=== PATIENT | female | born 1995 | race Caucasian/White ===

== ENCOUNTER 2024-05-08 13:18 | Outpatient (AMB) | payer OTHER, SELFPAY ==
--- NOTE | 2024-05-08 13:19 | MHC.PC.OV ---
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 Required: No Is last menstrual period known: Yes Last menstrual period: 04/17/24 Post menopausal: No Patient : No Allergies amoxicillin Allergy (Severe, Verified 05/08/24 13:45) Anaphylaxis Penicillins Allergy (Severe, Verified 05/08/24 13:45) Anaphylaxis Medication List - Last Reconciled 05/08/24 by Elisha Saunders CNP fluoxetine (Prozac) 40 mg PO DAILY norethindrone ac-eth estradiol 1-20 mg-mcg (Junel) 1 tab PO DAILY Tobacco use date assessed: 05/08/24 Dental Screening Dental Screen Date: 05/08/24 Did you have a dental visit in the last 12 months?: Yes Did you have a dental problem in the last 6 months where you did not have access to dental care?: No Was dental information given to patient?: Patient has dentist HPI HPI Comments History of Present Illness Details 29-year-old female presents to [facility] care. She moved to the area in August 2023. Prior PCP? - [facility], Dr. Mireles Last office visit/CPE/labs - Over a year ago Acute issue(s) - Reports excessive sweating and feeling hot for the past 6-8 months. No palpitations. No weight loss. - Notes burning epigastric pain and associated nausea twice weekly. She takes tums with some relief. - Reports nonbloody diarrhea 4-5 times daily for the past few days. She experiences diarrhea monthly for 2-3 days. She notes that she was diagnosed with IBS by her former PCP. She has never been evaluated by Gastroenterology. - Anxiety and depressive symptoms are generally well controlled on current treatment regimen. Medication - Medication list reviewed Past Medical History - Childhood asthma, acid reflux, hyperlipidemia, IBS, anxiety, depression Surgical History - None Family History - Dad: HTN, depression, anger issues - Mom: Anxiety, depression - MGM: Alcohol abuse, cardiovascular disease, substance abuse, depression - PGF: HTN, hyperlipidemia Social History - Nonsmoker. Does not vape. Drinks 3-5 beer, wine, or mixed drinks on Fridays and Saturdays. Smokes a few hits of cannabis few times weekly. - She general makes healthy dietary choices; however, she has gained 100 lb in the past 2 years. She walks at least twice weekly. Generally sleep well. Health maintenance - Last eye exam was in August 2023: normal. Refer to ophthalmology for routine eye care. - Last dental visit was in January 2024. - Last tetanus vaccine was possibly in August 2023. She will review her health record and update as need. - Up-to-date on the flu vaccine. - Last pap smear test was in December 2022 at [facility]: jannette Patrick - [facility] [place]. [facility] Medical History (Updated 05/08/24 @ 14:26 by Elisha Saunders CNP) Depression Anxiety Acid reflux IBS (irritable bowel syndrome) High cholesterol Asthma Family History (Updated 05/08/24 @ 13:40 by Kiah Housotn) Maternal Grandmother Alcohol abuse Substance abuse FH: mental illness Cardiovascular disease Maternal Uncle Substance abuse FH: mental illness Mother FH: mental illness Father FH: mental illness High blood pressure Paternal Grandfather High blood pressure High cholesterol Social History (Updated 05/08/24 @ 13:39 by Kiah Houston) Housing: House Patient Tobacco Use Status: Never used Tobacco e-Cigarette/Vaping Use: Never Used Second Hand Smoke Exposure: Yes Substance Use Type: Marijuana service: No Current occupational status: employed 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 1. Little interest or pleasure in doing things: several days 2. Feeling down, depressed, or hopeless: several days 3. Trouble falling or staying asleep, or sleeping too much: more than half the days 4. Feeling tired or having little energy: more than half the days 5. Poor appetite or overeating: several days 6. Feeling bad about yourself - or that you are a failure or have let yourself or your family down: several days 7. Trouble concentrating on things, such as reading the newspaper or watching television: several days 8. Moving or speaking so slowly that other people could have noticed. Or the opposite - being so fidgety or restless that you have been moving around a lot more than usual: more than half the days 9. Thoughts that you would be better off or of hurting yourself in some way: not at all Total score: 11 Depression Screening Interpretation: Positive Depression Screening Follow-up: Existing condition Depression Screening Done: Yes 37664 - PHQ-9 Billing: Yes Source: Developed by Drs. Андрей Lawrence, Ny Alcocer, Eliseo Cook and colleagues, with an educational tolu from [employer]. Thrive Questionnaire Date Thrive assessed: 05/08/24 I am a: Patient What is your living situation today?: I have a steady place to live Within the past 12 months, did the food you bought not last and you didn't have the money to get more?: Never true Within the past 12 months, did you worry whether your food would run out before you got money to buy more?: Never true Do you have trouble paying for medicines?: No Do you have trouble getting transportation to medical appointments?: No Do you have trouble paying your heating and electricity bill?: No Do you have trouble taking care of your child, family member or friend?: No Do you have trouble with day-to-day activities such as bathing, preparing meals, shopping, managing finances, etc.?: No Are you currently unemployed and looking for a job?: No Are you interested in more education?: No Please select the resources that you would like help with: None Currently or been in a relationship where the following occur: No concerns reported THRIVE Score: 0 AUDIT C Alcohol Use Questionnaire (AUDIT-C) 1. How often do you have a drink containing alcohol?: 2-3 times a week 2. How many drinks containing alcohol do you have on a typical day when you are drinking?: 5 or 6 3. How often do you have six or more drinks on one occasion?: Monthly Total Score: 7 Score Reviewed/Action Taken: Yes GIAN-7 AMB Questionnaire GIAN-7 Date GIAN - 7 assessed: 05/08/24 Feeling nervous, anxious, or on edge: 2 = More than half the days Not being able to stop or control worryin = Several days Worrying too much about different things: 1 = Several days Trouble relaxin = Several days Being so restless that it is hard to sit still: 2 = More than half the days Becoming easily annoyed or irritable: 1 = Several days Feeling afraid as if something awful might happen: 0 = Not at all Total GIAN-7 score (0-4 normal; 5-9 mild; 10-14 moderate; 15-21 severe): 8 Source: Developed by Drs. Андрей Lawrence, Ny Alcocer, Eliseo Cook and colleagues, with an educational tolu from [employer]. GIAN-7 Assessment Billing GIAN-7 Assessment Tool: GIAN-7 Assessment 10123 ACT Questionnaire In the past 4 weeks, how much of the time did your asthma keep you from getting as much done at work, school or at home?: None of the time During the past 4 weeks, how often have you had shortness of breath?: 1-2 times a week During the past 4 weeks, how often did your asthma symptoms wake you up at night or earlier than usual in the morning?: Not at all During the past 4 weeks, how often have you had to use your rescue inhaler or nebulizer medication?: 1-2 times a week How would you rate your asthma control during the past 4 weeks?: Somewhat controlled ACT Interpretation: Positive Score: 19 Review of Systems Const Details: Denies chills, Denies fatigue, Denies fever(s), Denies headache(s) and Denies weakness HEENT Denies change in vision, Denies dizziness, Denies headache(s), Denies hearing loss, Denies nasal congestion, Denies sinus pain, Denies sinus pressure and Denies sore throat Card Denies chest pain, Denies lightheadedness, Denies dyspnea and Denies other (palpitations) Resp Denies cough, Denies dyspnea and Denies wheezing GI Reports as per HPI Denies hematuria and Denies dysuria Musc Denies abnormal gait, Denies myalgias, Denies arthralgias, Denies numbness and Denies tingling Skin/Breast Denies rash, Denies unusual bruising and Denies wounds Neuro Denies abnormal gait, Denies dizziness, Denies headache(s), Denies memory loss, Denies numbness, Denies Sensory deficit (Neuro), Denies tingling and Denies weakness Psych Denies anxiety, Denies depression and Denies memory loss Endo Denies cold intolerance, Denies fatigue, Reports heat intolerance, Denies polydipsia and Denies polyuria Renny/Lymph Denies easy bleeding and Denies easy bruising Aller/Immun Denies wheezing Physical exam (Primary Care) Vital Signs: Last Vital Signs Temp 97.6 F 05/08/24 13:33 Pulse 93 05/08/24 13:33 Resp 16 05/08/24 13:33 BP 143/79 H 05/08/24 13:33 Pulse Ox 97 05/08/24 13:33 Oxygen Delivery Method Room Air 05/08/24 13:33 BMI result Body Mass Index 39.6 Tobacco/Smoking Status: Tobacco use Status Tobacco use date assessed 05/08/24 05/08/24 13:42 Patient Tobacco Use Status Never used Tobacco 05/08/24 13:42 e-Cigarette/Vaping Use Never Used 05/08/24 13:42 PHQ-9: PHQ-9 Score PHQ-9: Total score 11 05/08/24 13:23 Depression Screening Interpretation: Positive Depression Screening Follow-up: Existing condition Thrive Assessment: Date of Thrive Assessment Date Thrive assessed 05/08/24 05/08/24 13:23 Currently or been in a relationship where the following occur: No concerns reported Const Other: General: no acute distress, well developed, alert and awake Nutritional Appearance: well nourished Orientation/consciousness: patient oriented x3 HENMT Head: Yes normocephalic and Yes atraumatic Ears: hearing grossly normal bilaterally and TM's normal bilaterally General nose exam: Normal external nose present and Normal nares present Mouth: Normal oral and palatal mucosa present and moist mucous membranes Teeth and gingiva: dentition normal Throat: Yes oropharynx normal Eyes Pupils: Equal, round and reactive pupils present and Pupil accommodation reflex normal EOM: EOMs intact bilaterally Neck Neck: Yes normal visual inspection, Yes no lymphadenopathy and Yes trachea midline Thyroid: Thyroid normal Carotids: no bruits Lymphatic: no lymphadenopathy noted Chest Chest palpation & inspection: normal inspection of the chest Resp Effort & Inspection: normal respiratory effort Auscultation: clear to auscultation bilaterally Cardio Rate: regular rate Rhythm: regular rhythm Heart sounds: S1 normal heart sound present, S2 normal heart sound present, no gallops, no murmurs and no rubs Bruits: no abdominal aortic bruits and no carotid bruits GI Palpation (GI): No Abdominal aortic bruit present, Soft to palpation, nontender, No hepatosplenomegaly present and No Rebound tenderness present Auscultation: normal bowel sounds General: Yes no CVA tenderness Back/Spine/Pelvis Back: no CVA tenderness Cervical Spine: cervical ROM normal and No Cervical spine tenderness Thoracic/Lumbar Spine: thoraco-lumbar ROM normal, No pain with thoraco-lumbar ROM, No thoracic spinal tenderness and No lumbar spinal tenderness Skin General: warm and dry. Normal skin color. Normal skin turgor Lesions: no lesions Rashes: no rashes Trauma: no lacerations or abrasions Wounds: no wounds Nails: normal Neuro General: patient oriented x3, gait normal and CN's II-XI intact bilaterally Cranial nerves: Yes Equal, round and reactive pupils present Cognition (Neuro): normal cognition Gait exam (Neuro): Normal gait present Motor exam (neuro): 5/5 motor strength present throughout Sensory Exam: No Sensory deficit (Neuro) Deep tendon reflexes (DTR's): Right patellar reflex intensity grade: 2+ and Left patellar reflex intensity grade: 2+ Extrem General: Yes normal to inspection, No edema and No calf tenderness Psych Appearance: grossly normal Affect: normal affect Attitude: cooperative Thought process: Normal thought process present Coding Level of Care Code New Pt Level 4 (23814) New Pt Prev Care 18-39yr(50318 Diagnoses Normal physical examination, routine Z00.00 Acid reflux K21.9 Diarrhea R19.7 IBS (irritable bowel syndrome) K58.9 Heat intolerance R68.89 Anxiety F41.9 Depression F32.A Eye exam, routine Z01.00 Obesity (BMI 30.0-34.9) E66.811 Laboratory tests ordered as part of a complete physical exam (CPE) Z00.00 Additional Codes GIAN-7 Assessment Billing - GIAN-7 Assessment Tool: GIAN-7 Assessment 35460 ([id number]) PHQ-9 - 31533 - PHQ-9 Billing: Yes ([id number]) Asthma Control Questionnaire - ACT Interpretation: Positive ([id number]) Assessment & Plan Assessment & Plan (1) Normal physical examination, routine: Code(s): Z00.00 - Encounter for general adult medical examination without abnormal findings Category: Medical Plan: No significant functional limitations noted. Encouraged to cut down on drinking alcohol to no more than 1 drink daily and 5 drinks weekly. Verbalized understanding and agreed with the plan. (2) Acid reflux: Code(s): K21.9 - Gastro-esophageal reflux disease without esophagitis Category: Medical Plan: Burning epigastric pain and associated nausea twice weekly. Omeprazole as prescribed. Referred to [facility]. (3) Diarrhea: Code(s): R19.7 - Diarrhea, unspecified Category: Medical Plan: Notes multiple episodes of diarrhea for the past few days. She experiences similar episode was a month. Her former PCP diagnosed her with IBS. She has never been evaluated by Gastroenterology. Advised to take Metamucil was to twice daily as needed. Referred to [facility] [place]. Follow-up with worsening or new symptoms. Verbalized understanding and agreed with treatment plan. (4) IBS (irritable bowel syndrome): Code(s): K58.9 - Irritable bowel syndrome, unspecified Category: Medical Plan: Reports as per [facility]. (5) Heat intolerance: Code(s): R68.89 - Other general symptoms and signs Category: Medical Plan: Excessive sweating and f heat intolerance for the past 6-8 months. No palpitations. No weight loss. Will check labs, including thyroid function, and make changes as needed. Verbalized understanding and agreed with the plan. (6) Anxiety: Code(s): F41.9 - Anxiety disorder, unspecified Category: Medical Plan: Generally controlled. PHQ-9 and GIAN-7 scores revealed moderate depression and mild anxiety respectively. Continue current treatment regimen. Routine exercise encouraged. Follow-up with therapist as planned. Return in 6 weeks or sooner with symptoms or concerns. Verbalized understanding and agreed with treatment plan. (7) Depression: Code(s): F32.A - Depression, unspecified Category: Medical Plan: Plan as above. (8) Eye exam, routine: Code(s): Z01.00 - Encounter for examination of eyes and vision without abnormal findings Category: Medical Plan: She had a normal eye exam in 07/2023. She recently relocated to the area and needs a new cleaner window. Referred to Ophthalmology for routine eye exam. (9) Obesity (BMI 30.0-34.9): Code(s): E66.811 - Obesity, class 1 Category: Medical Plan: She currently weighs 238 lb, BMI is 39.6. She gained 100 lb in the past 2 years. She generally makes healthy dietary choices. She walks at least twice weekly. Healthy diet and routine exercise encouraged. Referred to [facility]. Follow-up as needed. Verbalized understanding and agreed with the plan. (10) Laboratory tests ordered as part of a complete physical exam (CPE): Code(s): Z00.00 - Encounter for general adult medical examination without abnormal findings Category: Medical Plan: Fasting labs ordered as part of a complete physical exam. Advised to fast for at least 10 hours before getting labs drawn. May drink water Verbalized understanding and agreed with treatment plan. Orders: Orders Complete Blood Count Auto Diff Today Z00.00 - Encounter for general adult medical examination without abnormal findings Comprehensive [place]. Panel Fast Today Z00.00 - Encounter for general adult medical examination without abnormal findings UA CC w/rflx Micro + Cult Today Z00.00 - Encounter for general adult medical examination without abnormal findings Lipid Panel Today Z00.00 - Encounter for general adult medical examination without abnormal findings TSH reflex Free T4 Today Z00.00 - Encounter for general adult medical examination without abnormal findings Referrals Gastroenterology Referral K21.9 - Gastro-esophageal reflux disease without esophagitis, K58.9 - Irritable bowel syndrome, unspecified, R19.7 - Diarrhea, unspecified Ophthalmology Referral Z01.00 - Encounter for examination of eyes and vision without abnormal findings Nutrition/Dietitian Referral E66.811 - Obesity, class 1 Medications: New omeprazole 20 mg PO DAILY 30 days 30 caps 3RF
[2024-05-08 13:33] VITALS: BP 143/79; PULSE 93; RESP 16; TEMP 36.4; O2SAT 97; BMI 39.6
[2024-05-08 13:51] VITALS: BP 118/90
== END 2024-05-08 14:15 | disposition home or self-care (01) ==
PROVIDERS: PCP Nurse Practitioner Family; Visit Provider Nurse Practitioner Family
DX: Z00.00 Encounter for general adult medical examination without abnormal findings (principal); K21.9 Gastro-esophageal reflux disease without esophagitis; R19.7 Diarrhea, unspecified; E66.811 Obesity, class 1; Z68.39 Body mass index [BMI] 39.0-39.9, adult; K58.9 Irritable bowel syndrome, unspecified; R68.89 Other general symptoms and signs; F41.9 Anxiety disorder, unspecified; F32.A Depression, unspecified

== ENCOUNTER → 2024-05-08 13:18 | Outpatient (BNVA) | payer OTHER, SELFPAY | PROVIDERS: PCP Nurse Practitioner Family; Visit Provider Nurse Practitioner Family | DX: Z00.00 Encounter for general adult medical examination without abnormal findings (principal); K21.9 Gastro-esophageal reflux disease without esophagitis; K58.0 Irritable bowel syndrome with diarrhea; R68.89 Other general symptoms and signs; F41.9 Anxiety disorder, unspecified; F32.A Depression, unspecified; E66.811 Obesity, class 1; Z68.39 Body mass index [BMI] 39.0-39.9, adult | CPT/HCPCS: 96127; 96160 ==

== ENCOUNTER 2024-05-09 08:07 | Outpatient (REF) | payer OTHER, SELFPAY ==
[2024-05-09 11:08] LABS: MANUAL DIFF FLAG NO
[2024-05-09 11:14] LABS: Basophils Absolute Auto 0.1 X10*3/uL (0.0-0.2); Basophils Percent Auto 0.8 % (0-2); Eosinophils Absolute Auto 0.4 X10*3/uL (0.0-0.4); Eosinophils Percent Auto 4.5 % (0-4); Hematocrit 37.6 % (37.0-47.0); Hemoglobin 12.6 g/dl (12.0-16.0); Imm Gran Abs Auto 0.05 X10*3/uL (0.00-0.03); Imm Gran Pct Auto 0.6 % (0.0-0.4); Lymphocytes Absolute Auto 2.4 X10*3/uL (1.2-4.9); Mean Corpuscular HGB Conc 33.5 g/dl (31.0-35.0); Mean Corpuscular Hemoglobin 29.3 pg (27.0-33.0); Mean Corpuscular Volume 87.4 fL (80.0-98.0); Mean Platelet Volume 9.6 fL (9.4-12.3); Monocytes Absolute Auto 0.5 X10*3/uL (0.1-1.2); Monocytes Percent Auto 6.1 % (2-11); Neutrophils Absolute Auto 5.2 x10*3/uL (2.0-8.3); Platelet Count 346 X10*3/uL (160-400); Red Cell Distribution Width 12.9 % (11.0-16.0); White Blood Count 8.7 X10*3/uL (4.8-10.8)
[2024-05-09 11:18] LABS: Appearance Urine Cloudy; Color Urine Yellow; Glucose Urine UA Negative (Negative); Leukocyte Esterase Urine Large (3+) (Negative); Nitrite Urine Negative (Negative); PH 5.5 (5.0-9.0); Specific Gravity - Urine >= 1.030 (1.005-1.025); UMIC TRIGGER UACC YES; Urine Blood Negative (Negative); Urine Ketones Negative (Negative); Urine Protein Negative (Neg-Trace)
[2024-05-09 11:22] LABS: Bacteria Urine 4+ (None Seen); Hyaline Casts Urine 0-2 /LPF (0-2); RBC Urine 0-2 /HPF (0-2); UACC Culture Trigger YES; WBC Urine >50 /HPF (0-5)
[2024-05-09 11:52] LABS: Alanine Aminotransferase 14 U/L (0-31); Albumin Level 4.2 g/dL (3.5-5.0); Alkaline Phosphatase 80 U/L (39-117); Anion Gap 12 (12-20); Aspartate Amino Transferase 17 U/L (5-31); Bilirubin Total 0.9 mg/dL (0.0-1.0); Blood Urea Nitrogen 14 mg/dL (9-16); Calcium 9.7 mg/dL (8.4-10.2); Carbon Dioxide 24 mmol/L (22-29); Chloride 107 mmol/L (96-108); Cholesterol 202 mg/dL (<200); Estimated Glomerular Filt Rate > 60; Glucose Fasting 91 mg/dL (60-99); HDL Cholesterol 60 mg/dL (>40); LDL Cholesterol Calculated 109 mg/dL (<100); Potassium 4.3 mmol/L (3.3-5.1); Sodium 139 mmol/L (135-145); Total Protein 7.3 g/dL (6.5-8.0); Triglycerides 165 mg/dL (<150)
[2024-05-09 11:56] LABS: TSH reflex Free T4 2.26 uIU/mL (0.32-4.0)
== END 2024-05-09 08:08 | disposition home or self-care (01) ==
LOC: HO.WFDLDS 08:07
PROVIDERS: Visit Provider Nurse Practitioner Family
DX: Z00.00 Encounter for general adult medical examination without abnormal findings (principal); Z13.220 Encounter for screening for lipoid disorders; Z13.29 Encounter for screening for other suspected endocrine disorder
CPT/HCPCS: 36415; 80053; 80061; 81001; 84443; 85025; 87086

== ENCOUNTER 2024-06-19 10:37 | Outpatient (AMB) | payer OTHER, SELFPAY ==
--- NOTE | 2024-06-19 10:39 | MHC.PC.OV ---
Vital Signs 06/19/24 10:46 Height 5 ft 5 in Weight 239 lb 2 oz BMI 39.8 BP 126/64 Blood Pressure Location Rt brachial Position Sitting Respiration 16 Pulse 80 Pulse Source Pulse Oximeter Temp 97.8 F Temp Source Oral Pulse Oximetry (%) 98 Oxygen Delivery Method Room Air Intake Visit Reasons: excessive sweating, anxiety, depression,labs Intake Note: patient here c/o excessive sweating, anxiety, depression, and labs Logistics Lead Required: No Is last menstrual period known: Yes Last menstrual period: 06/12/24 Post menopausal: No Patient : No Allergies amoxicillin Allergy (Severe, Verified 06/19/24 11:08) Anaphylaxis Penicillins Allergy (Severe, Verified 06/19/24 11:08) Anaphylaxis Medication List - Last Reconciled 06/19/24 by Elisha Saunders CNP fluoxetine (Prozac) 40 mg PO DAILY norethindrone ac-eth estradiol 1-20 mg-mcg (Junel) 1 tab PO DAILY omeprazole 20 mg PO DAILY 30 days Tobacco use date assessed: 06/19/24 Dental Screening Dental Screen Date: 06/19/24 Did you have a dental visit in the last 12 months?: Yes Did you have a dental problem in the last 6 months where you did not have access to dental care?: No Was dental information given to patient?: Patient has dentist HPI HPI Comments History of Present Illness Details 29-year-old female presents for excessive sweating, anxiety, depression, and recent lab reviews follow-up. She admits to taking her medications as prescribed without adverse reactions. She reports intermittent excessive sweating and heat intolerance for the past 6-8 months. She reports controlled anxiety and depressive symptoms. [facility] Medical History (Updated 06/19/24 @ 11:12 by Elisha Saunders CNP) Depression Anxiety Acid reflux IBS (irritable bowel syndrome) High cholesterol Asthma Family History (Updated 05/08/24 @ 13:40 by Kiah Houston) Maternal Grandmother Alcohol abuse Substance abuse FH: mental illness Cardiovascular disease Maternal Uncle Substance abuse FH: mental illness Mother FH: mental illness Father FH: mental illness High blood pressure Paternal Grandfather High blood pressure High cholesterol Social History (Updated 05/08/24 @ 13:39 by Kiah Houston) Housing: House Patient Tobacco Use Status: Never used Tobacco e-Cigarette/Vaping Use: Never Used Second Hand Smoke Exposure: Yes Substance Use Type: Marijuana service: No Current occupational status: employed 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 1. Little interest or pleasure in doing things: not at all 2. Feeling down, depressed, or hopeless: several days 3. Trouble falling or staying asleep, or sleeping too much: more than half the days 4. Feeling tired or having little energy: several days 5. Poor appetite or overeating: several days 6. Feeling bad about yourself - or that you are a failure or have let yourself or your family down: not at all 7. Trouble concentrating on things, such as reading the newspaper or watching television: not at all 8. Moving or speaking so slowly that other people could have noticed. Or the opposite - being so fidgety or restless that you have been moving around a lot more than usual: more than half the days 9. Thoughts that you would be better off or of hurting yourself in some way: not at all Total score: 7 Depression Screening Interpretation: Positive Depression Screening Follow-up: Existing condition and In treatment Depression Screening Done: Yes 73935 - PHQ-9 Billing: Yes Source: Developed by Drs. Андрей Lawrence, Ny Alcocer, Eliseo Cook and colleagues, with an educational tolu from [employer]. Thrive Questionnaire Date Thrive assessed: 06/19/24 I am a: Patient What is your living situation today?: I have a steady place to live Within the past 12 months, did the food you bought not last and you didn't have the money to get more?: Never true Within the past 12 months, did you worry whether your food would run out before you got money to buy more?: Never true Do you have trouble paying for medicines?: No Do you have trouble getting transportation to medical appointments?: No Do you have trouble paying your heating and electricity bill?: No Do you have trouble taking care of your child, family member or friend?: No Do you have trouble with day-to-day activities such as bathing, preparing meals, shopping, managing finances, etc.?: No Are you currently unemployed and looking for a job?: No Are you interested in more education?: No Please select the resources that you would like help with: None Currently or been in a relationship where the following occur: No concerns reported THRIVE Score: 0 AUDIT C Alcohol Use Questionnaire (AUDIT-C) 1. How often do you have a drink containing alcohol?: 2-3 times a week 2. How many drinks containing alcohol do you have on a typical day when you are drinking?: 3 or 4 3. How often do you have six or more drinks on one occasion?: Monthly Total Score: 6 Score Reviewed/Action Taken: Yes GIAN-7 AMB Questionnaire GIAN-7 Date GIAN - 7 assessed: 06/19/24 Feeling nervous, anxious, or on edge: 1 = Several days Not being able to stop or control worryin = Several days Worrying too much about different things: 1 = Several days Trouble relaxin = Several days Being so restless that it is hard to sit still: 2 = More than half the days Becoming easily annoyed or irritable: 1 = Several days Feeling afraid as if something awful might happen: 0 = Not at all Total GIAN-7 score (0-4 normal; 5-9 mild; 10-14 moderate; 15-21 severe): 7 Source: Developed by Drs. Андрей Lawrence, Ny Alcocer, Eliseo Cook and colleagues, with an educational tolu from [employer]. GIAN-7 Assessment Billing GIAN-7 Assessment Tool: GIAN-7 Assessment 25773 ACT Questionnaire In the past 4 weeks, how much of the time did your asthma keep you from getting as much done at work, school or at home?: A little of the time During the past 4 weeks, how often have you had shortness of breath?: 3-6 times a week During the past 4 weeks, how often did your asthma symptoms wake you up at night or earlier than usual in the morning?: Once a week During the past 4 weeks, how often have you had to use your rescue inhaler or nebulizer medication?: Once a week or less How would you rate your asthma control during the past 4 weeks?: Somewhat controlled Score: 17 Review of Systems Const Details: Const Denies chills, Denies fatigue, Denies fever(s), Denies headache(s) and Denies weakness ENT Denies dizziness and Denies headache(s) Card Denies chest pain, Denies lightheadedness, Denies dyspnea and Denies other (Palpitations) Resp Denies cough, Denies dyspnea, Denies wheezing and Denies other ( shortness of breath) GI Denies abdominal pain, Denies melena, Denies hematochezia, Denies change in bowel habits, Denies dyspepsia and Denies nausea Denies hematuria and Denies dysuria Musc Denies abnormal gait, Denies myalgias, Denies arthralgias, Denies numbness and Denies tingling Skin/Breast Denies rash, Denies unusual bruising and Denies wounds Neuro Denies abnormal gait, Denies dizziness, Denies headache(s), Denies memory loss, Denies numbness, Denies Sensory deficit (Neuro), Denies tingling and Denies weakness Psych Denies anxiety, Denies depression, Denies memory loss Endo REports heat intolerance, Denies cold intolerance, Denies fatigue, Denies heat intolerance, Denies polydipsia and Denies polyuria Aller/Immun Denies wheezing Physical exam (Primary Care) Vital Signs: Last Vital Signs Temp 97.8 F 06/19/24 10:46 Pulse 80 06/19/24 10:46 Resp 16 06/19/24 10:46 BP 126/64 06/19/24 10:46 Pulse Ox 98 06/19/24 10:46 Oxygen Delivery Method Room Air 06/19/24 10:46 BMI result Body Mass Index 39.8 Tobacco/Smoking Status: Tobacco use Status Tobacco use date assessed 06/19/24 06/19/24 10:45 Patient Tobacco Use Status Never used Tobacco 06/19/24 10:43 e-Cigarette/Vaping Use Never Used 06/19/24 10:43 PHQ-9: PHQ-9 Score PHQ-9: Total score 7 06/19/24 11:40 Depression Screening Interpretation: Positive Depression Screening Follow-up: Existing condition and In treatment Thrive Assessment: Date of Thrive Assessment Date Thrive assessed 06/19/24 06/19/24 10:43 Currently or been in a relationship where the following occur: No concerns reported Coding Level of Care Code Est Pt Level 4 (63908) Diagnoses Excessive sweating R61 Heat intolerance R68.89 Anxiety F41.9 Depression F32.A Hyperlipidemia E78.5 Additional Codes GIAN-7 Assessment Billing - GIAN-7 Assessment Tool: GIAN-7 Assessment 22058 ([id number]) PHQ-9 - 25052 - PHQ-9 Billing: Yes ([id number]) Assessment & Plan Assessment & Plan (1) Excessive sweating: Code(s): R61 - Generalized hyperhidrosis Category: Medical Plan: Intermittent excessive sweating and heat intolerance with a past 6-8 months. Recent CBC, CMP, and TSH unremarkable. Will check uric acid and T spot and make changes as needed. Follow-up with worsening or new symptoms. May referred to endocrinology. Verbalized understanding and agreed with the plan. (2) Heat intolerance: Code(s): R68.89 - Other general symptoms and signs Category: Medical Plan: Plan as above. (3) Anxiety: Code(s): F41.9 - Anxiety disorder, unspecified Category: Medical Plan: Controlled anxiety and depressive symptoms. Continue current treatment regimen. Follow-up with worsening or new symptoms. Verbalized understanding and agreed with the plan. (4) Depression: Code(s): F32.A - Depression, unspecified Category: Medical Plan: Plan as above. (5) Hyperlipidemia: Code(s): E78.5 - Hyperlipidemia, unspecified Category: Medical Plan: Recent triglycerides, total cholesterol, and LDL levels are slightly elevated, 165, 202, and 109 respectively. Advised to limit foods high in saturated fat and avoid foods high in trans fat. Routine exercise encouraged. Advised to fast for 10-12 hours, may drink water, and perform blood work 2-3 days before next visit. Follow-up for a telehealth visit in 2 months. Verbalized understanding and agreed with treatment plan. Orders: Orders T Spot TB Today R61 - Generalized hyperhidrosis, R68.89 - Other general symptoms and signs Lipid Panel 2 Months E78.5 - Hyperlipidemia, unspecified Uric Acid Today R61 - Generalized hyperhidrosis, R68.89 - Other general symptoms and signs
[2024-06-19 10:46] VITALS: BP 126/64; PULSE 80; RESP 16; TEMP 36.6; O2SAT 98; BMI 39.8
--- OUTSIDE RECORDS SUMMARY | 2024-06-19 11:39 | XMS_ITS | Encounter Summary ---
Author Organization [facility] Address [address] [place] [address] Care Team Providers Care Push Button Switch Assembler Name Role Phone Marc Quesada MD Primary Care Provider [phone] Reason for Visit * Reason Comments E-prescribing Refill Request Encounter Details Date Type Department Care Team (Late st Contact Info) Description 06/22/2020 Refill [facility] [address] [place] [phone] Marc Quesada MD [address] [place] [phone] E-prescribing Refill Request Social History Tobacco Use Types Packs/Day Years Used Date Smoking Tobacco: Never Smokeless Tobacco: Never Alcohol Use Standard Drinks/Week Comments Yes 0 (1 standard drink = 0.6 oz pur e alcohol) occasionally PHQ-2 Answer Date Recorded PHQ-2 Score 4 03/16/2019 Comments No Sex and Gender Information Value Date Recorded Sex Assigned at Female 03/14/2019 10:33 AM EST Legal Sex Female 1:41 AM EDT Gender Identity Female 03/14/2019 10:33 AM EST Sexual Orientation Straight 03/14/2019 10 :33 AM EST 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 No / Unsure 06/06/2020 3:00 PM EST documented as of this encounter Miscellaneous Notes * Telephone Encounter - Josselin Knapp - 06/23/2020 8:28 AM EST Any special requests or concerns? 1 month pended and no refills letter sent for an appointment. Faxed/E-prescribed medication renewal request(s) for Radha Ladd 25 y.o. female received from pharmacy. Verified and Confirmed pharmacy for patient. Last CPE with this specialty: 04/21/2017 Last OV with this specialty: 03/16/2019 Next OV: No future appointments. Pertinent lab results: No labs suggested for any medication orders signed or pended in this encounter. Refresh if any orders changed. Because this patient has not had an appointment in this department specialty in the last year and does not have one scheduled in the next 30 days , limit prescription refills to a one month supply pending provider review and/or appointment scheduling. Allergies: Amoxicillin, Cat, Dog, Dust mite extract, Mold, Nuts, Peanuts, and Shellfish allergy BP Readings from Last 1 Encounters: 06/20/18 108/72 Patient Active Problem List Diagnosis Date Noted ??? Mood disorder (HCC) 03/16/2019 ??? Asthma, intrinsic 06/20/2018 ??? Food allergy 02/13/2013 Allergy to peanuts as well as to nuts. ??? Routine health maintenance 01/08/2011 ??? Allergic rhinitis 01/08/2011 Symptoms have just been in the spring. , Current Outpatient Medications on File Prior to Visit Medication Sig Dispense Refill ??? Escitalopram Oxalate (LEXAPRO) 10 MG tablet TAKE 1 TABLET BY MOUTH EVERY MORNING 30 tablet 0 ??? Norethindrone Acet-Ethinyl Est (05/21) 1-20 MG-MCG per tablet Take one tablet by mouth 1 (one) time each day 90 tablet 3 ??? EPINEPHrine (EpiPen 2-Miguel) 0.3 MG/0.3ML injection syringe Inject 0.3 mL (0.3 mg total) under the skin - USE DIRECTED FOR ALLERGIC REACTION AND THEN CALL 911 1 Syringe 1 ??? ALBUTEROL SULFATE (PROAIR HFA) 108 (90 BASE) MCG/ACT Aero Soln Inhale 2 puffs every 4-6 hours as needed for wheezing or shortness of breath 1 Inhaler 0 * Telephone Encounter - Berkley Duarte - 06/23/2020 8:27 AM EST Any special requests or concerns? 1 MONTH REFILL LETTER MAILED TO PT NEEDS [facility] 25 [facility].o. female calling with request to renew medication(s). When do you need the medication? by end of the day Last CPE with this specialty: 04/21/2017 Last OV with this specialty: 03/16/2019 Next OV: No future appointments. Unable to confirm pharmacy with pt, most recent pharmacy on file was used. Pertinent lab results: No labs suggested for any medication orders signed or pended in this encounter. Refresh if any orders changed. Because this patient has not had an appointment in this department specialty in the last year and does not have one scheduled in the next 30 days , limit prescription refills to a one month supply pending provider review and/or appointment scheduling. Allergies: Amoxicillin, Cat, Dog, Dust mite extract, Mold, Nuts, Peanuts, and Shellfish allergy Pended medication order(s) and sent to provider. Patient expects medication renewal unless notifiedby this office. BP Readings from Last 1 Encounters: 06/20/18 108/72 Patient Active Problem List Diagnosis Date Noted ??? Mood disorder (HCC) 03/16/2019 ??? Asthma, intrinsic 06/20/2018 ??? Food allergy 02/13/2013 Allergy to peanuts as well as to nuts. ??? Routine health maintenance 01/08/2011 ??? Allergic rhinitis 01/08/2011 Symptoms have just been in the spring. , Current Outpatient Medications on File Prior to Visit Medication Sig Dispense Refill ??? Escitalopram Oxalate (LEXAPRO) 10 MG tablet TAKE 1 TABLET BY MOUTH EVERY MORNING 30 tablet 0 ??? Norethindrone Acet-Ethinyl Est (Junel 05/21) 1-20 MG-MCG per tablet Take one tablet by mouth 1 (one) time each day 90 tablet 3 ??? EPINEPHrine (EpiPen 2-Miguel) 0.3 MG/0.3ML injection syringe Inject 0.3 mL (0.3 mg total) under the skin - USE DIRECTED FOR ALLERGIC REACTION AND THEN CALL 911 1 Syringe 1 ??? ALBUTEROL SULFATE (PROAIR HFA) 108 (90 BASE) MCG/ACT Aero Soln Inhale 2 puffs every 4-6 hours as needed for wheezing or shortness of breath 1 Inhaler 0 documented in this encounter Plan of Treatment Not on file documented as of this encounter Visit Diagnoses Not on filedocumented in this encounter Care Teams Push Button Switch Assembler Relationship Specialty Start Date End Date Marc Quesada MD [address] [place] [address] PCP - General 07/31/17 01/31/22 documented as of this encounter
--- OUTSIDE RECORDS SUMMARY | 2024-06-19 11:39 | XMS_ITS | Encounter Summary ---
Author Organization [facility] Address [address] [place] [address] Care Team Providers Care Engineering Executive Name Role Phone Marc Quesada MD Primary Care Provider [phone] Encounter Details Date Type Department Care Team (Late st Contact Info) Description 07/15/2020 Orders Only [facility] [address] [place] [address] Marc Quesada MD [address] [place] [address] Social History Tobacco Use Types Packs/Day Years Used Date Smoking Tobacco: Never Smokeless Tobacco: Never Alcohol Use Standard Drinks/Week Comments Yes 0 (1 standard drink = 0.6 oz pur e alcohol) occasionally PHQ-2 Answer Date Recorded PHQ-2 Score 3 07/15/2020 Comments No Sex and Gender Information Value [...] have Coronavirus / COVID-19? No / Unsure 07/15/2020 3:23 PM EDT documented as of this encounter Miscellaneous Notes * Result Encounter Note - Sylvain, Matt D, MD - 07/15/2020 5:15 PM EDT Pap test and cultures are normal. documented in this encounter Plan of Treatment Not on file documented as of this encounter Procedures * Due to [facility] law, this organization might not be sharing negative HIV tests. Procedure Name Priority Date/Time Associated Diagnosis Comments THINPREP TIS PAP REFLEX HPV MRNA E6/E7, CHLAMYDIA/N.GONORRH OEAE Routine 07/15/2020 5:15 PM EDT Screening for malignant neoplasm of cervix documented in this encounter Results * Due to [facility] law, this organization might not be sharing negative HIV tests. * THINPREP TIS PAP REFLEX HPV MRNA E6/E7, CHLAMYDIA/N.GONORRHOEAE (07/15/2020 5:15 PM EDT) Clinical information MEDICATION [facility] Date last menstrual period 07/01/2020 MEDICATION [facility] Date of previous PAP smear NONE GIVEN [facility] Date of previous biopsy NONE GIVEN [facility] Specimen source (Cvx/Vag) Cervix [facility] Statement of Adequacy (Cvx/Vag) Satisfactory for evaluation. Endocervical/foster sformation zone component present. [facility] Cytology, Pap Smear Negative for intraepithelial lesion or malignancy. [facility] Cytology study comment (Cvx/Vag) This Pap test has been evaluated with computer assisted technology. [facility] Rn Operating Room (Cvx/Vag) MSM, CT(ASCP) CT screening location: [address] [address] [facility] COMMENT SEE NOTE [facility] Comment: EXPLANATORY NOTE: The Pap is a screening test for cervical cancer. It is not a diagnostic test and is subject to false negative and false positive results. It is most reliable when a satisfactory sample, regularly obtained, is submitted with relevant clinical findings and history, and when the Pap result is evaluated along with historic and current clinical information. Chlamydia trachomatis rRNA NOT DETECTED NOT DETECTED [facility] Neisseria Gonorrhoeae rRNA NOT DETECTED NOT DETECTED [facility] COMMENT SEE NOTE [facility] Comment: The analytical performance characteristics of this assay, when used to test SurePath(TM) specimens have been determined by [employer]. The modifications have not been cleared or approved by the FDA. This assay has been validated pursuant to the CLIA regulations and is used for clinical purposes. For additional information, please refer to https://education.Fangdd/faq/DXG776 (This link is being provided for information/ educational purposes only.) Cervical 07/15/2020 5:15 PM EDT 07/16/2020 6:41 AM EDT Narrative Resulting Agency Comment [id number] us Marc Quesada MD PATHOLOGY-INTERFACED Final Resu lt [facility] [address] [place] [address] documented in this encounter Visit Diagnoses Diagnosis Screening for malignant neoplasm of cervix Screening for malignant neoplasm of the cervix documented in this encounter Care Teams Engineering Executive Relationship Specialty Start Date End Date Marc Quesada MD [address] [place] [id number] PCP - General 07/31/17 01/31/22 documented as of this encounter
--- OUTSIDE RECORDS SUMMARY | 2024-06-19 11:39 | XMS_ITS | Encounter Summary ---
Author Organization [facility] Address [address] [place] [address] Care Team Providers Care Aircraft Engineer Name Role Phone Андрей Brandt MD Primary Care Provider [phone] Diana Gutierres MD Primary Care Provider [phone] Marc Quesada MD Primary Care Provider Encounter Details Date Type Department Care Team (Late st Contact Info) Description 05/17/2014 Orders Only [facility] [address] [place] [id number] Diana Gutierres MD [address] [place] [address] Medications Social History Tobacco Use Types Packs/Day Years Used Date Smoking Tobacco: Never Assessed Comments No Sex and Gender Information Value Date Recorded Sex Assigned at Female 03/14/2019 10:33 AM EST Legal Sex Female 1:41 AM EDT Gender Identity Female 03/14/2019 10:33 AM EST Sexual Orientation Straight 03/14/2019 10 :33 AM EST Occupation Industry Job Start 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 Procedure Name Priority Date/Time Associated Diagnosis Comments STREPTOCOCCUS, GROUP A CULTURE Routine 05/17/2014 4:50 PM EST Sore throat documented in this encounter Results * Due to [place] state law, this organization might not be sharing negative HIV tests. * STREPTOCOCCUS, GROUP A CULTURE (05/17/2014 4:50 PM EST) Culture, Streptococci Group A, Throat SEE NOTE [facility] Comment: {STREPTOCOCCUS, GROUP A CULTURE {[id number]) ??STREPTOCOCCUS, GROUP A CULTURE ??MICRO NUMBER: ?[id number] ??TEST STATUS: ? FINAL ??SPECIMEN SOURCE: ?? THROAT ??SPECIMEN QUALITY: ??ADEQUATE ??RESULT: ?No beta hemolytic Streptococci isolated 05/17/2014 4:50 PM EST 05/17/2014 9:49 PM EST Narrative Resulting Agency Comment [id number] Diana Gutierres MD LABORATORY Final Result Performing Organization Address City/State/[facility] Co de Phone Number [facility] [address] [place] [address] documented in this encounter Visit Diagnoses Diagnosis Sore throat- Primary Acute pharyngitis documented in this encounter Additional Health Concerns Infection Onset Date Last Indicated Resolved Time COVID-19 Rule-Out 06/06/2020 06/06/2020 06/07/2020 11:13 AM EST documented as of this encounter Care Teams Aircraft Engineer Relationship Specialty Start Date End Date Андрей Brandt MD [address] [place] [id number] PCP - General 12/14/10 02/02/15 Diana Gutierres MD [address] [place] [id number] PCP - General Pediatrics 02/03/15 07/30/17 Marc Quesada MD [address] [place] [address] PCP - General 07/31/17 01/31/22 documented as of this encounter
--- OUTSIDE RECORDS SUMMARY | 2024-06-19 11:39 | XMS_ITS | Encounter Summary ---
Author Organization [facility] Address [address] [place] [address] Care Team Providers Care Head Of Research & Insights Name Role Phone Андрей Brandt MD Primary Care Provider [phone] Diana Gutierres MD Primary Care Provider [phone] Marc Quesada MD Primary Care Provider Encounter Details Date Type Department Care Team (Late st Contact Info) Description 01/12/2012 Orders Only [facility] [address] [place] [address] Андрей Brandt MD [address] [place] [address] Social History Tobacco Use Types Packs/Day Years Used Date Smoking Tobacco: Never Assessed Comments Unknown Sex and Gender Information Value Date Recorded Sex Assigned at Female 03/14/2019 10:33 AM EST Legal Sex Female 1:41 AM EDT Gender Identity Female 03/14/2019 10:33 AM EST Sexual Orientation Straight 03/14/2019 10 :33 AM EST 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 Will send letter. documented in this encounter Plan of Treatment Not on file documented as of this encounter Procedures * Due to [place] Yatedo law, this organization might not be sharing negative HIV tests. Procedure Name Priority Date/Time Associated Diagnosis Comments NUT ALLERGY PANEL Routine 01/12/2012 2:3 7 PM EDT Food allergy CBC (H/H, RBC, INDICES,WBC, PLT) Routine 01/12/2012 2:37 PM EDT Screening for other and unspecified deficiency anemia documented in this encounter Results * Due to [place] Yated[place] law, this organization might not be sharing negative HIV tests. * (ABNORMAL) NUT ALLERGY PANEL (01/12/2012 2:37 PM EDT) Cashew Nut (F202) IgE 2.88(H) kU/L [facility] Comment:{CASHEW NUT (F202) I GE {[id number]) Cashew Nut (F202) Class 2 [facility] Comment: {CLASS {[id number]) Specific ?Level of Allergen IGE Class ?kU/L ? Specific IGE Antibody ----- ? --------- ? 0 ?<0.35 ? Absent/Undetectable 1 ?0.35-0.70 ? Low Level 2 ?0.71-3.50 ? Moderate Level 3 ?3.51-17.5 ? High Level 4 ?17.6-50 ? Very High Level 5 ?51-100 ?Very High Level 6 ?>100 ?Very High Level Allergens denoted with a include results using one or more analyte specific reagents. In those cases, the test was developed and its performance characteristics determined by [facility]. It has not been cleared or approved by the U.S. Food and Drug Administration. The FDA has determined that such clearance is not necessary. Performance characteristics refer to the analytical performance of the test. Sesame Seed (F10) IgE 0.42(H) kU/L [facility] Comment:{SESAME SEED (F10) I GE {[id number]) Sesame Seed (F10) Class 1 [facility] Comment:{CLASS {[id number]) Peanut (F13) IgE 17.50(H) kU/L [facility] Comment:{PEANUT (F13) IGE {[id number]) Peanut (F13) Class 4 [facility] Comment:{CLASS {[id number]) Hazelnut (F17) IgE 0.62(H) kU/L [facility] Comment:{HAZELNUT (F17) IGE {[id number]) Hazelnut (F17) Class 1 [facility] Comment:{CLASS {[id number]) [place] (F20) IgE 0.75(H) kU/L [facility] Comment:{ALMOND (F20) IGE {[id number]) [place] (F20) Class 2 [facility] Comment:{CLASS {[id number]) Coconut (F36) IgE <0.35 kU/L [facility] Comment:{COCONUT (F36) IGE { [id number]) Coconut (F36) Class 0 [facility] Comment:{CLASS {[id number]) Pecan Nut (F201) IgE <0.35 kU/L [facility] Comment:{PECAN NUT (F201) IG E {[id number]) Pecan Nut (F201) Class 0 [facility] Comment:{CLASS {[id number]) [place] (F256) IgE <0.35 kU/L [facility] Comment:{WALNUT (F256) IGE { [id number]) [place] (F256) Class 0 [facility] Comment:{CLASS {[id number]) 01/12/2012 2:37 PM EDT 01/12/2012 10:03 PM EDT Narrative Resulting Agency Comment [id number] us Андрей Brandt MD LABORATORY Final Result [facility] [address] [place] [address] * CBC (H/H, RBC, INDICES,WBC, PLT) (01/12/2012 2:37 PM EDT) WBC 6.8 4.5 - 13.0 Thousand/u L [facility] Comment:{WHITE BLOOD CELL CO UNT {[id number]) RBC 4.20 3.80 - 5.10 Million/uL [facility] Comment:{RED BLOOD CELL COUN T {[id number]) Hemoglobin 12.8 11.5 - 15.3 g/dL [facility] Comment:{HEMOGLOBIN {[id number]) Hematocrit 37.6 34.0 - 46.0 % [facility] Comment:{HEMATOCRIT {[id number]) MCV 89.6 78.0 - 98.0 fL [facility] Comment:{MCV {[id number]) MCH 30.4 25.0 - 35.0 pg [facility] Comment:{MCH {[id number]) MCHC 33.9 31.0 - 36.0 g/dL [facility] Comment:{MCHC {[id number]) RDW 13.1 11.0 - 15.0 % [facility] Comment:{RDW {[id number]) PLT 279 140 - 400 Thousand/u L [facility] Comment:{PLATELET COUNT {[id number]) 01/12/2012 2:37 PM EDT 01/12/2012 10:03 PM EDT Narrative Resulting Agency Comment [id number] us Андрей Brandt MD LAB SAME DAY RESULT Final Res ult [facility] [address] [place] [address] documented in this encounter Visit Diagnoses Diagnosis Screening for other and unspecified deficiency anemia Food allergy Other adverse food reactions, not elsewhere classified documented in this encounter Additional Health Concerns Infection Onset Date Last Indicated Resolved Time COVID-19 Rule-Out 06/06/2020 06/06/2020 06/07/2020 11:13 AM EST documented as of this encounter Care Teams Head Of Research & Insights Relationship Specialty Start Date End Date Андрей Brandt MD [address] [place] [id number] PCP - General 12/14/10 02/02/15 Diana Gutierres MD [address] [place] [address] PCP - General Pediatrics 02/03/15 07/30/17 Marc Quesada MD [address] [place] [address] PCP - General 07/31/17 01/31/22 documented as of this encounter
--- OUTSIDE RECORDS SUMMARY | 2024-06-19 11:40 | XMS_ITS | Encounter Summary ---
Author Organization [facility] Address [address] [place] [address] Care Team Providers Care Furnace Liner Name Role Phone Diana Gutierres MD Primary Care Provider [phone] Marc Quesada MD Primary Care Provider [phone] Encounter Details Date Type Department Care Team (Late st Contact Info) Description 06/16/2017 Orders Only [facility] [address] [place] [phone] Diana Gutierres MD [address] [place] [address] Social History Tobacco Use Types Packs/Day Years [...] as of this encounter Progress Notes * Radha Kelley NP - 06/20/2017 8:50 AM EST Strep negative but confirmed +strep at health center- currently on clindamycin per TM 06/17. * Diana Gutierres MD - 06/17/2017 4:20 PM EST Please let mom know Pt has mono Complete antibiotic for + strep ( confirmed at health center) Can stop prednisone tomorrow lft's slightly elevated from mono Pt should avoid contact sports x 1 month documented in this encounter Plan of Treatment Not on file documented as of this encounter Procedures * Due to [place] state law, this organization might not be sharing negative HIV tests. Procedure Name Priority Date/Time Associated Diagnosis Comments STREPTOCOCCUS, GROUP A CULTURE Routine 06/16/2017 3:51 PM EST Sore throat SHIRIN-MESSINA VIRUS PANEL COMPREHENSIVE Routine 06/16/2017 2:50 PM EST Sore throat CBC INCLUDES DIFFERENTIAL AND PLATELET COUNT Same Day Results 06/16/2017 2:50 PM EST Sore throat HEPATIC FUNCTION PANEL (ALT,AST,ALK PH,BILI'S,TP,ALB) Routine 06/16/2017 2:50 PM EST Sore throat documented in this encounter Results * Due to [place] Med[place] law, this organization might not be sharing negative HIV tests. * STREPTOCOCCUS, GROUP A CULTURE (06/16/2017 3:51 PM EST) Culture, Streptococci Group A, Throat SEE NOTE [facility] Comment: ??STREPTOCOCCUS, GROUP A CULTURE ??MICRO NUMBER: ?[id number] ??TEST STATUS: ? FINAL ??SPECIMEN SOURCE: ?? NOT GIVEN ??SPECIMEN QUALITY: ??ADEQUATE ??RESULT: ?No group A Streptococcus isolated 06/16/2017 3:51 PM EST 06/16/2017 8:49 PM EST Narrative Resulting Agency Comment [id number] Diana Gutierres MD LABORATORY Final Result Performing Organization Address City/State/[facility] Co de Phone Number [facility] [address] [place] [address] * (ABNORMAL) HEPATIC FUNCTION PANEL (ALT,AST,ALK PH,BILI'S,TP,ALB) (06/16/2017 2:50 PM EST) Pathologist [facility] Protein Total (Serum) 7.2 6.1 - 8.1 g/dL [facility] Albumin 4.0 3.6 - 5.1 g/dL [facility] Globulin 3.2 1.9 - 3.7 g/dL (calc) [facility] Albumin/Globulin 1.3 1.0 - 2.5 (calc) [facility] Bilirubin Total 1.1 0.2 - 1.2 mg/dL [facility] Bilirubin Direct 0.3(H) < OR = 0.2 mg/dL [facility] Bilirubin Indirect 0.8 0.2 - 1.2 mg/dL (calc) [facility] Alkaline phosphatase 205(H) 33 - 115 U/L [facility] AST (SGOT) 73(H) 10 - 30 U/L [facility] ALT (SGPT) 106(H) 6 - 29 U/L [facility] 06/16/2017 2:50 PM EST 06/16/2017 4:25 PM EST Narrative Resulting Agency Comment [id number] us Diana Gutierres MD LABORATORY Final Result Performing Organization Address City/State/[facility] Co de Phone Number [facility] [address] [place] [address] * (ABNORMAL) CBC INCLUDES DIFFERENTIAL AND PLATELET COUNT (06/16/2017 2:50 PM EST) [facility] WBC 10.1 3.8 - 10.8 Thousand/ uL [facility] RBC 4.11 3.80 - 5.10 Million/u L [facility] Hemoglobin 12.3 11.7 - 15.5 g/dL [facility] Hematocrit 35.6 35.0 - 45.0 % [facility] MCV 86.8 80.0 - 100.0 fL [facility] MCH 30.1 27.0 - 33.0 pg [facility] MCHC 34.7 32.0 - 36.0 g/dL [facility] RDW 12.9 11.0 - 15.0 % [facility] PLT 231 140 - 400 Thousand/ uL [facility] MPV 8.9 7.5 - 12.5 fL [facility] Neutrophils # 5151 1500 - 7800 cells/uL [facility] Bands # 101 0 - 750 cells/uL [facility] Lymphocytes 4020(H) 850 - 3900 cells/uL [facility] Lymphocytes.jannie iant 212(H) 0 cells/uL [facility] Monocytes # 616 200 - 950 cells/uL [facility] Eosinophils # 0(L) 15 - 500 cells/uL [facility] Basophils # 0 0 - 200 cells/uL [facility] Neutrophils % 51.0 % [facility] Band Neutrophils % 1.0 % [facility] Lymphocytes % 39.8 % [facility] Atypical Lymphocytes % 2.1 0 - 10 % [facility] Monocytes % 6.1 % [facility] Eosinophils % 0 % [facility] Basophils % 0 % [facility] NOTE See Below [facility] Comment: Although an automated CBC was ordered, our instrumentation detected an abnormality on your patient's specimen requiring us to perform a manual review. 06/16/2017 2:50 PM EST 06/16/2017 4:25 PM EST Narrative Resulting Agency Comment [id number] us Diana Gutierres MD LAB SAME DAY RESULT Final Resu lt Performing Organization Address City/State/[facility] Co de Phone Number [facility] [address] [place] [address] * (ABNORMAL) SHIRIN-MESSINA VIRUS PANEL COMPREHENSIVE (06/16/2017 2:50 PM EST) Shirin Messina virus early diffuse Ab.IgG 22.80(H) U/mL [facility] Comment: ? U/mL ? Interpretation ? ---- ? <9.00 ?Negative ? 9.00-10.99 ? Equivocal ? >10.99 ? Positive The potential exists for cross-reactivity with HIV (Human Immunodeficiency Virus) which could cause a false positive EBV-EA result. Shirin Messina virus capsid Ab.IgM >160.00(H ) U/mL [facility] Comment: ?U/mL ?Interpretation ?---- ?<36.00 ?Negative ?36.00-43.99 ? Equivocal ?>43.99 ?Positive Shirin Mess[place] virus capsid Ab.IgG 61.10(H) U/mL [facility] Comment: ? U/mL ? Interpretation ? ---- ? <18.00 ? Negative ? 18.00-21.99 ?Equivocal ? >21.99 ? Positive Shirin Mess[place] virus nuclear Ab.IgG <18.00 U/mL [facility] Comment: ? U/mL ? Interpretation ? ---- ? <18.00 ? Negative ? 18.00-21.99 ?Equivocal ? >21.99 ? Positive INTERPRETATION SEE NOTE [facility] Comment:Suggestive of a curr ent Shirin-Messina virus infection. 06/16/2017 2:50 PM EST 06/16/2017 4:25 PM EST Narrative Resulting Agency Comment [id number] us Diana Gutierres MD LABORATORY Final Result [facility] [address] [place] [address] documented in this encounter Visit Diagnoses Diagnosis Sore throat Acute pharyngitis documented in this encounter Additional Health Concerns Infection Onset Date Last Indicated Resolved Time COVID-19 Rule-Out 06/06/2020 06/06/2020 06/07/2020 11:13 AM EST documented as of this encounter Care Teams Furnace Liner Relationship Specialty Start Date End Date Diana Gutierres MD [address] [place] [address] PCP - General Pediatrics 02/03/15 07/30/17 Marc Quesada MD [address] [place] [address] PCP - General 07/31/17 01/31/22 documented as of this encounter
--- OUTSIDE RECORDS SUMMARY | 2024-06-19 11:40 | XMS_ITS | Clinical Summary ---
Author Organization [facility] Address [address] [place] [address] Care Team Providers Care Instrument Fitter Name Role Phone Unavailable Primary Care Provider Unavailabl e Allergies Active Allergy Reactions Criticality Noted Date Comments Amoxicillin 03/16/2019 Cat 11/20/2010 Dog 11/20/2010 Dust Mite Extract 11/20/2010 Mold 04/01/2014 Nuts 11/20/2010 Peanuts 11/20/2010 Shellfish Allergy 04/01/2014 Medications * This document contains information received from the source organization and may not represent a complete record from that organization. ALBUTEROL SULFATE (PROAIR HFA) 108 (90 BASE) MCG/ACT Aero Soln Inhale 2 puffs every 4-6 hours as needed for wheezing or shortness of breath 1 Inhaler 9 Active EPINEPHrine (EpiPen 2-Miguel) 0.3 MG/0.3ML injection syringe Inject 0.3 mL (0.3 mg total) under the skin - USE DIRECTED FOR ALLERGIC REACTION AND THEN CALL 911 1 Syringe 1 1 Active Norethindrone Acet-Ethinyl Est (Junel 05/21) 1-20 MG-MCG per tablet Take one tablet by mouth 1 (one) time each day 21 tablet 2 Active Active Problems Problem Noted Date Diagnosed Date Mood disorder 03/16/2019 Asthma, intrinsic ([facility]) 06/20/2018 Food allergy 02/13/2013 Overview (02/13/2013): Allergy to peanuts as well as to nuts. Routine health maintenance 01/08/2011 Allergic rhinitis 01/08/2011 Overview (02/02/2016): Symptoms have just been in the spring. , Resolved Problems Problem Noted Date Diagnosed Date Resolved Date Asthma, mild intermittent ([facility]) 04/01/2014 04/21/2017 Immunizations Name Administration Dates Next Due COVID-19, mRNA (Moderna Pre Fall 2022) Monovalent, 100 mcg/0.5 ml or 50 mcg/0.25 ml dose 08/19/2020,07/15/2020 08/12/2020 COVID-19, mRNA (Pfizer Pre 2022) Monovalent, 30 mcg/0.3 ml 03/11/2021 DTaP 07/10/2002, 9,1997,05/1997,1997 Fluzone Vac, 3 Yrs & > 01/08/2011 HPV4 (Gardasil 4) 07/30/2011,03/15/2011,01/09/20 11 Hep A 02/13/2013,01/12/2012 Hep B (pedi) 1997,1997,1997 IPV 07/10/2002, 9,1997,06/1997 Influenza (SEASONAL) - 05/16/2020 Influenza,injectable,quad,Prsrv Fr 03/11/2021, MMR 07/10/2002,06/30/1998 Meningococcal ACWY (Menactra) 04/03/2015, 010 PPV23 (Pneumovax) 04/28/2016 State Fluzone Vac, 3 Yrs & > 02/13/2013,01/12/20 12 State Influenza Vac,Quad, Pr srv Fr, 3yrs &> 04/28/2016,04/03/2015,04/01/2014 Tdap(Boostrix) 12/16/2009 Varicella 02/13/2013,11/29/2006 Family History Medical History Relation Name Comments Allergies (med/food/envrnmt) Father tori mosley Anesthesia Problems/Malignan t Hyperthermia Father tori mosley Heart Disorder Maternal grandfather Hypertension Maternal grandfather Lipid/Cholesterol Abnormality Maternal grandfather Stroke Maternal grandfather Alcohol/Drug Maternal grandmother Arthritis/Joint disorder Maternal grandmother Allergies (med/food/envrnmt) Mother Salena richardson Arthritis/Joint disorder Mother Salena rothman Gastrointestinal Disorder Mother Salena rothman Cancer (?Type) Paternal grandfather prost ate Heart Disorder Paternal grandfather Hypertension Paternal grandfather Lipid/Cholesterol Abnormality Paternal grandfather Thyroid Disorder Paternal grandmother Allergies (med/food/envrnmt) Sister kate Asthma Neg Hx Autism Neg Hx Autoimmune dz Neg Hx Defect/Congenital Anomaly Neg Hx Blood Cell Disorder/Hemoglobinopathy Neg Hx Cancer - Breast Neg Hx Depression Neg Hx Diabetes Neg Hx Headache/Migraine Neg Hx Hereditary/Genetic Disorder Neg Hx Kidney Disorder Neg Hx Psych/Mental Health Neg Hx Pulmonary Disorder Neg Hx Relation Name Status Comments Father tori mosley Alive 05/20/71 Maternal grandfather Maternal grandmother Mother Salena rothman Alive 11/02/72; t eacher Paternal grandfather Paternal grandmother Sister kate Alive Social History Tobacco Use Types Packs/Day Years Used Date Smoking Tobacco: Never Smokeless Tobacco: Never Alcohol Use Standard Drinks/Week Comments Yes 0 (1 standard drink = 0.6 oz pur e alcohol) occasionally PHQ-2 Answer Date Recorded PHQ-2 Score 3 07/15/2020 Intimate Partner Violence Answer Date R ecorded Fear of Current or Ex-Partner Not on file Emotionally Abused Not on file 01/02/2023 Physically Abused Not on file 01/02/2023 Sexually Abused Not on file 01/02/2023 Feel Safe at Home Not on file 01/02/2023 Comments No Sex and Gender Information Value Date Recorded Sex Assigned at Female 03/14/2019 10:33 AM EST Legal Sex Female 1:41 AM EDT Gender Identity Female 03/14/2019 10:33 AM EST Sexual Orientation Straight 03/14/2019 10 :33 AM EST Occupation Industry Job Start Date Job End Date student Not on file Not on file Not on file Last Filed Vital Signs Vital Sign Reading Time Taken Comments Blood Pressure 129/85 07/15/2020 3:49 PM EDT Pulse 90 07/15/2020 3:49 PM EDT Temperature 36.5 ??C (97.7 ??F) 06/20/2018 2:15 PM ES T Respiratory Rate 18 05/04/2018 4:00 PM EST Oxygen Saturation 98% 06/20/2018 2:15 PM EST Inhaled Oxygen Concentration - - Weight 81.9 kg (180 lb 9.6 oz) 07/15/2020 3:45 P M EDT Height 165.7 cm (5' 5.25 ) 06/20/2018 2:15 PM ES T Body Mass Index 29.82 06/20/2018 2:15 PM EST Plan of Treatment Health Maintenance Due Date Last Done Comments Hepatitis C Screening 1997 Pneumococcal (2 of 2 - PCV) 04/28/2017 04/28/2016 DTaP/Tdap/Td (7 - Td or Tdap) 12/17/2019 12/16/2009, 07/10/2002, 10/07/1998, Additional history exists Pap Smear 07/16/2023 07/15/2020 COVID-19 Vaccine ( season) 2024 03/11/2021, 08/19/2020, 07/15/2020 Influenza (#1) 2024 03/11/2021, 05/02, 04/21/2017, Additional history exists Zoster (Shingrix) (1 of 2) 2047 02/13/2013, Hep B Completed 1997, 05/1997, 1997 HPV Vaccine Completed 07/30/2011, 03/02, 01/08/2011 Hep A Completed 02/13/2013, 01/12/2012 Meningococcal ACWY Completed 04/03/2015, 12/16/2009 LDL Cholesterol Discontinued 04/30/2015 Physical Discontinued 04/21/2017, 04/02, 04/03/2015, Additional history exists EKG Discontinued 09/12/2017 Chlamydia Discontinued 07/15/2020, 07/01, 07/28/2017, Additional history exists Hib Aged Out No longer eligi ble based on patient's age to complete this topic Procedures * Due to [place] state law, this organization might not be sharing negative HIV tests. Procedure Name Priority Date/Time Associated Diagnosis Comments THINPREP TIS PAP REFLEX HPV MRNA E6/E7, CHLAMYDIA/N.GONORRH OEAE Routine 07/15/2020 5:15 PM EDT Screening for malignant neoplasm of cervix ELECTROCARDIOGRAM, TRACING 09/12/2017 LIPID PANEL WITH REFLEX TO DIRECT LDL Routine 04/30/2015 8:51 AM EST Routine history and physical examination of adult from Last 3 Months or Most Recently Relevant to Health Maintenance Results * Due to [place] state law, this organization might not be [...] Smear Negative for intraepithelial lesion or malignancy. [facility] Cytology study comment (Cvx/Vag) This Pap test has been evaluated with computer assisted technology. [facility] Health Information Administrator (Cvx/Vag) MSM, CT(ASCP) CT screening location: [place] [address] [facility] COMMENT SEE NOTE [facility] Comment: EXPLANATORY NOTE: The Pap is a [...] Chlamydia trachomatis rRNA NOT DETECTED NOT DETECTED [facility] Neisseria Gonorrhoeae rRNA NOT DETECTED NOT DETECTED [facility] COMMENT SEE NOTE [facility] Comment: The analytical performance characteristics of this assay, when used to test SurePath(TM) specimens have been determined by [facility]. The modifications have not been cleared or approved by the FDA. This assay has been validated pursuant to the CLIA regulations and is used for clinical purposes. For additional information, please refer to https://education.The Grounds Keeper/faq/UWJ034 (This link is being provided for information/ educational purposes only.) Cervical 07/15/2020 5:15 PM EDT 07/16/2020 6:41 AM EDT Narrative Resulting Agency Comment [id number] us Marc Quesada MD PATHOLOGY-INTERFACED Final Resu lt [facility] [address] [place] [address] * ELECTROCARDIOGRAM, TRACING (09/12/2017) Narrative 09/12/2017 Ordered by an unspecified provider. Procedure Note Manish, Valente Provider - 09/12/2017 11:17 [place] [address] CARDIOVASCULAR SERVICES -- ELECTROCARDIOGRAM REPORT Patient's name: MARION MOSLEY UNIT#: [id number] : [birth year] DOS: 09/11/17 LOC: ER Test Reason : ALLERGIC REACTION Blood Pressure : ---/--- mmHG Vent. Rate : 079 BPM Atrial Rate : 000 BPM P-R Int : 140 ms QRS Dur : 088 ms QT Int : 368 ms P-R-T Axes : 029 078 055 degrees QTc Int : 422 ms NORMAL SINUS RHYTHM WITH SINUS ARRYTHMIA. NORMAL ECG. This is a created report . waveforms are in medical records Referred By: Confirmed By:Surendra Styles MD Acquiring Tech: MIKALA ORD#: [id number] OE: TOM RPT#: [id number] D/ MUSE CC: us Unknown Provider [place] CARDIOVASCULAR-NO INBAS KET RTG Final Result * (ABNORMAL) LIPID PANEL WITH REFLEX TO DIRECT LDL (04/30/2015 8:51 AM EST) Cholesterol 192(H) 125 - 170 mg/dL [facility] Comment:{CHOLESTEROL, TOTAL {[id number]) HDL Cholesterol 53 36 - 76 mg/dL [facility] Comment:{HDL CHOLESTEROL {[id number]) Triglyceride 127 40 - 136 mg/dL [facility] Comment:{TRIGLYCERIDES {[id number]) LDL Cholesterol 114(H) <110 mg/dL (calc) [facility] Comment: {LDL-CHOLESTEROL {[id number]) Desirable range <100 mg/dL for patients with CHD or diabetes and <70 mg/dL for diabetic patients with known heart disease. CHOL/HDL Ratio 3.6 < OR = 5.0 (calc) [facility] Comment:{CHOL/HDLC RATIO {[id number]) Cholesterol Non-HDL 139(H) <120 mg/dL (calc) [facility] Comment:{NON HDL CHOLESTEROL {[id number]) 04/30/2015 8:51 AM EST 04/30/2015 2:43 PM EST Narrative Resulting Agency Comment [id number] us Diana Gutierres MD LABORATORY Final Result [facility] [address] [place] [address] from Last 3 Months or Most Recently Relevant to Health Maintenance
--- OUTSIDE RECORDS SUMMARY | 2024-06-19 11:40 | XMS_ITS | Encounter Summary ---
Author Organization [facility] Address [address] [place] [address] Care Team Providers Care Oil Distributor Name Role Phone Diana Gutierres MD Primary Care Provider [phone] Marc Quesada MD Primary Care Provider [phone] Reason for Visit * Reason Comments E-prescribing Refill Request Encounter Details Date Type Department Care Team (Late st Contact Info) Description 06/22/2017 Refill [facility] [address] [place] [phone] Diana Gutierres MD [address] [place] [address] E-prescribing Refill Request Social History Tobacco Use [...] on file documented as of this encounter Miscellaneous Notes * Telephone Encounter - Radha Lui RN - 06/22/2017 7:04 AM EST Special Concerns: none Faxed medication renewal request(s) for Radha Ladd 22 y.o. female received from pharmacy. Entered this pharmacy as preferred pharmacy for patient. Last CPE with this specialty: 04/21/2017 Last OV with this specialty: 06/16/2017 Next OV: Future Appointments Date Time Provider Department Phone 07/28/17 1:00 PM Diana Gutierres MD [facility] [phone] Pertinent lab results: Last Pap Date (10 yr lookback): Not Found Next Pap Due Date: Not Found Lab Results Component Value Date CHLAMTRNA DETECTED (A) 04/21/2017 Pap suggested minimum of every 2-3 years age 21-29, every 3-5 years age 30-65 per ACOG guidelines if no risk factors and prior results negative. Chlamydia screening recommended yearly age 16-24 to meet HEDIS guidelines. An open order for chlamydia does not exist. Based on last Chlamydia result date, 12 month supply suggested for BCP's. Allergies: Cat; Dog; Dust mite extract; Mold; Nuts; Peanuts; and Shellfish allergy BP Readings from Last 1 Encounters: 06/16/17 116/72 Patient Active Problem List Diagnosis Date Noted ??? Food allergy 02/13/2013 Allergy to peanuts as well as to nuts. ??? Routine health maintenance 01/08/2011 ??? Allergic rhinitis 01/08/2011 Symptoms have just been in the spring. , Current Outpatient Prescriptions on File Prior to Visit Medication Sig Dispense Refill ??? Clindamycin HCl 150 MG Cap 1 by mouth three times daily for 10 days 30 Cap 0 ??? Azithromycin 500 MG Tab * 2 UNITS = 1 DAY SUPPLY * 2 ??? Norethindrone Acet-Ethinyl Est (JUNEL 05/21) 1-20 MG-MCG Tab * 63 UNITS = 84 DAY SUPPLY * 63 ??? EPINEPHrine (EPIPEN 2-DESMOND) 0.3 MG/0.3ML Solution Auto-injector use as directed for allergic reaction and then call 911 2 Package 0 ??? Ibuprofen 600 MG Tab * 28 UNITS = 7 DAY SUPPLY * 28 documented in this encounter Plan of Treatment Not on file documented as of this encounter Visit Diagnoses Not on filedocumented in this encounter Additional Health Concerns Infection Onset Date Last Indicated Resolved Time COVID-19 Rule-Out 06/06/2020 06/06/202006/07/2020 11:13 AM EST documented as of this encounter Care Teams Oil Distributor Relationship Specialty Start Date End Date Diana Gutierres MD [address] [place] [address] PCP - General Pediatrics 02/03/15 07/30/17 Marc Quesada MD [address] [place] [address] PCP - General 07/31/17 01/31/22 documented as of this encounter
--- OUTSIDE RECORDS SUMMARY | 2024-06-19 11:40 | XMS_ITS | Encounter Summary ---
Author Organization [facility] Address [address] [place] [address] Care Team Providers Care Turbine Technician Name Role Phone Diana Gutierres MD Primary Care Provider [phone] Marc Quesada MD Primary Care Provider [phone] Reason for Visit * Reason Comments E-prescribing Refill Request Encounter Details Date Type Department Care Team (Late st Contact Info) Description 05/19/2016 Refill [facility] [address] [place] [phone] Андрей Brandt MD [address] [place] [address] E-prescribing Refill Request Social History Tobacco Use [...] Telephone Encounter - Radha Lui RN - 05/19/2016 7:29 AM EST Special Concerns: none Faxed medication renewal request(s) for Radha Ladd 21 y.o. female received from pharmacy. Entered this pharmacy as preferred pharmacy for patient. Last CPE with this specialty: 04/28/2016 Last OV with this specialty: 04/28/2016 Next OV: Future Appointments Date Time Provider Department Center 04/29/2017 3:30 PM Diana Gutierres MD [facility] Pertinent lab results: Last Pap Date (10 yr lookback): Not Found Next Pap Due Date: Not Found Lab Results Component Value Date CHLAMTRNA NOT DETECTED 04/28/2016 Pap suggested minimum of every 2-3 years [...] allergy BP Readings from Last 1 Encounters: 04/28/16 118/74 Patient Active Problem List Diagnosis Date Noted ??? Asthma, mild intermittent 04/01/2014 ??? Food allergy 02/13/2013 Allergy to peanuts as well as to nuts. ??? Routine health maintenance 01/08/2011 ??? Allergic rhinitis 01/08/2011 Symptoms have just been in the spring. , Current Outpatient Prescriptions on File Prior to Visit Medication Sig Dispense Refill ??? Norethindrone Acet-Ethinyl Est (05/21) 1-20 MG-MCG Tab * 21 UNITS = 21 DAY SUPPLY * 21 1 ??? Norethindrone Acet-Ethinyl Est (05/21) 1-20 MG-MCG Tab 1 TAB PO DAILY 28 Tab 11 ??? EPINEPHrine (EPIPEN 2-DESMOND) 0.3 MG/0.3ML Solution Auto-injector use as directed for allergic reaction and then call 911 2 Package 0 ??? EPINEPHrine (EPIPEN 2-DESMOND) 0.3 MG/0.3ML Device * 2 UNITS = 2 DAY SUPPLY * 2 ??? Ibuprofen 600 MG Tab * 28 UNITS = 7 DAY SUPPLY * 28 ??? Hydrocodone-Acetaminophen 5-300 MG Tab * 12 UNITS = 4 DAY SUPPLY * 12 ??? EPINEPHrine (EPIPEN 2-DESMOND) 0.3 MG/0.3ML Device * 2 UNITS = 2 DAY SUPPLY * 2 documented in this encounter Plan of Treatment Not on file documented as of this encounter Visit Diagnoses Not on filedocumented in this encounter Additional Health Concerns Infection Onset Date Last Indicated Resolved Time COVID-19 Rule-Out 06/06/2020 06/06/2020 06/07/2020 11:13 AM EST documented as of this encounter Care Teams Turbine Technician Relationship Specialty Start Date End Date Diana Gutierres MD [address] [place] [address] PCP - General Pediatrics 02/03/15 07/30/17 Marc Quesada MD [address] [place] [address] PCP - General 07/31/17 01/31/22 documented as of this encounter
--- OUTSIDE RECORDS SUMMARY | 2024-06-19 11:40 | XMS_ITS | Encounter Summary ---
Author Organization [facility] Address [address] [place] [address] Care Team Providers Care Decommissioning Well Site Manager Name Role Phone Diana Gutierres MD Primary Care Provider [phone] Marc Quesada MD Primary Care Provider [phone] Encounter Details Date Type Department Care Team (Late st Contact Info) Description 04/03/2015 Orders Only [facility] [address] [place] [address] Diana Gutierres MD [address] [place] [address] Social History Tobacco Use Types Packs/Day Years [...] of this encounter Procedures * Due to [place] state law, this organization might not be sharing negative HIV tests. Procedure Name Priority Date/Time Associated Diagnosis Comments CHLAMYDIA TRACHOMATIS/N. GONORRHOEAE (GC) RNA, TMA (URINE) Routine 04/03/2015 8:34 PM EST Routine history and physical examination of adult documented in this encounter Results * Due to [place] state law, this organization might not be sharing negative HIV tests. * CHLAMYDIA TRACHOMATIS/N. GONORRHOEAE (GC) RNA, TMA (URINE) (04/03/2015 8:34 PM EST) Chlamydia trachomatis rRNA NOT DETECTED NOT DETECTED [facility] Comment:{CHLAMYDIA TRACHOMAT IS RNA, TMA {[id number]) Neisseria Gonorrhoeae rRNA NOT DETECTED NOT DETECTED [facility] Comment:{NEISSERIA GONORRHOE AE RNA, TMA {[id number]) COMMENT SEE NOTE [facility] Comment: {COMMENT {[id number]) This test was performed using the APTIMA COMBO2 Assay ([employer] The analytical performance characteristics of this assay, when used to test SurePath specimens have been determined by [employer]. 04/03/2015 8:34 PM EST 04/04/2015 12:52 AM EST Narrative Resulting Agency Comment [id number] us Diana Gutierres MD LABORATORY Final Result [facility] [address] [place] [address] documented in this encounter Visit Diagnoses Diagnosis Routine history and physical examination of adult Routine general medical examination at a health care facility documented in this encounter Additional Health Concerns Infection Onset Date Last Indicated Resolved Time COVID-19 Rule-Out 06/06/2020 06/06/2020 06/07/2020 11:13 AM EST documented as of this encounter Care Teams Decommissioning Well Site Manager Relationship Specialty Start Date End Date Diana Gutierres MD [address] [place] [address] PCP - General Pediatrics 02/03/15 07/30/17 Marc Quesada MD [address] [place] [address] PCP - General 07/31/17 01/31/22 documented as of this encounter
--- OUTSIDE RECORDS SUMMARY | 2024-06-19 11:40 | XMS_ITS | Encounter Summary ---
Author Organization [facility] Address [address] [place] [address] Care Team Providers Care Surgical Aides Teacher Name Role Phone Андрей Brandt MD Primary Care Provider Diana Gutierres MD Primary Care Provider [phone] Marc Quesada MD Primary Care Provider [phone] Encounter Details Date Type Department Care Team (Late st Contact Info) Description 07/18/2013 Orders Only [facility] [address] [place] [phone] Андрей Brandt MD [address] [place] [address] Social History Tobacco Use Types Packs/Day Years [...] of this encounter Procedures * Due to [place] state law, this organization might not be sharing negative HIV tests. Procedure Name Priority Date/Time Associated Diagnosis Comments SHELL FISH ALLERGY PANEL (WITH SCALLOP) Routine 07/18/2013 2:45 PM EDT Food allergy documented in this encounter Results * Due to [place] state law, this organization might not be sharing negative HIV tests. * (ABNORMAL) SHELL FISH ALLERGY PANEL (WITH SCALLOP) (07/18/2013 2:45 PM EDT) Scallop (F338) IgE <0.35 kU/L [facility] Comment:{SCALLOP (F338) IGE {[id number]) Scallop (F338) Class 0 [facility] Comment:{CLASS {[id number]) Crab (F23) IgE <0.35 kU/L [facility] Comment:{CRAB (F23) IGE {[id number]) Crab (F23) Class 0 [facility] Comment:{CLASS {[id number]) Shrimp (F24) IgE 0.53(H) kU/L [facility] Comment:{SHRIMP (F24) IGE {[id number]) Shrimp (F24) Class 1 [facility] Comment:{CLASS {[id number]) Blue Mussel (F37) IgE <0.35 kU/L [facility] Comment:{BLUE MUSSEL (F37) I GE {[id number]) Blue Mussel (F37) Class 0 [facility] Comment:{CLASS {[id number]) Lobster (F80) IgE <0.35 kU/L [facility] Comment:{LOBSTER (F80) IGE { [id number]) Lobster (F80) Class 0 [facility] Comment:{CLASS {[id number]) Clam (F207) IgE <0.35 kU/L [facility] Comment:{CLAM (F207) IGE {[id number]) Clam (F207) Class 0 [facility] Comment:{CLASS {[id number]) Oyster (F290) IgE <0.35 kU/L [facility] Comment:{OYSTER (F290) IGE { [id number]) Oyster (F290) Class 0 [facility] Comment:{CLASS {[id number]) 07/18/2013 2:45 PM EDT 07/18/2013 9:21 PM EDT us Андрей Brandt MD LABORATORY Final Result [facility] [address] [place] [address] documented in this encounter Visit Diagnoses Diagnosis Food allergy Other adverse food reactions, not elsewhere classified documented in this encounter Additional Health Concerns Infection Onset Date Last Indicated Resolved Time COVID-19 Rule-Out 06/06/2020 06/06/2020 06/07/2020 11:13 AM EST documented as of this encounter Care Teams Surgical Aides Teacher Relationship Specialty Start Date End Date Андрей Brandt MD [address] [place] [address] PCP - General 12/14/10 02/02/15 Diana Gutierres MD [address] [place] [address] PCP - General Pediatrics 02/03/15 07/30/17 Marc Quesada MD [address] [place] [address] PCP - General 07/31/17 01/31/22 documented as of this encounter
--- OUTSIDE RECORDS SUMMARY | 2024-06-19 11:40 | XMS_ITS | Encounter Summary ---
Author Organization [facility] Address [address] [place] [address] Care Team Providers Care Collet Making Machine Operator Name Role Phone Diana Gutierres MD Primary Care Provider [phone] Marc Quesada MD Primary Care Provider [phone] Encounter Details Date Type Department Care Team (Late st Contact Info) Description 07/28/2017 Orders Only [facility] [address] [place] [phone] Diana Gutierres MD [address] [place] [address] Social History Tobacco Use Types Packs/Day Years [...] of this encounter Procedures * Due to [place] state law, this organization might not be sharing negative HIV tests. Procedure Name Priority Date/Time Associated Diagnosis Comments CHLAMYDIA TRACHOMATIS/N. GONORRHOEAE (GC) RNA, TMA (URINE) Routine 07/28/2017 1:29 PM EDT Hx of chlamydia infection documented in this encounter Results * Due to [place] state law, this organization might not be sharing negative HIV tests. * CHLAMYDIA TRACHOMATIS/N. GONORRHOEAE (GC) RNA, TMA (URINE) (07/28/2017 1:29 PM EDT) Chlamydia trachomatis rRNA NOT DETECTED NOT DETECTED [facility] Neisseria Gonorrhoeae rRNA NOT DETECTED NOT DETECTED [facility] COMMENT SEE NOTE [facility] Comment: This test was performed using the APTIMA COMBO2 Assay ([employer] The analytical performance characteristics of this assay, when used to test SurePath specimens have been determined by [employer]. 07/28/2017 1:29 PM EDT 07/28/2017 11:28 PM EDT Narrative Resulting Agency Comment [id number] us Diana Gutierres MD LABORATORY Final Result Performing Organization Address City/State/[facility] de Phone Number [facility] [address] [place] [address] documented in this encounter Visit Diagnoses Diagnosis Hx of chlamydia infection Personal history of other infectious and parasitic disease documented in this encounter Additional Health Concerns Infection Onset Date Last Indicated Resolved Time COVID-19 Rule-Out 06/06/2020 06/06/2020 06/07/2020 11:13 AM EST documented as of this encounter Care Teams Collet Making Machine Operator Relationship Specialty Start Date End Date Diana Gutierres MD [address] [place] [address] PCP - General Pediatrics 02/03/15 07/30/17 Marc Quesada MD [address] [place] [address] PCP - General 07/31/17 01/31/22 documented as of this encounter
--- OUTSIDE RECORDS SUMMARY | 2024-06-19 11:40 | XMS_ITS | Encounter Summary ---
Author Organization [facility] Address [address] [place] [address] Care Team Providers Care Bar Supervisor Name Role Phone Marc Quesada MD Primary Care Provider [phone] Encounter Details Date Type Department Care Team (Late st Contact Info) Description 01/13/2018 Orders Only [facility] [address] [place] [phone] Marc Quesada MD [address] [place] [address] Social History Tobacco Use Types Packs/Day Years Used Date Smoking Tobacco: Never Smokeless Tobacco: Never Alcohol Use Standard Drinks/Week Comments Yes 0 (1 standard drink = 0.6 oz pur e alcohol) occasionally Comments No Sex and Gender Information Value [...] as of this encounter Progress Notes * Marc Quesada MD - 01/16/2018 9:32 AM EDT Radha, Attached please find your lab test results. Liver function tests showed liver enzymes are mostly back to normal range. Blood level is in good range. Let me know if you have any question. Marc Quesada MD documented in this encounter Plan of Treatment Not on file documented as of this encounter Procedures * Due to [place] law, this organization might not be sharing negative HIV tests. Procedure Name Priority Date/Time Associated Diagnosis Comments CBC INCLUDES DIFFERENTIAL AND PLATELET COUNT Routine 01/13/2018 4:22 PM EDT History of mononucleosis HEPATIC FUNCTION PANEL (ALT,AST,ALK PH,BILI'S,TP,ALB) Routine 01/13/2018 4:22 PM EDT Elevated liver enzymes documented in this encounter Results * Due to [place] state law, this organization might not be sharing negative HIV tests. * (ABNORMAL) HEPATIC FUNCTION PANEL (ALT,AST,ALK PH,BILI'S,TP,ALB) (01/13/2018 4:22 PM EDT) Protein Total (Serum) 7.3 6.1 - 8.1 g/dL [facility] Albumin 4.7 3.6 - 5.1 g/dL [facility] Globulin 2.6 1.9 - 3.7 g/dL (calc) [facility] Albumin/Globulin 1.8 1.0 - 2.5 (calc) [facility] Bilirubin Total 1.3(H) 0.2 - 1.2 mg/dL [facility] Bilirubin Direct 0.2 < OR = 0.2 mg/dL [facility] Bilirubin Indirect 1.1 0.2 - 1.2 mg/dL (calc) [facility] Alkaline phosphatase 69 33 - 115 U/L [facility] AST (SGOT) 14 10 - 30 U/L [facility] ALT (SGPT) 9 6 - 29 U/L [facility] 01/13/2018 4:22 PM EDT 01/13/2018 11:58 PM EDT Narrative Resulting Agency Comment [id number] us Marc Quesada MD LABORATORY Final Result [facility] [address] [place] [address] * CBC INCLUDES DIFFERENTIAL AND PLATELET COUNT (01/13/2018 4:22 PM EDT) WBC 9.1 3.8 - 10.8 Thousand/u L [facility] RBC 4.53 3.80 - 5.10 Million/uL [facility] Hemoglobin 13.4 11.7 - 15.5 g/dL [facility] Hematocrit 39.3 35.0 - 45.0 % [facility] MCV 86.8 80.0 - 100.0 fL [facility] MCH 29.6 27.0 - 33.0 pg [facility] MCHC 34.1 32.0 - 36.0 g/dL [facility] RDW 11.9 11.0 - 15.0 % [facility] PLT 353 140 - 400 Thousand/u L [facility] MPV 9.9 7.5 - 12.5 fL [facility] Neutrophils # 5678 1500 - 7800 cells/uL [facility] Lymphocytes # 2748 850 - 3900 cells/uL [facility] Monocytes # 510 200 - 950 cells/uL [facility] Eosinophils # 100 15 - 500 cells/uL [facility] Basophils # 64 0 - 200 cells/uL [facility] Neutrophils % 62.4 % [facility] Lymphocytes % 30.2 % [facility] Monocytes % 5.6 % [facility] Eosinophils % 1.1 % [facility] Basophils % 0.7 % [facility] 01/13/2018 4:22 PM EDT 01/13/2018 11:58 PM EDT Narrative Resulting Agency Comment [id number] Marc Quesada MD LAB SAME DAY RESULT Final Resul t Performing Organization Address City/State/[facility] Co de Phone Number [facility] [address] [place] [address] documented in this encounter Visit Diagnoses Diagnosis History of mononucleosis Personal history of other infectious and parasitic disease Elevated liver enzymes Nonspecific elevation of levels of transaminase or lactic acid dehydrogenase (LDH) documented in this encounter Additional Health Concerns Infection Onset Date Last Indicated Resolved Time COVID-19 Rule-Out 06/06/2020 06/06/2020 06/07/2020 11:13 AM EST documented as of this encounter Care Teams Bar Supervisor Relationship Specialty Start Date End Date Marc Quesada MD [address] [place] [address] PCP - General 07/31/17 01/31/22 documented as of this encounter
--- OUTSIDE RECORDS SUMMARY | 2024-06-19 11:40 | XMS_ITS | Encounter Summary ---
Author Organization [facility] Address [address] [place] [address] Care Team Providers Care Client Services Administrator Name Role Phone Diana Gutierres MD Primary Care Provider [phone] Marc Quesada MD Primary Care Provider Encounter Details Date Type Department Care Team (Late st Contact Info) Description 04/28/2016 Orders Only [facility] [address] [place] [address] Diana Gutierres MD [address] [place] [address] Social History Tobacco Use Types Packs/Day Years [...] of this encounter Procedures * Due to [place] state law, this organization might not be sharing negative HIV tests. Procedure Name Priority Date/Time Associated Diagnosis Comments CHLAMYDIA TRACHOMATIS/N. GONORRHOEAE (GC) RNA, TMA (URINE) Routine 04/28/2016 3:38 PM EST Encounter for screening for infections with predominantly sexual mode of transmission documented in this encounter Results * Due to [place] state law, this organization might not be sharing negative HIV tests. * CHLAMYDIA TRACHOMATIS/N. GONORRHOEAE (GC) RNA, TMA (URINE) (04/28/2016 3:38 PM EST) Chlamydia trachomatis rRNA NOT DETECTED NOT DETECTED [facility] Comment:{CHLAMYDIA TRACHOMAT IS RNA, TMA {[id number]) Neisseria Gonorrhoeae rRNA NOT DETECTED NOT DETECTED [facility] Comment:{NEISSERIA GONORRHOE AE RNA, TMA {[id number]) COMMENT SEE NOTE [facility] Comment: {COMMENT {[id number]) This test was performed using the APTIMA COMBO2 Assay ([employer] The analytical performance characteristics of this assay, when used to test SurePath specimens have been determined by [employer]. 04/28/2016 3:38 PM EST 04/28/2016 9:54 PM EST Narrative Resulting Agency Comment [id number] us Diana Gutierres MD LABORATORY Final Result [facility] [address] [place] [address] documented in this encounter Visit Diagnoses Diagnosis Encounter for screening for infections with predominantly sexual mode of transmission Screening examination for venereal disease documented in this encounter Additional Health Concerns Infection Onset Date Last Indicated Resolved Time COVID-19 Rule-Out 06/06/2020 06/06/2020 06/07/2020 11:13 AM EST documented as of this encounter Care Teams Client Services Administrator Relationship Specialty Start Date End Date Diana Gutierres MD [address] [place] [address] PCP - General Pediatrics 02/03/15 07/30/17 Marc Quesada MD [address] [place] [address] PCP - General 07/31/17 01/31/22 documented as of this encounter
--- OUTSIDE RECORDS SUMMARY | 2024-06-19 11:40 | XMS_ITS | Encounter Summary ---
Author Organization [facility] Address [address] [place] [address] Care Team Providers Care Roof Fixer Name Role Phone Diana Gutierres MD Primary Care Provider [phone] Marc Quesada MD Primary Care Provider [phone] Encounter Details Date Type Department Care Team (Late st Contact Info) Description 04/30/2015 Orders Only [facility] [address] [place] [address] Diana Gutierres MD [address] [place] [address] Social History Tobacco Use Types Packs/Day Years [...] as of this encounter Progress Notes * Diana Gutierres MD - 05/10/2015 2:13 PM ESTQuick Note: Notes sent on my chart. Slightly high cholesterol. Show follow healthy diet high in fiber and low in cholesterol. INcrease fruits and veggies. Eat healthy fats only. documented in this encounter Plan of Treatment Not on file documented as of this encounter Procedures * Due to [place] [employer] law, this organization might not be sharing negative HIV tests. Procedure Name Priority Date/Time Associated Diagnosis Comments CBC INCLUDES DIFFERENTIAL AND PLATELET COUNT Routine 04/30/2015 8:51 AM EST Routine history and physical examination of adult LIPID PANEL WITH REFLEX TO DIRECT LDL Routine 04/30/2015 8:51 AM EST Routine history and physical examination of adult documented in this encounter Results * Due to [place] [employer] law, this organization might not be sharing negative HIV tests. * CBC INCLUDES DIFFERENTIAL AND PLATELET COUNT (04/30/2015 8:51 AM EST) WBC 5.7 4.5 - 13.0 Thousand/u L [facility] Comment:{WHITE BLOOD CELL CO UNT {[id number]) RBC 4.40 3.80 - 5.10 Million/uL [facility] Comment:{RED BLOOD CELL COUN T {[id number]) Hemoglobin 13.0 11.5 - 15.3 g/dL [facility] Comment:{HEMOGLOBIN {[id number]) Hematocrit 40.1 34.0 - 46.0 % [facility] Comment:{HEMATOCRIT {[id number]) MCV 91.2 78.0 - 98.0 fL [facility] Comment:{MCV {[id number]) MCH 29.5 25.0 - 35.0 pg [facility] Comment:{MCH {[id number]) MCHC 32.4 31.0 - 36.0 g/dL [facility] Comment:{MCHC {[id number]) RDW 12.8 11.0 - 15.0 % [facility] Comment:{RDW {[id number]) PLT 233 140 - 400 Thousand/u L [facility] Comment:{PLATELET COUNT {[id number]) MPV 8.8 7.5 - 11.5 fL [facility] Comment:{MPV {[id number]) Neutrophils # 2799 1800 - 8000 cells/uL [facility] Comment:{ABSOLUTE NEUTROPHIL S {[id number]) Lymphocytes # 2183 1200 - 5200 cells/uL [facility] Comment:{ABSOLUTE LYMPHOCYTE S {[id number]) Monocytes # 439 200 - 900 cells/uL [facility] Comment:{ABSOLUTE MONOCYTES {[id number]) Eosinophils # 228 15 - 500 cells/uL [facility] Comment:{ABSOLUTE EOSINOPHIL S {[id number]) Basophils # 51 0 - 200 cells/uL [facility] Comment:{ABSOLUTE BASOPHILS {[id number]) Neutrophils % 49.1 % [facility] Comment:{NEUTROPHILS {[id number]) Lymphocytes % 38.3 % [facility] Comment:{LYMPHOCYTES {[id number]) Monocytes % 7.7 % [facility] Comment:{MONOCYTES {[id number]) Eosinophils % 4.0 % [facility] Comment:{EOSINOPHILS {[id number]) Basophils % 0.9 % [facility] Comment:{BASOPHILS {[id number]) 04/30/2015 8:51 AM EST 04/30/2015 2:43 PM EST Narrative Resulting Agency Comment [id number] us Diana Gutierres MD LAB SAME DAY RESULT Final Resu lt [facility] [address] [place] [address] * (ABNORMAL) LIPID PANEL WITH REFLEX TO DIRECT LDL (04/30/2015 8:51 AM EST) Cholesterol 192(H) 125 - 170 mg/dL [facility] Comment:{CHOLESTEROL, TOTAL {[id number]) HDL Cholesterol 53 36 - 76 mg/dL [facility] Comment:{HDL CHOLESTEROL {[id number]) Triglyceride 127 40 - 136 mg/dL [facility] Comment:{TRIGLYCERIDES {[id number]) LDL Cholesterol 114(H) <110 mg/dL (calc) [facility] Comment: {LDL-CHOLESTEROL {[id number]) Desirable range <100 mg/dL for patients with CHD or diabetes and <70 mg/dL for diabetic patients with known heart disease. CHOL/HDL Ratio 3.6 < OR = 5.0 (calc) [facility] Comment:{CHOL/HDLC RATIO {[id number]) Cholesterol Non-HDL 139(H) <120 mg/dL (calc) [facility] Comment:{NON HDL CHOLESTEROL {[id number]) 04/30/2015 8:51 AM EST 04/30/2015 2:43 PM EST Narrative Resulting Agency Comment [id number] Diana Gutierres MD LABORATORY Final Result [facility] [address] [place] [address] documented in this encounter Visit Diagnoses Diagnosis Routine history and physical examination of adult Routine general medical examination at a health care facility documented in this encounter Additional Health Concerns Infection Onset Date Last Indicated Resolved Time COVID-19 Rule-Out 06/06/2020 06/06/2020 06/07/2020 11:13 AM EST documented as of this encounter Care Teams Roof Fixer Relationship Specialty Start Date End Date Diana Gutierres MD [address] [place] [address] PCP - General Pediatrics 02/03/15 07/30/17 Marc Quesada MD [address] [place] [address] PCP - General 07/31/17 01/31/22 documented as of this encounter
== END 2024-06-19 11:24 | disposition home or self-care (01) ==
PROVIDERS: PCP Nurse Practitioner Family; Visit Provider Nurse Practitioner Family
DX: R61 Generalized hyperhidrosis (principal); R68.89 Other general symptoms and signs; F41.9 Anxiety disorder, unspecified; F32.A Depression, unspecified; E78.5 Hyperlipidemia, unspecified

== ENCOUNTER → 2024-06-19 10:37 | Outpatient (BNVA) | payer OTHER, SELFPAY | PROVIDERS: PCP Nurse Practitioner Family; Visit Provider Nurse Practitioner Family | DX: R61 Generalized hyperhidrosis (principal); R68.89 Other general symptoms and signs; F41.9 Anxiety disorder, unspecified; F32.A Depression, unspecified; E78.5 Hyperlipidemia, unspecified | CPT/HCPCS: 96127; 96160 ==

== ENCOUNTER 2024-06-19 11:51 | Outpatient (REF) | payer OTHER, SELFPAY ==
--- OUTSIDE RECORDS SUMMARY | 2024-06-19 13:01 | XMS_ITS | Encounter Summary ---
Author Organization [facility] Address [address] [place] [address] Care Team Providers Care Neurology Hospitalist Name Role Phone Diana Gutierres MD Primary Care Provider [phone] Marc Quesada MD Primary Care Provider [phone] Encounter Details Date Type Department Care Team (Late st Contact Info) Description 04/03/2015 Orders Only [facility] [address] [place] [address] Diana Gutierres MD [address] [place] [address] Social History Tobacco Use Types Packs/Day Years [...] of this encounter Procedures * Due to [place] state law, this organization might not be sharing negative HIV tests. Procedure Name Priority Date/Time Associated Diagnosis Comments CHLAMYDIA TRACHOMATIS/N. GONORRHOEAE (GC) RNA, TMA (URINE) Routine 04/03/2015 8:34 PM EST Routine history and physical examination of adult documented in this encounter Results * Due to [place] state law, this organization might not be sharing negative HIV tests. * CHLAMYDIA TRACHOMATIS/N. GONORRHOEAE (GC) RNA, TMA (URINE) (04/03/2015 8:34 PM EST) Chlamydia trachomatis rRNA NOT DETECTED NOT DETECTED [facility] Comment:{CHLAMYDIA TRACHOMAT IS RNA, TMA {[id number]) Neisseria Gonorrhoeae rRNA NOT DETECTED NOT DETECTED [facility] Comment:{NEISSERIA GONORRHOE AE RNA, TMA {[id number]) COMMENT SEE NOTE [facility] Comment: {COMMENT {[id number]) This test was performed using the APTIMA COMBO2 Assay ([employer] The analytical performance characteristics of this assay, when used to test SurePath specimens have been determined by [employer]. 04/03/2015 8:34 PM EST 04/04/2015 12:52 AM EST Narrative Resulting Agency Comment [id number] us Diana Gutierres MD LABORATORY Final Result [facility] [address] [place] [address] documented in this encounter Visit Diagnoses Diagnosis Routine history and physical examination of adult Routine general medical examination at a health care facility documented in this encounter Additional Health Concerns Infection Onset Date Last Indicated Resolved Time COVID-19 Rule-Out 06/06/2020 06/06/2020 06/07/2020 11:13 AM EST documented as of this encounter Care Teams Neurology Hospitalist Relationship Specialty Start Date End Date Diana Gutierres MD [address] [place] [address] PCP - General Pediatrics 02/03/15 07/30/17 Marc Quesada MD [address] [place] [address] PCP - General 07/31/17 01/31/22 documented as of this encounter
--- OUTSIDE RECORDS SUMMARY | 2024-06-19 13:01 | XMS_ITS | Encounter Summary ---
Author Organization [facility] Address [address] [place] [address] Care Team Providers Care Youth Pastor Name Role Phone Diana Gutierres MD Primary Care Provider Marc Quesada MD Primary Care Provider [phone] Encounter Details Date Type Department Care Team (Late st Contact Info) Description 04/30/2015 Orders Only [facility] [address] [place] [address] Diana Gutierres MD [address] [place] [address] Social History Tobacco Use Types Packs/Day Years [...] this encounter Procedures * Due to [place] [employer] law, this organization might not be sharing negative HIV tests. Procedure Name Priority Date/Time Associated Diagnosis Comments CBC INCLUDES DIFFERENTIAL AND PLATELET COUNT Routine 04/30/2015 8:51 AM EST Routine history and physical examination of adult LIPID PANEL WITH REFLEX TO DIRECT LDL Routine 04/30/2015 8:51 AM EST Routine history and physical examination of adult documented in this encounter Results * Due to [place] [employer] law, this organization might not be sharing negative HIV tests. * CBC INCLUDES DIFFERENTIAL AND PLATELET COUNT (04/30/2015 8:51 AM EST) WBC 5.7 4.5 - 13.0 Thousand/u L [facility] Comment:{WHITE BLOOD CELL CO UNT {[id number]) RBC 4.40 3.80 - 5.10 Million/uL [facility] Comment:{RED BLOOD CELL COUN T {[id number]) Hemoglobin 13.0 11.5 - 15.3 g/dL [facility] Comment:{HEMOGLOBIN {[id number]) Hematocrit 40.1 34.0 - 46.0 % [facility] Comment:{HEMATOCRIT {[id number]) MCV 91.2 78.0 - 98.0 fL [facility] Comment:{MCV {[id number]) MCH 29.5 25.0 - 35.0 pg [facility] Comment:{MCH {[id number]) MCHC 32.4 31.0 - 36.0 g/dL [facility] Comment:{MCHC {[id number]) RDW 12.8 11.0 - 15.0 % [facility] Comment:{RDW {[id number]) PLT 233 140 - 400 Thousand/u L [facility] Comment:{PLATELET COUNT {[id number]) MPV 8.8 7.5 - 11.5 fL [facility] Comment:{MPV {[id number]) Neutrophils # 2799 1800 - 8000 cells/uL [facility] Comment:{ABSOLUTE NEUTROPHIL S {[id number]) Lymphocytes # 2183 1200 - 5200 cells/uL [facility] Comment:{ABSOLUTE LYMPHOCYTE S {[id number]) Monocytes # 439 200 - 900 cells/uL [facility] Comment:{ABSOLUTE MONOCYTES {[id number]) Eosinophils # 228 15 - 500 cells/uL [facility] Comment:{ABSOLUTE EOSINOPHIL S {[id number]) Basophils # 51 0 - 200 cells/uL [facility] Comment:{ABSOLUTE BASOPHILS {[id number]) Neutrophils % 49.1 % [facility] Comment:{NEUTROPHILS {[id number]) Lymphocytes % 38.3 % [facility] Comment:{LYMPHOCYTES {[id number]) Monocytes % 7.7 % [facility] Comment:{MONOCYTES {[id number]) Eosinophils % 4.0 % [facility] Comment:{EOSINOPHILS {[id number]) Basophils % 0.9 % [facility] Comment:{BASOPHILS {[id number]) 04/30/2015 8:51 AM EST 04/30/2015 2:43 PM EST Narrative Resulting Agency Comment [id number] us Diana Gutierres MD LAB SAME DAY RESULT Final Resu lt [facility] [address] [place] [address] * (ABNORMAL) LIPID PANEL WITH REFLEX TO DIRECT LDL (04/30/2015 8:51 AM EST) Cholesterol 192(H) 125 - 170 mg/dL [facility] Comment:{CHOLESTEROL, TOTAL {[id number]) HDL Cholesterol 53 36 - 76 mg/dL [facility] Comment:{HDL CHOLESTEROL {[id number]) Triglyceride 127 40 - 136 mg/dL [facility] Comment:{TRIGLYCERIDES {[id number]) LDL Cholesterol 114(H) <110 mg/dL (calc) [facility] Comment: {LDL-CHOLESTEROL {[id number]) Desirable range <100 mg/dL for patients with CHD or diabetes and <70 mg/dL for diabetic patients with known heart disease. CHOL/HDL Ratio 3.6 < OR = 5.0 (calc) [facility] Comment:{CHOL/HDLC RATIO {[id number]) Cholesterol Non-HDL 139(H) <120 mg/dL (calc) [facility] Comment:{NON HDL CHOLESTEROL {[id number]) 04/30/2015 8:51 AM EST 04/30/2015 2:43 PM EST Narrative Resulting Agency Comment [id number] Diana Gutierres MD LABORATORY Final Result [facility] [address] [place] [address] documented in this encounter Visit Diagnoses Diagnosis Routine history and physical examination of adult Routine general medical examination at a health care facility documented in this encounter Additional Health Concerns Infection Onset Date Last Indicated Resolved Time COVID-19 Rule-Out 06/06/2020 06/06/2020 06/07/2020 11:13 AM EST documented as of this encounter Care Teams Youth Pastor Relationship Specialty Start Date End Date Diana Gutierres MD [address] [place] [address] PCP - General Pediatrics 02/03/15 07/30/17 Marc Quesada MD [address] [place] [address] PCP - General 07/31/17 01/31/22 documented as of this encounter
--- OUTSIDE RECORDS SUMMARY | 2024-06-19 13:01 | XMS_ITS | Encounter Summary ---
Author Organization [facility] Address [address] [place] [address] Care Team Providers Care Rn Transition Name Role Phone Marc Quesada MD Primary Care Provider [phone] Reason for Visit * Reason Comments E-prescribing Refill Request Encounter Details Date Type Department Care Team (Late st Contact Info) Description 06/22/2020 Refill [facility] [address] [place] [phone] Marc Quesada MD [address] [place] [address] E-prescribing Refill Request Social History Tobacco Use [...] on filedocumented in this encounter Care Teams Rn Transition Relationship Specialty Start Date End Date Marc Quesada MD [address] [place] [address] PCP - General 07/31/17 01/31/22 documented as of this encounter
--- OUTSIDE RECORDS SUMMARY | 2024-06-19 13:01 | XMS_ITS | Encounter Summary ---
Author Organization [facility] Address [address] [place] [address] Care Team Providers Care Regulatory Manager Name Role Phone Андрей Brandt MD Primary Care Provider [phone] Diana Gutierres MD Primary Care Provider [phone] Marc Quesada MD Primary Care Provider Encounter Details Date Type Department Care Team (Late st Contact Info) Description 05/17/2014 Orders Only [facility] [address] [place] [phone] Diana Gutierres MD [address] [place] [address] Medications Social History Tobacco Use Types Packs/Day [...] of this encounter Procedures * Due to [place] state law, this organization might not be sharing negative HIV tests. Procedure Name Priority Date/Time Associated Diagnosis Comments STREPTOCOCCUS, GROUP A CULTURE Routine 05/17/2014 4:50 PM EST Sore throat documented in this encounter Results * Due to [place] state law, this organization might not be sharing negative HIV tests. * STREPTOCOCCUS, GROUP A CULTURE (05/17/2014 4:50 PM EST) Culture, Streptococci Group A, Throat SEE NOTE [facility] Comment: {STREPTOCOCCUS, GROUP A CULTURE {[id number]) ??STREPTOCOCCUS, GROUP A CULTURE ??MICRO NUMBER: ?[id number] ??TEST STATUS: ? FINAL ??SPECIMEN SOURCE: ?? THROAT ??SPECIMEN QUALITY: ??ADEQUATE ??RESULT: ?No beta hemolytic Streptococci isolated 05/17/2014 4:50 PM EST 05/17/2014 9:49 PM EST Narrative Resulting Agency Comment [id number] Diana Gutierres MD LABORATORY Final Result Performing Organization Address City/State/[facility] Co de Phone Number [facility] [address] [place] [address] documented in this encounter Visit Diagnoses Diagnosis Sore throat- Primary Acute pharyngitis documented in this encounter Additional Health Concerns Infection Onset Date Last Indicated Resolved Time COVID-19 Rule-Out 06/06/2020 06/06/2020 06/07/2020 11:13 AM EST documented as of this encounter Care Teams Regulatory Manager Relationship Specialty Start Date End Date Андрей Brandt MD [address] [place] [address] PCP - General 12/14/10 02/02/15 Diana Gutierres MD [address] [place] [address] PCP - General Pediatrics 02/03/15 07/30/17 Marc Quesada MD [address] [place] [address] PCP - General 07/31/17 01/31/22 documented as of this encounter
--- OUTSIDE RECORDS SUMMARY | 2024-06-19 13:01 | XMS_ITS | Encounter Summary ---
Author Organization [facility] Address [address] [place] [address] Care Team Providers Care Plasma Processing Technician Name Role Phone Diana Gutierres MD Primary Care Provider [phone] Marc Quesada MD Primary Care Provider [phone] Encounter Details Date Type Department Care Team (Late st Contact Info) Description 07/28/2017 Orders Only [facility] [address] [place] [phone] Diana Gutierres MD [address] [place] [address] Social History Tobacco Use Types Packs/Day Years [...] of this encounter Procedures * Due to [place] state law, this organization might not be sharing negative HIV tests. Procedure Name Priority Date/Time Associated Diagnosis Comments CHLAMYDIA TRACHOMATIS/N. GONORRHOEAE (GC) RNA, TMA (URINE) Routine 07/28/2017 1:29 PM EDT Hx of chlamydia infection documented in this encounter Results * Due to [place] state law, this organization might not be sharing negative HIV tests. * CHLAMYDIA TRACHOMATIS/N. GONORRHOEAE (GC) RNA, TMA (URINE) (07/28/2017 1:29 PM EDT) Chlamydia trachomatis rRNA NOT DETECTED NOT DETECTED [facility] Neisseria Gonorrhoeae rRNA NOT DETECTED NOT DETECTED [facility] COMMENT SEE NOTE [facility] Comment: This test was performed using the APTIMA COMBO2 Assay ([employer] The analytical performance characteristics of this assay, when used to test SurePath specimens have been determined by [employer]. 07/28/2017 1:29 PM EDT 07/28/2017 11:28 PM EDT Narrative Resulting Agency Comment [id number] us Diana Gutierres MD LABORATORY Final Result Performing Organization Address City/State/[facility] de Phone Number [facility] [address] [place] [address] documented in this encounter Visit Diagnoses Diagnosis Hx of chlamydia infection Personal history of other infectious and parasitic disease documented in this encounter Additional Health Concerns Infection Onset Date Last Indicated Resolved Time COVID-19 Rule-Out 06/06/2020 06/06/2020 06/07/2020 11:13 AM EST documented as of this encounter Care Teams Plasma Processing Technician Relationship Specialty Start Date End Date Diana Gutierres MD [address] [place] [address] PCP - General Pediatrics 02/03/15 07/30/17 Marc Quesada MD [address] [place] [address] PCP - General 07/31/17 01/31/22 documented as of this encounter
--- OUTSIDE RECORDS SUMMARY | 2024-06-19 13:01 | XMS_ITS | Encounter Summary ---
Author Organization [facility] Address [address] [place] [address] Care Team Providers Care Gas Pipe Layer Name Role Phone Андрей Brandt MD Primary Care Provider [phone] Diana Gutierres MD Primary Care Provider Marc Quesada MD Primary Care Provider [phone] Encounter Details Date Type Department Care Team (Late st Contact Info) Description 07/18/2013 Orders Only [facility] [address] [place] [phone] Андрей Brandt MD [address] [place] [address] Social History Tobacco Use Types Packs/Day Years [...] of this encounter Procedures * Due to [place] state law, this organization might not be sharing negative HIV tests. Procedure Name Priority Date/Time Associated Diagnosis Comments SHELL FISH ALLERGY PANEL (WITH SCALLOP) Routine 07/18/2013 2:45 PM EDT Food allergy documented in this encounter Results * Due to [place] state law, this organization might not be sharing negative HIV tests. * (ABNORMAL) SHELL FISH ALLERGY PANEL (WITH SCALLOP) (07/18/2013 2:45 PM EDT) Scallop (F338) IgE <0.35 kU/L [facility] Comment:{SCALLOP (F338) IGE {[id number]) Scallop (F338) Class 0 [facility] Comment:{CLASS {[id number]) Crab (F23) IgE <0.35 kU/L [facility] Comment:{CRAB (F23) IGE {[id number]) Crab (F23) Class 0 [facility] Comment:{CLASS {[id number]) Shrimp (F24) IgE 0.53(H) kU/L [facility] Comment:{SHRIMP (F24) IGE {[id number]) Shrimp (F24) Class 1 [facility] Comment:{CLASS {[id number]) Blue Mussel (F37) IgE <0.35 kU/L [facility] Comment:{BLUE MUSSEL (F37) I GE {[id number]) Blue Mussel (F37) Class 0 [facility] Comment:{CLASS {[id number]) Lobster (F80) IgE <0.35 kU/L [facility] Comment:{LOBSTER (F80) IGE { [id number]) Lobster (F80) Class 0 [facility] Comment:{CLASS {[id number]) Clam (F207) IgE <0.35 kU/L [facility] Comment:{CLAM (F207) IGE {[id number]) Clam (F207) Class 0 [facility] Comment:{CLASS {[id number]) Oyster (F290) IgE <0.35 kU/L [facility] Comment:{OYSTER (F290) IGE { [id number]) Oyster (F290) Class 0 [facility] Comment:{CLASS {[id number]) 07/18/2013 2:45 PM EDT 07/18/2013 9:21 PM EDT us Андрей Brandt MD LABORATORY Final Result [facility] [address] [place] [address] documented in this encounter Visit Diagnoses Diagnosis Food allergy Other adverse food reactions, not elsewhere classified documented in this encounter Additional Health Concerns Infection Onset Date Last Indicated Resolved Time COVID-19 Rule-Out 06/06/2020 06/06/2020 06/07/2020 11:13 AM EST documented as of this encounter Care Teams Gas Pipe Layer Relationship Specialty Start Date End Date Андрей Brandt MD [address] [place] [address] PCP - General 12/14/10 02/02/15 Diana Gutierres MD [address] [place] [address] PCP - General Pediatrics 02/03/15 07/30/17 Marc Quesada MD [address] [place] [address] PCP - General 07/31/17 01/31/22 documented as of this encounter
--- OUTSIDE RECORDS SUMMARY | 2024-06-19 13:01 | XMS_ITS | Clinical Summary ---
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 [facility] Cytology study comment (Cvx/Vag) This Pap test has been evaluated with computer assisted technology. [facility] Assistant Professor Of Anthropology (Cvx/Vag) MSM, CT(ASCP) CT screening location: [place] [address] [facility] COMMENT SEE NOTE [facility] Comment: EXPLANATORY NOTE: The Pap is a [...] Chlamydia trachomatis rRNA NOT DETECTED NOT DETECTED [facility] Neisseria Gonorrhoeae rRNA NOT DETECTED NOT DETECTED [facility] COMMENT SEE NOTE [facility] Comment: The analytical performance characteristics of this assay, when used to test SurePath(TM) specimens have been determined by [employer]. The modifications have not been cleared or approved by the FDA. This assay has been validated pursuant to the CLIA regulations and is used for clinical purposes. For additional information, please refer to https://education.[employer]/faq/ADS169 (This link is being provided for information/ educational purposes only.) Cervical 07/15/2020 5:15 PM EDT 07/16/2020 6:41 AM EDT Narrative Resulting Agency Comment [id number] us Marc Quesada MD PATHOLOGY-INTERFACED Final Resu lt [facility] [address] [place] [address] * ELECTROCARDIOGRAM, TRACING (09/12/2017) Narrative 09/12/2017 Ordered by an unspecified provider. Procedure Note Manish, Valente Provider - 09/12/2017 11:17 [place] [address] CARDIOVASCULAR SERVICES -- ELECTROCARDIOGRAM REPORT Patient's name: MARION MOSLEY UNIT#: [id number] : 97 DOS: 09/11/17 LOC: ER Test [...] By:Surendra Styles MD Acquiring Tech: MIKALA ORD#: [id number] OE: TOM RPT#: [id number] D/ MUSE CC: us Unknown Provider [facility] CARDIOVASCULAR-NO INBAS KET RTG Final Result * (ABNORMAL) LIPID PANEL WITH REFLEX TO DIRECT LDL (04/30/2015 8:51 AM EST) Cholesterol 192(H) 125 - 170 mg/dL [facility] Comment:{CHOLESTEROL, TOTAL {[id number]) HDL Cholesterol 53 36 - 76 mg/dL [facility] Comment:{HDL CHOLESTEROL {[id number]) Triglyceride 127 40 - 136 mg/dL [facility] Comment:{TRIGLYCERIDES {[id number]) LDL Cholesterol 114(H) <110 mg/dL (calc) [facility] Comment: {LDL-CHOLESTEROL {[id number]) Desirable range <100 mg/dL for patients with CHD or diabetes and <70 mg/dL for diabetic patients with known heart disease. CHOL/HDL Ratio 3.6 < OR = 5.0 (calc) [facility] Comment:{CHOL/HDLC RATIO {[id number]) Cholesterol Non-HDL 139(H) <120 mg/dL (calc) [facility] Comment:{NON HDL CHOLESTEROL {[id number]) 04/30/2015 8:51 AM EST 04/30/2015 2:43 PM EST Narrative Resulting Agency Comment [id number] us Diana Gutierres MD LABORATORY Final Result [facility] [address] [place] [address] from Last 3 Months or Most Recently Relevant to Health Maintenance
--- OUTSIDE RECORDS SUMMARY | 2024-06-19 13:01 | XMS_ITS | Encounter Summary ---
Author Organization [facility] Address [address] [place] [address] Care Team Providers Care Supervisor Steno Pool Name Role Phone Marc Quesada MD Primary Care Provider [phone] Encounter Details Date Type Department Care Team (Late st Contact Info) Description 07/15/2020 Orders Only [facility] [address] [place] [address] Marc Quesada MD [address] [place] [address] Social History Tobacco Use Types Packs/Day Years [...] of this encounter Procedures * Due to [facility] law, this organization might not be sharing negative HIV tests. Procedure Name Priority Date/Time Associated Diagnosis Comments THINPREP TIS PAP REFLEX HPV MRNA E6/E7, CHLAMYDIA/N.GONORRH OEAE Routine 07/15/2020 5:15 PM EDT Screening for malignant neoplasm of cervix documented in this encounter Results * Due to [facility] law, this organization might not be sharing [...] Smear Negative for intraepithelial lesion or malignancy. [facility] Cytology study comment (Cvx/Vag) This Pap test has been evaluated with computer assisted technology. [facility] Syrup Machine Laborer (Cvx/Vag) MSM, CT(ASCP) CT screening location: [address] [address] [facility] COMMENT SEE NOTE [facility] Comment: EXPLANATORY NOTE: The Pap is [...] NOT DETECTED [facility] COMMENT SEE NOTE [facility] Comment: The analytical performance characteristics of this assay, when used to test SurePath(TM) specimens have been determined by [employer]. The modifications have not been cleared or approved by the FDA. This assay has been validated pursuant to the CLIA regulations and is used for clinical purposes. For additional information, please refer to https://education.[employer]/faq/GIA015 (This link is being provided for information/ educational purposes only.) Cervical 07/15/2020 5:15 PM EDT 07/16/2020 6:41 AM EDT Narrative Resulting Agency Comment [id number] us Marc Quesada MD PATHOLOGY-INTERFACED Final Resu lt [facility] [address] [place] [address] documented in this encounter Visit Diagnoses Diagnosis Screening for malignant neoplasm of cervix Screening for malignant neoplasm of the cervix documented in this encounter Care Teams Supervisor Steno Pool Relationship Specialty Start Date End Date Marc Quesada MD [address] [place] [address] PCP - General 07/31/17 01/31/22 documented as of this encounter
--- OUTSIDE RECORDS SUMMARY | 2024-06-19 13:01 | XMS_ITS | Encounter Summary ---
Author Organization [facility] Address [address] [place] [address] Care Team Providers Care Mold Maker Name Role Phone Diana Gutierres MD Primary Care Provider [phone] Marc Quesada MD Primary Care Provider [phone] Reason for Visit * Reason Comments E-prescribing Refill Request Encounter Details Date Type Department Care Team (Late st Contact Info) Description 05/19/2016 Refill [facility] [address] [place] [phone] Андрей Brandt MD [address] [place] [address] E-prescribing Refill Request Social History Tobacco Use [...] documented as of this encounter Care Teams Mold Maker Relationship Specialty Start Date End Date Diana Gutierres MD [address] [place] [address] PCP - General Pediatrics 02/03/15 07/30/17 Marc Quesada MD [address] [place] [address] PCP - General 07/31/17 01/31/22 documented as of this encounter
--- OUTSIDE RECORDS SUMMARY | 2024-06-19 13:01 | XMS_ITS | Encounter Summary ---
Author Organization [facility] Address [address] [place] [address] Care Team Providers Care Loss Prevention Supervisor Name Role Phone Diana Gutierres MD Primary Care Provider [phone] Marc Quesada MD Primary Care Provider [phone] Encounter Details Date Type Department Care Team (Late st Contact Info) Description 04/28/2016 Orders Only [facility] [address] [place] [address] Diana Gutierres MD [address] [place] [address] Social History Tobacco Use Types Packs/Day Years [...] [facility] Comment:{CHLAMYDIA TRACHOMAT IS RNA, TMA {[id number]) Neisseria Gonorrhoeae rRNA NOT DETECTED NOT DETECTED [facility] Comment:{NEISSERIA GONORRHOE AE RNA, TMA {[id number]) COMMENT SEE NOTE [facility] Comment: {COMMENT {[id number]) This test was performed using the APTIMA COMBO2 Assay ([employer] The analytical performance characteristics of this assay, when used to test SurePath specimens have been determined by [employer]. 04/28/2016 3:38 PM EST 04/28/2016 9:54 PM EST Narrative Resulting Agency Comment [id number] us Diana Gutierres MD LABORATORY Final Result [facility] [address] [place] [address] documented in this encounter Visit Diagnoses Diagnosis Encounter for screening for infections with predominantly sexual mode of transmission Screening examination for venereal disease documented in this encounter Additional Health Concerns Infection Onset Date Last Indicated Resolved Time COVID-19 Rule-Out 06/06/2020 06/06/2020 06/07/2020 11:13 AM EST documented as of this encounter Care Teams Loss Prevention Supervisor Relationship Specialty Start Date End Date Diana Gutierres MD [address] [place] [address] PCP - General Pediatrics 02/03/15 07/30/17 Marc Quesada MD [address] [place] [address] PCP - General 07/31/17 01/31/22 documented as of this encounter
--- OUTSIDE RECORDS SUMMARY | 2024-06-19 13:01 | XMS_ITS | Encounter Summary ---
Author Organization [facility] Address [address] [place] [address] Care Team Providers Care Farm Advisor Name Role Phone Diana Gutierres MD Primary Care Provider [phone] Marc Quesada MD Primary Care Provider [phone] Reason for Visit * Reason Comments E-prescribing Refill Request Encounter Details Date Type Department Care Team (Late st Contact Info) Description 06/22/2017 Refill [facility] [address] [place] [phone] Diana Gutierres MD [address] [place] [address] E-prescribing Refill Request Social History Tobacco Use [...] Phone 07/28/17 1:00 PM Diana Gutierres MD [facility] [phone] Pertinent lab results: Last Pap Date (10 [...] documented as of this encounter Care Teams Farm Advisor Relationship Specialty Start Date End Date Diana uGtierres MD [address] [place] [address] PCP - General Pediatrics 02/03/15 07/30/17 Marc Quesada MD [address] [place] [address] PCP - General 07/31/17 01/31/22 documented as of this encounter
--- OUTSIDE RECORDS SUMMARY | 2024-06-19 13:01 | XMS_ITS | Encounter Summary ---
Author Organization [facility] Address [address] [place] [address] Care Team Providers Care Press Operator [employer] Name Role Phone Андрей Brandt MD Primary Care Provider [phone] Diana Gutierres MD Primary Care Provider [phone] Marc Quesada MD Primary Care Provider [phone] Encounter Details Date Type Department Care Team (Late st Contact Info) Description 01/12/2012 Orders Only [facility] [address] [place] [address] Андрей Brandt MD [address] [place] [address] Social History Tobacco Use Types Packs/Day Years [...] 1:12 PM EDTQuick Note: Left message on [employer].. Will send letter. documented in this encounter Plan of Treatment Not on file documented as of this encounter Procedures * Due to [place] [employer] law, this organization might not be sharing negative HIV tests. Procedure Name Priority Date/Time Associated Diagnosis Comments NUT ALLERGY PANEL Routine 01/12/2012 2:3 7 PM EDT Food allergy CBC (H/H, RBC, INDICES,WBC, PLT) Routine 01/12/2012 2:37 PM EDT Screening for other and unspecified deficiency anemia documented in this encounter Results * Due to [place] [employer] law, this organization might not be sharing negative HIV tests. * (ABNORMAL) NUT ALLERGY PANEL (01/12/2012 2:37 PM EDT) Cashew Nut (F202) IgE 2.88(H) kU/L [facility] Comment:{CASHEW NUT (F202) I GE {[id number]) Cashew Nut (F202) Class 2 [facility] Comment: {CLASS {[id number]) Specific ?Level of Allergen IGE Class ?kU/L [...] developed and its performance characteristics determined by [facility]. It has not been cleared or approved by the U.S. Food and Drug Administration. The FDA has determined that such clearance is not necessary. Performance characteristics refer to the analytical performance of the test. Sesame Seed (F10) IgE 0.42(H) kU/L [facility] Comment:{SESAME SEED (F10) I GE {[id number]) Sesame Seed (F10) Class 1 [facility] Comment:{CLASS {[id number]) Peanut (F13) IgE 17.50(H) kU/L [facility] Comment:{PEANUT (F13) IGE {[id number]) Peanut (F13) Class 4 [facility] Comment:{CLASS {[id number]) Hazelnut (F17) IgE 0.62(H) kU/L [facility] Comment:{HAZELNUT (F17) IGE {[id number]) Hazelnut (F17) Class 1 [facility] Comment:{CLASS {[id number]) [place] (F20) IgE 0.75(H) kU/L [facility] Comment:{ALMOND (F20) IGE {[id number]) [place] (F20) Class 2 [facility] Comment:{CLASS {[id number]) Coconut (F36) IgE <0.35 kU/L [facility] Comment:{COCONUT (F36) IGE { [id number]) Coconut (F36) Class 0 [facility] Comment:{CLASS {[id number]) Pecan Nut (F201) IgE <0.35 kU/L [facility] Comment:{PECAN NUT (F201) IG E {[id number]) Pecan Nut (F201) Class 0 [facility] Comment:{CLASS {[id number]) [place] (F256) IgE <0.35 kU/L [facility] Comment:{WALNUT (F256) IGE { [id number]) [place] (F256) Class 0 [facility] Comment:{CLASS {[id number]) 01/12/2012 2:37 PM EDT 01/12/2012 10:03 PM EDT Narrative Resulting Agency Comment [id number] us Андрей Brandt MD LABORATORY Final Result [facility] [address] [place] [address] * CBC (H/H, RBC, INDICES,WBC, PLT) (01/12/2012 2:37 PM EDT) WBC 6.8 4.5 - 13.0 Thousand/u L [facility] Comment:{WHITE BLOOD CELL CO UNT {[id number]) RBC 4.20 3.80 - 5.10 Million/uL [facility] Comment:{RED BLOOD CELL COUN T {[id number]) Hemoglobin 12.8 11.5 - 15.3 g/dL [facility] Comment:{HEMOGLOBIN {[id number]) Hematocrit 37.6 34.0 - 46.0 % [facility] Comment:{HEMATOCRIT {[id number]) MCV 89.6 78.0 - 98.0 fL [facility] Comment:{MCV {[id number]) MCH 30.4 25.0 - 35.0 pg [facility] Comment:{MCH {[id number]) MCHC 33.9 31.0 - 36.0 g/dL [facility] Comment:{MCHC {[id number]) RDW 13.1 11.0 - 15.0 % [facility] Comment:{RDW {[id number]) PLT 279 140 - 400 Thousand/u L [facility] Comment:{PLATELET COUNT {[id number]) 01/12/2012 2:37 PM EDT 01/12/2012 10:03 PM EDT Narrative Resulting Agency Comment [id number] us Андрей Brandt MD LAB SAME DAY RESULT Final Res ult [facility] [address] [place] [address] documented in this encounter Visit Diagnoses Diagnosis Screening for other and unspecified deficiency anemia Food allergy Other adverse food reactions, not elsewhere classified documented in this encounter Additional Health Concerns Infection Onset Date Last Indicated Resolved Time COVID-19 Rule-Out 06/06/2020 06/06/2020 06/07/2020 11:13 AM EST documented as of this encounter Care Teams Press Operator [employer] Products Relationship Specialty Start Date End Date Андрей Brandt MD [address] [place] [address] PCP - General 12/14/10 02/02/15 Diana Gutierres MD [address] [place] [address] PCP - General Pediatrics 02/03/15 07/30/17 Marc Quesada MD [address] [place] [address] PCP - General 07/31/17 01/31/22 documented as of this encounter
--- OUTSIDE RECORDS SUMMARY | 2024-06-19 13:01 | XMS_ITS | Encounter Summary ---
Author Organization [facility] Address [address] [place] [address] Care Team Providers Care Correction Officer Reformatory Name Role Phone Diana Gutierres MD Primary Care Provider [phone] Marc Quesada MD Primary Care Provider [phone] Encounter Details Date Type Department Care Team (Late st Contact Info) Description 06/16/2017 Orders Only [facility] [address] [place] [phone] Diana Gutierres MD [address] [place] [address] Social History Tobacco Use Types Packs/Day Years [...] of this encounter Procedures * Due to [place] state law, this organization might not [...] in this encounter Results * Due to [place] [employer] law, this organization might not be sharing negative HIV tests. * STREPTOCOCCUS, GROUP A CULTURE (06/16/2017 3:51 PM EST) Culture, Streptococci Group A, Throat SEE NOTE [facility] Comment: ??STREPTOCOCCUS, GROUP A CULTURE ??MICRO NUMBER: ?[id number] ??TEST STATUS: ? FINAL ??SPECIMEN SOURCE: ?? NOT GIVEN ??SPECIMEN QUALITY: ??ADEQUATE ??RESULT: ?No group A Streptococcus isolated 06/16/2017 3:51 PM EST 06/16/2017 8:49 PM EST Narrative Resulting Agency Comment [id number] Diana Gutierres MD LABORATORY Final Result Performing Organization Address City/State/[facility] Co de Phone Number [facility] [address] [place] [address] * (ABNORMAL) HEPATIC FUNCTION PANEL (ALT,AST,ALK PH,BILI'S,TP,ALB) (06/16/2017 2:50 PM EST) Pathologist [facility] Protein Total (Serum) 7.2 6.1 - 8.1 [...] 4:25 PM EST Narrative Resulting Agency Comment [id number] us Diana Gutierres MD LABORATORY Final Result Performing Organization Address City/State/[facility] Co de Phone Number [facility] [address] [place] [address] * (ABNORMAL) CBC INCLUDES DIFFERENTIAL AND PLATELET COUNT (06/16/2017 2:50 PM EST) [facility] WBC 10.1 3.8 - 10.8 Thousand/ uL [...] 4:25 PM EST Narrative Resulting Agency Comment [id number] us Diana Gutierres MD LAB SAME DAY RESULT Final Resu lt Performing Organization Address City/State/[facility] Co de Phone Number [facility] [address] [place] [address] * (ABNORMAL) SHIRIN-MESSINA VIRUS PANEL COMPREHENSIVE (06/16/2017 [...] 4:25 PM EST Narrative Resulting Agency Comment [id number] us Diana Gutierres MD LABORATORY Final Result [facility] [address] [place] [address] documented in this encounter Visit Diagnoses Diagnosis Sore throat Acute pharyngitis documented in this encounter Additional Health Concerns Infection Onset Date Last Indicated Resolved Time COVID-19 Rule-Out 06/06/2020 06/06/2020 06/07/2020 11:13 AM EST documented as of this encounter Care Teams Correction Officer Reformatory Relationship Specialty Start Date End Date Diana Gutierres MD [address] [place] [address] PCP - General Pediatrics 02/03/15 07/30/17 Marc Quesada MD [address] [place] [address] PCP - General 07/31/17 01/31/22 documented as of this encounter
--- OUTSIDE RECORDS SUMMARY | 2024-06-19 13:01 | XMS_ITS | Encounter Summary ---
Author Organization [facility] Address [address] [place] [address] Care Team Providers Care Senior Property Accountant Name Role Phone Marc Quesada MD Primary Care Provider [phone] Encounter Details Date Type Department Care Team (Late st Contact Info) Description 01/13/2018 Orders Only [facility] [address] [place] [phone] Marc Quesada MD [address] [place] [address] Social History Tobacco Use Types Packs/Day Years [...] encounter Procedures * Due to [place] [employer] law, this organization might not be sharing negative HIV tests. Procedure Name Priority Date/Time Associated Diagnosis Comments CBC INCLUDES DIFFERENTIAL AND PLATELET COUNT Routine 01/13/2018 4:22 PM EDT History of mononucleosis HEPATIC FUNCTION PANEL (ALT,AST,ALK PH,BILI'S,TP,ALB) Routine 01/13/2018 4:22 PM EDT Elevated liver enzymes documented in this encounter Results * Due to [place] state law, [...] 11:58 PM EDT Narrative Resulting Agency Comment [id number] us Marc Quesada MD LABORATORY Final Result [facility] [address] [place] [address] * CBC INCLUDES DIFFERENTIAL AND PLATELET COUNT [...] 11:58 PM EDT Narrative Resulting Agency Comment [id number] Marc Quesada MD LAB SAME DAY RESULT Final Resul t Performing Organization Address City/State/[facility] Co de Phone Number [facility] [address] [place] [address] documented in this encounter Visit Diagnoses Diagnosis History of mononucleosis Personal history of other infectious and parasitic disease Elevated liver enzymes Nonspecific elevation of levels of transaminase or lactic acid dehydrogenase (LDH) documented in this encounter Additional Health Concerns Infection Onset Date Last Indicated Resolved Time COVID-19 Rule-Out 06/06/2020 06/06/2020 06/07/2020 11:13 AM EST documented as of this encounter Care Teams Senior Property Accountant Relationship Specialty Start Date End Date Marc Quesada MD [address] [place] [address] PCP - General 07/31/17 01/31/22 documented as of this encounter
[2024-06-19 14:41] LABS: Uric Acid 3.7 mg/dL (2.4-5.7)
== END 2024-06-19 11:52 | disposition home or self-care (01) ==
LOC: HO.WFDLDS 11:51
PROVIDERS: Visit Provider Nurse Practitioner Family
DX: R61 Generalized hyperhidrosis (principal); R68.89 Other general symptoms and signs
CPT/HCPCS: 36415; 84550; 86481

== ENCOUNTER 2024-06-20 13:53 | Outpatient (AMB) | payer OTHER, SELFPAY ==
--- OUTSIDE RECORDS SUMMARY | 2024-06-20 14:13 | XMS_ITS | Encounter Summary ---
Author Organization [facility] Address [address] [place] [address] Care Team Providers Care Photographic Laboratory Supervisor Name Role Phone Diana Gutierres MD Primary Care Provider [phone] Marc Quesada MD Primary Care Provider [phone] Encounter Details Date Type Department Care Team (Late st Contact Info) Description 04/03/2015 Orders Only [facility] [address] [place] [address] Diana Gutierres MD [address] [place] [address] Social History Tobacco Use Types Packs/Day Years [...] of this encounter Procedures * Due to [place] state law, this organization might not be sharing negative HIV tests. Procedure Name Priority Date/Time Associated Diagnosis Comments CHLAMYDIA TRACHOMATIS/N. GONORRHOEAE (GC) RNA, TMA (URINE) Routine 04/03/2015 8:34 PM EST Routine history and physical examination of adult documented in this encounter Results * Due to [place] state law, this organization might not be sharing negative HIV tests. * CHLAMYDIA TRACHOMATIS/N. GONORRHOEAE (GC) RNA, TMA (URINE) (04/03/2015 8:34 PM EST) Chlamydia trachomatis rRNA NOT DETECTED NOT DETECTED [facility] Comment:{CHLAMYDIA TRACHOMAT IS RNA, TMA {[id number]) Neisseria Gonorrhoeae rRNA NOT DETECTED NOT DETECTED [facility] Comment:{NEISSERIA GONORRHOE AE RNA, TMA {[id number]) COMMENT SEE NOTE [facility] Comment: {COMMENT {[id number]) This test was performed using the APTIMA COMBO2 Assay ([employer] The analytical performance characteristics of this assay, when used to test SurePath specimens have been determined by [employer]. 04/03/2015 8:34 PM EST 04/04/2015 12:52 AM EST Narrative Resulting Agency Comment [id number] us Diana Gutierres MD LABORATORY Final Result [facility] [address] [place] [address] documented in this encounter Visit Diagnoses Diagnosis Routine history and physical examination of adult Routine general medical examination at a health care facility documented in this encounter Additional Health Concerns Infection Onset Date Last Indicated Resolved Time COVID-19 Rule-Out 06/06/2020 06/06/2020 06/07/2020 11:13 AM EST documented as of this encounter Care Teams Photographic Laboratory Supervisor Relationship Specialty Start Date End Date Diana Gutierres MD [address] [place] [address] PCP - General Pediatrics 02/03/15 07/30/17 Marc Quesada MD [address] [place] [address] PCP - General 07/31/17 01/31/22 documented as of this encounter
--- OUTSIDE RECORDS SUMMARY | 2024-06-20 14:13 | XMS_ITS | Encounter Summary ---
Author Organization [facility] Address [address] [place] [address] Care Team Providers Care Chief Cloth Finishing Range Operator Name Role Phone Андрей Brandt MD Primary Care Provider Diana Gutierres MD Primary Care Provider [phone] Marc Quesada MD Primary Care Provider [phone] Encounter Details Date Type Department Care Team (Late st Contact Info) Description 01/12/2012 Orders Only [facility] [address] [place] [address] Андрей Brandt MD [address] [place] [address] Social History Tobacco Use Types Packs/Day Years [...] 1:12 PM EDTQuick Note: Left message on [facility].. Will send letter. documented in this encounter Plan of Treatment Not on file documented as of this encounter Procedures * Due to [place] [employer] law, this organization might not be sharing negative HIV tests. Procedure Name Priority Date/Time Associated Diagnosis Comments NUT ALLERGY PANEL Routine 01/12/2012 2:3 7 PM EDT Food allergy CBC (H/H, RBC, INDICES,WBC, PLT) Routine 01/12/2012 2:37 PM EDT Screening for other and unspecified deficiency anemia documented in this encounter Results * Due to [place] [employer] law, this organization might not be sharing negative HIV tests. * (ABNORMAL) NUT ALLERGY PANEL (01/12/2012 2:37 PM EDT) Cashew Nut (F202) IgE 2.88(H) kU/L [facility] Comment:{CASHEW NUT (F202) I GE {[id number]) Cashew Nut (F202) Class 2 [facility] Comment: {CLASS {[id number]) Specific ?Level of Allergen IGE Class ?kU/L [...] developed and its performance characteristics determined by [facility]. It has not been cleared or approved by the U.S. Food and Drug Administration. The FDA has determined that such clearance is not necessary. Performance characteristics refer to the analytical performance of the test. Sesame Seed (F10) IgE 0.42(H) kU/L [facility] Comment:{SESAME SEED (F10) I GE {[id number]) Sesame Seed (F10) Class 1 [facility] Comment:{CLASS {[id number]) Peanut (F13) IgE 17.50(H) kU/L [facility] Comment:{PEANUT (F13) IGE {[id number]) Peanut (F13) Class 4 [facility] Comment:{CLASS {[id number]) Hazelnut (F17) IgE 0.62(H) kU/L [facility] Comment:{HAZELNUT (F17) IGE {[id number]) Hazelnut (F17) Class 1 [facility] Comment:{CLASS {[id number]) Ennis (F20) IgE 0.75(H) kU/L [facility] Comment:{ALMOND (F20) IGE {[id number]) Ennis (F20) Class 2 [facility] Comment:{CLASS {[id number]) Coconut (F36) IgE <0.35 kU/L [facility] Comment:{COCONUT (F36) IGE { [id number]) Coconut (F36) Class 0 [facility] Comment:{CLASS {[id number]) Pecan Nut (F201) IgE <0.35 kU/L [facility] Comment:{PECAN NUT (F201) IG E {[id number]) Pecan Nut (F201) Class 0 [facility] Comment:{CLASS {[id number]) [place] (F256) IgE <0.35 kU/L [facility] Comment:{WALNUT (F256) IGE { [id number]) [place] (F256) Class 0 [facility] Comment:{CLASS {[id number]) 01/12/2012 2:37 PM EDT 01/12/2012 10:03 PM EDT Narrative Resulting Agency Comment [id number] us Андрей Brandt MD LABORATORY Final Result [facility] [address] [place] [address] * CBC (H/H, RBC, INDICES,WBC, PLT) (01/12/2012 2:37 PM EDT) WBC 6.8 4.5 - 13.0 Thousand/u L [facility] Comment:{WHITE BLOOD CELL CO UNT {[id number]) RBC 4.20 3.80 - 5.10 Million/uL [facility] Comment:{RED BLOOD CELL COUN T {[id number]) Hemoglobin 12.8 11.5 - 15.3 g/dL [facility] Comment:{HEMOGLOBIN {[id number]) Hematocrit 37.6 34.0 - 46.0 % [facility] Comment:{HEMATOCRIT {[id number]) MCV 89.6 78.0 - 98.0 fL [facility] Comment:{MCV {[id number]) MCH 30.4 25.0 - 35.0 pg [facility] Comment:{MCH {[id number]) MCHC 33.9 31.0 - 36.0 g/dL [facility] Comment:{MCHC {[id number]) RDW 13.1 11.0 - 15.0 % [facility] Comment:{RDW {[id number]) PLT 279 140 - 400 Thousand/u L [facility] Comment:{PLATELET COUNT {[id number]) 01/12/2012 2:37 PM EDT 01/12/2012 10:03 PM EDT Narrative Resulting Agency Comment [id number] us Андрей Brandt MD LAB SAME DAY RESULT Final Res ult [facility] [address] [place] [address] documented in this encounter Visit Diagnoses Diagnosis Screening for other and unspecified deficiency anemia Food allergy Other adverse food reactions, not elsewhere classified documented in this encounter Additional Health Concerns Infection Onset Date Last Indicated Resolved Time COVID-19 Rule-Out 06/06/2020 06/06/2020 06/07/2020 11:13 AM EST documented as of this encounter Care Teams Chief Cloth Finishing Range Operator Relationship Specialty Start Date End Date Андрей Brandt MD [address] [place] [address] PCP - General 12/14/10 02/02/15 Diana Gutierres MD [address] [place] [address] PCP - General Pediatrics 02/03/15 07/30/17 Marc Quesada MD [address] [place] [address] PCP - General 07/31/17 01/31/22 documented as of this encounter
--- OUTSIDE RECORDS SUMMARY | 2024-06-20 14:13 | XMS_ITS | Encounter Summary ---
Author Organization [facility] Address [address] [place] [address] Care Team Providers Care Beverage Sales Consultant Name Role Phone Diana Gutierres MD Primary Care Provider [phone] Marc Quesada MD Primary Care Provider [phone] Encounter Details Date Type Department Care Team (Late st Contact Info) Description 07/28/2017 Orders Only [facility] [address] [place] [phone] Diana Gutierres MD [address] [place] [address] Social History Tobacco Use Types Packs/Day Years [...] was performed using the APTIMA COMBO2 Assay ([employer] The analytical performance characteristics of this assay, when used to test SurePath specimens have been determined by [employer] 07/28/2017 1:29 PM EDT 07/28/2017 11:28 PM EDT Narrative Resulting Agency Comment [id number] us Diana Gutierres MD LABORATORY Final Result Performing Organization Address City/State/[facility] de Phone Number [facility] [address] [place] [address] documented in this encounter Visit Diagnoses Diagnosis Hx of chlamydia infection Personal history of other infectious and parasitic disease documented in this encounter Additional Health Concerns Infection Onset Date Last Indicated Resolved Time COVID-19 Rule-Out 06/06/2020 06/06/2020 06/07/2020 11:13 AM EST documented as of this encounter Care Teams Beverage Sales Consultant Relationship Specialty Start Date End Date Diana Gutierres MD [address] [place] [address] PCP - General Pediatrics 02/03/15 07/30/17 Marc Quesada MD [address] [place] [address] PCP - General 07/31/17 01/31/22 documented as of this encounter
--- OUTSIDE RECORDS SUMMARY | 2024-06-20 14:13 | XMS_ITS | Clinical Summary ---
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 [facility] Cytology study comment (Cvx/Vag) This Pap test has been evaluated with computer assisted technology. [facility] Rn Post Partum (Cvx/Vag) MSM, CT(ASCP) CT screening location: [place] [address] [facility] COMMENT SEE NOTE [facility] Comment: EXPLANATORY NOTE: The Pap is a [...] Chlamydia trachomatis rRNA NOT DETECTED NOT DETECTED [facility] Neisseria Gonorrhoeae rRNA NOT DETECTED NOT DETECTED [facility] COMMENT SEE NOTE [facility] Comment: The analytical performance characteristics of this assay, when used to test SurePath(TM) specimens have been determined by [employer] The modifications have not been cleared or approved by the FDA. This assay has been validated pursuant to the CLIA regulations and is used for clinical purposes. For additional information, please refer to https://education.[employer]/faq/KIW904 (This link is being provided for information/ educational purposes only.) Cervical 07/15/2020 5:15 PM EDT 07/16/2020 6:41 AM EDT Narrative Resulting Agency Comment [id number] us Marc Quesada MD PATHOLOGY-INTERFACED Final Resu lt [facility] [address] [place] [address] * ELECTROCARDIOGRAM, TRACING (09/12/2017) Narrative 09/12/2017 Ordered by an unspecified provider. Procedure Note Manish, Valente Provider - 09/12/2017 11:17 [place] [address] CARDIOVASCULAR SERVICES -- ELECTROCARDIOGRAM REPORT Patient's name: MARION MOSLEY UNIT#: [id number] : 97 DOS: 09/11/17 LOC: ER Test [...] By:Surendra Styles MD Acquiring Tech: MIKALA ORD#: [id number] OE: TOM RPT#: [id number] D/ MUSE CC: us Unknown Provider Shorter CARDIOVASCULAR-NO INBAS KET RTG Final Result * (ABNORMAL) LIPID PANEL WITH REFLEX TO DIRECT LDL (04/30/2015 8:51 AM EST) Cholesterol 192(H) 125 - 170 mg/dL [facility] Comment:{CHOLESTEROL, TOTAL {[id number]) HDL Cholesterol 53 36 - 76 mg/dL [facility] Comment:{HDL CHOLESTEROL {[id number]) Triglyceride 127 40 - 136 mg/dL [facility] Comment:{TRIGLYCERIDES {[id number]) LDL Cholesterol 114(H) <110 mg/dL (calc) [facility] Comment: {LDL-CHOLESTEROL {[id number]) Desirable range <100 mg/dL for patients with CHD or diabetes and <70 mg/dL for diabetic patients with known heart disease. CHOL/HDL Ratio 3.6 < OR = 5.0 (calc) [facility] Comment:{CHOL/HDLC RATIO {[id number]) Cholesterol Non-HDL 139(H) <120 mg/dL (calc) [facility] Comment:{NON HDL CHOLESTEROL {[id number]) 04/30/2015 8:51 AM EST 04/30/2015 2:43 PM EST Narrative Resulting Agency Comment [id number] us Diana Gutierres MD LABORATORY Final Result [facility] [address] [place] [address] from Last 3 Months or Most Recently Relevant to Health Maintenance
--- OUTSIDE RECORDS SUMMARY | 2024-06-20 14:13 | XMS_ITS | Encounter Summary ---
Author Organization [facility] Address [address] [place] [address] Care Team Providers Care Security Police Name Role Phone Diana Gutierres MD Primary Care Provider [phone] Marc Quesada MD Primary Care Provider [phone] Encounter Details Date Type Department Care Team (Late st Contact Info) Description 04/28/2016 Orders Only [facility] [address] [place] [address] Diana Gutierres MD [address] [place] [address] Social History Tobacco Use Types Packs/Day Years [...] of this encounter Procedures * Due to [place] state law, this organization might not be sharing negative HIV tests. Procedure Name Priority Date/Time Associated Diagnosis Comments CHLAMYDIA TRACHOMATIS/N. GONORRHOEAE (GC) RNA, TMA (URINE) Routine 04/28/2016 3:38 PM EST Encounter for screening for infections with predominantly sexual mode of transmission documented in this encounter Results * Due to [place] state law, this organization might not be sharing negative HIV tests. * CHLAMYDIA TRACHOMATIS/N. GONORRHOEAE (GC) RNA, TMA (URINE) (04/28/2016 3:38 PM EST) Chlamydia trachomatis rRNA NOT DETECTED NOT DETECTED [facility] Comment:{CHLAMYDIA TRACHOMAT IS RNA, TMA {[id number]) Neisseria Gonorrhoeae rRNA NOT DETECTED NOT DETECTED [facility] Comment:{NEISSERIA GONORRHOE AE RNA, TMA {[id number]) COMMENT SEE NOTE [facility] Comment: {COMMENT {[id number]) This test was performed using the APTIMA COMBO2 Assay ([employer] The analytical performance characteristics of this assay, when used to test SurePath specimens have been determined by [employer]. 04/28/2016 3:38 PM EST 04/28/2016 9:54 PM EST Narrative Resulting Agency Comment [id number] us Diana Gutierres MD LABORATORY Final Result [facility] [address] [place] [address] documented in this encounter Visit Diagnoses Diagnosis Encounter for screening for infections with predominantly sexual mode of transmission Screening examination for venereal disease documented in this encounter Additional Health Concerns Infection Onset Date Last Indicated Resolved Time COVID-19 Rule-Out 06/06/2020 06/06/2020 06/07/2020 11:13 AM EST documented as of this encounter Care Teams Security Police Relationship Specialty Start Date End Date Diana Gutierres MD [address] [place] [address] PCP - General Pediatrics 02/03/15 07/30/17 Marc Quesada MD [address] [place] [address] PCP - General 07/31/17 01/31/22 documented as of this encounter
--- OUTSIDE RECORDS SUMMARY | 2024-06-20 14:13 | XMS_ITS | Encounter Summary ---
Author Organization [facility] Address [address] [place] [address] Care Team Providers Care Cytotechnologist Supervisor Name Role Phone Андрей Brandt MD Primary Care Provider [phone] Diana Gutierres MD Primary Care Provider [phone] Marc Quesada MD Primary Care Provider [phone] Encounter Details Date Type Department Care Team (Late st Contact Info) Description 05/17/2014 Orders Only [facility] [address] [place] [phone] Diana Gutierres MD [address] [place] [address] Medications Social History Tobacco Use Types Packs/Day [...] of this encounter Procedures * Due to [place] state law, this organization might not be sharing negative HIV tests. Procedure Name Priority Date/Time Associated Diagnosis Comments STREPTOCOCCUS, GROUP A CULTURE Routine 05/17/2014 4:50 PM EST Sore throat documented in this encounter Results * Due to [place] state law, this organization might not be sharing negative HIV tests. * STREPTOCOCCUS, GROUP A CULTURE (05/17/2014 4:50 PM EST) Culture, Streptococci Group A, Throat SEE NOTE [facility] Comment: {STREPTOCOCCUS, GROUP A CULTURE {[id number]) ??STREPTOCOCCUS, GROUP A CULTURE ??MICRO NUMBER: ?[id number] ??TEST STATUS: ? FINAL ??SPECIMEN SOURCE: ?? THROAT ??SPECIMEN QUALITY: ??ADEQUATE ??RESULT: ?No beta hemolytic Streptococci isolated 05/17/2014 4:50 PM EST 05/17/2014 9:49 PM EST Narrative Resulting Agency Comment [id number] Diana Gutierres MD LABORATORY Final Result Performing Organization Address City[facility] de Phone Number [facility] [address] [place] [address] documented in this encounter Visit Diagnoses Diagnosis Sore throat- Primary Acute pharyngitis documented in this encounter Additional Health Concerns Infection Onset Date Last Indicated Resolved Time COVID-19 Rule-Out 06/06/2020 06/06/2020 06/07/2020 11:13 AM EST documented as of this encounter Care Teams Cytotechnologist Supervisor Relationship Specialty Start Date End Date Андрей Brandt MD [address] [place] [address] PCP - General 12/14/10 02/02/15 Diana Gutierres MD [address] [place] [address] PCP - General Pediatrics 02/03/15 07/30/17 Marc Quesada MD [address] [place] [address] PCP - General 07/31/17 01/31/22 documented as of this encounter
--- OUTSIDE RECORDS SUMMARY | 2024-06-20 14:13 | XMS_ITS | Encounter Summary ---
Author Organization [facility] Address [address] [place] [address] Care Team Providers Care Logging Assistant Name Role Phone Diana Gutierres MD Primary Care Provider [phone] Marc Quesada MD Primary Care Provider [phone] Reason for Visit * Reason Comments E-prescribing Refill Request Encounter Details Date Type Department Care Team (Late st Contact Info) Description 05/19/2016 Refill [facility] [address] [place] [phone] Андрей Brandt MD [address] [place] [address] E-prescribing Refill Request Social History Tobacco Use [...] documented as of this encounter Care Teams Logging Assistant Relationship Specialty Start Date End Date Diana Gutierres MD [address] [place] [address] PCP - General Pediatrics 02/03/15 07/30/17 Marc Quesada MD [address] [place] [address] PCP - General 07/31/17 01/31/22 documented as of this encounter
--- OUTSIDE RECORDS SUMMARY | 2024-06-20 14:13 | XMS_ITS | Encounter Summary ---
Author Organization [facility] Address [address] [place] [address] Care Team Providers Care Duct Installer Name Role Phone Marc Quesada MD Primary Care Provider [phone] Encounter Details Date Type Department Care Team (Late st Contact Info) Description 07/15/2020 Orders Only [facility] [address] [place] [address] Marc Quesada MD [address] [place] [address] Social History Tobacco Use Types Packs/Day Years [...] of this encounter Procedures * Due to [facility] law, this organization might not be sharing negative HIV tests. Procedure Name Priority Date/Time Associated Diagnosis Comments THINPREP TIS PAP REFLEX HPV MRNA E6/E7, CHLAMYDIA/N.GONORRH OEAE Routine 07/15/2020 5:15 PM EDT Screening for malignant neoplasm of cervix documented in this encounter Results * Due to [facility] law, this organization might not [...] Smear Negative for intraepithelial lesion or malignancy. [facility] Cytology study comment (Cvx/Vag) This Pap test has been evaluated with computer assisted technology. [facility] Aircraft Hydraulic Equipment Mechanic (Cvx/Vag) MSM, CT(ASCP) CT screening location: [address] [address] [facility] COMMENT SEE NOTE [facility] Comment: EXPLANATORY NOTE: The Pap is [...] NOT DETECTED [facility] COMMENT SEE NOTE [facility] Comment: The analytical performance characteristics of this assay, when used to test SurePath(TM) specimens have been determined by [employer]. The modifications have not been cleared or approved by the FDA. This assay has been validated pursuant to the CLIA regulations and is used for clinical purposes. For additional information, please refer to https://education.K[employer] Network/faq/PIX806 (This link is being provided for information/ educational purposes only.) Cervical 07/15/2020 5:15 PM EDT 07/16/2020 6:41 AM EDT Narrative Resulting Agency Comment [id number] us Marc Quesada MD PATHOLOGY-INTERFACED Final Resu lt [facility] [address] [place] [address] documented in this encounter Visit Diagnoses Diagnosis Screening for malignant neoplasm of cervix Screening for malignant neoplasm of the cervix documented in this encounter Care Teams Duct Installer Relationship Specialty Start Date End Date Marc Quesada MD [address] [place] [address] PCP - General 07/31/17 01/31/22 documented as of this encounter
--- OUTSIDE RECORDS SUMMARY | 2024-06-20 14:13 | XMS_ITS | Encounter Summary ---
Author Organization [facility] Address [address] [place] [address] Care Team Providers Care Bitumen Plant Operator Name Role Phone Андерй Brandt MD Primary Care Provider [phone] Diana Gutierres MD Primary Care Provider [phone] Marc Quesada MD Primary Care Provider [phone] Encounter Details Date Type Department Care Team (Late st Contact Info) Description 07/18/2013 Orders Only [facility] [address] [place] [phone] Андрей Brandt MD [address] [place] [address] Social History Tobacco Use Types Packs/Day Years [...] encounter Procedures * Due to [place] state law, this organization might not be sharing negative HIV tests. Procedure Name Priority Date/Time Associated Diagnosis Comments SHELL FISH ALLERGY PANEL (WITH SCALLOP) Routine 07/18/2013 2:45 PM EDT Food allergy documented in this encounter Results * Due to [place] state law, this organization might not be sharing negative HIV tests. * (ABNORMAL) SHELL FISH ALLERGY PANEL (WITH SCALLOP) (07/18/2013 2:45 PM EDT) Scallop (F338) IgE <0.35 kU/L [facility] Comment:{SCALLOP (F338) IGE {[id number]) Scallop (F338) Class 0 [facility] Comment:{CLASS {[id number]) Crab (F23) IgE <0.35 kU/L [facility] Comment:{CRAB (F23) IGE {[id number]) Crab (F23) Class 0 [facility] Comment:{CLASS {[id number]) Shrimp (F24) IgE 0.53(H) kU/L [facility] Comment:{SHRIMP (F24) IGE {[id number]) Shrimp (F24) Class 1 [facility] Comment:{CLASS {[id number]) Blue Mussel (F37) IgE <0.35 kU/L [facility] Comment:{BLUE MUSSEL (F37) I GE {[id number]) Blue Mussel (F37) Class 0 [facility] Comment:{CLASS {[id number]) Lobster (F80) IgE <0.35 kU/L [facility] Comment:{LOBSTER (F80) IGE { [id number]) Lobster (F80) Class 0 [facility] Comment:{CLASS {[id number]) Clam (F207) IgE <0.35 kU/L [facility] Comment:{CLAM (F207) IGE {[id number]) Clam (F207) Class 0 [facility] Comment:{CLASS {[id number]) Oyster (F290) IgE <0.35 kU/L [facility] Comment:{OYSTER (F290) IGE { [id number]) Oyster (F290) Class 0 [facility] Comment:{CLASS {[id number]) 07/18/2013 2:45 PM EDT 07/18/2013 9:21 PM EDT us Андрей Brandt MD LABORATORY Final Result [facility] [address] [place] [address] documented in this encounter Visit Diagnoses Diagnosis Food allergy Other adverse food reactions, not elsewhere classified documented in this encounter Additional Health Concerns Infection Onset Date Last Indicated Resolved Time COVID-19 Rule-Out 06/06/2020 06/06/2020 06/07/2020 11:13 AM EST documented as of this encounter Care Teams Bitumen Plant Operator Relationship Specialty Start Date End Date Андрей Brandt MD [address] [place] [address] PCP - General 12/14/10 02/02/15 Diana Gutierres MD [address] [place] [address] PCP - General Pediatrics 02/03/15 07/30/17 Marc Quesada MD [address] [place] [address] PCP - General 07/31/17 01/31/22 documented as of this encounter
--- OUTSIDE RECORDS SUMMARY | 2024-06-20 14:13 | XMS_ITS | Encounter Summary ---
Author Organization [facility] Address [address] [place] [address] Care Team Providers Care Head Of Advertising Name Role Phone Marc Quesada MD Primary Care Provider [phone] Reason for Visit * Reason Comments E-prescribing Refill Request Encounter Details Date Type Department Care Team (Late st Contact Info) Description 06/22/2020 Refill [facility] [address] [place] [phone] Marc Quesada MD [address] [place] [address] E-prescribing Refill Request Social History Tobacco Use [...] on filedocumented in this encounter Care Teams Head Of Advertising Relationship Specialty Start Date End Date Marc Quesada MD [address] [place] [address] PCP - General 07/31/17 01/31/22 documented as of this encounter
--- OUTSIDE RECORDS SUMMARY | 2024-06-20 14:13 | XMS_ITS | Encounter Summary ---
Author Organization [facility] Address [address] [place] [address] Care Team Providers Care Criminal Defense Lawyer Name Role Phone Diana Gutierres MD Primary Care Provider [phone] Marc Quesada MD Primary Care Provider [phone] Encounter Details Date Type Department Care Team (Late st Contact Info) Description 04/30/2015 Orders Only [facility] [address] [place] [address] Diana Gutierres MD [address] [place] [address] Social History Tobacco Use Types Packs/Day Years [...] of this encounter Procedures * Due to [place] [employer] law, this organization might not be sharing negative HIV tests. Procedure Name Priority Date/Time Associated Diagnosis Comments CBC INCLUDES DIFFERENTIAL AND PLATELET COUNT Routine 04/30/2015 8:51 AM EST Routine history and physical examination of adult LIPID PANEL WITH REFLEX TO DIRECT LDL Routine 04/30/2015 8:51 AM EST Routine history and physical examination of adult documented in this encounter Results * Due to [place] [employer] law, this organization might not be sharing negative HIV tests. * CBC INCLUDES DIFFERENTIAL AND PLATELET COUNT (04/30/2015 8:51 AM EST) WBC 5.7 4.5 - 13.0 Thousand/u L [facility] Comment:{WHITE BLOOD CELL CO UNT {[id number]) RBC 4.40 3.80 - 5.10 Million/uL [facility] Comment:{RED BLOOD CELL COUN T {[id number]) Hemoglobin 13.0 11.5 - 15.3 g/dL [facility] Comment:{HEMOGLOBIN {[id number]) Hematocrit 40.1 34.0 - 46.0 % [facility] Comment:{HEMATOCRIT {[id number]) MCV 91.2 78.0 - 98.0 fL [facility] Comment:{MCV {[id number]) MCH 29.5 25.0 - 35.0 pg [facility] Comment:{MCH {[id number]) MCHC 32.4 31.0 - 36.0 g/dL [facility] Comment:{MCHC {[id number]) RDW 12.8 11.0 - 15.0 % [facility] Comment:{RDW {[id number]) PLT 233 140 - 400 Thousand/u L [facility] Comment:{PLATELET COUNT {[id number]) MPV 8.8 7.5 - 11.5 fL [facility] Comment:{MPV {[id number]) Neutrophils # 2799 1800 - 8000 cells/uL [facility] Comment:{ABSOLUTE NEUTROPHIL S {[id number]) Lymphocytes # 2183 1200 - 5200 cells/uL [facility] Comment:{ABSOLUTE LYMPHOCYTE S {[id number]) Monocytes # 439 200 - 900 cells/uL [facility] Comment:{ABSOLUTE MONOCYTES {[id number]) Eosinophils # 228 15 - 500 cells/uL [facility] Comment:{ABSOLUTE EOSINOPHIL S {[id number]) Basophils # 51 0 - 200 cells/uL [facility] Comment:{ABSOLUTE BASOPHILS {[id number]) Neutrophils % 49.1 % [facility] Comment:{NEUTROPHILS {[id number]) Lymphocytes % 38.3 % [facility] Comment:{LYMPHOCYTES {[id number]) Monocytes % 7.7 % [facility] Comment:{MONOCYTES {[id number]) Eosinophils % 4.0 % [facility] Comment:{EOSINOPHILS {[id number]) Basophils % 0.9 % [facility] Comment:{BASOPHILS {[id number]) 04/30/2015 8:51 AM EST 04/30/2015 2:43 PM EST Narrative Resulting Agency Comment [id number] us Diana Gutierres MD LAB SAME DAY RESULT Final Resu lt [facility] [address] [place] [address] * (ABNORMAL) LIPID PANEL WITH REFLEX TO DIRECT LDL (04/30/2015 8:51 AM EST) Cholesterol 192(H) 125 - 170 mg/dL [facility] Comment:{CHOLESTEROL, TOTAL {[id number]) HDL Cholesterol 53 36 - 76 mg/dL [facility] Comment:{HDL CHOLESTEROL {[id number]) Triglyceride 127 40 - 136 mg/dL [facility] Comment:{TRIGLYCERIDES {[id number]) LDL Cholesterol 114(H) <110 mg/dL (calc) [facility] Comment: {LDL-CHOLESTEROL {[id number]) Desirable range <100 mg/dL for patients with CHD or diabetes and <70 mg/dL for diabetic patients with known heart disease. CHOL/HDL Ratio 3.6 < OR = 5.0 (calc) [facility] Comment:{CHOL/HDLC RATIO {[id number]) Cholesterol Non-HDL 139(H) <120 mg/dL (calc) [facility] Comment:{NON HDL CHOLESTEROL {[id number]) 04/30/2015 8:51 AM EST 04/30/2015 2:43 PM EST Narrative Resulting Agency Comment [id number] Diana Gutierres MD LABORATORY Final Result [facility] [address] [place] [address] documented in this encounter Visit Diagnoses Diagnosis Routine history and physical examination of adult Routine general medical examination at a health care facility documented in this encounter Additional Health Concerns Infection Onset Date Last Indicated Resolved Time COVID-19 Rule-Out 06/06/2020 06/06/2020 06/07/2020 11:13 AM EST documented as of this encounter Care Teams Criminal Defense Lawyer Relationship Specialty Start Date End Date Diana Gutierres MD [address] [place] [address] PCP - General Pediatrics 02/03/15 07/30/17 Marc Quesada MD [address] [place] [address] PCP - General 07/31/17 01/31/22 documented as of this encounter
--- OUTSIDE RECORDS SUMMARY | 2024-06-20 14:13 | XMS_ITS | Encounter Summary ---
Author Organization [facility] Address [address] [place] [address] Care Team Providers Care Environmental Change Analyst Name Role Phone Diana Gutierres MD Primary Care Provider [phone] Marc Quesada MD Primary Care Provider [phone] Encounter Details Date Type Department Care Team (Late st Contact Info) Description 06/16/2017 Orders Only [facility] [address] [place] [phone] Diana Gutierres MD [address] [place] [address] Social History Tobacco Use Types Packs/Day Years [...] encounter Procedures * Due to [place] state law, this organization might not be [...] encounter Results * Due to [place] [employer] law, this organization might not be sharing negative HIV tests. * STREPTOCOCCUS, GROUP A CULTURE (06/16/2017 3:51 PM EST) Culture, Streptococci Group A, Throat SEE NOTE [facility] Comment: ??STREPTOCOCCUS, GROUP A CULTURE ??MICRO NUMBER: ?[id number] ??TEST STATUS: ? FINAL ??SPECIMEN SOURCE: ?? NOT GIVEN ??SPECIMEN QUALITY: ??ADEQUATE ??RESULT: ?No group A Streptococcus isolated 06/16/2017 3:51 PM EST 06/16/2017 8:49 PM EST Narrative Resulting Agency Comment [id number] Diana Gutierres MD LABORATORY Final Result Performing Organization Address City/State/[facility] Co de Phone Number [facility] [address] [place] [address] * (ABNORMAL) HEPATIC FUNCTION PANEL (ALT,AST,ALK PH,BILI'S,TP,ALB) (06/16/2017 2:50 PM EST) Pathologist [facility] Protein Total (Serum) 7.2 6.1 - 8.1 [...] 4:25 PM EST Narrative Resulting Agency Comment [id number] us Diana Gutierres MD LABORATORY Final Result Performing Organization Address City/State/[facility] Co de Phone Number [facility] [address] [place] [address] * (ABNORMAL) CBC INCLUDES DIFFERENTIAL AND PLATELET COUNT (06/16/2017 2:50 PM EST) [facility] WBC 10.1 3.8 - 10.8 Thousand/ [...] 4:25 PM EST Narrative Resulting Agency Comment [id number] us Diana Gutierres MD LAB SAME DAY RESULT Final Resu lt Performing Organization Address City/State/[facility] Co de Phone Number [facility] [address] [place] [address] * (ABNORMAL) SHIRIN-MESSINA VIRUS PANEL COMPREHENSIVE (06/16/2017 [...] 4:25 PM EST Narrative Resulting Agency Comment [id number] us Diana Gutierres MD LABORATORY Final Result [facility] [address] [place] [address] documented in this encounter Visit Diagnoses Diagnosis Sore throat Acute pharyngitis documented in this encounter Additional Health Concerns Infection Onset Date Last Indicated Resolved Time COVID-19 Rule-Out 06/06/2020 06/06/2020 06/07/2020 11:13 AM EST documented as of this encounter Care Teams Environmental Change Analyst Relationship Specialty Start Date End Date Diana Gutierres MD [address] [place] [address] PCP - General Pediatrics 02/03/15 07/30/17 Marc Quesada MD [address] [place] [address] PCP - General 07/31/17 01/31/22 documented as of this encounter
--- OUTSIDE RECORDS SUMMARY | 2024-06-20 14:13 | XMS_ITS | Encounter Summary ---
Author Organization [facility] Address [address] [place] [address] Care Team Providers Care Traffic Sign Supervisor Name Role Phone Diana Gutierres MD Primary Care Provider [phone] Marc Quesada MD Primary Care Provider [phone] Reason for Visit * Reason Comments E-prescribing Refill Request Encounter Details Date Type Department Care Team (Late st Contact Info) Description 06/22/2017 Refill [facility] [address] [place] [phone] Diana Gutierres MD [address] [place] [address] E-prescribing Refill Request Social History Tobacco Use [...] Phone 07/28/17 1:00 PM Diana Gutierres MD [facility] [phone] Pertinent lab results: Last Pap Date (10 [...] documented as of this encounter Care Teams Traffic Sign Supervisor Relationship Specialty Start Date End Date Diana Gutierres MD [address] [place] [address] PCP - General Pediatrics 02/03/15 07/30/17 Marc Quesada MD [address] [place] [address] PCP - General 07/31/17 01/31/22 documented as of this encounter
--- OUTSIDE RECORDS SUMMARY | 2024-06-20 14:13 | XMS_ITS | Encounter Summary ---
Author Organization [facility] Address [address] [place] [address] Care Team Providers Care General Passenger Agent Name Role Phone Marc Quesada MD Primary Care Provider [phone] Encounter Details Date Type Department Care Team (Late st Contact Info) Description 01/13/2018 Orders Only [facility] [address] [place] [phone] Marc Quesada MD [address] [place] [address] Social History Tobacco Use Types Packs/Day Years [...] this encounter Procedures * Due to [place] [employer] law, this organization might not be sharing negative HIV tests. Procedure Name Priority Date/Time Associated Diagnosis Comments CBC INCLUDES DIFFERENTIAL AND PLATELET COUNT Routine 01/13/2018 4:22 PM EDT History of mononucleosis HEPATIC FUNCTION PANEL (ALT,AST,ALK PH,BILI'S,TP,ALB) Routine 01/13/2018 4:22 PM EDT Elevated liver enzymes documented in this encounter Results * Due to [place] state law, this organization might not be [...] 11:58 PM EDT Narrative Resulting Agency Comment [id number] us Marc Quesada MD LABORATORY Final Result [facility] [address] [place] [address] * CBC INCLUDES DIFFERENTIAL AND PLATELET COUNT [...] 11:58 PM EDT Narrative Resulting Agency Comment [id number] Marc Quesada MD LAB SAME DAY RESULT Final Resul t Performing Organization Address City/State/[facility] Co de Phone Number [facility] [address] [place] [address] documented in this encounter Visit Diagnoses Diagnosis History of mononucleosis Personal history of other infectious and parasitic disease Elevated liver enzymes Nonspecific elevation of levels of transaminase or lactic acid dehydrogenase (LDH) documented in this encounter Additional Health Concerns Infection Onset Date Last Indicated Resolved Time COVID-19 Rule-Out 06/06/2020 06/06/2020 06/07/2020 11:13 AM EST documented as of this encounter Care Teams General Passenger Agent Relationship Specialty Start Date End Date Marc Quesada MD [address] [place] [address] PCP - General 07/31/17 01/31/22 documented as of this encounter
--- NOTE | 2024-06-20 14:16 | A.OFFVIS_ITS ---
VS Expanded 06/20/24 14:29 Height 5 ft 5 in Weight 239 lb BMI 35.3 Intake Visit Reasons: Obesity Allergies amoxicillin Allergy (Severe, Verified 06/19/24 11:08) Anaphylaxis Penicillins Allergy (Severe, Verified 06/19/24 11:08) Anaphylaxis Nutrition Presentation Details: Pt presents for MNT for obesity food frequency fruits: 0-1/d vex/wk starches >22/d dairy: 3+ fish: not including pastries and similar: 1+/d physical activity ADL ETOH/SMoking : ---- beverages:water, jucies/milk /soda BS Monitoring Most Recent Diabetes Results: Cholesterol 202 mg/dL (<200) H 05/09/24 HDL Cholesterol 60 mg/dL (>40) 05/09/24 Triglycerides 165 mg/dL (<150) H 05/09/24 Creatinine 0.74 mg/dL (0.5-1.4) 05/09/24 Blood Urea Nitrogen 14 mg/dL (9-16) 05/09/24 Sodium 139 mmol/L (135-145) 05/09/24 Potassium 4.3 mmol/L (3.3-5.1) 05/09/24 Chloride 107 mmol/L (96-108) 05/09/24 Carbon Dioxide 24 mmol/L (22-29) 05/09/24 Calcium 9.7 mg/dL (8.4-10.2) 05/09/24 AST 17 U/L (5-31) 05/09/24 ALT 14 U/L (0-31) 05/09/24 Total Protein 7.3 g/dL (6.5-8.0) 05/09/24 Albumin 4.2 g/dL (3.5-5.0) 05/09/24 UMP-Hiawhyv-Wz.Jeor Equation Height: 5 ft 9 in Weight: 239 lb Resting Metabolic Rate: 1884.54 Calculated Activity Level: Sedentary Calories Needed to Maintain Weight: 2261.45 Diagnosis Nutrition problem #1: food nutri know defi As related to (etiology) #1: diagnosis As evidenced by (sign/symptom) #1: knowledge deficit of diet [facility] (Updated 06/19/24 @ 11:12 by Elisha Saunders CNP) Depression Anxiety Acid reflux IBS (irritable bowel syndrome) High cholesterol Asthma Family History (Updated 05/08/24 @ 13:40 by Kiah Houston) Maternal Grandmother Alcohol abuse Substance abuse FH: mental illness Cardiovascular disease Maternal Uncle Substance abuse FH: mental illness Mother FH: mental illness Father FH: mental illness High blood pressure Paternal Grandfather High blood pressure High cholesterol Social History (Updated 05/08/24 @ 13:39 by Kiah Houston) Housing: House Patient Tobacco Use Status: Never used Tobacco e-Cigarette/Vaping Use: Never Used Second Hand Smoke Exposure: Yes Substance Use Type: Marijuana service: No Current occupational status: employed 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 Current occupational exposures/hazards: No Cognitive needs: No Hearing needs: No Vision needs: No Assessment & Plan Assessment & Plan (1) Obesity (BMI 30.0-34.9): Code(s): E66.811 - Obesity, class 1 Category: Medical Plan: Wt: 108 Kg ( 06/26 ) Est kcal needs as per MSJ: 2300 (40% carb, 30% protein/fat) Est fluid needs as per 25-30 ml/d:3300 Est prot per day as per 1 g/kg bw: 100 Recommend fiber intake : 8-10 g per day and gradually increase to 25-28 g per day for women and 35-38 g for men or as tolerated Recommend sodium intake per day : less than 2300 mg Educated patient on: ( R = reviewed V = verbalizes understanding N/R = needs review N/A = not applicable * Food sources of carbohydrate, adequate serving sizes and its role in various health conditions: R * Differences between complex carbohydrates a simple carbohydrates, role of fiber in diet: R * Lean protein sources of foods: R * Differences between types of fats and role in diet (mono on saturated fat fatty acids, saturated fatty acids, trans fats): R V N/R * Food sources of sodium in salt and healthy modifications for heart health in kidney health: R V R/V * Vitamins and minerals: R V N/R * Healthy plate method concept: R * Physical activity: Benefits a precaution: R V N/R * Patient Instructions: Work on reducing sugars and reduce total carb to 75g or less per meal , 0-20 g as snack (2/day, if needed) practicemindful eating Choose water, low sugar beverages (water/herb infused flavored water) Coding Level of Care Code Nutr Indiv Intake (58515) Diagnoses Obesity (BMI 30.0-34.9) E66.811 Time Spent (min) 30
[2024-07-02 14:00] VITALS: BMI 35.3
== END 2024-06-20 14:42 | disposition home or self-care (01) ==
PROVIDERS: PCP Nurse Practitioner Family; Visit Provider Dietitian, Registered
DX: E66.811 Obesity, class 1 (principal)

== ENCOUNTER → 2024-06-20 13:53 | Outpatient (BNVA) | payer OTHER, SELFPAY | PROVIDERS: PCP Nurse Practitioner Family; Visit Provider Dietitian, Registered | DX: E66.811 Obesity, class 1 (principal); Z68.35 Body mass index [BMI] 35.0-35.9, adult; Z71.3 Dietary counseling and surveillance | CPT/HCPCS: 97802 ==

== ENCOUNTER 2024-06-25 15:45 | Outpatient (REF) | payer OTHER, SELFPAY ==
--- OUTSIDE RECORDS SUMMARY | 2024-06-25 18:00 | XMS_ITS | Encounter Summary ---
Author Organization [facility] Address [address] [place] [address] Care Team Providers Care Sales Planning Analyst Name Role Phone Андрей Brandt MD Primary Care Provider [phone] Diana Gutierres MD Primary Care Provider [phone] Marc Quesada MD Primary Care Provider [phone] Encounter Details Date Type Department Care Team (Late st Contact Info) Description 07/18/2013 Orders Only [facility] [address] [place] [phone] Андрей Brandt MD [address] [place] [address] Social History Tobacco Use Types Packs/Day Years [...] <0.35 kU/L [facility] Comment:{SCALLOP (F338) IGE {[id number]) Scallop (F338) Class 0 [facility] Comment:{CLASS {[id number]) Crab (F23) IgE <0.35 kU/L [facility] Comment:{CRAB (F23) IGE {[id number]) Crab (F23) Class 0 [facility] Comment:{CLASS {[id number]) Shrimp (F24) IgE 0.53(H) kU/L [facility] Comment:{SHRIMP (F24) IGE {[id number]) Shrimp (F24) Class 1 [facility] Comment:{CLASS {[id number]) Blue Mussel (F37) IgE <0.35 kU/L [facility] Comment:{BLUE MUSSEL (F37) I GE {[id number]) Blue Mussel (F37) Class 0 [facility] Comment:{CLASS {[id number]) Lobster (F80) IgE <0.35 kU/L [facility] Comment:{LOBSTER (F80) IGE { [id number]) Lobster (F80) Class 0 [facility] Comment:{CLASS {[id number]) Clam (F207) IgE <0.35 kU/L [facility] Comment:{CLAM (F207) IGE {[id number]) Clam (F207) Class 0 [facility] Comment:{CLASS {[id number]) Oyster (F290) IgE <0.35 kU/L [facility] Comment:{OYSTER (F290) IGE { [id number]) Oyster (F290) Class 0 [facility] Comment:{CLASS {[id number]) 07/18/2013 2:45 PM EDT 07/18/2013 9:21 PM EDT us Андрей Brandt MD LABORATORY Final Result [facility] [address] [place] [address] documented in this encounter Visit Diagnoses Diagnosis Food allergy Other adverse food reactions, not elsewhere classified documented in this encounter Additional Health Concerns Infection Onset Date Last Indicated Resolved Time COVID-19 Rule-Out 06/06/2020 06/06/2020 06/07/2020 11:13 AM EST documented as of this encounter Care Teams Sales Planning Analyst Relationship Specialty Start Date End Date Андрей Brandt MD [address] [place] [address] PCP - General 12/14/10 02/02/15 Diana Gutierres MD [address] [place] [address] PCP - General Pediatrics 02/03/15 07/30/17 Marc Quesada MD [address] [place] [address] PCP - General 07/31/17 01/31/22 documented as of this encounter
--- OUTSIDE RECORDS SUMMARY | 2024-06-25 18:00 | XMS_ITS | Encounter Summary ---
Author Organization [facility] Address [address] [place] [address] Care Team Providers Care Meat Hostess Name Role Phone Андрей Brandt MD Primary Care Provider [phone] Diana Gutierres MD Primary Care Provider [phone] Marc Quesada MD Primary Care Provider [phone] Encounter Details Date Type Department Care Team (Late st Contact Info) Description 05/17/2014 Orders Only [facility] [address] [place] [phone] Diana Gutierres MD [address] [place] [address] Medications Social History Tobacco Use Types Packs/Day [...] of this encounter Procedures * Due to [place] state law, this organization might not be sharing negative HIV tests. Procedure Name Priority Date/Time Associated Diagnosis Comments STREPTOCOCCUS, GROUP A CULTURE Routine 05/17/2014 4:50 PM EST Sore throat documented in this encounter Results * Due to [place] state law, this organization might not be sharing negative HIV tests. * STREPTOCOCCUS, GROUP A CULTURE (05/17/2014 4:50 PM EST) Culture, Streptococci Group A, Throat SEE NOTE [facility] Comment: {STREPTOCOCCUS, GROUP A CULTURE {[id number]) ??STREPTOCOCCUS, GROUP A CULTURE ??MICRO NUMBER: ?[id number] ??TEST STATUS: ? FINAL ??SPECIMEN SOURCE: ?? THROAT ??SPECIMEN QUALITY: ??ADEQUATE ??RESULT: ?No beta hemolytic Streptococci isolated 05/17/2014 4:50 PM EST 05/17/2014 9:49 PM EST Narrative Resulting Agency Comment [id number] Diana Gutierres MD LABORATORY Final Result Performing Organization Address [facility] Co de Phone Number [facility] [address] [place] [address] documented in this encounter Visit Diagnoses Diagnosis Sore throat- Primary Acute pharyngitis documented in this encounter Additional Health Concerns Infection Onset Date Last Indicated Resolved Time COVID-19 Rule-Out 06/06/2020 06/06/2020 06/07/2020 11:13 AM EST documented as of this encounter Care Teams Meat Hostess Relationship Specialty Start Date End Date Андрей Brandt MD [address] [place] [address] PCP - General 12/14/10 02/02/15 Diana Gutierres MD [address] [place] [address] PCP - General Pediatrics 02/03/15 07/30/17 Marc Quesada MD [address] [place] [address] PCP - General 07/31/17 01/31/22 documented as of this encounter
--- OUTSIDE RECORDS SUMMARY | 2024-06-25 18:00 | XMS_ITS | Encounter Summary ---
Author Organization [facility] Address [address] [place] [address] Care Team Providers Care Religious Ritual Slaughterer Name Role Phone Marc Quesada MD Primary Care Provider [phone] Encounter Details Date Type Department Care Team (Late st Contact Info) Description 07/15/2020 Orders Only [facility] [address] [place] [address] Marc Quesada MD [address] [place] [address] Social History Tobacco Use Types Packs/Day Years [...] of this encounter Procedures * Due to [facility] law, this organization might not be sharing negative HIV tests. Procedure Name Priority Date/Time Associated Diagnosis Comments THINPREP TIS PAP REFLEX HPV MRNA E6/E7, CHLAMYDIA/N.GONORRH OEAE Routine 07/15/2020 5:15 PM EDT Screening for malignant neoplasm of cervix documented in this encounter Results * Due to [facility] law, this organization might not be [...] Smear Negative for intraepithelial lesion or malignancy. [facility] Cytology study comment (Cvx/Vag) This Pap test has been evaluated with computer assisted technology. [facility] Surveillance Officer (Cvx/Vag) MSM, CT(ASCP) CT screening location: [address] [address] [facility] COMMENT SEE NOTE [facility] Comment: EXPLANATORY NOTE: The Pap is [...] NOT DETECTED [facility] COMMENT SEE NOTE [facility] Comment: The analytical performance characteristics of this assay, when used to test SurePath(TM) specimens have been determined by [employer] The modifications have not been cleared or approved by the FDA. This assay has been validated pursuant to the CLIA regulations and is used for clinical purposes. For additional information, please refer to https://education.Guomai/faq/VEW156 (This link is being provided for information/ educational purposes only.) Cervical 07/15/2020 5:15 PM EDT 07/16/2020 6:41 AM EDT Narrative Resulting Agency Comment [id number] us Marc Quesada MD PATHOLOGY-INTERFACED Final Resu lt [facility] [address] [place] [address] documented in this encounter Visit Diagnoses Diagnosis Screening for malignant neoplasm of cervix Screening for malignant neoplasm of the cervix documented in this encounter Care Teams Religious Ritual Slaughterer Relationship Specialty Start Date End Date Marc Quesada MD [address] [place] [address] PCP - General 07/31/17 01/31/22 documented as of this encounter
--- OUTSIDE RECORDS SUMMARY | 2024-06-25 18:00 | XMS_ITS | Encounter Summary ---
Author Organization [facility] Address [address] [place] [address] Care Team Providers Care Wound Care Center Consultant Name Role Phone Diana Gutierres MD Primary Care Provider [phone] Marc Quesada MD Primary Care Provider [phone] Encounter Details Date Type Department Care Team (Late st Contact Info) Description 07/28/2017 Orders Only [facility] [address] [place] [phone] Diana Gutierres MD [address] [place] [address] Social History Tobacco Use Types Packs/Day Years [...] was performed using the APTIMA COMBO2 Assay ([employer] The analytical performance characteristics of this assay, when used to test SurePath specimens have been determined by [employer]. 07/28/2017 1:29 PM EDT 07/28/2017 11:28 PM EDT Narrative Resulting Agency Comment [id number] us Diana Gutierres MD LABORATORY Final Result Performing Organization Address City/State/[facility] de Phone Number [facility] [address] [place] [address] documented in this encounter Visit Diagnoses Diagnosis Hx of chlamydia infection Personal history of other infectious and parasitic disease documented in this encounter Additional Health Concerns Infection Onset Date Last Indicated Resolved Time COVID-19 Rule-Out 06/06/2020 06/06/2020 06/07/2020 11:13 AM EST documented as of this encounter Care Teams Wound Care Center Consultant Relationship Specialty Start Date End Date Diana Gutierres MD [address] [place] [address] PCP - General Pediatrics 02/03/15 07/30/17 Marc Quesada MD [address] [place] [address] PCP - General 07/31/17 01/31/22 documented as of this encounter
--- OUTSIDE RECORDS SUMMARY | 2024-06-25 18:00 | XMS_ITS | Encounter Summary ---
Author Organization [facility] Address [address] [place] [address] Care Team Providers Care Population Geneticist Name Role Phone Андрей Brandt MD Primary Care Provider Diana Gutierres MD Primary Care Provider [phone] Marc Quesada MD Primary Care Provider [phone] Encounter Details Date Type Department Care Team (Late st Contact Info) Description 01/12/2012 Orders Only [facility] [address] [place] [address] Андрей Brandt MD [address] [place] [address] Social History Tobacco Use Types Packs/Day Years [...] 1:12 PM EDTQuick Note: Left message on IOCS.. Will send letter. documented in this encounter Plan of Treatment Not on file documented as of this encounter Procedures * Due to [place] [employer] law, this organization might not be sharing negative HIV tests. Procedure Name Priority Date/Time Associated Diagnosis Comments NUT ALLERGY PANEL Routine 01/12/2012 2:3 7 PM EDT Food allergy CBC (H/H, RBC, INDICES,WBC, PLT) Routine 01/12/2012 2:37 PM EDT Screening for other and unspecified deficiency anemia documented in this encounter Results * Due to [place] [employer] law, this organization might not be sharing negative HIV tests. * (ABNORMAL) NUT ALLERGY PANEL (01/12/2012 2:37 PM EDT) Cashew Nut (F202) IgE 2.88(H) kU/L [facility] Comment:{CASHEW NUT (F202) I GE {[id number]) Cashew Nut (F202) Class 2 [facility] Comment: {CLASS {[id number]) Specific ?Level of Allergen IGE Class ?kU/L [...] developed and its performance characteristics determined by [facility]. It has not been cleared or approved by the U.S. Food and Drug Administration. The FDA has determined that such clearance is not necessary. Performance characteristics refer to the analytical performance of the test. Sesame Seed (F10) IgE 0.42(H) kU/L [facility] Comment:{SESAME SEED (F10) I GE {[id number]) Sesame Seed (F10) Class 1 [facility] Comment:{CLASS {[id number]) Peanut (F13) IgE 17.50(H) kU/L [facility] Comment:{PEANUT (F13) IGE {[id number]) Peanut (F13) Class 4 [facility] Comment:{CLASS {[id number]) Hazelnut (F17) IgE 0.62(H) kU/L [facility] Comment:{HAZELNUT (F17) IGE {[id number]) Hazelnut (F17) Class 1 [facility] Comment:{CLASS {[id number]) [place] (F20) IgE 0.75(H) kU/L [facility] Comment:{ALMOND (F20) IGE {[id number]) [place] (F20) Class 2 [facility] Comment:{CLASS {[id number]) Coconut (F36) IgE <0.35 kU/L [facility] Comment:{COCONUT (F36) IGE { [id number]) Coconut (F36) Class 0 [facility] Comment:{CLASS {[id number]) Pecan Nut (F201) IgE <0.35 kU/L [facility] Comment:{PECAN NUT (F201) IG E {[id number]) Pecan Nut (F201) Class 0 [facility] Comment:{CLASS {[id number]) [place] (F256) IgE <0.35 kU/L [facility] Comment:{[place] (F256) IGE { [id number]) [place] (F256) Class 0 [facility] Comment:{CLASS {[id number]) 01/12/2012 2:37 PM EDT 01/12/2012 10:03 PM EDT Narrative Resulting Agency Comment [id number] us Андрей Brandt MD LABORATORY Final Result [facility] [address] [place] [address] * CBC (H/H, RBC, INDICES,WBC, PLT) (01/12/2012 2:37 PM EDT) WBC 6.8 4.5 - 13.0 Thousand/u L [facility] Comment:{WHITE BLOOD CELL CO UNT {[id number]) RBC 4.20 3.80 - 5.10 Million/uL [facility] Comment:{RED BLOOD CELL COUN T {[id number]) Hemoglobin 12.8 11.5 - 15.3 g/dL [facility] Comment:{HEMOGLOBIN {[id number]) Hematocrit 37.6 34.0 - 46.0 % [facility] Comment:{HEMATOCRIT {[id number]) MCV 89.6 78.0 - 98.0 fL [facility] Comment:{MCV {[id number]) MCH 30.4 25.0 - 35.0 pg [facility] Comment:{MCH {[id number]) MCHC 33.9 31.0 - 36.0 g/dL [facility] Comment:{MCHC {[id number]) RDW 13.1 11.0 - 15.0 % [facility] Comment:{RDW {[id number]) PLT 279 140 - 400 Thousand/u L [facility] Comment:{PLATELET COUNT {[id number]) 01/12/2012 2:37 PM EDT 01/12/2012 10:03 PM EDT Narrative Resulting Agency Comment [id number] us Андрей Brandt MD LAB SAME DAY RESULT Final Res ult [facility] [address] [place] [address] documented in this encounter Visit Diagnoses Diagnosis Screening for other and unspecified deficiency anemia Food allergy Other adverse food reactions, not elsewhere classified documented in this encounter Additional Health Concerns Infection Onset Date Last Indicated Resolved Time COVID-19 Rule-Out 06/06/2020 06/06/2020 06/07/2020 11:13 AM EST documented as of this encounter Care Teams Population Geneticist Relationship Specialty Start Date End Date Андрей Brandt MD [address] [place] [address] PCP - General 12/14/10 02/02/15 Diana Gutierres MD [address] [place] [address] PCP - General Pediatrics 02/03/15 07/30/17 Marc Quesada MD [address] [place] [address] PCP - General 07/31/17 01/31/22 documented as of this encounter
--- OUTSIDE RECORDS SUMMARY | 2024-06-25 18:00 | XMS_ITS | Encounter Summary ---
Author Organization [facility] Address [address] [place] [address] Care Team Providers Care Networking Technology Instructor Name Role Phone Marc Quesada MD Primary Care Provider [phone] Reason for Visit * Reason Comments E-prescribing Refill Request Encounter Details Date Type Department Care Team (Late st Contact Info) Description 06/22/2020 Refill [facility] [address] [place] [phone] Marc Quesada MD [address] [place] [address] E-prescribing Refill Request Social History Tobacco Use [...] on filedocumented in this encounter Care Teams Networking Technology Instructor Relationship Specialty Start Date End Date Marc Quesada MD [address] [place] [address] PCP - General 07/31/17 01/31/22 documented as of this encounter
--- OUTSIDE RECORDS SUMMARY | 2024-06-25 18:01 | XMS_ITS | Clinical Summary ---
Author Organization [facility] Address [address] [place] [address] Care Team Providers Care Flower Picker Name Role Phone Unavailable Primary Care Provider [...] Date Mood disorder 03/16/2019 Asthma, intrinsic ([facility]) 06/20/2018 Food allergy 02/13/2013 Overview (02/13/2013): [...] History Relation Name Comments Allergies (med/food/envrnmt) Father otri mosley Anesthesia Problems/Malignan t Hyperthermia Father tori [...] complete this topic Procedures * Due to [place] state law, this organization might not be [...] to Health Maintenance Results * Due to [place] state law, this organization might not be [...] Smear Negative for intraepithelial lesion or malignancy. [facility] Cytology study comment (Cvx/Vag) This Pap test has been evaluated with computer assisted technology. [facility] Net Programmer Analyst (Cvx/Vag) MSM, CT(ASCP) CT screening location: [place] [address] [facility] COMMENT SEE NOTE [facility] Comment: EXPLANATORY NOTE: The Pap is a [...] Chlamydia trachomatis rRNA NOT DETECTED NOT DETECTED [facility] Neisseria Gonorrhoeae rRNA NOT DETECTED NOT DETECTED [facility] COMMENT SEE NOTE [facility] Comment: The analytical performance characteristics of this assay, when used to test SurePath(TM) specimens have been determined by [facility]. The modifications have not been cleared or approved by the FDA. This assay has been validated pursuant to the CLIA regulations and is used for clinical purposes. For additional information, please refer to https://education.CiDRA/faq/SSX225 (This link is being provided for information/ educational purposes only.) Cervical 07/15/2020 5:15 PM EDT 07/16/2020 6:41 AM EDT Narrative Resulting Agency Comment [id number] us Marc Quesada MD PATHOLOGY-INTERFACED Final Resu lt [facility] [address] [place] [address] * ELECTROCARDIOGRAM, TRACING (09/12/2017) Narrative 09/12/2017 Ordered by an unspecified provider. Procedure Note Manish, Valente Provider - 09/12/2017 11:17 [place] [address] CARDIOVASCULAR SERVICES -- ELECTROCARDIOGRAM REPORT Patient's name: MARION MOSLEY UNIT#: [id number] : 97 DOS: 09/11/17 LOC: ER Test [...] By:Surendra Styles MD Acquiring Tech: MIKALA ORD#: [id number] OE: TOM RPT#: [id number] D/ MUSE CC: us Unknown Provider [place] CARDIOVASCULAR-NO INBAS KET RTG Final Result * (ABNORMAL) LIPID PANEL WITH REFLEX TO DIRECT LDL (04/30/2015 8:51 AM EST) Cholesterol 192(H) 125 - 170 mg/dL [facility] Comment:{CHOLESTEROL, TOTAL {[id number]) HDL Cholesterol 53 36 - 76 mg/dL [facility] Comment:{HDL CHOLESTEROL {[id number]) Triglyceride 127 40 - 136 mg/dL [facility] Comment:{TRIGLYCERIDES {[id number]) LDL Cholesterol 114(H) <110 mg/dL (calc) [facility] Comment: {LDL-CHOLESTEROL {[id number]) Desirable range <100 mg/dL for patients with CHD or diabetes and <70 mg/dL for diabetic patients with known heart disease. CHOL/HDL Ratio 3.6 < OR = 5.0 (calc) [facility] Comment:{CHOL/HDLC RATIO {[id number]) Cholesterol Non-HDL 139(H) <120 mg/dL (calc) [facility] Comment:{NON HDL CHOLESTEROL {[id number]) 04/30/2015 8:51 AM EST 04/30/2015 2:43 PM EST Narrative Resulting Agency Comment [id number] us Diana Gutierres MD LABORATORY Final Result [facility] [address] [place] [address] from Last 3 Months or Most Recently Relevant to Health Maintenance
--- OUTSIDE RECORDS SUMMARY | 2024-06-25 18:01 | XMS_ITS | Encounter Summary ---
Author Organization [facility] Address [address] [place] [address] Care Team Providers Care Foreign Trade Teacher Name Role Phone Diana Gutierres MD Primary Care Provider [phone] Marc Quesada MD Primary Care Provider [phone] Encounter Details Date Type Department Care Team (Late st Contact Info) Description 04/03/2015 Orders Only [facility] [address] [place] [address] Diana Gutierres MD [address] [place] [address] Social History Tobacco Use Types Packs/Day Years [...] of this encounter Procedures * Due to [place] state law, this organization might not be sharing negative HIV tests. Procedure Name Priority Date/Time Associated Diagnosis Comments CHLAMYDIA TRACHOMATIS/N. GONORRHOEAE (GC) RNA, TMA (URINE) Routine 04/03/2015 8:34 PM EST Routine history and physical examination of adult documented in this encounter Results * Due to [place] state law, this organization might not be sharing negative HIV tests. * CHLAMYDIA TRACHOMATIS/N. GONORRHOEAE (GC) RNA, TMA (URINE) (04/03/2015 8:34 PM EST) Chlamydia trachomatis rRNA NOT DETECTED NOT DETECTED [facility] Comment:{CHLAMYDIA TRACHOMAT IS RNA, TMA {[id number]) Neisseria Gonorrhoeae rRNA NOT DETECTED NOT DETECTED [facility] Comment:{NEISSERIA GONORRHOE AE RNA, TMA {[id number]) COMMENT SEE NOTE [facility] Comment: {COMMENT {[id number]) This test was performed using the APTIMA COMBO2 Assay ([employer] The analytical performance characteristics of this assay, when used to test SurePath specimens have been determined by [facility] [employer]. 04/03/2015 8:34 PM EST 04/04/2015 12:52 AM EST Narrative Resulting Agency Comment [id number] us Diana Gutierres MD LABORATORY Final Result [facility] [address] [place] [address] documented in this encounter Visit Diagnoses Diagnosis Routine history and physical examination of adult Routine general medical examination at a health care facility documented in this encounter Additional Health Concerns Infection Onset Date Last Indicated Resolved Time COVID-19 Rule-Out 06/06/2020 06/06/2020 06/07/2020 11:13 AM EST documented as of this encounter Care Teams Foreign Trade Teacher Relationship Specialty Start Date End Date Diana Gutierres MD [address] [place] [address] PCP - General Pediatrics 02/03/15 07/30/17 Marc Quesada MD [address] [place] [address] PCP - General 07/31/17 01/31/22 documented as of this encounter
--- OUTSIDE RECORDS SUMMARY | 2024-06-25 18:01 | XMS_ITS | Encounter Summary ---
Author Organization [facility] Address [address] [place] [address] Care Team Providers Care Professor Of Art History Name Role Phone Diana Gutierres MD Primary Care Provider [phone] Marc Quesada MD Primary Care Provider [phone] Reason for Visit * Reason Comments E-prescribing Refill Request Encounter Details Date Type Department Care Team (Late st Contact Info) Description 05/19/2016 Refill [facility] [address] [place] [phone] Андрей Brandt MD [address] [place] [address] E-prescribing Refill Request Social History Tobacco Use [...] documented as of this encounter Care Teams Professor Of Art History Relationship Specialty Start Date End Date Diana Gutierres MD [address] [place] [address] PCP - General Pediatrics 02/03/15 07/30/17 Marc Quesada MD [address] [place] [address] PCP - General 07/31/17 01/31/22 documented as of this encounter
--- OUTSIDE RECORDS SUMMARY | 2024-06-25 18:01 | XMS_ITS | Encounter Summary ---
Author Organization [facility] Address [address] [place] [address] Care Team Providers Care Weatherization Technician Name Role Phone Diana Gutierres MD Primary Care Provider [phone] Marc Quesada MD Primary Care Provider [phone] Reason for Visit * Reason Comments E-prescribing Refill Request Encounter Details Date Type Department Care Team (Late st Contact Info) Description 06/22/2017 Refill [facility] [address] [place] [phone] Diana Gutierres MD [address] [place] [address] E-prescribing Refill Request Social History Tobacco Use [...] Phone 07/28/17 1:00 PM Diana Gutierres MD [facility] [phone] Pertinent lab results: Last Pap Date (10 [...] documented as of this encounter Care Teams Weatherization Technician Relationship Specialty Start Date End Date Diana Gutierres MD [address] [place] [address] PCP - General Pediatrics 02/03/15 07/30/17 Marc Quesada MD [address] [place] [address] PCP - General 07/31/17 01/31/22 documented as of this encounter
--- OUTSIDE RECORDS SUMMARY | 2024-06-25 18:01 | XMS_ITS | Encounter Summary ---
Author Organization [facility] Address [address] [place] [address] Care Team Providers Care Watchguard Name Role Phone Diana Gutierres MD Primary Care Provider [phone] Marc Quesada MD Primary Care Provider [phone] Encounter Details Date Type Department Care Team (Late st Contact Info) Description 04/30/2015 Orders Only [facility] [address] [place] [address] Diana Gutierres MD [address] [place] [address] Social History Tobacco Use Types Packs/Day Years [...] this encounter Procedures * Due to [place] [employer] law, this organization might not be sharing negative HIV tests. Procedure Name Priority Date/Time Associated Diagnosis Comments CBC INCLUDES DIFFERENTIAL AND PLATELET COUNT Routine 04/30/2015 8:51 AM EST Routine history and physical examination of adult LIPID PANEL WITH REFLEX TO DIRECT LDL Routine 04/30/2015 8:51 AM EST Routine history and physical examination of adult documented in this encounter Results * Due to [place] [employer] law, this organization might not be sharing negative HIV tests. * CBC INCLUDES DIFFERENTIAL AND PLATELET COUNT (04/30/2015 8:51 AM EST) WBC 5.7 4.5 - 13.0 Thousand/u L [facility] Comment:{WHITE BLOOD CELL CO UNT {[id number]) RBC 4.40 3.80 - 5.10 Million/uL [facility] Comment:{RED BLOOD CELL COUN T {[id number]) Hemoglobin 13.0 11.5 - 15.3 g/dL [facility] Comment:{HEMOGLOBIN {[id number]) Hematocrit 40.1 34.0 - 46.0 % [facility] Comment:{HEMATOCRIT {[id number]) MCV 91.2 78.0 - 98.0 fL [facility] Comment:{MCV {[id number]) MCH 29.5 25.0 - 35.0 pg [facility] Comment:{MCH {[id number]) MCHC 32.4 31.0 - 36.0 g/dL [facility] Comment:{MCHC {[id number]) RDW 12.8 11.0 - 15.0 % [facility] Comment:{RDW {[id number]) PLT 233 140 - 400 Thousand/u L [facility] Comment:{PLATELET COUNT {[id number]) MPV 8.8 7.5 - 11.5 fL [facility] Comment:{MPV {[id number]) Neutrophils # 2799 1800 - 8000 cells/uL [facility] Comment:{ABSOLUTE NEUTROPHIL S {[id number]) Lymphocytes # 2183 1200 - 5200 cells/uL [facility] Comment:{ABSOLUTE LYMPHOCYTE S {[id number]) Monocytes # 439 200 - 900 cells/uL [facility] Comment:{ABSOLUTE MONOCYTES {[id number]) Eosinophils # 228 15 - 500 cells/uL [facility] Comment:{ABSOLUTE EOSINOPHIL S {[id number]) Basophils # 51 0 - 200 cells/uL [facility] Comment:{ABSOLUTE BASOPHILS {[id number]) Neutrophils % 49.1 % [facility] Comment:{NEUTROPHILS {[id number]) Lymphocytes % 38.3 % [facility] Comment:{LYMPHOCYTES {[id number]) Monocytes % 7.7 % [facility] Comment:{MONOCYTES {[id number]) Eosinophils % 4.0 % [facility] Comment:{EOSINOPHILS {[id number]) Basophils % 0.9 % [facility] Comment:{BASOPHILS {[id number]) 04/30/2015 8:51 AM EST 04/30/2015 2:43 PM EST Narrative Resulting Agency Comment [id number] us Diana Gutierres MD LAB SAME DAY RESULT Final Resu lt [facility] [address] [place] [address] * (ABNORMAL) LIPID PANEL WITH REFLEX TO DIRECT LDL (04/30/2015 8:51 AM EST) Cholesterol 192(H) 125 - 170 mg/dL [facility] Comment:{CHOLESTEROL, TOTAL {[id number]) HDL Cholesterol 53 36 - 76 mg/dL [facility] Comment:{HDL CHOLESTEROL {[id number]) Triglyceride 127 40 - 136 mg/dL [facility] Comment:{TRIGLYCERIDES {[id number]) LDL Cholesterol 114(H) <110 mg/dL (calc) [facility] Comment: {LDL-CHOLESTEROL {[id number]) Desirable range <100 mg/dL for patients with CHD or diabetes and <70 mg/dL for diabetic patients with known heart disease. CHOL/HDL Ratio 3.6 < OR = 5.0 (calc) [facility] Comment:{CHOL/HDLC RATIO {[id number]) Cholesterol Non-HDL 139(H) <120 mg/dL (calc) [facility] Comment:{NON HDL CHOLESTEROL {[id number]) 04/30/2015 8:51 AM EST 04/30/2015 2:43 PM EST Narrative Resulting Agency Comment [id number] Diana Gutierres MD LABORATORY Final Result [facility] [address] [place] [address] documented in this encounter Visit Diagnoses Diagnosis Routine history and physical examination of adult Routine general medical examination at a health care facility documented in this encounter Additional Health Concerns Infection Onset Date Last Indicated Resolved Time COVID-19 Rule-Out 06/06/2020 06/06/2020 06/07/2020 11:13 AM EST documented as of this encounter Care Teams Watchguard Relationship Specialty Start Date End Date Diana Gutierres MD [address] [place] [address] PCP - General Pediatrics 02/03/15 07/30/17 Marc Quesada MD [address] [place] [address] PCP - General 07/31/17 01/31/22 documented as of this encounter
--- OUTSIDE RECORDS SUMMARY | 2024-06-25 18:01 | XMS_ITS | Encounter Summary ---
Author Organization [facility] Address [address] [place] [address] Care Team Providers Care Director Diabetes Name Role Phone Diana Gutierres MD Primary Care Provider [phone] Marc Quesada MD Primary Care Provider [phone] Encounter Details Date Type Department Care Team (Late st Contact Info) Description 04/28/2016 Orders Only [facility] [address] [place] [address] Diana Gutierres MD [address] [place] [address] Social History Tobacco Use Types Packs/Day Years [...] this encounter Procedures * Due to [place] state law, this [...] [facility] Comment:{CHLAMYDIA TRACHOMAT IS RNA, TMA {[id number]) Neisseria Gonorrhoeae rRNA NOT DETECTED NOT DETECTED [facility] Comment:{NEISSERIA GONORRHOE AE RNA, TMA {[id number]) COMMENT SEE NOTE [facility] Comment: {COMMENT {[id number]) This test was performed using the APTIMA COMBO2 Assay ([employer] The analytical performance characteristics of this assay, when used to test SurePath specimens have been determined by [employer]. 04/28/2016 3:38 PM EST 04/28/2016 9:54 PM EST Narrative Resulting Agency Comment [id number] us Diana Gutierres MD LABORATORY Final Result [facility] [address] [place] [address] documented in this encounter Visit Diagnoses Diagnosis Encounter for screening for infections with predominantly sexual mode of transmission Screening examination for venereal disease documented in this encounter Additional Health Concerns Infection Onset Date Last Indicated Resolved Time COVID-19 Rule-Out 06/06/2020 06/06/2020 06/07/2020 11:13 AM EST documented as of this encounter Care Teams Director Diabetes Relationship Specialty Start Date End Date Diana Gutierres MD [address] [place] [address] PCP - General Pediatrics 02/03/15 07/30/17 Marc Quesada MD [address] [place] [address] PCP - General 07/31/17 01/31/22 documented as of this encounter
--- OUTSIDE RECORDS SUMMARY | 2024-06-25 18:01 | XMS_ITS | Encounter Summary ---
Author Organization [facility] Address [address] [place] [address] Care Team Providers Care Waterfront Director Name Role Phone Marc Quesada MD Primary Care Provider [phone] Encounter Details Date Type Department Care Team (Late st Contact Info) Description 01/13/2018 Orders Only [facility] [address] [place] [phone] Marc Quesada MD [address] [place] [address] Social History Tobacco Use Types Packs/Day Years [...] of this encounter Procedures * Due to [place] [employer] law, this organization might not be sharing negative HIV tests. Procedure Name Priority Date/Time Associated Diagnosis Comments CBC INCLUDES DIFFERENTIAL AND PLATELET COUNT Routine 01/13/2018 4:22 PM EDT History of mononucleosis HEPATIC FUNCTION PANEL (ALT,AST,ALK PH,BILI'S,TP,ALB) Routine 01/13/2018 4:22 PM EDT Elevated liver enzymes documented in this encounter Results * Due to [place] state law, [...] 11:58 PM EDT Narrative Resulting Agency Comment [id number] us Marc Quesada MD LABORATORY Final Result [facility] [address] [place] [address] * CBC INCLUDES DIFFERENTIAL AND PLATELET COUNT [...] 11:58 PM EDT Narrative Resulting Agency Comment [id number] Marc Quesada MD LAB SAME DAY RESULT Final Resul t Performing Organization Address City/State/[facility] Co de Phone Number [facility] [address] [place] [address] documented in this encounter Visit Diagnoses Diagnosis History of mononucleosis Personal history of other infectious and parasitic disease Elevated liver enzymes Nonspecific elevation of levels of transaminase or lactic acid dehydrogenase (LDH) documented in this encounter Additional Health Concerns Infection Onset Date Last Indicated Resolved Time COVID-19 Rule-Out 06/06/2020 06/06/2020 06/07/2020 11:13 AM EST documented as of this encounter Care Teams Waterfront Director Relationship Specialty Start Date End Date Marc Quesada MD [address] [place] [address] PCP - General 07/31/17 01/31/22 documented as of this encounter
--- OUTSIDE RECORDS SUMMARY | 2024-06-25 18:01 | XMS_ITS | Encounter Summary ---
Author Organization [facility] Address [address] [place] [address] Care Team Providers Care Risk Control Director Name Role Phone Diana Gutierres MD Primary Care Provider [phone] Marc Quesada MD Primary Care Provider [phone] Encounter Details Date Type Department Care Team (Late st Contact Info) Description 06/16/2017 Orders Only [facility] [address] [place] [phone] Diaan Gutierres MD [address] [place] [address] Social History Tobacco Use Types Packs/Day Years [...] of this encounter Procedures * Due to [place] state law, this organization might not be [...] in this encounter Results * Due to [place] [employer] law, this organization might not be sharing negative HIV tests. * STREPTOCOCCUS, GROUP A CULTURE (06/16/2017 3:51 PM EST) Culture, Streptococci Group A, Throat SEE NOTE [facility] Comment: ??STREPTOCOCCUS, GROUP A CULTURE ??MICRO NUMBER: ?[id number] ??TEST STATUS: ? FINAL ??SPECIMEN SOURCE: ?? NOT GIVEN ??SPECIMEN QUALITY: ??ADEQUATE ??RESULT: ?No group A Streptococcus isolated 06/16/2017 3:51 PM EST 06/16/2017 8:49 PM EST Narrative Resulting Agency Comment [id number] Diana Gutierres MD LABORATORY Final Result Performing Organization Address City/State/[facility] Co de Phone Number [facility] [address] [place] [address] * (ABNORMAL) HEPATIC FUNCTION PANEL (ALT,AST,ALK PH,BILI'S,TP,ALB) (06/16/2017 2:50 PM EST) Pathologist [facility] [place] Protein Total (Serum) 7.2 6.1 - 8.1 [...] 4:25 PM EST Narrative Resulting Agency Comment [id number] us Diana Gutierres MD LABORATORY Final Result Performing Organization Address City/State/[facility] Co de Phone Number [facility] [address] [place] [address] * (ABNORMAL) CBC INCLUDES DIFFERENTIAL AND PLATELET COUNT (06/16/2017 2:50 PM EST) [facility] WBC 10.1 3.8 - 10.8 [...] 4:25 PM EST Narrative Resulting Agency Comment [id number] us Diana Gutierres MD LAB SAME DAY RESULT Final Resu lt Performing Organization Address City/State/[facility] Co de Phone Number [facility] [address] [place] [address] * (ABNORMAL) SHIRIN-MESSINA VIRUS PANEL COMPREHENSIVE (06/16/2017 [...] 4:25 PM EST Narrative Resulting Agency Comment [id number] us Diana Gutierres MD LABORATORY Final Result [facility] [address] [place] [address] documented in this encounter Visit Diagnoses Diagnosis Sore throat Acute pharyngitis documented in this encounter Additional Health Concerns Infection Onset Date Last Indicated Resolved Time COVID-19 Rule-Out 06/06/2020 06/06/2020 06/07/2020 11:13 AM EST documented as of this encounter Care Teams Risk Control Director Relationship Specialty Start Date End Date Diana Gutierres MD [address] [place] [address] PCP - General Pediatrics 02/03/15 07/30/17 Marc Quesada MD [address] [place] [address] PCP - General 07/31/17 01/31/22 documented as of this encounter
[2024-06-28 12:54] LABS: TS Negative Control Passed; TS Panel A 0; TS Panel B 0; TS Positive Control Passed; TSpotTB Negative (Negative)
== END 2024-06-25 15:46 | disposition home or self-care (01) ==
LOC: HO.WFDLDS 15:45
PROVIDERS: Visit Provider Nurse Practitioner Family
DX: R68.89 Other general symptoms and signs (principal); R61 Generalized hyperhidrosis
CPT/HCPCS: 36415; 86481

== ENCOUNTER 2024-08-02 08:30 | Outpatient (AMB) | payer OTHER, SELFPAY ==
--- NOTE | 2024-08-02 08:34 | A.OFFVIS_ITS ---
VS Expanded 08/02/24 08:37 08/02/24 08:50 Height 5 ft 5 in 5 ft 5 in Weight 231 lb 14.821 oz 232 lb BMI 38.6 38.6 Intake Visit Reasons: Obesity Allergies amoxicillin Allergy (Severe, Verified 06/19/24 11:08) Anaphylaxis Penicillins Allergy (Severe, Verified 06/19/24 11:08) Anaphylaxis Medication List - Last Reconciled 08/02/[address], LDN fluoxetine (Prozac) 40 mg PO DAILY multivitamin with iron 1 tab PO DAILY norethindrone ac-eth estradiol 1-20 mg-mcg (Junel) 1 tab PO DAILY omeprazole 20 mg PO DAILY 30 days Nutrition Presentation Details: Pt presents for MNT f/u obesity PT reports doing well, working on diet modifications successfully denies constipation /diarrhea takes a daily MVI BS Monitoring Most Recent Diabetes Results: Cholesterol 202 mg/dL (<200) H 05/09/24 HDL Cholesterol 60 mg/dL (>40) 05/09/24 Triglycerides 165 mg/dL (<150) H 05/09/24 Creatinine 0.74 mg/dL (0.5-1.4) 05/09/24 Blood Urea Nitrogen 14 mg/dL (9-16) 05/09/24 Sodium 139 mmol/L (135-145) 05/09/24 Potassium 4.3 mmol/L (3.3-5.1) 05/09/24 Chloride 107 mmol/L (96-108) 05/09/24 Carbon Dioxide 24 mmol/L (22-29) 05/09/24 Calcium 9.7 mg/dL (8.4-10.2) 05/09/24 AST 17 U/L (5-31) 05/09/24 ALT 14 U/L (0-31) 05/09/24 Total Protein 7.3 g/dL (6.5-8.0) 05/09/24 Albumin 4.2 g/dL (3.5-5.0) 05/09/24 HFH-Wkengcx-Vc.Jeor Equation Height: 5 ft 5 in Weight: 232 lb Resting Metabolic Rate: 1789.32 Calculated Activity Level: Sedentary Calories Needed to Maintain Weight: 2147.18 [facility] Medical History (Updated 06/19/24 @ 11:12 by Elisha Saunders CNP) Depression Anxiety Acid reflux IBS (irritable bowel syndrome) High cholesterol Asthma Family History (Updated 05/08/24 @ 13:40 by Kiah [place] MA) Maternal Grandmother Alcohol abuse Substance abuse FH: mental illness Cardiovascular disease Maternal Uncle Substance abuse FH: mental illness Mother FH: mental illness Father FH: mental illness High blood pressure Paternal Grandfather High blood pressure High cholesterol Social History (Updated 05/08/24 @ 13:39 by Kiah [place] MA) Housing: House Patient Tobacco Use Status: Never used Tobacco e-Cigarette/Vaping Use: Never Used Second Hand Smoke Exposure: Yes Substance Use Type: Marijuana service: No Current occupational status: employed 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 Current occupational exposures/hazards: No Cognitive needs: No Hearing needs: No Vision needs: No Assessment & Plan Assessment & Plan (1) Obesity (BMI 30.0-34.9): Code(s): E66.811 - Obesity, class 1 Category: Medical Plan: Wt: 108 Kg ( 06/26 ), 105 kg (08/24) Est kcal needs as per MSJ: 2100 -2200 (40% carb, 30% protei n/fat) Est fluid needs as per 25-30 ml/d:3200 Est prot per day as per 1 g/kg bw: 100 Recommend fiber intake : 8-10 g per day and gradually increase to 25-28 g per day for women and 35-38 g for men or as tolerated Recommend sodium intake per day : less than 2300 mg Educated patient on: ( R = reviewed V = verbalizes understanding N/R = needs review N/A = not applicable * Food sources of carbohydrate, adequate serving sizes and its role in various health conditions: R * Differences between complex carbohydrates a simple carbohydrates, role of fiber in diet: R * Lean protein sources of foods: R * Differences between types of fats and role in diet (mono on saturated fat fatty acids, saturated fatty acids, trans fats): R basic * Food sources of sodium in salt and healthy modifications for heart health in kidney health: R V R/V * Vitamins and minerals: R * Healthy plate method concept: R * Physical activity: Benefits a precaution: R * Patient Instructions: Continue working on reducing on total carb to 60-75 g at meal , following healthy plate method, and 0-20 g as snack if needed Keep physically active as able, stairs, walking faster Coding Level of Care Code Nutr Indiv Subseq (71353) Diagnoses Obesity (BMI 30.0-34.9) E66.811 Time Spent (min) 30
[2024-08-02 08:37] VITALS: BMI 38.6
--- OUTSIDE RECORDS SUMMARY | 2024-08-02 08:38 | XMS_ITS | Encounter Summary ---
Author Organization [facility] Address [address] [place] [address] Care Team Providers Care Drafter Electromechanical Name Role Phone Diana Gutierres MD Primary Care Provider [phone] Marc Quesada MD Primary Care Provider Unavaila ble Encounter Details Date Type Department Care Team (Late st Contact Info) Description 04/28/2016 Orders Only [facility] [address] [place] [phone] Diana Gutierres MD [address] [place] [address] Social History Tobacco Use Types Packs/Day Years [...] encounter Results * Due to [place] state law, this organization might not be sharing negative HIV tests. * CHLAMYDIA TRACHOMATIS/N. GONORRHOEAE (GC) RNA, TMA (URINE) (04/28/2016 3:38 PM EST) Chlamydia trachomatis rRNA NOT DETECTED NOT DETECTED [facility] Comment:{CHLAMYDIA TRACHOMAT IS RNA, TMA {[id number]) Neisseria Gonorrhoeae rRNA NOT DETECTED NOT DETECTED [facility] Comment:{NEISSERIA GONORRHOE AE RNA, TMA {[id number]) COMMENT SEE NOTE [facility] Comment: {COMMENT {[id number]) This test was performed using the APTIMA COMBO2 Assay ([employer] The analytical performance characteristics of this assay, when used to test SurePath specimens have been determined by [employer]. 04/28/2016 3:38 PM EST 04/28/2016 9:54 PM EST Narrative Resulting Agency Comment [id number] us Diana Gutierres MD LABORATORY Final Result [facility] [address] [place] [address] documented in this encounter Visit Diagnoses Diagnosis Encounter for screening for infections with predominantly sexual mode of transmission Screening examination for venereal disease documented in this encounter Additional Health Concerns Infection Onset Date Last Indicated Resolved Time COVID-19 Rule-Out 06/06/2020 06/06/2020 06/07/2020 11:13 AM EST documented as of this encounter Care Teams Drafter Electromechanical Relationship Specialty Start Date End Date Diana Gutierres MD [address] [place] [address] PCP - General Pediatrics 02/03/15 07/30/17 Marc Quesada MD [address] [place] [address] PCP - General 07/31/17 01/31/22 documented as of this encounter
--- OUTSIDE RECORDS SUMMARY | 2024-08-02 08:38 | XMS_ITS | Encounter Summary ---
Author Organization [facility] Address [address] [place] [address] Care Team Providers Care Drawing Checker Name Role Phone Андрей Brandt MD Primary Care Provider Diana Gutierres MD Primary Care Provider [phone] Marc Quesada MD Primary Care Provider Unavaila ble Encounter Details Date Type Department Care Team (Late st Contact Info) Description 07/18/2013 Orders Only [facility] [address] [place] [phone] Андрей Brandt MD [address] [place] [address] Social History Tobacco Use Types Packs/Day Years [...] <0.35 kU/L [facility] Comment:{SCALLOP (F338) IGE {[id number]) Scallop (F338) Class 0 [facility] Comment:{CLASS {[id number]) Crab (F23) IgE <0.35 kU/L [facility] Comment:{CRAB (F23) IGE {[id number]) Crab (F23) Class 0 [facility] Comment:{CLASS {[id number]) Shrimp (F24) IgE 0.53(H) kU/L [facility] Comment:{SHRIMP (F24) IGE {[id number]) Shrimp (F24) Class 1 [facility] Comment:{CLASS {[id number]) Blue Mussel (F37) IgE <0.35 kU/L [facility] Comment:{BLUE MUSSEL (F37) I GE {[id number]) Blue Mussel (F37) Class 0 [facility] Comment:{CLASS {[id number]) Lobster (F80) IgE <0.35 kU/L [facility] Comment:{LOBSTER (F80) IGE { [id number]) Lobster (F80) Class 0 [facility] Comment:{CLASS {[id number]) Clam (F207) IgE <0.35 kU/L [facility] Comment:{CLAM (F207) IGE {[id number]) Clam (F207) Class 0 [facility] Comment:{CLASS {[id number]) Oyster (F290) IgE <0.35 kU/L [facility] Comment:{OYSTER (F290) IGE { [id number]) Oyster (F290) Class 0 [facility] Comment:{CLASS {[id number]) 07/18/2013 2:45 PM EDT 07/18/2013 9:21 PM EDT Андрей Brandt MD LABORATORY Final Result [facility] [address] [place] [address] documented in this encounter Visit Diagnoses Diagnosis Food allergy Other adverse food reactions, not elsewhere classified documented in this encounter Additional Health Concerns Infection Onset Date Last Indicated Resolved Time COVID-19 Rule-Out 06/06/2020 06/06/2020 06/07/2020 11:13 AM EST documented as of this encounter Care Teams Drawing Checker Relationship Specialty Start Date End Date Андрей Brandt MD [address] [place] [address] PCP - General 12/14/10 02/02/15 Diana Gutierres MD [address] [place] [address] PCP - General Pediatrics 02/03/15 07/30/17 Marc Quesada MD [address] [place] [address] PCP - General 07/31/17 01/31/22 documented as of this encounter
--- OUTSIDE RECORDS SUMMARY | 2024-08-02 08:38 | XMS_ITS | Encounter Summary ---
Author Organization [facility] Address [address] [place] [address] Care Team Providers Care Director Translational Name Role Phone Diana Gutierres MD Primary Care Provider [phone] Marc Quesada MD Primary Care Provider Unavaila ble Encounter Details Date Type Department Care Team (Late st Contact Info) Description 07/28/2017 Orders [facility] [address] [place] [phone] Diana Gutierres MD [address] [place] [address] Social History Tobacco Use Types Packs/Day Years [...] this encounter Procedures * Due to [place] [employer] law, this organization might not be sharing [...] was performed using the APTIMA COMBO2 Assay ([employer] The analytical performance characteristics of this assay, when used to test SurePath specimens have been determined by [employer]. 07/28/2017 1:29 PM EDT 07/28/2017 11:28 PM EDT Narrative Resulting Agency Comment [id number] us Diana Gutierres MD LABORATORY Final Result Performing Organization Address City/State/[facility] Co de Phone Number [facility] [address] [place] [address] documented in this encounter Visit Diagnoses Diagnosis Hx of chlamydia infection Personal history of other infectious and parasitic disease documented in this encounter Additional Health Concerns Infection Onset Date Last Indicated Resolved Time COVID-19 Rule-Out 06/06/2020 06/06/2020 06/07/2020 11:13 AM EST documented as of this encounter Care Teams Director Translational Relationship Specialty Start Date End Date Diana Gutierres MD [address] [place] [address] PCP - General Pediatrics 02/03/15 07/30/17 Marc Quesada MD [address] [place] [address] PCP - General 07/31/17 01/31/22 documented as of this encounter
--- OUTSIDE RECORDS SUMMARY | 2024-08-02 08:38 | XMS_ITS | Encounter Summary ---
Author Organization [facility] Address [address] [place] [address] Care Team Providers Care Multiple Effect Evaporator Operator Name Role Phone Diana Gutierres MD Primary Care Provider [phone] Marc Quesada MD Primary Care Provider Unavaila ble Encounter Details Date Type Department Care Team (Late st Contact Info) Description 04/30/2015 Orders Only [facility] [address] [place] [phone] Diana Gutierres MD [address] [place] [address] Social History Tobacco Use Types Packs/Day Years [...] of this encounter Procedures * Due to [place] [employer] law, this organization might not be sharing negative HIV tests. Procedure Name Priority Date/Time Associated Diagnosis Comments CBC INCLUDES DIFFERENTIAL AND PLATELET COUNT Routine 04/30/2015 8:51 AM EST Routine history and physical examination of adult LIPID PANEL WITH REFLEX TO DIRECT LDL Routine 04/30/2015 8:51 AM EST Routine history and physical examination of adult documented in this encounter Results * Due to [place] [employer] law, this organization might not be sharing negative HIV tests. * CBC INCLUDES DIFFERENTIAL AND PLATELET COUNT (04/30/2015 8:51 AM EST) WBC 5.7 4.5 - 13.0 Thousand/u L [facility] Comment:{WHITE BLOOD CELL CO UNT {[id number]) RBC 4.40 3.80 - 5.10 Million/uL [facility] Comment:{RED BLOOD CELL COUN T {[id number]) Hemoglobin 13.0 11.5 - 15.3 g/dL [facility] Comment:{HEMOGLOBIN {[id number]) Hematocrit 40.1 34.0 - 46.0 % [facility] Comment:{HEMATOCRIT {[id number]) MCV 91.2 78.0 - 98.0 fL [facility] Comment:{MCV {[id number]) MCH 29.5 25.0 - 35.0 pg [facility] Comment:{MCH {[id number]) MCHC 32.4 31.0 - 36.0 g/dL [facility] Comment:{MCHC {[id number]) RDW 12.8 11.0 - 15.0 % [facility] Comment:{RDW {[id number]) PLT 233 140 - 400 Thousand/u L [facility] Comment:{PLATELET COUNT {[id number]) MPV 8.8 7.5 - 11.5 fL [facility] Comment:{MPV {[id number]) Neutrophils # 2799 1800 - 8000 cells/uL [facility] Comment:{ABSOLUTE NEUTROPHIL S {[id number]) Lymphocytes # 2183 1200 - 5200 cells/uL [facility] Comment:{ABSOLUTE LYMPHOCYTE S {[id number]) Monocytes # 439 200 - 900 cells/uL [facility] Comment:{ABSOLUTE MONOCYTES {[id number]) Eosinophils # 228 15 - 500 cells/uL [facility] Comment:{ABSOLUTE EOSINOPHIL S {[id number]) Basophils # 51 0 - 200 cells/uL [facility] Comment:{ABSOLUTE BASOPHILS {[id number]) Neutrophils % 49.1 % [facility] Comment:{NEUTROPHILS {[id number]) Lymphocytes % 38.3 % [facility] Comment:{LYMPHOCYTES {[id number]) Monocytes % 7.7 % [facility] Comment:{MONOCYTES {[id number]) Eosinophils % 4.0 % [facility] Comment:{EOSINOPHILS {[id number]) Basophils % 0.9 % [facility] Comment:{BASOPHILS {[id number]) 04/30/2015 8:51 AM EST 04/30/2015 2:43 PM EST Narrative Resulting Agency Comment [id number] us Diana Gutierres MD LAB SAME DAY RESULT Final Resu lt [facility] [address] [place] [address] * (ABNORMAL) LIPID PANEL WITH REFLEX TO DIRECT LDL (04/30/2015 8:51 AM EST) Cholesterol 192(H) 125 - 170 mg/dL [facility] Comment:{CHOLESTEROL, TOTAL {[id number]) HDL Cholesterol 53 36 - 76 mg/dL [facility] Comment:{HDL CHOLESTEROL {[id number]) Triglyceride 127 40 - 136 mg/dL [facility] Comment:{TRIGLYCERIDES {[id number]) LDL Cholesterol 114(H) <110 mg/dL (calc) [facility] Comment: {LDL-CHOLESTEROL {[id number]) Desirable range <100 mg/dL for patients with CHD or diabetes and <70 mg/dL for diabetic patients with known heart disease. CHOL/HDL Ratio 3.6 < OR = 5.0 (calc) [facility] Comment:{CHOL/HDLC RATIO {[id number]) Cholesterol Non-HDL 139(H) <120 mg/dL (calc) [facility] Comment:{NON HDL CHOLESTEROL {[id number]) 04/30/2015 8:51 AM EST 04/30/2015 2:43 PM EST Narrative Resulting Agency Comment [id number] Diana Gutierres MD LABORATORY Final Result [facility] [address] [place] [address] documented in this encounter Visit Diagnoses Diagnosis Routine history and physical examination of adult Routine general medical examination at a health care facility documented in this encounter Additional Health Concerns Infection Onset Date Last Indicated Resolved Time COVID-19 Rule-Out 06/06/2020 06/06/2020 06/07/2020 11:13 AM EST documented as of this encounter Care Teams Multiple Effect Evaporator Operator Relationship Specialty Start Date End Date Diana Gutierres MD [address] [place] [address] PCP - General Pediatrics 02/03/15 07/30/17 Marc Quesada MD [address] [place] [address] PCP - General 07/31/17 01/31/22 documented as of this encounter
--- OUTSIDE RECORDS SUMMARY | 2024-08-02 08:38 | XMS_ITS | Encounter Summary ---
Author Organization [facility] Address [address] [place] [address] Care Team Providers Care Diver'S Tender Name Role Phone Diana Gutierres MD Primary Care Provider Marc Quesada MD Primary Care Provider Unavaila ble Reason for Visit * Reason Comments E-prescribing Refill Request Encounter Details Date Type Department Care Team (Late st Contact Info) Description 06/22/2017 Refill [facility] [address] [place] [phone] Diana Gutierres MD [address] [place] [address] E-prescribing Refill Request Social History Tobacco Use [...] Miscellaneous Notes * Telephone Encounter - Radha Lui, RN - 06/22/2017 7:04 AM EST Special Concerns: none Faxed medication renewal request(s) for Radha Ladd 22 y.o. female received from pharmacy. Entered this pharmacy as preferred pharmacy for patient. Last CPE with this specialty: 04/21/2017 Last OV with this specialty: 06/16/2017 Next OV: Future Appointments Date Time Provider Department Phone 07/28/17 1:00 PM Diana Gutierres MD [facility] [phone] Pertinent lab results: Last Pap Date (10 [...] documented as of this encounter Care Teams Diver'S Tender Relationship Specialty Start Date End Date Diana Gutierres MD [address] [place] [address] PCP - General Pediatrics 02/03/15 07/30/17 Marc Quesada MD [address] [place] [address] PCP - General 07/31/17 01/31/22 documented as of this encounter
--- OUTSIDE RECORDS SUMMARY | 2024-08-02 08:38 | XMS_ITS | Encounter Summary ---
Author Organization [facility] Address [address] [place] [address] Care Team Providers Care Dial Printer Name Role Phone Marc Quesada MD Primary Care Provider Unavaila ble Encounter Details Date Type Department Care Team (Late st Contact Info) Description 07/15/2020 Orders Only [facility] [address] [place] [address] Marc Quesada MD Social History Tobacco Use Types Packs/Day Years [...] Miscellaneous Notes * Result Encounter Note - Matt Narayan MD - 07/15/2020 5:15 PM EDT Pap test and cultures are normal. documented in this encounter Plan of Treatment Not on file documented as of this encounter Procedures * Due to [place] [employer] law, this organization might not be sharing negative HIV tests. Procedure Name Priority Date/Time Associated Diagnosis Comments THINPREP TIS PAP REFLEX HPV MRNA E6/E7, CHLAMYDIA/N.GONORRH OEAE Routine 07/15/2020 5:15 PM EDT Screening for malignant neoplasm of cervix documented in this encounter Results * Due to [place] [employer] law, this organization might not be sharing [...] Smear Negative for intraepithelial lesion or malignancy. [facility] Cytology study comment (Cvx/Vag) This Pap test has been evaluated with computer assisted technology. [facility] Gold Reclaimer (Cvx/Vag) MSM, CT(ASCP) CT screening location: [place] [address] [facility] COMMENT SEE NOTE [employer] Comment: EXPLANATORY NOTE: The Pap is a [...] NOT DETECTED [facility] COMMENT SEE NOTE [facility] Comment: The analytical performance characteristics of this assay, when used to test SurePath(TM) specimens have been determined by [employer]. The modifications have not been cleared or approved by the FDA. This assay has been validated pursuant to the CLIA regulations and is used for clinical purposes. For additional information, please refer to https://education.[employer].SceneShot/faq/MYQ102 (This link is being provided for information/ educational purposes only.) Cervical 07/15/2020 5:15 PM EDT 07/16/2020 6:41 AM EDT Narrative Resulting Agency Comment [id number] us Marc Quesada MD PATHOLOGY-INTERFACED Final Resu lt [facility] [address] [place] [address] documented in this encounter Visit Diagnoses Diagnosis Screening for malignant neoplasm of cervix Screening for malignant neoplasm of the cervix documented in this encounter Care Teams Dial Printer Relationship Specialty Start Date End Date Marc Quesada MD PCP - General 07/31/17 01/31/22 documented as of this encounter
--- OUTSIDE RECORDS SUMMARY | 2024-08-02 08:38 | XMS_ITS | Encounter Summary ---
Author Organization [facility] Address [address] [place] [address] Care Team Providers Care Food Service Kitchen Supervisor Name Role Phone Андрей Brandt MD Primary Care Provider Diana Gutierres MD Primary Care Provider Marc Quesada MD Primary Care Provider Unavaila ble Encounter Details Date Type Department Care Team (Late st Contact Info) Description 01/12/2012 Orders Only [facility] [address] [place] [phone] Андрей Brandt MD [address] [place] [address] Social History Tobacco Use Types Packs/Day Years [...] 1:12 PM EDTQuick Note: Left message on [employer].. Will send letter. documented in this encounter Plan of Treatment Not on file documented as of this encounter Procedures * Due to [place] [employer] law, this organization might not be sharing negative HIV tests. Procedure Name Priority Date/Time Associated Diagnosis Comments NUT ALLERGY PANEL Routine 01/12/2012 2:3 7 PM EDT Food allergy CBC (H/H, RBC, INDICES,WBC, PLT) Routine 01/12/2012 2:37 PM EDT Screening for other and unspecified deficiency anemia documented in this encounter Results * Due to [place] [employer] law, this organization might not be sharing negative HIV tests. * (ABNORMAL) NUT ALLERGY PANEL (01/12/2012 2:37 PM EDT) Cashew Nut (F202) IgE 2.88(H) kU/L [facility] Comment:{CASHEW NUT (F202) I GE {[id number]) Cashew Nut (F202) Class 2 [facility] Comment: {CLASS {[id number]) Specific ?Level of Allergen IGE Class ?kU/L [...] developed and its performance characteristics determined by [facility]. It has not been cleared or approved by the U.S. Food and Drug Administration. The FDA has determined that such clearance is not necessary. Performance characteristics refer to the analytical performance of the test. Sesame Seed (F10) IgE 0.42(H) kU/L [facility] Comment:{SESAME SEED (F10) I GE {[id number]) Sesame Seed (F10) Class 1 [facility] Comment:{CLASS {[id number]) Peanut (F13) IgE 17.50(H) kU/L [facility] Comment:{PEANUT (F13) IGE {[id number]) Peanut (F13) Class 4 [facility] Comment:{CLASS {[id number]) Hazelnut (F17) IgE 0.62(H) kU/L [facility] Comment:{HAZELNUT (F17) IGE {[id number]) Hazelnut (F17) Class 1 [facility] Comment:{CLASS {[id number]) Buna (F20) IgE 0.75(H) kU/L [facility] Comment:{ALMOND (F20) IGE {[id number]) Buna (F20) Class 2 [facility] Comment:{CLASS {[id number]) Coconut (F36) IgE <0.35 kU/L [facility] Comment:{COCONUT (F36) IGE { [id number]) Coconut (F36) Class 0 [facility] Comment:{CLASS {[id number]) Pecan Nut (F201) IgE <0.35 kU/L [facility] Comment:{PECAN NUT (F201) IG E {[id number]) Pecan Nut (F201) Class 0 [facility] Comment:{CLASS {[id number]) May (F256) IgE <0.35 kU/L [facility] Comment:{WALNUT (F256) IGE { [id number]) May (F256) Class 0 [facility] Comment:{CLASS {[id number]) 01/12/2012 2:37 PM EDT 01/12/2012 10:03 PM EDT Narrative Resulting Agency Comment [id number] us Андрей Brandt MD LABORATORY Final Result [facility] [address] [place] [address] * CBC (H/H, RBC, INDICES,WBC, PLT) (01/12/2012 2:37 PM EDT) WBC 6.8 4.5 - 13.0 Thousand/u L [facility] Comment:{WHITE BLOOD CELL CO UNT {[id number]) RBC 4.20 3.80 - 5.10 Million/uL [facility] Comment:{RED BLOOD CELL COUN T {[id number]) Hemoglobin 12.8 11.5 - 15.3 g/dL [facility] Comment:{HEMOGLOBIN {[id number]) Hematocrit 37.6 34.0 - 46.0 % [facility] Comment:{HEMATOCRIT {[id number]) MCV 89.6 78.0 - 98.0 fL [facility] Comment:{MCV {[id number]) MCH 30.4 25.0 - 35.0 pg [facility] Comment:{MCH {[id number]) MCHC 33.9 31.0 - 36.0 g/dL [facility] Comment:{MCHC {[id number]) RDW 13.1 11.0 - 15.0 % [facility] Comment:{RDW {[id number]) PLT 279 140 - 400 Thousand/u L [facility] Comment:{PLATELET COUNT {[id number]) 01/12/2012 2:37 PM EDT 01/12/2012 10:03 PM EDT Narrative Resulting Agency Comment [id number] us Андрей Brandt MD LAB SAME DAY RESULT Final Res ult [facility] [address] [place] [address] documented in this encounter Visit Diagnoses Diagnosis Screening for other and unspecified deficiency anemia Food allergy Other adverse food reactions, not elsewhere classified documented in this encounter Additional Health Concerns Infection Onset Date Last Indicated Resolved Time COVID-19 Rule-Out 06/06/2020 06/06/2020 06/07/2020 11:13 AM EST documented as of this encounter Care Teams Food Service Kitchen Supervisor Relationship Specialty Start Date End Date Андрей Brandt MD [address] [place] [address] PCP - General 12/14/10 02/02/15 Diana Gutierres MD [address] [place] [address] PCP - General Pediatrics 02/03/15 07/30/17 Marc Quesada MD [address] [place] [address] PCP - General 07/31/17 01/31/22 documented as of this encounter
--- OUTSIDE RECORDS SUMMARY | 2024-08-02 08:38 | XMS_ITS | Encounter Summary ---
Author Organization [facility] Address [address] [place] [address] Care Team Providers Care Tile Finisher Name Role Phone Diana Gutierres MD Primary Care Provider [phone] Marc Quesada MD Primary Care Provider Unavaila ble Reason for Visit * Reason Comments E-prescribing Refill Request Encounter Details Date Type Department Care Team (Late st Contact Info) Description 05/19/2016 Refill [facility] [address] [place] [phone] Андрей Brandt MD [address] [place] [address] E-prescribing Refill Request Social History Tobacco Use [...] Time Provider Department Center 04/29/2017 3:30 PM MD SPARKLE GarciaED [facility] Pertinent lab results: Last Pap Date [...] documented as of this encounter Care Teams Tile Finisher Relationship Specialty Start Date End Date Diana Gutierres MD [address] [place] [address] PCP - General Pediatrics 02/03/15 07/30/17 Marc Quesada MD [address] [place] [address] PCP - General 07/31/17 01/31/22 documented as of this encounter
--- OUTSIDE RECORDS SUMMARY | 2024-08-02 08:38 | XMS_ITS | Encounter Summary ---
Author Organization [facility] Address [address] [place] [address] Care Team Providers Care Cribber Name Role Phone Андрей Brandt MD Primary Care Provider Diana Gutierres MD Primary Care Provider Marc Quesada MD Primary Care Provider Unavaila ble Encounter Details Date Type Department Care Team (Late st Contact Info) Description 05/17/2014 Orders Only [facility] [address] [place] [phone] Diana Gutierres MD [address] [place] [address] Medications Social History Tobacco Use Types Packs/Day [...] of this encounter Procedures * Due to [place] state law, this organization might not be sharing negative HIV tests. Procedure Name Priority Date/Time Associated Diagnosis Comments STREPTOCOCCUS, GROUP A CULTURE Routine 05/17/2014 4:50 PM EST Sore throat documented in this encounter Results * Due to [place] state law, this organization might not be sharing negative HIV tests. * STREPTOCOCCUS, GROUP A CULTURE (05/17/2014 4:50 PM EST) Culture, Streptococci Group A, Throat SEE NOTE [facility] Comment: {STREPTOCOCCUS, GROUP A CULTURE {[id number]) ??STREPTOCOCCUS, GROUP A CULTURE ??MICRO NUMBER: ?[id number] ??TEST STATUS: ? FINAL ??SPECIMEN SOURCE: ?? THROAT ??SPECIMEN QUALITY: ??ADEQUATE ??RESULT: ?No beta hemolytic Streptococci isolated 05/17/2014 4:50 PM EST 05/17/2014 9:49 PM EST Narrative Resulting Agency Comment [id number] Diana Gutierres MD LABORATORY Final Result Performing Organization Address City/State/[facility] Co de Phone Number [facility] [address] [place] [address] documented in this encounter Visit Diagnoses Diagnosis Sore throat- Primary Acute pharyngitis documented in this encounter Additional Health Concerns Infection Onset Date Last Indicated Resolved Time COVID-19 Rule-Out 06/06/2020 06/06/2020 06/07/2020 11:13 AM EST documented as of this encounter Care Teams Cribber Relationship Specialty Start Date End Date Андрей Brandt MD [address] [place] [address] PCP - General 12/14/10 02/02/15 Diana Gutierres MD [address] [place] [address] PCP - General Pediatrics 02/03/15 07/30/17 Marc Quesada MD [address] [place] [address] PCP - General 07/31/17 01/31/22 documented as of this encounter
--- OUTSIDE RECORDS SUMMARY | 2024-08-02 08:38 | XMS_ITS | Encounter Summary ---
Author Organization [facility] Address [address] [place] [address] Care Team Providers Care Doctor Of Nursing Practice Name Role Phone Diana Gutierres MD Primary Care Provider [phone] Marc Quesada MD Primary Care Provider Unavaila ble Encounter Details Date Type Department Care Team (Late st Contact Info) Description 06/16/2017 Orders Only [facility] [address] [place] [phone] Diana Gutierres MD [address] [place] [address] Social History Tobacco Use Types Packs/Day Years [...] this encounter Procedures * Due to [place] [employer] law, this organization might not be sharing [...] Comment: ??STREPTOCOCCUS, GROUP A CULTURE ??MICRO NUMBER: ?[id number] ??TEST STATUS: ? FINAL ??SPECIMEN SOURCE: ?? NOT GIVEN ??SPECIMEN QUALITY: ??ADEQUATE ??RESULT: ?No group A Streptococcus isolated 06/16/2017 3:51 PM EST 06/16/2017 8:49 PM EST Narrative Resulting Agency Comment [id number] us Diana Gutierres MD LABORATORY Final Result [facility] [address] [place] [address] * (ABNORMAL) HEPATIC FUNCTION PANEL (ALT,AST,ALK PH,BILI'S,TP,ALB) (06/16/2017 2:50 PM EST) Pathologist [facility] Protein Total (Serum) 7.2 6.1 - 8.1 [...] 4:25 PM EST Narrative Resulting Agency Comment [id number] us Diana Gutierres MD LABORATORY Final Result [facility] [address] [place] [address] * (ABNORMAL) CBC INCLUDES DIFFERENTIAL AND PLATELET COUNT (06/16/2017 2:50 PM EST) [facility] WBC 10.1 3.8 - 10.8 Thousand/ uL [...] 4:25 PM EST Narrative Resulting Agency Comment [id number] us Diana Gutierres MD LAB SAME DAY RESULT Final Resu lt Performing Organization Address City/State/[facility] Co de Phone Number [facility] [address] [place] [address] * (ABNORMAL) SHIRIN-MESSINA VIRUS PANEL COMPREHENSIVE (06/16/2017 [...] 4:25 PM EST Narrative Resulting Agency Comment [id number] us Diana Gutierres MD LABORATORY Final Result [facility] [address] [place] [address] documented in this encounter Visit Diagnoses Diagnosis Sore throat Acute pharyngitis documented in this encounter Additional Health Concerns Infection Onset Date Last Indicated Resolved Time COVID-19 Rule-Out 06/06/2020 06/06/2020 06/07/2020 11:13 AM EST documented as of this encounter Care Teams Doctor Of Nursing Practice Relationship Specialty Start Date End Date Diana Gutierres MD [address] [place] [address] PCP - General Pediatrics 02/03/15 07/30/17 Marc Quesada MD [address] [place] [address] PCP - General 07/31/17 01/31/22 documented as of this encounter
--- OUTSIDE RECORDS SUMMARY | 2024-08-02 08:38 | XMS_ITS | Encounter Summary ---
Author Organization [facility] Address [address] [place] [address] Care Team Providers Care Automation Architect Name Role Phone Marc Quesada MD Primary Care Provider Unavaila ble Reason for Visit * Reason Comments E-prescribing Refill Request Encounter Details Date Type Department Care Team (Late st Contact Info) Description 06/22/2020 Refill [facility] [address] [place] [address] Marc Quesada MD E-prescribing Refill Request Social History Tobacco Use [...] 30 tablet 0 ??? Norethindrone Acet-Ethinyl Est (June05/21) 1-20 MG-MCG per tablet Take one tablet [...] on filedocumented in this encounter Care Teams Automation Architect Relationship Specialty Start Date End Date Marc Quesada MD PCP - General 07/31/17 01/31/22 documented as of this encounter
--- OUTSIDE RECORDS SUMMARY | 2024-08-02 08:39 | XMS_ITS | Encounter Summary ---
Author Organization [facility] Address [address] [place] [address] Care Team Providers Care Health Information Internship Name Role Phone Diana Gutierres MD Primary Care Provider Marc Quesada MD Primary Care Provider Unavaila ble Encounter Details Date Type Department Care Team (Late st Contact Info) Description 04/03/2015 Orders Only [facility] [address] [place] [phone] Diana Gutierres MD [address] [place] [address] Social History Tobacco Use Types Packs/Day Years [...] this encounter Procedures * Due to [place] [employer] law, this organization might not be sharing [...] [facility] Comment:{CHLAMYDIA TRACHOMAT IS RNA, TMA {[id number]) Neisseria Gonorrhoeae rRNA NOT DETECTED NOT DETECTED [facility] Comment:{NEISSERIA GONORRHOE AE RNA, TMA {[id number]) COMMENT SEE NOTE [facility] Comment: {COMMENT {[id number]) This test was performed using the APTIMA COMBO2 Assay ([employer] The analytical performance characteristics of this assay, when used to test SurePath specimens have been determined by [employer]. 04/03/2015 8:34 PM EST 04/04/2015 12:52 AM EST Narrative Resulting Agency Comment [id number] us Diana Gutierres MD LABORATORY Final Result Performing Organization Address City/State/[facility] Co de Phone Number [facility] [address] [place] [address] documented in this encounter Visit Diagnoses Diagnosis Routine history and physical examination of adult Routine general medical examination at a health care facility documented in this encounter Additional Health Concerns Infection Onset Date Last Indicated Resolved Time COVID-19 Rule-Out 06/06/2020 06/06/2020 06/07/2020 11:13 AM EST documented as of this encounter Care Teams Health Information Internship Relationship Specialty Start Date End Date Diana Gutierres MD [address] [place] [address] PCP - General Pediatrics 02/03/15 07/30/17 Marc Quesada MD [address] [place] [address] PCP - General 07/31/17 01/31/22 documented as of this encounter
--- OUTSIDE RECORDS SUMMARY | 2024-08-02 08:39 | XMS_ITS | Encounter Summary ---
Author Organization [facility] Address [address] [place] [address] Care Team Providers Care Geography Professor Name Role Phone Marc Quesada MD Primary Care Provider Unavaila ble Encounter Details Date Type Department Care Team ([facility] st Contact Info) Description 01/13/2018 Orders Only [facility] [address] [place] [address] Marc Quesada MD Social History Tobacco Use [...] MD - 01/16/2018 9:32 AM EDT Radha, Sung please find your lab test results. Liver function tests showed liver enzymes are mostly back to normal range. Blood level is in good range. Let me know if you have any question. Marc Quesada MD documented in this encounter Plan of Treatment Not on file documented as of this encounter Procedures * Due to [place] [employer] law, this organization might not be sharing negative HIV tests. Procedure Name Priority Date/Time Associated Diagnosis Comments CBC INCLUDES DIFFERENTIAL AND PLATELET COUNT Routine 01/13/2018 4:22 PM EDT History of mononucleosis HEPATIC FUNCTION PANEL (ALT,AST,ALK PH,BILI'S,TP,ALB) Routine 01/13/2018 4:22 PM EDT Elevated liver enzymes documented in this encounter Results * Due to [place] [employer] law, this organization might not be sharing [...] 11:58 PM EDT Narrative Resulting Agency Comment [id number] us Marc Quesada MD LABORATORY Final Result Performing Organization Address City/State/[facility] Co de Phone Number [facility] [address] [place] [address] * CBC INCLUDES DIFFERENTIAL AND PLATELET COUNT [...] 11:58 PM EDT Narrative Resulting Agency Comment [id number] us Marc Quesada MD LAB SAME DAY RESULT Final Resul t Performing Organization Address City/State/[facility] Co de Phone Number [facility] [address] [place] [address] documented in this encounter Visit Diagnoses Diagnosis History of mononucleosis Personal history of other infectious and parasitic disease Elevated liver enzymes Nonspecific elevation of levels of transaminase or lactic acid dehydrogenase (LDH) documented in this encounter Additional Health Concerns Infection Onset Date Last Indicated Resolved Time COVID-19 Rule-Out 06/06/2020 06/06/2020 06/07/2020 11:13 AM EST documented as of this encounter Care Teams Geography Professor Relationship Specialty Start Date End Date Marc Quesada MD PCP - General 07/31/17 01/31/22 documented as of this encounter
--- OUTSIDE RECORDS SUMMARY | 2024-08-02 08:39 | XMS_ITS | Clinical Summary ---
Author Organization [facility] Address [address] [place] [address] Care Team Providers Care Radiology Rn Name Role Phone Unavailable Primary Care Provider [...] Diagnosed Date Mood disorder 03/16/2019 Asthma, intrinsic ([facility]) 06/20/2018 Food allergy 02/13/2013 Overview (02/13/2013): [...] complete this topic Procedures * Due to [place] state law, this organization might not [...] to Health Maintenance Results * Due to [place] state law, this organization might not [...] Smear Negative for intraepithelial lesion or malignancy. [facility] Cytology study comment (Cvx/Vag) This Pap test has been evaluated with computer assisted technology. [facility] Plant Clerk (Cvx/Vag) MSM, CT(ASCP) CT screening location: [place] [address] [facility] COMMENT SEE NOTE [facility] Comment: EXPLANATORY NOTE: The Pap is a [...] Chlamydia trachomatis rRNA NOT DETECTED NOT DETECTED [facility] Neisseria Gonorrhoeae rRNA NOT DETECTED NOT DETECTED [facility] COMMENT SEE NOTE [facility] Comment: The analytical performance characteristics of this assay, when used to test SurePath(TM) specimens have been determined by [employer]. The modifications have not been cleared or approved by the FDA. This assay has been validated pursuant to the CLIA regulations and is used for clinical purposes. For additional information, please refer to https://education.[employer]/faq/FHV007 (This link is being provided for information/ educational purposes only.) Cervical 07/15/2020 5:15 PM EDT 07/16/2020 6:41 AM EDT Narrative Resulting Agency Comment [id number] us Marc Quesada MD PATHOLOGY-INTERFACED Final Resu lt [facility] [address] [place] [address] * ELECTROCARDIOGRAM, TRACING (09/12/2017) Narrative 09/12/2017 Ordered by an unspecified provider. Procedure Note Manish, Valente Provider - 09/12/2017 11:17 [place] [address] CARDIOVASCULAR SERVICES -- ELECTROCARDIOGRAM REPORT Patient's name: MARION MOSLEY UNIT#: [id number] : 97 DOS: 09/11/17 LOC: ER Test [...] By:Surendra Styles MD Acquiring Tech: MIKALA ORD#: [id number] OE: TOM RPT#: [id number] D/ MUSE CC: us Unknown Provider [place] CARDIOVASCULAR-NO INBAS KET RTG Final Result * (ABNORMAL) LIPID PANEL WITH REFLEX TO DIRECT LDL (04/30/2015 8:51 AM EST) Cholesterol 192(H) 125 - 170 mg/dL [facility] Comment:{CHOLESTEROL, TOTAL {[id number]) HDL Cholesterol 53 36 - 76 mg/dL [facility] Comment:{HDL CHOLESTEROL {[id number]) Triglyceride 127 40 - 136 mg/dL [facility] Comment:{TRIGLYCERIDES {[id number]) LDL Cholesterol 114(H) <110 mg/dL (calc) [facility] Comment: {LDL-CHOLESTEROL {[id number]) Desirable range <100 mg/dL for patients with CHD or diabetes and <70 mg/dL for diabetic patients with known heart disease. CHOL/HDL Ratio 3.6 < OR = 5.0 (calc) [facility] Comment:{CHOL/HDLC RATIO {[id number]) Cholesterol Non-HDL 139(H) <120 mg/dL (calc) [facility] Comment:{NON HDL CHOLESTEROL {[id number]) 04/30/2015 8:51 AM EST 04/30/2015 2:43 PM EST Narrative Resulting Agency Comment [id number] us Diana Gutierres MD LABORATORY Final Result [facility] [address] [place] [address] from Last 3 Months or Most Recently Relevant to Health Maintenance
[2024-08-02 08:50] VITALS: BMI 38.6
== END 2024-08-02 08:50 | disposition home or self-care (01) ==
LOC: HO.ENCR 08:31
PROVIDERS: PCP Nurse Practitioner Family; Visit Provider Dietitian, Registered
DX: E66.811 Obesity, class 1 (principal)

== ENCOUNTER → 2024-08-02 08:30 | Outpatient (BNVA) | payer OTHER, SELFPAY | PROVIDERS: PCP Nurse Practitioner Family; Visit Provider Dietitian, Registered | DX: E66.811 Obesity, class 1 (principal); Z68.38 Body mass index [BMI] 38.0-38.9, adult | CPT/HCPCS: 97803 ==

== ENCOUNTER 2024-08-14 15:12 | Outpatient (AMB) | payer OTHER, SELFPAY ==
[2024-08-14 15:19] VITALS: BP 132/80; PULSE 90; O2SAT 98; BMI 38.8
--- NOTE | 2024-08-14 15:19 | A.OFFVIS_ITS ---
Vital Signs 08/14/24 15:19 Height 5 ft 5 in Weight 233 lb 3 oz BMI 38.8 BP 132/80 Blood Pressure Location Rt brachial Position Sitting Pulse 90 Pulse Source Pulse Oximeter Pulse Oximetry (%) 98 Oxygen Delivery Method Room Air Intake Visit Reasons: IBS-D Intake Note: NEW PATIENT for IBS initial eval. Prior hx of colo/egd? N Chief Complaint; C/O generalized abd pain, bloating, constipation and diarrhea intermittently, GERD. Pt reports recently being placed on PPI per PCP which has been effective with tx of reflux. No additional sx or concerns at this time. No triggers identified per pt. No pertinent FMHx. Economic Research Assistant Required: No Accompanied by: Self / Same As Patient Allergies amoxicillin Allergy (Severe, Verified 08/14/24 15:20) Anaphylaxis Penicillins Allergy (Severe, Verified 08/14/24 15:20) Anaphylaxis HPI HPI IBS-D: Details: 29-year-old female with past medical history of hyperlipidemia, IBS, obesity, depression, anxiety, GERD is here today for initial consultation. Patient was sent to us by her PCP. Patient reports symptoms of postprandial upper abdominal pain and cramping. No trigger food I identified. Occasional constipation followed by diarrhea. This has been going on for patient for quite some time. Patient was given script for omeprazole and started taking it daily and her symptoms of acid reflux have been suppressed for the most part. Patient can not identified dietary triggers. Patient states that she could be fine eating something and then sometimes she will have symptoms. Patient denies melena, hematochezia, unintentional weight loss or ribbon like stools. Patient denies any dyspepsia, dysphagia or odynophagia. [facility] Medical History Depression Anxiety Acid reflux IBS (irritable bowel syndrome) High cholesterol Asthma Family History Maternal Grandmother Alcohol abuse Substance abuse FH: mental illness Cardiovascular disease Maternal Uncle Substance abuse FH: mental illness Mother FH: mental illness Father FH: mental illness High blood pressure Paternal Grandfather High blood pressure High cholesterol Social History Housing: House Patient Tobacco Use Status: Never used Tobacco e-Cigarette/Vaping Use: Never Used Second Hand Smoke Exposure: Yes Substance Use Type: Marijuana service: No Current occupational status: employed 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 Current occupational exposures/hazards: No Cognitive needs: No Hearing needs: No Vision needs: No Review of Systems Const Denies weight gain and Denies weight loss ENT Reports no additional complaints, Denies dysphagia and Denies odynophagia Card Reports no additional complaints Resp Reports no additional complaints GI Denies abdominal pain, Denies belching, Denies melena, Reports bloating, Denies change in bowel habits, Reports constipation, Reports GI cramping (Occasional right lower quadrant), Denies dysphagia, Denies excessive flatus, Denies dyspepsia, Denies heartburn, Denies diarrhea, Reports loose stools, Denies nausea, Denies odynophagia and Denies vomiting Reports no additional complaints Musc Reports no additional complaints Neuro Reports no additional complaints Psych Reports no additional complaints Endo Reports no additional complaints Physical Exam Vital Signs: Last Vital Signs Pulse 90 08/14/24 15:19 BP 132/80 08/14/24 15:19 Pulse Ox 98 08/14/24 15:19 Oxygen Delivery Method Room Air 08/14/24 15:19 BMI result Body Mass Index 38.8 Const General: healthy appearing, no acute distress and well developed Nutritional Appearance: well nourished Orientation/consciousness: patient oriented x3 Resp Effort & Inspection: normal respiratory effort, able to speak in complete sentences, no tracheal deviation and symmetric chest movement Auscultation: clear to auscultation bilaterally Cardio Rate: regular rate GI Inspection: Yes normal to inspection, No distended and Yes obesity Palpation (GI): Soft to palpation, not firm, nontender and No hepatosplenomegaly present Auscultation: normal bowel sounds General: Yes no CVA tenderness Back/Spine/Pelvis Back: no CVA tenderness Skin General skin exam: elasticity normal, turgor normal and dry skin Neuro General: patient oriented x3 Psych Appearance: grossly normal Mental Status: mental status grossly normal Assessment & Plan Assessment & Plan (1) Diarrhea: Code(s): R19.7 - Diarrhea, unspecified Category: Medical Qualifiers: Diarrhea type: functional diarrhea Qualified Code(s): K59.1 - Functional diarrhea (2) Acid reflux: Code(s): K21.9 - Gastro-esophageal reflux disease without esophagitis Category: Medical Qualifiers: Esophagitis presence: esophagitis presence not specified Qualified Code(s): K21.9 - Gastro-esophageal reflux disease without esophagitis (3) Constipation: Code(s): K59.00 - Constipation, unspecified Qualifiers: Constipation type: slow transit constipation Qualified Code(s): K59.01 - Slow transit constipation (4) Postprandial abdominal bloating: Code(s): R14.0 - Abdominal distension (gaseous) (5) Abdominal pain: Code(s): R10.9 - Unspecified abdominal pain Qualifiers: Abdominal location: right upper quadrant Qualified Code(s): R10.11 - Right upper quadrant pain Plan Will check lipase, transglutaminase, vitamin B12, folate and vitamin-D level. Patient will try to avoid dietary triggers in late night snacking. Staying upright for 3 hours after meals discussed with patient. Continue omeprazole daily. Patient reports occasional postprandial loose stools. Low FODMAP diet discussed with patient. List of food recommended as well list of food to avoid given to patient. Will check CRP if that is positive will send her for stool study to check for inflammatory bowel disease. Patient denies any mucus or blood in her stools. Instructed to take fiber with pre and probiotic. Patient will return in 4 months, sooner on as needed basis. She is agreeable to this plan and verbalizes understanding of instructions. She was given the opportunity to ask questions and all questions answered. Thank you for allowing me to participate in her care Orders: Orders Lipase 08/14/24 R10.9 - Unspecified abdominal pain C Reactive Protein 08/14/24 K58.9 - Irritable bowel syndrome, unspecified Transglutaminase IgA 08/14/24 R10.9 - Unspecified abdominal pain Vitamin B12 and Folate 08/14/24 R19.7 - Diarrhea, unspecified Vitamin D 25-OH (D2 and D3) 08/14/24 E55.9 - Vitamin D deficiency, unspecified Coding Level of Care Code New Pt Level 4 (34776) Diagnoses Functional diarrhea K59.1 Diarrhea type: functional diarrhea Gastroesophageal reflux disease, unspecified whether esophagitis present K21.9 Esophagitis presence: esophagitis presence not specified Slow transit constipation K59.01 Constipation type: slow transit constipation Postprandial abdominal bloating R14.0 Right upper quadrant abdominal pain R10.11 Abdominal location: right upper quadrant Time Spent (min) 45 Comment 35 minutes spent with patient and additional 10 minutes spent reviewing her records
--- OUTSIDE RECORDS SUMMARY | 2024-08-14 18:29 | XMS_ITS | Encounter Summary ---
Author Organization [facility] Address [address] [place] [address] Care Team Providers Care Director Of Property Management Name Role Phone Андрей Brandt MD Primary Care Provider Diana Gutierres MD Primary Care Provider Marc Quesada MD Primary Care Provider Unavaila ble Encounter Details Date Type Department Care Team (Late st Contact Info) Description 05/17/2014 Orders Only [facility] [address] [place] [phone] Diana Gutierres MD [address] [place] [address] Medications Social History Tobacco Use Types Packs/Day [...] [facility] Comment: {STREPTOCOCCUS, GROUP A CULTURE {[id number]) ??STREPTOCOCCUS, GROUP A CULTURE ??MICRO NUMBER: ?[id number] ??TEST STATUS: ? FINAL ??SPECIMEN SOURCE: ?? THROAT ??SPECIMEN QUALITY: ??ADEQUATE ??RESULT: ?No beta hemolytic Streptococci isolated 05/17/2014 4:50 PM EST 05/17/2014 9:49 PM EST Narrative Resulting Agency Comment [id number] Diana Gutierres MD LABORATORY Final Result Performing Organization Address City/State/[facility] Co de Phone Number [facility] [address] [place] [address] documented in this encounter Visit Diagnoses Diagnosis Sore throat- Primary Acute pharyngitis documented in this encounter Additional Health Concerns Infection Onset Date Last Indicated Resolved Time COVID-19 Rule-Out 06/06/2020 06/06/2020 06/07/2020 11:13 AM EST documented as of this encounter Care Teams Director Of Property Management Relationship Specialty Start Date End Date Андрей Brandt MD [address] [place] [address] PCP - General 12/14/10 02/02/15 Diana Gutierres MD [address] [place] [address] PCP - General Pediatrics 02/03/15 07/30/17 Marc Quesada MD [address] [place] [address] PCP - General 07/31/17 01/31/22 documented as of this encounter
--- OUTSIDE RECORDS SUMMARY | 2024-08-14 18:29 | XMS_ITS | Encounter Summary ---
Author Organization [facility] Address [address] [place] [address] Care Team Providers Care Graphics Manager Name Role Phone Diana Gutierres MD Primary Care Provider [phone] Marc Quesada MD Primary Care Provider Unavaila ble Encounter Details Date Type Department Care Team (Late st Contact Info) Description 06/16/[address] [facility] [address] [place] [phone] Diana Gutierres MD [address] [place] [address] Social History Tobacco Use Types Packs/Day Years [...] this encounter Procedures * Due to [place] [employer] law, this organization might not be sharing [...] Comment: ??STREPTOCOCCUS, GROUP A CULTURE ??MICRO NUMBER: ?[id number] ??TEST STATUS: ? FINAL ??SPECIMEN SOURCE: ?? NOT GIVEN ??SPECIMEN QUALITY: ??ADEQUATE ??RESULT: ?No group A Streptococcus isolated 06/16/2017 3:51 PM EST 06/16/2017 8:49 PM EST Narrative Resulting Agency Comment [id number] us Diana Gutierres MD LABORATORY Final Result [facility] [address] [place] [address] * (ABNORMAL) HEPATIC FUNCTION PANEL (ALT,AST,ALK PH,BILI'S,TP,ALB) (06/16/2017 2:50 PM EST) Pathologist [facility] Protein Total (Serum) 7.2 6.1 - [...] 4:25 PM EST Narrative Resulting Agency Comment [id number] us Diana Gutierres MD LABORATORY Final Result [facility] [address] [place] [address] * (ABNORMAL) CBC INCLUDES DIFFERENTIAL AND PLATELET COUNT (06/16/2017 2:50 PM EST) [facility] WBC 10.1 3.8 - 10.8 Thousand/ [...] 4:25 PM EST Narrative Resulting Agency Comment [id number] us Diana Gutierres MD LAB SAME DAY RESULT Final Resu lt Performing Organization Address City/State/[facility] Co de Phone Number [facility] [address] [place] [address] * (ABNORMAL) SHIRIN-MESSINA VIRUS PANEL COMPREHENSIVE (06/16/2017 [...] 4:25 PM EST Narrative Resulting Agency Comment [id number] us Diana Gutierres MD LABORATORY Final Result [facility] [address] [place] [address] documented in this encounter Visit Diagnoses Diagnosis Sore throat Acute pharyngitis documented in this encounter Additional Health Concerns Infection Onset Date Last Indicated Resolved Time COVID-19 Rule-Out 06/06/2020 06/06/2020 06/07/2020 11:13 AM EST documented as of this encounter Care Teams Graphics Manager Relationship Specialty Start Date End Date Diana Gutierres MD [address] [place] [address] PCP - General Pediatrics 02/03/15 07/30/17 Marc Quesada MD [address] [place] [address] PCP - General 07/31/17 01/31/22 documented as of this encounter
--- OUTSIDE RECORDS SUMMARY | 2024-08-14 18:29 | XMS_ITS | Encounter Summary ---
Author Organization [facility] Address [address] [place] [address] Care Team Providers Care Human Resource Professional Name Role Phone Diana Gutierres MD Primary Care Provider Marc Quesada MD Primary Care Provider Unavaila ble Encounter Details Date Type Department Care Team (Late st Contact Info) Description 07/28/2017 Orders [facility] [address] [place] [phone] Diana Gutierres MD [address] [place] [phone] Social History Tobacco Use Types Packs/Day Years [...] this encounter Procedures * Due to [place] [employer] law, this organization might not be sharing negative HIV tests. Procedure Name Priority Date/Time Associated Diagnosis Comments CHLAMYDIA TRACHOMATIS/N. GONORRHOEAE (GC) RNA, TMA (URINE) Routine 07/28/2017 1:29 PM EDT Hx of chlamydia infection documented in this encounter Results * Due to [place] state law, this organization might not be sharing negative HIV tests. * CHLAMYDIA TRACHOMATIS/N. GONORRHOEAE (GC) RNA, TMA (URINE) (07/28/2017 1:29 PM EDT) Chlamydia trachomatis rRNA NOT DETECTED NOT DETECTED [facility] Neisseria Gonorrhoeae rRNA NOT DETECTED NOT DETECTED [facility] COMMENT SEE NOTE [facility] Comment: This test was performed using the APTIMA COMBO2 Assay ([employer] The analytical performance characteristics of this assay, when used to test SurePath specimens have been determined by [employer]. 07/28/2017 1:29 PM EDT 07/28/2017 11:28 PM EDT Narrative Resulting Agency Comment [id number] us Diana Gutierres MD LABORATORY Final Result Performing Organization Address City/State/[facility] Co de Phone Number [facility] [address] [place] [address] documented in this encounter Visit Diagnoses Diagnosis Hx of chlamydia infection Personal history of other infectious and parasitic disease documented in this encounter Additional Health Concerns Infection Onset Date Last Indicated Resolved Time COVID-19 Rule-Out 06/06/2020 06/06/2020 06/07/2020 11:13 AM EST documented as of this encounter Care Teams Human Resource Professional Relationship Specialty Start Date End Date Diana Gutierres MD [address] [place] [id number] PCP - General Pediatrics 02/03/15 07/30/17 Marc Quesada MD [address] [place] [address] PCP - General 07/31/17 01/31/22 documented as of this encounter
--- OUTSIDE RECORDS SUMMARY | 2024-08-14 18:29 | XMS_ITS | Encounter Summary ---
Author Organization [facility] Address [address] [place] [address] Care Team Providers Care Educational Institution Curator Name Role Phone Андрей Brandt MD Primary Care Provider [phone] Diana Gutierres MD Primary Care Provider [phone] Marc Quesada MD Primary Care Provider Unavaila ble Encounter Details Date Type Department Care Team (Late st Contact Info) Description 01/12/2012 Orders Only [facility] [address] [place] [phone] Андрей Brandt MD [address] [place] [address] Social History Tobacco Use Types Packs/Day Years [...] 1:12 PM EDTQuick Note: Left message on [employer].. Will send letter. documented in this encounter Plan of Treatment Not on file documented as of this encounter Procedures * Due to [place] [employer] law, this organization might not be sharing negative HIV tests. Procedure Name Priority Date/Time Associated Diagnosis Comments NUT ALLERGY PANEL Routine 01/12/2012 2:3 7 PM EDT Food allergy CBC (H/H, RBC, INDICES,WBC, PLT) Routine 01/12/2012 2:37 PM EDT Screening for other and unspecified deficiency anemia documented in this encounter Results * Due to [place] [employer] law, this organization might not be sharing negative HIV tests. * (ABNORMAL) NUT ALLERGY PANEL (01/12/2012 2:37 PM EDT) Cashew Nut (F202) IgE 2.88(H) kU/L [facility] Comment:{CASHEW NUT (F202) I GE {[id number]) Cashew Nut (F202) Class 2 [facility] Comment: {CLASS {[id number]) Specific ?Level of Allergen IGE Class ?kU/L [...] developed and its performance characteristics determined by [facility]. It has not been cleared or approved by the U.S. Food and Drug Administration. The FDA has determined that such clearance is not necessary. Performance characteristics refer to the analytical performance of the test. Sesame Seed (F10) IgE 0.42(H) kU/L [facility] Comment:{SESAME SEED (F10) I GE {[id number]) Sesame Seed (F10) Class 1 [facility] Comment:{CLASS {[id number]) Peanut (F13) IgE 17.50(H) kU/L [facility] Comment:{PEANUT (F13) IGE {[id number]) Peanut (F13) Class 4 [facility] Comment:{CLASS {[id number]) Hazelnut (F17) IgE 0.62(H) kU/L [facility] Comment:{HAZELNUT (F17) IGE {[id number]) Hazelnut (F17) Class 1 [facility] Comment:{CLASS {[id number]) [place] (F20) IgE 0.75(H) kU/L [facility] Comment:{ALMOND (F20) IGE {[id number]) [place] (F20) Class 2 [facility] Comment:{CLASS {[id number]) Coconut (F36) IgE <0.35 kU/L [facility] Comment:{COCONUT (F36) IGE { [id number]) Coconut (F36) Class 0 [facility] Comment:{CLASS {[id number]) Pecan Nut (F201) IgE <0.35 kU/L [facility] Comment:{PECAN NUT (F201) IG E {[id number]) Pecan Nut (F201) Class 0 [facility] Comment:{CLASS {[id number]) [place] (F256) IgE <0.35 kU/L [facility] Comment:{WAL[place]UT (F256) IGE { [id number]) [place] (F256) Class 0 [facility] Comment:{CLASS {[id number]) 01/12/2012 2:37 PM EDT 01/12/2012 10:03 PM EDT Narrative Resulting Agency Comment [id number] us Андрей Brandt MD LABORATORY Final Result [facility] [address] [place] [address] * CBC (H/H, RBC, INDICES,WBC, PLT) (01/12/2012 2:37 PM EDT) WBC 6.8 4.5 - 13.0 Thousand/u L [facility] Comment:{WHITE BLOOD CELL CO UNT {[id number]) RBC 4.20 3.80 - 5.10 Million/uL [facility] Comment:{RED BLOOD CELL COUN T {[id number]) Hemoglobin 12.8 11.5 - 15.3 g/dL [facility] Comment:{HEMOGLOBIN {[id number]) Hematocrit 37.6 34.0 - 46.0 % [facility] Comment:{HEMATOCRIT {[id number]) MCV 89.6 78.0 - 98.0 fL [facility] Comment:{MCV {[id number]) MCH 30.4 25.0 - 35.0 pg [facility] Comment:{MCH {[id number]) MCHC 33.9 31.0 - 36.0 g/dL [facility] Comment:{MCHC {[id number]) RDW 13.1 11.0 - 15.0 % [facility] Comment:{RDW {[id number]) PLT 279 140 - 400 Thousand/u L [facility] Comment:{PLATELET COUNT {[id number]) 01/12/2012 2:37 PM EDT 01/12/2012 10:03 PM EDT Narrative Resulting Agency Comment [id number] us Андрей Brandt MD LAB SAME DAY RESULT Final Res ult [facility] [address] [place] [address] documented in this encounter Visit Diagnoses Diagnosis Screening for other and unspecified deficiency anemia Food allergy Other adverse food reactions, not elsewhere classified documented in this encounter Additional Health Concerns Infection Onset Date Last Indicated Resolved Time COVID-19 Rule-Out 06/06/2020 06/06/2020 06/07/2020 11:13 AM EST documented as of this encounter Care Teams Educational Institution Curator Relationship Specialty Start Date End Date Андрей Brandt MD [address] [place] [address] PCP - General 12/14/10 02/02/15 Diana Gutierres MD [address] [place] [address] PCP - General Pediatrics 02/03/15 07/30/17 Marc Quesada MD [address] [place] [address] PCP - General 07/31/17 01/31/22 documented as of this encounter
--- OUTSIDE RECORDS SUMMARY | 2024-08-14 18:29 | XMS_ITS | Encounter Summary ---
Author Organization [facility] Address [address] [place] [address] Care Team Providers Care Open Shank Coverer Name Role Phone Diana Gutierres MD Primary Care Provider Marc Quesada MD Primary Care Provider Unavaila ble Encounter Details Date Type Department Care Team (Late st Contact Info) Description 04/28/2016 Orders Only [facility] [address] [place] [phone] Diana Gutierres MD [address] [place] [address] Social History Tobacco Use Types Packs/Day Years [...] this encounter Procedures * Due to [place] state law, this organization might not be sharing negative HIV tests. Procedure Name Priority Date/Time Associated Diagnosis Comments CHLAMYDIA TRACHOMATIS/N. GONORRHOEAE (GC) RNA, TMA (URINE) Routine 04/28/2016 3:38 PM EST Encounter for screening for infections with predominantly sexual mode of transmission documented in this encounter Results * Due to [place] state law, this organization might not be sharing negative HIV tests. * CHLAMYDIA TRACHOMATIS/N. GONORRHOEAE (GC) RNA, TMA (URINE) (04/28/2016 3:38 PM EST) Chlamydia trachomatis rRNA NOT DETECTED NOT DETECTED [facility] Comment:{CHLAMYDIA TRACHOMAT IS RNA, TMA {[id number]) Neisseria Gonorrhoeae rRNA NOT DETECTED NOT DETECTED [facility] Comment:{NEISSERIA GONORRHOE AE RNA, TMA {[id number]) COMMENT SEE NOTE [facility] Comment: {COMMENT {[id number]) This test was performed using the APTIMA COMBO2 Assay ([employer] The analytical performance characteristics of this assay, when used to test SurePath specimens have been determined by [employer]. 04/28/2016 3:38 PM EST 04/28/2016 9:54 PM EST Narrative Resulting Agency Comment [id number] us Diana Gutierres MD LABORATORY Final Result [facility] [address] [place] [address] documented in this encounter Visit Diagnoses Diagnosis Encounter for screening for infections with predominantly sexual mode of transmission Screening examination for venereal disease documented in this encounter Additional Health Concerns Infection Onset Date Last Indicated Resolved Time COVID-19 Rule-Out 06/06/2020 06/06/2020 06/07/2020 11:13 AM EST documented as of this encounter Care Teams Open Shank Coverer Relationship Specialty Start Date End Date Diana Gutierres MD [address] [place] [address] PCP - General Pediatrics 02/03/15 07/30/17 Marc Quesada MD [address] [place] [address] PCP - General 07/31/17 01/31/22 documented as of this encounter
--- OUTSIDE RECORDS SUMMARY | 2024-08-14 18:29 | XMS_ITS | Encounter Summary ---
Author Organization [facility] Address [address] [place] [address] Care Team Providers Care Student Development Specialist Name Role Phone Diana Gutierres MD Primary Care Provider [phone] Marc Quesada MD Primary Care Provider Unavaila ble Encounter Details Date Type Department Care Team (Late st Contact Info) Description 04/30/2015 Orders Only [facility] [address] [place] [phone] Diana Gutierres MD [address] [place] [address] Social History Tobacco Use Types Packs/Day Years [...] of this encounter Procedures * Due to [place] T[place]t law, this organization might not be sharing negative HIV tests. Procedure Name Priority Date/Time Associated Diagnosis Comments CBC INCLUDES DIFFERENTIAL AND PLATELET COUNT Routine 04/30/2015 8:51 AM EST Routine history and physical examination of adult LIPID PANEL WITH REFLEX TO DIRECT LDL Routine 04/30/2015 8:51 AM EST Routine history and physical examination of adult documented in this encounter Results * Due to [place] law, this organization might not be sharing negative HIV tests. * CBC INCLUDES DIFFERENTIAL AND PLATELET COUNT (04/30/2015 8:51 AM EST) WBC 5.7 4.5 - 13.0 Thousand/u L [facility] Comment:{WHITE BLOOD CELL CO UNT {[id number]) RBC 4.40 3.80 - 5.10 Million/uL [facility] Comment:{RED BLOOD CELL COUN T {[id number]) Hemoglobin 13.0 11.5 - 15.3 g/dL [facility] Comment:{HEMOGLOBIN {[id number]) Hematocrit 40.1 34.0 - 46.0 % [facility] Comment:{HEMATOCRIT {[id number]) MCV 91.2 78.0 - 98.0 fL [facility] Comment:{MCV {[id number]) MCH 29.5 25.0 - 35.0 pg [facility] Comment:{MCH {[id number]) MCHC 32.4 31.0 - 36.0 g/dL [facility] Comment:{MCHC {[id number]) RDW 12.8 11.0 - 15.0 % [facility] Comment:{RDW {[id number]) PLT 233 140 - 400 Thousand/u L [facility] Comment:{PLATELET COUNT {[id number]) MPV 8.8 7.5 - 11.5 fL [facility] Comment:{MPV {[id number]) Neutrophils # 2799 1800 - 8000 cells/uL [facility] Comment:{ABSOLUTE NEUTROPHIL S {[id number]) Lymphocytes # 2183 1200 - 5200 cells/uL [facility] Comment:{ABSOLUTE LYMPHOCYTE S {[id number]) Monocytes # 439 200 - 900 cells/uL [facility] Comment:{ABSOLUTE MONOCYTES {[id number]) Eosinophils # 228 15 - 500 cells/uL [facility] Comment:{ABSOLUTE EOSINOPHIL S {[id number]) Basophils # 51 0 - 200 cells/uL [facility] Comment:{ABSOLUTE BASOPHILS {[id number]) Neutrophils % 49.1 % [facility] Comment:{NEUTROPHILS {[id number]) Lymphocytes % 38.3 % [facility] Comment:{LYMPHOCYTES {[id number]) Monocytes % 7.7 % [facility] Comment:{MONOCYTES {[id number]) Eosinophils % 4.0 % [facility] Comment:{EOSINOPHILS {[id number]) Basophils % 0.9 % [facility] Comment:{BASOPHILS {[id number]) 04/30/2015 8:51 AM EST 04/30/2015 2:43 PM EST Narrative Resulting Agency Comment [id number] us Diana Gutierres MD LAB SAME DAY RESULT Final Resu lt [facility] [address] [place] [address] * (ABNORMAL) LIPID PANEL WITH REFLEX TO DIRECT LDL (04/30/2015 8:51 AM EST) Cholesterol 192(H) 125 - 170 mg/dL [facility] Comment:{CHOLESTEROL, TOTAL {[id number]) HDL Cholesterol 53 36 - 76 mg/dL [facility] Comment:{HDL CHOLESTEROL {[id number]) Triglyceride 127 40 - 136 mg/dL [facility] Comment:{TRIGLYCERIDES {[id number]) LDL Cholesterol 114(H) <110 mg/dL (calc) [facility] Comment: {LDL-CHOLESTEROL {[id number]) Desirable range <100 mg/dL for patients with CHD or diabetes and <70 mg/dL for diabetic patients with known heart disease. CHOL/HDL Ratio 3.6 < OR = 5.0 (calc) [facility] Comment:{CHOL/HDLC RATIO {[id number]) Cholesterol Non-HDL 139(H) <120 mg/dL (calc) [facility] Comment:{NON HDL CHOLESTEROL {[id number]) 04/30/2015 8:51 AM EST 04/30/2015 2:43 PM EST Narrative Resulting Agency Comment [id number] Diana Gutierres MD LABORATORY Final Result [facility] [address] [place] [address] documented in this encounter Visit Diagnoses Diagnosis Routine history and physical examination of adult Routine general medical examination at a health care facility documented in this encounter Additional Health Concerns Infection Onset Date Last Indicated Resolved Time COVID-19 Rule-Out 06/06/2020 06/06/2020 06/07/2020 11:13 AM EST documented as of this encounter Care Teams Student Development Specialist Relationship Specialty Start Date End Date Diana Gutierres MD [address] [place] [address] PCP - General Pediatrics 02/03/15 07/30/17 Marc Quesada MD [address] [place] [address] PCP - General 07/31/17 01/31/22 documented as of this encounter
--- OUTSIDE RECORDS SUMMARY | 2024-08-14 18:29 | XMS_ITS | Encounter Summary ---
Author Organization [facility] Address [address] [place] [address] Care Team Providers Care Compressor Mechanic Name Role Phone Marc Quesada MD Primary Care Provider Unavaila ble Encounter Details Date Type Department Care Team (Late st Contact Info) Description 07/15/2020 Orders Only [facility] [address] [place] [address] Marc Quesada MD Social History Tobacco Use [...] of this encounter Procedures * Due to [place] Rithm[place] law, this organization might not be sharing negative HIV tests. Procedure Name Priority Date/Time Associated Diagnosis Comments THINPREP TIS PAP REFLEX HPV MRNA E6/E7, CHLAMYDIA/N.GONORRH OEAE Routine 07/15/2020 5:15 PM EDT Screening for malignant neoplasm of cervix documented in this encounter Results * Due to [place] law, this organization might not be sharing [...] Smear Negative for intraepithelial lesion or malignancy. [facility] Cytology study comment (Cvx/Vag) This Pap test has been evaluated with computer assisted technology. [facility] Management Internship (Cvx/Vag) MSM, CT(ASCP) CT screening location: [place] [address] [facility] COMMENT SEE NOTE [employer] [facility] Comment: EXPLANATORY NOTE: The Pap is a [...] NOT DETECTED [facility] COMMENT SEE NOTE [facility] Comment: The analytical performance characteristics of this assay, when used to test SurePath(TM) specimens have been determined by [employer]. The modifications have not been cleared or approved by the FDA. This assay has been validated pursuant to the CLIA regulations and is used for clinical purposes. For additional information, please refer to https://education.VoCare.BlackJet/faq/GZG083 (This link is being provided for information/ educational purposes only.) Cervical 07/15/2020 5:15 PM EDT 07/16/2020 6:41 AM EDT Narrative Resulting Agency Comment [id number] us Marc Quesada MD PATHOLOGY-INTERFACED Final Resu lt [facility] [address] [place] [address] documented in this encounter Visit Diagnoses Diagnosis Screening for malignant neoplasm of cervix Screening for malignant neoplasm of the cervix documented in this encounter Care Teams Compressor Mechanic Relationship Specialty Start Date End Date Marc Quesada MD PCP - General 07/31/17 01/31/22 documented as of this encounter
--- OUTSIDE RECORDS SUMMARY | 2024-08-14 18:29 | XMS_ITS | Encounter Summary ---
Author Organization [facility] Address [address] [place] [address] Care Team Providers Care Work Over Rig Operator Name Role Phone Diana Gutierres MD Primary Care Provider [phone] Marc Quesada MD Primary Care Provider Unavaila ble Reason for Visit * Reason Comments E-prescribing Refill Request Encounter Details Date Type Department Care Team (Late st Contact Info) Description 06/22/2017 Refill [facility] [address] [place] [phone] Diana Gutierres MD [address] [place] [address] E-prescribing Refill Request Social History Tobacco Use [...] Phone 07/28/17 1:00 PM Diana Gutierres MD [facility] [phone] Pertinent lab results: Last Pap Date (10 [...] documented as of this encounter Care Teams Work Over Rig Operator Relationship Specialty Start Date End Date Diana Gutierres MD [address] [place] [address] PCP - General Pediatrics 02/03/15 07/30/17 Marc Quesada MD [address] [place] [address] PCP - General 07/31/17 01/31/22 documented as of this encounter
--- OUTSIDE RECORDS SUMMARY | 2024-08-14 18:29 | XMS_ITS | Encounter Summary ---
Author Organization [facility] Address [address] [place] [address] Care Team Providers Care Patient Care Manager Name Role Phone Diana Gutierres MD Primary Care Provider [phone] Marc Quesada MD Primary Care Provider Unavaila ble Reason for Visit * Reason Comments E-prescribing Refill Request Encounter Details Date Type Department Care Team (Late st Contact Info) Description 05/19/2016 Refill [facility] [address] [place] [address] Андрей Brandt MD [address] [place] [address] E-prescribing Refill Request Social History Tobacco Use [...] documented as of this encounter Care Teams Patient Care Manager Relationship Specialty Start Date End Date Diana Gutierres MD [address] [place] [address] PCP - General Pediatrics 02/03/15 07/30/17 Marc Quesada MD [address] [place] [address] PCP - General 07/31/17 01/31/22 documented as of this encounter
--- OUTSIDE RECORDS SUMMARY | 2024-08-14 18:29 | XMS_ITS | Encounter Summary ---
Author Organization [facility] Address [address] [place] [address] Care Team Providers Care Fish Roe Processor Name Role Phone Marc Quesada MD Primary Care Provider Unavaila ble Reason for Visit * Reason Comments E-prescribing Refill Request Encounter Details Date Type Department Care Team (Late st Contact Info) Description 06/22/2020 Refill [facility] [address] [place] [address] Marc Quesada MD E-prescribing Refill Request Social [...] on filedocumented in this encounter Care Teams Fish Roe Processor Relationship Specialty Start Date End Date Marc Quesada MD PCP - General 07/31/17 01/31/22 documented as of this encounter
--- OUTSIDE RECORDS SUMMARY | 2024-08-14 18:29 | XMS_ITS | Encounter Summary ---
Author Organization [facility] Address [address] [place] [address] Care Team Providers Care Wrapper Stitcher Name Role Phone Diana Gutierres MD Primary Care Provider [phone] Marc Quesada MD Primary Care Provider Unavaila ble Encounter Details Date Type Department Care Team (Late st Contact Info) Description 04/03/2015 Orders Only [facility] [address] [place] [address] Diana Gutierres MD [address] [place] [address] Social History Tobacco Use Types Packs/Day Years [...] this encounter Procedures * Due to [place] law, this organization might not be sharing negative HIV tests. Procedure Name Priority Date/Time Associated Diagnosis Comments CHLAMYDIA TRACHOMATIS/N. GONORRHOEAE (GC) RNA, TMA (URINE) Routine 04/03/2015 8:34 PM EST Routine history and physical examination of adult documented in this encounter Results * Due to [place] state law, this organization might not be sharing negative HIV tests. * CHLAMYDIA TRACHOMATIS/N. GONORRHOEAE (GC) RNA, TMA (URINE) (04/03/2015 8:34 PM EST) Chlamydia trachomatis rRNA NOT DETECTED NOT DETECTED [facility] Comment:{CHLAMYDIA TRACHOMAT IS RNA, TMA {[id number]) Neisseria Gonorrhoeae rRNA NOT DETECTED NOT DETECTED [facility] Comment:{NEISSERIA GONORRHOE AE RNA, TMA {[id number]) COMMENT SEE NOTE [facility] Comment: {COMMENT {[id number]) This test was performed using the APTIMA COMBO2 Assay ([employer] The analytical performance characteristics of this assay, when used to test SurePath specimens have been determined by [employer]. 04/03/2015 8:34 PM EST 04/04/2015 12:52 AM EST Narrative Resulting Agency Comment [id number] us Diana Gutierres MD LABORATORY Final Result Performing Organization Address City/State/[facility] Co de Phone Number [facility] [address] [place] [address] documented in this encounter Visit Diagnoses Diagnosis Routine history and physical examination of adult Routine general medical examination at a health care facility documented in this encounter Additional Health Concerns Infection Onset Date Last Indicated Resolved Time COVID-19 Rule-Out 06/06/2020 06/06/2020 06/07/2020 11:13 AM EST documented as of this encounter Care Teams Wrapper Stitcher Relationship Specialty Start Date End Date Diana Gutierres MD [address] [place] [address] PCP - General Pediatrics 02/03/15 07/30/17 Marc Quesada MD [address] [place] [address] PCP - General 07/31/17 01/31/22 documented as of this encounter
--- OUTSIDE RECORDS SUMMARY | 2024-08-14 18:29 | XMS_ITS | Encounter Summary ---
Author Organization [facility] Address [address] [place] [address] Care Team Providers Care Faucet Polisher Name Role Phone Андрей Brandt MD Primary Care Provider Diana Gutierres MD Primary Care Provider Marc Quesada MD Primary Care Provider Unavaila ble Encounter Details Date Type Department Care Team (Late st Contact Info) Description 07/18/2013 Orders Only [facility] [address] [place] [phone] Андрей Brandt MD [address] [place] [address] Social History Tobacco Use Types Packs/Day Years [...] <0.35 kU/L [facility] Comment:{SCALLOP (F338) IGE {[id number]) Scallop (F338) Class 0 [facility] Comment:{CLASS {[id number]) Crab (F23) IgE <0.35 kU/L [facility] Comment:{CRAB (F23) IGE {[id number]) Crab (F23) Class 0 [facility] Comment:{CLASS {[id number]) Shrimp (F24) IgE 0.53(H) kU/L [facility] Comment:{SHRIMP (F24) IGE {[id number]) Shrimp (F24) Class 1 [facility] Comment:{CLASS {[id number]) Blue Mussel (F37) IgE <0.35 kU/L [facility] Comment:{BLUE MUSSEL (F37) I GE {[id number]) Blue Mussel (F37) Class 0 [facility] Comment:{CLASS {[id number]) Lobster (F80) IgE <0.35 kU/L [facility] Comment:{LOBSTER (F80) IGE { [id number]) Lobster (F80) Class 0 [facility] Comment:{CLASS {[id number]) Clam (F207) IgE <0.35 kU/L [facility] Comment:{CLAM (F207) IGE {[id number]) Clam (F207) Class 0 [facility] Comment:{CLASS {[id number]) Oyster (F290) IgE <0.35 kU/L [facility] Comment:{OYSTER (F290) IGE { [id number]) Oyster (F290) Class 0 [facility] Comment:{CLASS {[id number]) 07/18/2013 2:45 PM EDT 07/18/2013 9:21 PM EDT Андрей Brandt MD LABORATORY Final Result [facility] [address] [place] [address] documented in this encounter Visit Diagnoses Diagnosis Food allergy Other adverse food reactions, not elsewhere classified documented in this encounter Additional Health Concerns Infection Onset Date Last Indicated Resolved Time COVID-19 Rule-Out 06/06/2020 06/06/2020 06/07/2020 11:13 AM EST documented as of this encounter Care Teams Faucet Polisher Relationship Specialty Start Date End Date Андрей Brandt MD [address] [place] [address] PCP - General 12/14/10 02/02/15 Diana Gutierres MD [address] [place] [address] PCP - General Pediatrics 02/03/15 07/30/17 Marc Quesada MD [address] [place] [address] PCP - General 07/31/17 01/31/22 documented as of this encounter
--- OUTSIDE RECORDS SUMMARY | 2024-08-14 18:30 | XMS_ITS | Encounter Summary ---
Author Organization [facility] Address [address] [place] [address] Care Team Providers Care Rock Wool Insulator Name Role Phone Marc Quesada MD Primary Care Provider Unavaila ble Encounter Details Date Type Department Care Team ([facility] st Contact Info) Description 01/13/2018 Orders Only [facility] [address] [place] [address] Marc Quesada MD Social History Tobacco Use [...] this encounter Procedures * Due to [place] Works.[place] law, this organization might not be sharing negative HIV tests. Procedure Name Priority Date/Time Associated Diagnosis Comments CBC INCLUDES DIFFERENTIAL AND PLATELET COUNT Routine 01/13/2018 4:22 PM EDT History of mononucleosis HEPATIC FUNCTION PANEL (ALT,AST,ALK PH,BILI'S,TP,ALB) Routine 01/13/2018 4:22 PM EDT Elevated liver enzymes documented in this encounter Results * Due to [place] Works.[place] law, this organization might not be sharing [...] 11:58 PM EDT Narrative Resulting Agency Comment [id number] us Marc Quesada MD LABORATORY Final Result Performing Organization Address City/State/[facility] Co de Phone Number [facility] [address] [place] [address] * CBC INCLUDES DIFFERENTIAL AND PLATELET COUNT [...] 11:58 PM EDT Narrative Resulting Agency Comment [id number] us Marc Quesada MD LAB SAME DAY RESULT Final Resul t Performing Organization Address City/State/[facility] Co de Phone Number [facility] [address] [place] [address] documented in this encounter Visit Diagnoses Diagnosis History of mononucleosis Personal history of other infectious and parasitic disease Elevated liver enzymes Nonspecific elevation of levels of transaminase or lactic acid dehydrogenase (LDH) documented in this encounter Additional Health Concerns Infection Onset Date Last Indicated Resolved Time COVID-19 Rule-Out 06/06/2020 06/06/2020 06/07/2020 11:13 AM EST documented as of this encounter Care Teams Rock Wool Insulator Relationship Specialty Start Date End Date Marc Quesada MD PCP - General 07/31/17 01/31/22 documented as of this encounter
--- OUTSIDE RECORDS SUMMARY | 2024-08-14 18:30 | XMS_ITS | Clinical Summary ---
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 [facility] Cytology study comment (Cvx/Vag) This Pap test has been evaluated with computer assisted technology. [facility] Territory Sales Manager Medical (Cvx/Vag) MSM, CT(ASCP) CT screening location: [place] [address] [facility] COMMENT SEE NOTE [facility] Comment: EXPLANATORY NOTE: The Pap is a [...] Chlamydia trachomatis rRNA NOT DETECTED NOT DETECTED [facility] Neisseria Gonorrhoeae rRNA NOT DETECTED NOT DETECTED [facility] COMMENT SEE NOTE [facility] Comment: The analytical performance characteristics of this assay, when used to test SurePath(TM) specimens have been determined by [employer]. The modifications have not been cleared or approved by the FDA. This assay has been validated pursuant to the CLIA regulations and is used for clinical purposes. For additional information, please refer to https://education.Wello/faq/DRC880 (This link is being provided for information/ educational purposes only.) Cervical 07/15/2020 5:15 PM EDT 07/16/2020 6:41 AM EDT Narrative Resulting Agency Comment [id number] us Marc Quesada MD PATHOLOGY-INTERFACED Final Resu lt [facility] [address] [place] [address] * ELECTROCARDIOGRAM, TRACING (09/12/2017) Narrative 09/12/2017 Ordered by an unspecified provider. Procedure Note Manish, Valente Provider - 09/12/2017 11:17 [place] [address] CARDI[facility]ASCULAR SERVICES -- ELECTROCARDIOGRAM REPORT Patient's name: MARION [place] UNIT#: [id number] : 97 DOS: 09/11/17 LOC: ER Test [...] By:Surendra Styles MD Acquiring Tech: MIKALA ORD#: [id number] OE: TOM RPT#: [id number] D/ MUSE CC: us Unknown Provider [facility] CARDIOVASCULAR-NO INBAS KET RTG Final Result * (ABNORMAL) LIPID PANEL WITH REFLEX TO DIRECT LDL (04/30/2015 8:51 AM EST) Cholesterol 192(H) 125 - 170 mg/dL [facility] Comment:{CHOLESTEROL, TOTAL {[id number]) HDL Cholesterol 53 36 - 76 mg/dL [facility] Comment:{HDL CHOLESTEROL {[id number]) Triglyceride 127 40 - 136 mg/dL [facility] Comment:{TRIGLYCERIDES {[id number]) LDL Cholesterol 114(H) <110 mg/dL (calc) [facility] Comment: {LDL-CHOLESTEROL {[id number]) Desirable range <100 mg/dL for patients with CHD or diabetes and <70 mg/dL for diabetic patients with known heart disease. CHOL/HDL Ratio 3.6 < OR = 5.0 (calc) [facility] Comment:{CHOL/HDLC RATIO {[id number]) Cholesterol Non-HDL 139(H) <120 mg/dL (calc) [facility] Comment:{NON HDL CHOLESTEROL {[id number]) 04/30/2015 8:51 AM EST 04/30/2015 2:43 PM EST Narrative Resulting Agency Comment [id number] us Diana Gutierres MD LABORATORY Final Result [facility] [address] [place] [address] from Last 3 Months or Most Recently Relevant to Health Maintenance
== END 2024-08-14 15:58 | disposition home or self-care (01) ==
LOC: HO.HGI 15:12
PROVIDERS: PCP Nurse Practitioner Family; Visit Provider Nurse Practitioner Family
DX: K59.1 Functional diarrhea (principal); K21.9 Gastro-esophageal reflux disease without esophagitis; K59.01 Slow transit constipation; R14.0 Abdominal distension (gaseous); R10.11 Right upper quadrant pain
CPT/HCPCS: 99204

== ENCOUNTER 2024-08-14 15:12 | Outpatient (REF) | payer OTHER, SELFPAY ==
[2024-08-14 17:49] LABS: C Reactive Protein 2.04 mg/dL (< or = 0.50); Cholesterol 213 mg/dL (<200); HDL Cholesterol 61 mg/dL (>40); LDL Cholesterol Calculated 110 mg/dL (<100); Lipase 19 U/L (8-78); Triglycerides 213 mg/dL (<150)
[2024-08-14 18:15] LABS: Folate 14.7 ng/mL (> or = 4.0); Vitamin B12 481 pg/mL (200-900)
--- OUTSIDE RECORDS SUMMARY | 2024-08-14 18:55 | XMS_ITS | Clinical Summary ---
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 [facility] Cytology study comment (Cvx/Vag) This Pap test has been evaluated with computer assisted technology. [facility] Jumpbasting Collar Baster (Cvx/Vag) MSM, CT(ASCP) CT screening location: [place] [address] [facility] COMMENT SEE NOTE [facility] Comment: EXPLANATORY NOTE: The Pap is a [...] Chlamydia trachomatis rRNA NOT DETECTED NOT DETECTED [facility] Neisseria Gonorrhoeae rRNA NOT DETECTED NOT DETECTED [facility] COMMENT SEE NOTE [facility] Comment: The analytical performance characteristics of this assay, when used to test SurePath(TM) specimens have been determined by [facility]. The modifications have not been cleared or approved by the FDA. This assay has been validated pursuant to the CLIA regulations and is used for clinical purposes. For additional information, please refer to https://education.PingMD/faq/VCV908 (This link is being provided for information/ educational purposes only.) Cervical 07/15/2020 5:15 PM EDT 07/16/2020 6:41 AM EDT Narrative Resulting Agency Comment [id number] us Marc Quesada MD PATHOLOGY-INTERFACED Final Resu lt [facility] [address] [place] [address] * ELECTROCARDIOGRAM, TRACING (09/12/2017) Narrative 09/12/2017 Ordered by an unspecified provider. Procedure Note Manish, Valente Provider - 09/12/2017 11:17 [place] [address] CARDIOVASCULAR SERVICES -- ELECTROCARDIOGRAM REPORT Patient's name: MARION MOSLEY UNIT#: [id number] : 97 DOS: 09/11/17 LOC: ER Test [...] By:Surendra Styles MD Acquiring Tech: MIKALA ORD#: [id number] OE: TOM RPT#: [id number] D/ MUSE CC: us Unknown Provider [place] CARDIOVASCULAR-NO INBAS KET RTG Final Result * (ABNORMAL) LIPID PANEL WITH REFLEX TO DIRECT LDL (04/30/2015 8:51 AM EST) Cholesterol 192(H) 125 - 170 mg/dL [facility] Comment:{CHOLESTEROL, TOTAL {[id number]) HDL Cholesterol 53 36 - 76 mg/dL [facility] Comment:{HDL CHOLESTEROL {[id number]) Triglyceride 127 40 - 136 mg/dL [facility] Comment:{TRIGLYCERIDES {[id number]) LDL Cholesterol 114(H) <110 mg/dL (calc) [facility] Comment: {LDL-CHOLESTEROL {[id number]) Desirable range <100 mg/dL for patients with CHD or diabetes and <70 mg/dL for diabetic patients with known heart disease. CHOL/HDL Ratio 3.6 < OR = 5.0 (calc) [facility] Comment:{CHOL/HDLC RATIO {[id number]) Cholesterol Non-HDL 139(H) <120 mg/dL (calc) [facility] Comment:{NON HDL CHOLESTEROL {[id number]) 04/30/2015 8:51 AM EST 04/30/2015 2:43 PM EST Narrative Resulting Agency Comment [id number] us Diana Gutierres MD LABORATORY Final Result [facility] [address] [place] [address] from Last 3 Months or Most Recently Relevant to Health Maintenance
--- OUTSIDE RECORDS SUMMARY | 2024-08-14 18:55 | XMS_ITS | Encounter Summary ---
Author Organization [facility] Address [address] [place] [address] Care Team Providers Care Party Plan Selling Distributor Name Role Phone Андрей Brandt MD Primary Care Provider Diana Gutierres MD Primary Care Provider Marc Quesada MD Primary Care Provider Unavaila ble Encounter Details Date Type Department Care Team (Late st Contact Info) Description 07/18/2013 Orders Only [facility] [address] [place] [phone] Андрей Brandt MD [address] [place] [address] Social History Tobacco Use Types Packs/Day Years [...] <0.35 kU/L [facility] Comment:{SCALLOP (F338) IGE {[id number]) Scallop (F338) Class 0 [facility] Comment:{CLASS {[id number]) Crab (F23) IgE <0.35 kU/L [facility] Comment:{CRAB (F23) IGE {[id number]) Crab (F23) Class 0 [facility] Comment:{CLASS {[id number]) Shrimp (F24) IgE 0.53(H) kU/L [facility] Comment:{SHRIMP (F24) IGE {[id number]) Shrimp (F24) Class 1 [facility] Comment:{CLASS {[id number]) Blue Mussel (F37) IgE <0.35 kU/L [facility] Comment:{BLUE MUSSEL (F37) I GE {[id number]) Blue Mussel (F37) Class 0 [facility] Comment:{CLASS {[id number]) Lobster (F80) IgE <0.35 kU/L [facility] Comment:{LOBSTER (F80) IGE { [id number]) Lobster (F80) Class 0 [facility] Comment:{CLASS {[id number]) Clam (F207) IgE <0.35 kU/L [facility] Comment:{CLAM (F207) IGE {[id number]) Clam (F207) Class 0 [facility] Comment:{CLASS {[id number]) Oyster (F290) IgE <0.35 kU/L [facility] Comment:{OYSTER (F290) IGE { [id number]) Oyster (F290) Class 0 [facility] Comment:{CLASS {[id number]) 07/18/2013 2:45 PM EDT 07/18/2013 9:21 PM EDT Андрей Brandt MD LABORATORY Final Result [facility] [address] [place] [address] documented in this encounter Visit Diagnoses Diagnosis Food allergy Other adverse food reactions, not elsewhere classified documented in this encounter Additional Health Concerns Infection Onset Date Last Indicated Resolved Time COVID-19 Rule-Out 06/06/2020 06/06/2020 06/07/2020 11:13 AM EST documented as of this encounter Care Teams Party Plan Selling Distributor Relationship Specialty Start Date End Date Андрей Brandt MD [address] [place] [address] PCP - General 12/14/10 02/02/15 Diana Gutierres MD [address] [place] [address] PCP - General Pediatrics 02/03/15 07/30/17 Marc Quesada MD [address] [place] [address] PCP - General 07/31/17 01/31/22 documented as of this encounter
--- OUTSIDE RECORDS SUMMARY | 2024-08-14 18:55 | XMS_ITS | Encounter Summary ---
Author Organization [facility] Address [address] [place] [address] Care Team Providers Care Pickers Material Handlers Name Role Phone Diana Gutierres MD Primary Care Provider [phone] Marc Quesada MD Primary Care Provider Unavaila ble Encounter Details Date Type Department Care Team (Late st Contact Info) Description 06/16/2017 Orders Only [facility] [address] [place] [phone] Diana Gutierres MD [address] [place] [address] Social History Tobacco Use Types Packs/Day Years [...] encounter Procedures * Due to [place] [employer] law, this organization might not be sharing [...] Comment: ??STREPTOCOCCUS, GROUP A CULTURE ??MICRO NUMBER: ?[id number] ??TEST STATUS: ? FINAL ??SPECIMEN SOURCE: ?? NOT GIVEN ??SPECIMEN QUALITY: ??ADEQUATE ??RESULT: ?No group A Streptococcus isolated 06/16/2017 3:51 PM EST 06/16/2017 8:49 PM EST Narrative Resulting Agency Comment [id number] us Diana Gutierres MD LABORATORY Final Result [facility] [address] [place] [address] * (ABNORMAL) HEPATIC FUNCTION PANEL (ALT,AST,ALK PH,BILI'S,TP,ALB) (06/16/2017 2:50 PM EST) Pathologist [facility] Protein Total (Serum) 7.2 6.1 - 8.1 [...] 4:25 PM EST Narrative Resulting Agency Comment [id number] us Diana Gutierres MD LABORATORY Final Result [facility] [address] [place] [address] * (ABNORMAL) CBC INCLUDES DIFFERENTIAL AND PLATELET COUNT (06/16/2017 2:50 PM EST) [facility] WBC 10.1 3.8 - 10.8 Thousand/ [...] 4:25 PM EST Narrative Resulting Agency Comment [id number] us Diana Gutierres MD LAB SAME DAY RESULT Final Resu lt Performing Organization Address City/State/[facility] Co de Phone Number [facility] [address] [place] [address] * (ABNORMAL) SHIRIN-MESSINA VIRUS PANEL COMPREHENSIVE (06/16/2017 [...] 4:25 PM EST Narrative Resulting Agency Comment [id number] us Diana Gutierres MD LABORATORY Final Result [facility] [address] [place] [address] documented in this encounter Visit Diagnoses Diagnosis Sore throat Acute pharyngitis documented in this encounter Additional Health Concerns Infection Onset Date Last Indicated Resolved Time COVID-19 Rule-Out 06/06/2020 06/06/2020 06/07/2020 11:13 AM EST documented as of this encounter Care Teams Pickers Material Handlers Relationship Specialty Start Date End Date Diana Gutierres MD [address] [place] [address] PCP - General Pediatrics 02/03/15 07/30/17 Marc Quesada MD [address] [place] [address] PCP - General 07/31/17 01/31/22 documented as of this encounter
--- OUTSIDE RECORDS SUMMARY | 2024-08-14 18:55 | XMS_ITS | Encounter Summary ---
Author Organization [facility] Address [address] [place] [address] Care Team Providers Care Body And Fender Mechanic Name Role Phone Diana Gutierres MD Primary Care Provider [phone] Marc Quesada MD Primary Care Provider Unavaila ble Reason for Visit * Reason Comments E-prescribing Refill Request Encounter Details Date Type Department Care Team (Late st Contact Info) Description 06/22/2017 Refill [facility] [address] [place] [phone] Diana Gutierres MD [address] [place] [address] E-prescribing Refill Request Social History Tobacco Use [...] Phone 07/28/17 1:00 PM Diana Gutierres MD [facility] [phone] Pertinent lab results: Last Pap Date (10 [...] documented as of this encounter Care Teams Body And Fender Mechanic Relationship Specialty Start Date End Date Diana Gutierres MD [address] [place] [address] PCP - General Pediatrics 02/03/15 07/30/17 Marc Quesada MD [address] [place] [address] PCP - General 07/31/17 01/31/22 documented as of this encounter
--- OUTSIDE RECORDS SUMMARY | 2024-08-14 18:55 | XMS_ITS | Encounter Summary ---
Author Organization [facility] Address [address] [place] [address] Care Team Providers Care Vp Securities Name Role Phone Marc Quesada MD Primary Care Provider Unavaila ble Reason for Visit * Reason Comments E-prescribing Refill Request Encounter Details Date Type Department Care Team (Late st Contact Info) Description 06/22/2020 Refill [facility] [address] [place] [address] Marc Quesada MD E-prescribing Refill Request Social [...] on filedocumented in this encounter Care Teams Vp Securities Relationship Specialty Start Date End Date Marc Quesada MD PCP - General 07/31/17 01/31/22 documented as of this encounter
--- OUTSIDE RECORDS SUMMARY | 2024-08-14 18:55 | XMS_ITS | Encounter Summary ---
Author Organization [facility] Address [address] [place] [address] Care Team Providers Care Jewel Bearing Driller Name Role Phone Diana Gutierres MD Primary Care Provider [phone] Marc Quesada MD Primary Care Provider Unavaila ble Reason for Visit * Reason Comments E-prescribing Refill Request Encounter Details Date Type Department Care Team (Late st Contact Info) Description 05/19/2016 Refill [facility] [address] [place] [phone] Андрей Brandt MD [address] [place] [address] E-prescribing Refill Request Social History Tobacco Use [...] documented as of this encounter Care Teams Jewel Bearing Driller Relationship Specialty Start Date End Date Diana Gutierres MD [address] [place] [address] PCP - General Pediatrics 02/03/15 07/30/17 Marc Quesada MD [address] [place] [address] PCP - General 07/31/17 01/31/22 documented as of this encounter
--- OUTSIDE RECORDS SUMMARY | 2024-08-14 18:55 | XMS_ITS | Encounter Summary ---
Author Organization [facility] Address [address] [place] [address] Care Team Providers Care Almond Huller Name Role Phone Diana Gutierres MD Primary Care Provider Marc Quesada MD Primary Care Provider Unavaila ble Encounter Details Date Type Department Care Team (Late st Contact Info) Description 04/03/2015 Orders Only [facility] [address] [place] [phone] Diana Gutierres MD [address] [place] [address] Social History Tobacco Use Types Packs/Day Years [...] this encounter Procedures * Due to [place] [employer] law, this organization might not be sharing negative HIV tests. Procedure Name Priority Date/Time Associated Diagnosis Comments CHLAMYDIA TRACHOMATIS/N. GONORRHOEAE (GC) RNA, TMA (URINE) Routine 04/03/2015 8:34 PM EST Routine history and physical examination of adult documented in this encounter Results * Due to [place] state law, this organization might not be sharing negative HIV tests. * CHLAMYDIA TRACHOMATIS/N. GONORRHOEAE (GC) RNA, TMA (URINE) (04/03/2015 8:34 PM EST) Chlamydia trachomatis rRNA NOT DETECTED NOT DETECTED [facility] Comment:{CHLAMYDIA TRACHOMAT IS RNA, TMA {[id number]) Neisseria Gonorrhoeae rRNA NOT DETECTED NOT DETECTED [facility] Comment:{NEISSERIA GONORRHOE AE RNA, TMA {[id number]) COMMENT SEE NOTE [facility] Comment: {COMMENT {[id number]) This test was performed using the APTIMA COMBO2 Assay ([employer] The analytical performance characteristics of this assay, when used to test SurePath specimens have been determined by [facility]. 04/03/2015 8:34 PM EST 04/04/2015 12:52 AM EST Narrative Resulting Agency Comment [id number] us Diana Gutierres MD LABORATORY Final Result Performing Organization Address City/State/[facility] Co de Phone Number [facility] [address] [place] [address] documented in this encounter Visit Diagnoses Diagnosis Routine history and physical examination of adult Routine general medical examination at a health care facility documented in this encounter Additional Health Concerns Infection Onset Date Last Indicated Resolved Time COVID-19 Rule-Out 06/06/2020 06/06/2020 06/07/2020 11:13 AM EST documented as of this encounter Care Teams Almond Huller Relationship Specialty Start Date End Date Diana Gutierres MD [address] [place] [address] PCP - General Pediatrics 02/03/15 07/30/17 Marc Quesada MD [address] [place] [address] PCP - General 07/31/17 01/31/22 documented as of this encounter
--- OUTSIDE RECORDS SUMMARY | 2024-08-14 18:55 | XMS_ITS | Encounter Summary ---
Author Organization [facility] Address [address] [place] [address] Care Team Providers Care Professional Healthcare Representative Name Role Phone Андрей Brandt MD Primary Care Provider Diana Gutierres MD Primary Care Provider Marc Quesada MD Primary Care Provider Unavaila ble Encounter Details Date Type Department Care Team (Late st Contact Info) Description 05/17/2014 Orders Only [facility] [address] [place] [phone] Diana Gutierres MD [address] [place] [address] Medications Social History Tobacco Use Types Packs/Day [...] [facility] Comment: {STREPTOCOCCUS, GROUP A CULTURE {[id number]) ??STREPTOCOCCUS, GROUP A CULTURE ??MICRO NUMBER: ?[id number] ??TEST STATUS: ? FINAL ??SPECIMEN SOURCE: ?? THROAT ??SPECIMEN QUALITY: ??ADEQUATE ??RESULT: ?No beta hemolytic Streptococci isolated 05/17/2014 4:50 PM EST 05/17/2014 9:49 PM EST Narrative Resulting Agency Comment [id number] Diana Gutierres MD LABORATORY Final Result Performing Organization Address City/State/[facility] Co de Phone Number [facility] [address] [place] [address] documented in this encounter Visit Diagnoses Diagnosis Sore throat- Primary Acute pharyngitis documented in this encounter Additional Health Concerns Infection Onset Date Last Indicated Resolved Time COVID-19 Rule-Out 06/06/2020 06/06/2020 06/07/2020 11:13 AM EST documented as of this encounter Care Teams Professional Healthcare Representative Relationship Specialty Start Date End Date Андрей Brandt MD [address] [place] [address] PCP - General 12/14/10 02/02/15 Diana Gutierres MD [address] [place] [address] PCP - General Pediatrics 02/03/15 07/30/17 Marc Quesada MD [address] [place] [address] PCP - General 07/31/17 01/31/22 documented as of this encounter
--- OUTSIDE RECORDS SUMMARY | 2024-08-14 18:55 | XMS_ITS | Encounter Summary ---
Author Organization [facility] Address [address] [place] [address] Care Team Providers Care Gold Miner Name Role Phone Diana Gutierres MD Primary Care Provider [phone] Marc Quesada MD Primary Care Provider Unavaila ble Encounter Details Date Type Department Care Team (Late st Contact Info) Description 07/28/2017 Orders [facility] [address] [place] [phone] Diana Gutierres MD [address] [place] [address] Social History Tobacco Use Types Packs/Day Years [...] this encounter Procedures * Due to [place] [employer] law, this organization might not be sharing [...] was performed using the APTIMA COMBO2 Assay ([employer] The analytical performance characteristics of this assay, when used to test SurePath specimens have been determined by [employer]. 07/28/2017 1:29 PM EDT 07/28/2017 11:28 PM EDT Narrative Resulting Agency Comment [id number] us Diana Gutierres MD LABORATORY Final Result Performing Organization Address City/State/[facility] Co de Phone Number [facility] [address] [place] [address] documented in this encounter Visit Diagnoses Diagnosis Hx of chlamydia infection Personal history of other infectious and parasitic disease documented in this encounter Additional Health Concerns Infection Onset Date Last Indicated Resolved Time COVID-19 Rule-Out 06/06/2020 06/06/2020 06/07/2020 11:13 AM EST documented as of this encounter Care Teams Gold Miner Relationship Specialty Start Date End Date Diana Gutierres MD [address] [place] [address] PCP - General Pediatrics 02/03/15 07/30/17 Marc Quesada MD [address] [place] [address] PCP - General 07/31/17 01/31/22 documented as of this encounter
--- OUTSIDE RECORDS SUMMARY | 2024-08-14 18:55 | XMS_ITS | Encounter Summary ---
Author Organization [facility] Address [address] [place] [address] Care Team Providers Care Furniture Shampooer Name Role Phone Diana Gutierres MD Primary Care Provider [phone] Marc Quesada MD Primary Care Provider Unavaila ble Encounter Details Date Type Department Care Team (Late st Contact Info) Description 04/28/2016 Orders Only [facility] [address] [place] [phone] Diana Gutierres MD [address] [place] [address] Social History Tobacco Use Types Packs/Day Years [...] [facility] Comment:{CHLAMYDIA TRACHOMAT IS RNA, TMA {[id number]) Neisseria Gonorrhoeae rRNA NOT DETECTED NOT DETECTED [facility] Comment:{NEISSERIA GONORRHOE AE RNA, TMA {[id number]) COMMENT SEE NOTE [facility] Comment: {COMMENT {[id number]) This test was performed using the APTIMA COMBO2 Assay ([employer] The analytical performance characteristics of this assay, when used to test SurePath specimens have been determined by [employer]. 04/28/2016 3:38 PM EST 04/28/2016 9:54 PM EST Narrative Resulting Agency Comment [id number] us Diana Gutierres MD LABORATORY Final Result [facility] [address] [place] [address] documented in this encounter Visit Diagnoses Diagnosis Encounter for screening for infections with predominantly sexual mode of transmission Screening examination for venereal disease documented in this encounter Additional Health Concerns Infection Onset Date Last Indicated Resolved Time COVID-19 Rule-Out 06/06/2020 06/06/2020 06/07/2020 11:13 AM EST documented as of this encounter Care Teams Furniture Shampooer Relationship Specialty Start Date End Date Diana Gutierres MD [address] [place] [address] PCP - General Pediatrics 02/03/15 07/30/17 Marc Quesada MD [address] [place] [address] PCP - General 07/31/17 01/31/22 documented as of this encounter
--- OUTSIDE RECORDS SUMMARY | 2024-08-14 18:55 | XMS_ITS | Encounter Summary ---
Author Organization [facility] Address [address] [place] [address] Care Team Providers Care Lien Searcher Name Role Phone Андрей Brandt MD Primary Care Provider Diana Gutierres MD Primary Care Provider [phone] Marc Quesada MD Primary Care Provider Unavaila ble Encounter Details Date Type Department Care Team (Late st Contact Info) Description 01/12/2012 Orders Only [facility] [address] [place] [phone] Андрей Brandt MD [address] [place] [address] Social History Tobacco Use Types Packs/Day Years [...] 1:12 PM EDTQuick Note: Left message on [employer].. Will send letter. documented in this encounter Plan of Treatment Not on file documented as of this encounter Procedures * Due to [place] [employer] law, this organization might not be sharing negative HIV tests. Procedure Name Priority Date/Time Associated Diagnosis Comments NUT ALLERGY PANEL Routine 01/12/2012 2:3 7 PM EDT Food allergy CBC (H/H, RBC, INDICES,WBC, PLT) Routine 01/12/2012 2:37 PM EDT Screening for other and unspecified deficiency anemia documented in this encounter Results * Due to [place] [employer] law, this organization might not be sharing negative HIV tests. * (ABNORMAL) NUT ALLERGY PANEL (01/12/2012 2:37 PM EDT) Cashew Nut (F202) IgE 2.88(H) kU/L [facility] Comment:{CASHEW NUT (F202) I GE {[id number]) Cashew Nut (F202) Class 2 [facility] Comment: {CLASS {[id number]) Specific ?Level of Allergen IGE Class ?kU/L [...] developed and its performance characteristics determined by [facility]. It has not been cleared or approved by the U.S. Food and Drug Administration. The FDA has determined that such clearance is not necessary. Performance characteristics refer to the analytical performance of the test. Sesame Seed (F10) IgE 0.42(H) kU/L [facility] Comment:{SESAME SEED (F10) I GE {[id number]) Sesame Seed (F10) Class 1 [facility] Comment:{CLASS {[id number]) Peanut (F13) IgE 17.50(H) kU/L [facility] Comment:{PEANUT (F13) IGE {[id number]) Peanut (F13) Class 4 [facility] Comment:{CLASS {[id number]) Hazelnut (F17) IgE 0.62(H) kU/L [facility] Comment:{HAZELNUT (F17) IGE {[id number]) Hazelnut (F17) Class 1 [facility] Comment:{CLASS {[id number]) [place] (F20) IgE 0.75(H) kU/L [facility] Comment:{ALMOND (F20) IGE {[id number]) [place] (F20) Class 2 [facility] Comment:{CLASS {[id number]) Coconut (F36) IgE <0.35 kU/L [facility] Comment:{COCONUT (F36) IGE { [id number]) Coconut (F36) Class 0 [facility] Comment:{CLASS {[id number]) Pecan Nut (F201) IgE <0.35 kU/L [facility] Comment:{PECAN NUT (F201) IG E {[id number]) Pecan Nut (F201) Class 0 [facility] Comment:{CLASS {[id number]) [place] (F256) IgE <0.35 kU/L [facility] Comment:{WALNUT (F256) IGE { [id number]) [place] (F256) Class 0 [facility] Comment:{CLASS {[id number]) 01/12/2012 2:37 PM EDT 01/12/2012 10:03 PM EDT Narrative Resulting Agency Comment [id number] us Андрей Brandt MD LABORATORY Final Result [facility] [address] [place] [address] * CBC (H/H, RBC, INDICES,WBC, PLT) (01/12/2012 2:37 PM EDT) WBC 6.8 4.5 - 13.0 Thousand/u L [facility] Comment:{WHITE BLOOD CELL CO UNT {[id number]) RBC 4.20 3.80 - 5.10 Million/uL [facility] Comment:{RED BLOOD CELL COUN T {[id number]) Hemoglobin 12.8 11.5 - 15.3 g/dL [facility] Comment:{HEMOGLOBIN {[id number]) Hematocrit 37.6 34.0 - 46.0 % [facility] Comment:{HEMATOCRIT {[id number]) MCV 89.6 78.0 - 98.0 fL [facility] Comment:{MCV {[id number]) MCH 30.4 25.0 - 35.0 pg [facility] Comment:{MCH {[id number]) MCHC 33.9 31.0 - 36.0 g/dL [facility] Comment:{MCHC {[id number]) RDW 13.1 11.0 - 15.0 % [facility] Comment:{RDW {[id number]) PLT 279 140 - 400 Thousand/u L [facility] Comment:{PLATELET COUNT {[id number]) 01/12/2012 2:37 PM EDT 01/12/2012 10:03 PM EDT Narrative Resulting Agency Comment [id number] us Андрей Brandt MD LAB SAME DAY RESULT Final Res ult [facility] [address] [place] [address] documented in this encounter Visit Diagnoses Diagnosis Screening for other and unspecified deficiency anemia Food allergy Other adverse food reactions, not elsewhere classified documented in this encounter Additional Health Concerns Infection Onset Date Last Indicated Resolved Time COVID-19 Rule-Out 06/06/2020 06/06/2020 06/07/2020 11:13 AM EST documented as of this encounter Care Teams Lien Searcher Relationship Specialty Start Date End Date Андрей Brandt MD [address] [place] [address] PCP - General 12/14/10 02/02/15 Diana Gutierres MD [address] [place] [address] PCP - General Pediatrics 02/03/15 07/30/17 Marc Quesada MD [address] [place] [address] PCP - General 07/31/17 01/31/22 documented as of this encounter
--- OUTSIDE RECORDS SUMMARY | 2024-08-14 18:55 | XMS_ITS | Encounter Summary ---
Author Organization [facility] Address [address] [place] [address] Care Team Providers Care Log Grader Name Role Phone Marc Quesada MD Primary Care Provider Unavaila ble Encounter Details Date Type Department Care Team ([facility] st Contact Info) Description 01/13/2018 Orders Only [facility] [address] [place] [address] Marc Quesada MD Social History Tobacco Use [...] MD - 01/16/2018 9:32 AM EDT Radha, uSng please find your lab test results. Liver function tests showed liver enzymes are mostly back to normal range. Blood level is in good range. Let me know if you have any question. Marc Quesada MD documented in this encounter Plan of Treatment Not on file documented as of this encounter Procedures * Due to [place] [employer] law, this organization might not be sharing negative HIV tests. Procedure Name Priority Date/Time Associated Diagnosis Comments CBC INCLUDES DIFFERENTIAL AND PLATELET COUNT Routine 01/13/2018 4:22 PM EDT History of mononucleosis HEPATIC FUNCTION PANEL (ALT,AST,ALK PH,BILI'S,TP,ALB) Routine 01/13/2018 4:22 PM EDT Elevated liver enzymes documented in this encounter Results * Due to [place] [employer] law, this organization might not be sharing [...] 11:58 PM EDT Narrative Resulting Agency Comment [id number] us Marc Quesada MD LABORATORY Final Result Performing Organization Address City/State/[facility] Co de Phone Number [facility] [address] [place] [address] * CBC INCLUDES DIFFERENTIAL AND PLATELET COUNT [...] 11:58 PM EDT Narrative Resulting Agency Comment [id number] us Marc Quesada MD LAB SAME DAY RESULT Final Resul t Performing Organization Address City/State/[facility] Co de Phone Number [facility] [address] [place] [address] documented in this encounter Visit Diagnoses Diagnosis History of mononucleosis Personal history of other infectious and parasitic disease Elevated liver enzymes Nonspecific elevation of levels of transaminase or lactic acid dehydrogenase (LDH) documented in this encounter Additional Health Concerns Infection Onset Date Last Indicated Resolved Time COVID-19 Rule-Out 06/06/2020 06/06/2020 06/07/2020 11:13 AM EST documented as of this encounter Care Teams Log Grader Relationship Specialty Start Date End Date Marc Quesada MD PCP - General 07/31/17 01/31/22 documented as of this encounter
--- OUTSIDE RECORDS SUMMARY | 2024-08-14 18:55 | XMS_ITS | Encounter Summary ---
Author Organization [facility] Address [address] [place] [address] Care Team Providers Care Tablet Coater Name Role Phone Marc Quesada MD Primary Care Provider Unavaila ble Encounter Details Date Type Department Care Team (Late st Contact Info) Description 07/15/2020 Orders Only [facility] [address] [place] [address] Marc Quesada MD Social History Tobacco Use [...] this encounter Procedures * Due to [place] [employer] law, this organization might not be sharing negative HIV tests. Procedure Name Priority Date/Time Associated Diagnosis Comments THINPREP TIS PAP REFLEX HPV MRNA E6/E7, CHLAMYDIA/N.GONORRH OEAE Routine 07/15/2020 5:15 PM EDT Screening for malignant neoplasm of cervix documented in this encounter Results * Due to [place] [employer] law, this organization might not be sharing [...] Smear Negative for intraepithelial lesion or malignancy. [facility] Cytology study comment (Cvx/Vag) This Pap test has been evaluated with computer assisted technology. [facility] Boarder Machine (Cvx/Vag) MSM, CT(ASCP) CT screening location: [place] [address] [facility] COMMENT SEE NOTE [employer] [facility] Comment: EXPLANATORY NOTE: The Pap is a [...] NOT DETECTED [facility] COMMENT SEE NOTE [facility] Comment: The analytical performance characteristics of this assay, when used to test SurePath(TM) specimens have been determined by [facility]. The modifications have not been cleared or approved by the FDA. This assay has been validated pursuant to the CLIA regulations and is used for clinical purposes. For additional information, please refer to https://education.[employer].NextNine/faq/ONV823 (This link is being provided for information/ educational purposes only.) Cervical 07/15/2020 5:15 PM EDT 07/16/2020 6:41 AM EDT Narrative Resulting Agency Comment [id number] us Marc Quesada MD PATHOLOGY-INTERFACED Final Resu lt [facility] [address] [place] [address] documented in this encounter Visit Diagnoses Diagnosis Screening for malignant neoplasm of cervix Screening for malignant neoplasm of the cervix documented in this encounter Care Teams Tablet Coater Relationship Specialty Start Date End Date Marc Quesada MD PCP - General 07/31/17 01/31/22 documented as of this encounter
--- OUTSIDE RECORDS SUMMARY | 2024-08-14 18:55 | XMS_ITS | Encounter Summary ---
Author Organization [facility] Address [address] [place] [address] Care Team Providers Care Blister Pack Operator Name Role Phone Dinaa Gutierres MD Primary Care Provider [phone] Marc Quesada MD Primary Care Provider Unavaila ble Encounter Details Date Type Department Care Team (Late st Contact Info) Description 04/30/2015 Orders Only [facility] [address] [place] [phone] Diana Gutierres MD [address] [place] [address] Social History Tobacco Use Types Packs/Day Years [...] of this encounter Procedures * Due to [place] [employer] law, this organization might not be sharing negative HIV tests. Procedure Name Priority Date/Time Associated Diagnosis Comments CBC INCLUDES DIFFERENTIAL AND PLATELET COUNT Routine 04/30/2015 8:51 AM EST Routine history and physical examination of adult LIPID PANEL WITH REFLEX TO DIRECT LDL Routine 04/30/2015 8:51 AM EST Routine history and physical examination of adult documented in this encounter Results * Due to [place] [employer] law, this organization might not be sharing negative HIV tests. * CBC INCLUDES DIFFERENTIAL AND PLATELET COUNT (04/30/2015 8:51 AM EST) WBC 5.7 4.5 - 13.0 Thousand/u L [facility] Comment:{WHITE BLOOD CELL CO UNT {[id number]) RBC 4.40 3.80 - 5.10 Million/uL [facility] Comment:{RED BLOOD CELL COUN T {[id number]) Hemoglobin 13.0 11.5 - 15.3 g/dL [facility] Comment:{HEMOGLOBIN {[id number]) Hematocrit 40.1 34.0 - 46.0 % [facility] Comment:{HEMATOCRIT {[id number]) MCV 91.2 78.0 - 98.0 fL [facility] Comment:{MCV {[id number]) MCH 29.5 25.0 - 35.0 pg [facility] Comment:{MCH {[id number]) MCHC 32.4 31.0 - 36.0 g/dL [facility] Comment:{MCHC {[id number]) RDW 12.8 11.0 - 15.0 % [facility] Comment:{RDW {[id number]) PLT 233 140 - 400 Thousand/u L [facility] Comment:{PLATELET COUNT {[id number]) MPV 8.8 7.5 - 11.5 fL [facility] Comment:{MPV {[id number]) Neutrophils # 2799 1800 - 8000 cells/uL [facility] Comment:{ABSOLUTE NEUTROPHIL S {[id number]) Lymphocytes # 2183 1200 - 5200 cells/uL [facility] Comment:{ABSOLUTE LYMPHOCYTE S {[id number]) Monocytes # 439 200 - 900 cells/uL [facility] Comment:{ABSOLUTE MONOCYTES {[id number]) Eosinophils # 228 15 - 500 cells/uL [facility] Comment:{ABSOLUTE EOSINOPHIL S {[id number]) Basophils # 51 0 - 200 cells/uL [facility] Comment:{ABSOLUTE BASOPHILS {[id number]) Neutrophils % 49.1 % [facility] Comment:{NEUTROPHILS {[id number]) Lymphocytes % 38.3 % [facility] Comment:{LYMPHOCYTES {[id number]) Monocytes % 7.7 % [facility] Comment:{MONOCYTES {[id number]) Eosinophils % 4.0 % [facility] Comment:{EOSINOPHILS {[id number]) Basophils % 0.9 % [facility] Comment:{BASOPHILS {[id number]) 04/30/2015 8:51 AM EST 04/30/2015 2:43 PM EST Narrative Resulting Agency Comment [id number] us Diana Gutierres MD LAB SAME DAY RESULT Final Resu lt [facility] [address] [place] [address] * (ABNORMAL) LIPID PANEL WITH REFLEX TO DIRECT LDL (04/30/2015 8:51 AM EST) Cholesterol 192(H) 125 - 170 mg/dL [facility] Comment:{CHOLESTEROL, TOTAL {[id number]) HDL Cholesterol 53 36 - 76 mg/dL [facility] Comment:{HDL CHOLESTEROL {[id number]) Triglyceride 127 40 - 136 mg/dL [facility] Comment:{TRIGLYCERIDES {[id number]) LDL Cholesterol 114(H) <110 mg/dL (calc) [facility] Comment: {LDL-CHOLESTEROL {[id number]) Desirable range <100 mg/dL for patients with CHD or diabetes and <70 mg/dL for diabetic patients with known heart disease. CHOL/HDL Ratio 3.6 < OR = 5.0 (calc) [facility] Comment:{CHOL/HDLC RATIO {[id number]) Cholesterol Non-HDL 139(H) <120 mg/dL (calc) [facility] Comment:{NON HDL CHOLESTEROL {[id number]) 04/30/2015 8:51 AM EST 04/30/2015 2:43 PM EST Narrative Resulting Agency Comment [id number] Diana Gutierres MD LABORATORY Final Result [facility] [address] [place] [address] documented in this encounter Visit Diagnoses Diagnosis Routine history and physical examination of adult Routine general medical examination at a health care facility documented in this encounter Additional Health Concerns Infection Onset Date Last Indicated Resolved Time COVID-19 Rule-Out 06/06/2020 06/06/2020 06/07/2020 11:13 AM EST documented as of this encounter Care Teams Blister Pack Operator Relationship Specialty Start Date End Date Diana Gutierres MD [address] [place] [address] PCP - General Pediatrics 02/03/15 07/30/17 Marc Quesada MD [address] [place] [address] PCP - General 07/31/17 01/31/22 documented as of this encounter
[2024-08-15 21:57] LABS: Transglutaminase IgA <1.0 U/mL
[2024-08-18 14:48] LABS: Vitamin D 25-OH, D2 <4 ng/mL; Vitamin D 25-OH, D3 52 ng/mL; Vitamin D 25-OH, Total 52 ng/mL (30-100)
== END 2024-08-14 15:13 | disposition home or self-care (01) ==
LOC: HO.LAB 15:12
PROVIDERS: PCP Nurse Practitioner Family; Visit Provider Nurse Practitioner Family
DX: R10.9 Unspecified abdominal pain (principal); K58.9 Irritable bowel syndrome, unspecified; R19.7 Diarrhea, unspecified; E55.9 Vitamin D deficiency, unspecified; E78.5 Hyperlipidemia, unspecified
CPT/HCPCS: 36415; 80061; 82306; 82607; 82746; 83690; 86140; 86364

== ENCOUNTER 2024-08-29 07:55 | Outpatient (REF) | payer OTHER, SELFPAY ==
--- OUTSIDE RECORDS SUMMARY | 2024-08-29 07:58 | XMS_ITS | Encounter Summary ---
Author Organization [facility] Address [address] [place] [address] Care Team Providers Care Cellar Packer Name Role Phone Diana Gutierres MD Primary Care Provider Marc Quesada MD Primary Care Provider Unavaila ble Encounter Details Date Type Department Care Team (Late st Contact Info) Description 07/28/2017 Orders [facility] [address] [place] [phone] Diana Gutierres MD [address] [place] [address] Social History Tobacco Use Types Packs/Day Years [...] encounter Procedures * Due to [place] [employer] law, this organization might not be sharing [...] was performed using the APTIMA COMBO2 Assay ([employer] The analytical performance characteristics of this assay, when used to test SurePath specimens have been determined by [employer]. 07/28/2017 1:29 PM EDT 07/28/2017 11:28 PM EDT Narrative Resulting Agency Comment [id number] us Diana Gutierres MD LABORATORY Final Result Performing Organization Address City/State/[facility] Co de Phone Number [facility] [address] [place] [address] documented in this encounter Visit Diagnoses Diagnosis Hx of chlamydia infection Personal history of other infectious and parasitic disease documented in this encounter Additional Health Concerns Infection Onset Date Last Indicated Resolved Time COVID-19 Rule-Out 06/06/2020 06/06/2020 06/07/2020 11:13 AM EST documented as of this encounter Care Teams Cellar Packer Relationship Specialty Start Date End Date Diana Gutierres MD [address] [place] [address] PCP - General Pediatrics 02/03/15 07/30/17 Marc Quesada MD [address] [place] [address] PCP - General 07/31/17 01/31/22 documented as of this encounter
--- OUTSIDE RECORDS SUMMARY | 2024-08-29 07:58 | XMS_ITS | Encounter Summary ---
Author Organization [facility] Address [address] [place] [address] Care Team Providers Care Hair Blender Name Role Phone Diana Gutierres MD Primary Care Provider [phone] Marc Quesada MD Primary Care Provider Unavaila ble Reason for Visit * Reason Comments E-prescribing Refill Request Encounter Details Date Type Department Care Team (Late st Contact Info) Description 05/19/2016 Refill [facility] [address] [place] [address] Андрей Brandt MD [address] [place] [address] E-prescribing Refill Request Social History Tobacco Use [...] documented as of this encounter Care Teams Hair Blender Relationship Specialty Start Date End Date Diana Gutierres MD [address] [place] [address] PCP - General Pediatrics 02/03/15 07/30/17 Marc Quesada MD [address] [place] [address] PCP - General 07/31/17 01/31/22 documented as of this encounter
--- OUTSIDE RECORDS SUMMARY | 2024-08-29 07:58 | XMS_ITS | Encounter Summary ---
Author Organization [facility] Address [address] [place] [address] Care Team Providers Care Plug Saw Operator Name Role Phone Diana Gutierres MD Primary Care Provider [phone] Marc Quesada MD Primary Care Provider Unavaila ble Encounter Details Date Type Department Care Team (Late st Contact Info) Description 06/16/2017 Orders Only [facility] [address] [place] [phone] Diana Gutierres MD [address] [place] [address] Social History Tobacco Use Types Packs/Day Years [...] this encounter Procedures * Due to [place] [employer] law, this organization might not be sharing [...] Comment: ??STREPTOCOCCUS, GROUP A CULTURE ??MICRO NUMBER: ?[id number] ??TEST STATUS: ? FINAL ??SPECIMEN SOURCE: ?? NOT GIVEN ??SPECIMEN QUALITY: ??ADEQUATE ??RESULT: ?No group A Streptococcus isolated 06/16/2017 3:51 PM EST 06/16/2017 8:49 PM EST Narrative Resulting Agency Comment [id number] us Diana Gutierres MD LABORATORY Final Result [facility] [address] [place] [address] * (ABNORMAL) HEPATIC FUNCTION PANEL (ALT,AST,ALK PH,BILI'S,TP,ALB) [...] 4:25 PM EST Narrative Resulting Agency Comment [id number] us Diana Gutierres MD LABORATORY Final Result [facility] [address] [place] [address] * (ABNORMAL) CBC INCLUDES DIFFERENTIAL AND PLATELET COUNT (06/16/2017 2:50 PM EST) [facility] WBC 10.1 3.8 - 10.8 Thousand/ [...] 4:25 PM EST Narrative Resulting Agency Comment [id number] us Diana Gutierres MD LAB SAME DAY RESULT Final Resu lt Performing Organization Address City/State/[facility] Co de Phone Number [facility] [address] [place] [address] * (ABNORMAL) SHIRIN-MESSINA VIRUS PANEL COMPREHENSIVE (06/16/2017 [...] 4:25 PM EST Narrative Resulting Agency Comment [id number] us Diana Gutierres MD LABORATORY Final Result [facility] [address] [place] [address] documented in this encounter Visit Diagnoses Diagnosis Sore throat Acute pharyngitis documented in this encounter Additional Health Concerns Infection Onset Date Last Indicated Resolved Time COVID-19 Rule-Out 06/06/2020 06/06/2020 06/07/2020 11:13 AM EST documented as of this encounter Care Teams Plug Saw Operator Relationship Specialty Start Date End Date Diana Gutierres MD [address] [place] [address] PCP - General Pediatrics 02/03/15 07/30/17 Marc Quesada MD [address] [place] [address] PCP - General 07/31/17 01/31/22 documented as of this encounter
--- OUTSIDE RECORDS SUMMARY | 2024-08-29 07:58 | XMS_ITS | Encounter Summary ---
Author Organization [facility] Address [address] [place] [address] Care Team Providers Care Handkerchief Cutter Name Role Phone Diana Gutierres MD Primary Care Provider Marc Quesada MD Primary Care Provider Unavaila ble Encounter Details Date Type Department Care Team (Late st Contact Info) Description 04/28/2016 Orders Only [facility] [address] [place] [address] Diana Gutierres MD [address] [place] [address] Social History Tobacco Use Types Packs/Day Years [...] of this encounter Procedures * Due to [place] state law, this organization might not be sharing negative HIV tests. Procedure Name Priority Date/Time Associated Diagnosis Comments CHLAMYDIA TRACHOMATIS/N. GONORRHOEAE (GC) RNA, TMA (URINE) Routine 04/28/2016 3:38 PM EST Encounter for screening for infections with predominantly sexual mode of transmission documented in this encounter Results * Due to [place] state law, this organization might not be sharing negative HIV tests. * CHLAMYDIA TRACHOMATIS/N. GONORRHOEAE (GC) RNA, TMA (URINE) (04/28/2016 3:38 PM EST) Chlamydia trachomatis rRNA NOT DETECTED NOT DETECTED [facility] Comment:{CHLAMYDIA TRACHOMAT IS RNA, TMA {[id number]) Neisseria Gonorrhoeae rRNA NOT DETECTED NOT DETECTED [facility] Comment:{NEISSERIA GONORRHOE AE RNA, TMA {[id number]) COMMENT SEE NOTE [facility] Comment: {COMMENT {[id number]) This test was performed using the APTIMA COMBO2 Assay ([employer] The analytical performance characteristics of this assay, when used to test SurePath specimens have been determined by [employer]. 04/28/2016 3:38 PM EST 04/28/2016 9:54 PM EST Narrative Resulting Agency Comment [id number] us Diana Gutierres MD LABORATORY Final Result [facility] [address] [place] [address] documented in this encounter Visit Diagnoses Diagnosis Encounter for screening for infections with predominantly sexual mode of transmission Screening examination for venereal disease documented in this encounter Additional Health Concerns Infection Onset Date Last Indicated Resolved Time COVID-19 Rule-Out 06/06/2020 06/06/2020 06/07/2020 11:13 AM EST documented as of this encounter Care Teams Handkerchief Cutter Relationship Specialty Start Date End Date Diana Gutierres MD [address] [place] [address] PCP - General Pediatrics 02/03/15 07/30/17 Marc Quesada MD [address] [place] [address] PCP - General 07/31/17 01/31/22 documented as of this encounter
--- OUTSIDE RECORDS SUMMARY | 2024-08-29 07:58 | XMS_ITS | Encounter Summary ---
Author Organization [facility] Address [address] [place] [address] Care Team Providers Care Research Methods Instructor Name Role Phone Marc Quesada MD Primary Care Provider Unavaila ble Encounter Details Date Type Department Care Team (Late st Contact Info) Description 07/15/2020 Orders Only [facility] [address] [place] [address] Marc Quesada MD Social History Tobacco Use [...] encounter Procedures * Due to [place] [employer] law, this organization might not be sharing negative HIV tests. Procedure Name Priority Date/Time Associated Diagnosis Comments THINPREP TIS PAP REFLEX HPV MRNA E6/E7, CHLAMYDIA/N.GONORRH OEAE Routine 07/15/2020 5:15 PM EDT Screening for malignant neoplasm of cervix documented in this encounter Results * Due to [place] [employer] law, this organization might not be sharing [...] Smear Negative for intraepithelial lesion or malignancy. [facility] Cytology study comment (Cvx/Vag) This Pap test has been evaluated with computer assisted technology. [facility] Cutter In (Cvx/Vag) MSM, CT(ASCP) CT screening location: [place] [address] [facility] COMMENT SEE NOTE [employer] Comment: EXPLANATORY NOTE: The Pap is a [...] NOT DETECTED [facility] COMMENT SEE NOTE [facility] Comment: The analytical performance characteristics of this assay, when used to test SurePath(TM) specimens have been determined by [employer]. The modifications have not been cleared or approved by the FDA. This assay has been validated pursuant to the CLIA regulations and is used for clinical purposes. For additional information, please refer to https://education.[employer] [facility]/faq/FBP442 (This link is being provided for information/ educational purposes only.) Cervical 07/15/2020 5:15 PM EDT 07/16/2020 6:41 AM EDT Narrative Resulting Agency Comment [id number] us Marc Quesada MD PATHOLOGY-INTERFACED Final Resu lt [facility] [address] [place] [address] documented in this encounter Visit Diagnoses Diagnosis Screening for malignant neoplasm of cervix Screening for malignant neoplasm of the cervix documented in this encounter Care Teams Research Methods Instructor Relationship Specialty Start Date End Date Marc Quesada MD PCP - General 07/31/17 01/31/22 documented as of this encounter
--- OUTSIDE RECORDS SUMMARY | 2024-08-29 07:58 | XMS_ITS | Encounter Summary ---
Author Organization [facility] Address [address] [place] [address] Care Team Providers Care Watch Caser Name Role Phone Андрей Brandt MD Primary Care Provider [phone] Diana Gutierres MD Primary Care Provider [phone] Marc Quesada MD Primary Care Provider Unavaila ble Encounter Details Date Type Department Care Team (Late st Contact Info) Description 01/12/2012 Orders Only [facility] [address] [place] [phone] Андрей Brandt MD [address] [place] [address] Social History Tobacco Use Types Packs/Day Years [...] 1:12 PM EDTQuick Note: Left message on In[employer].. Will send letter. documented in this encounter Plan of Treatment Not on file documented as of this encounter Procedures * Due to [place] [employer] law, this organization might not be sharing negative HIV tests. Procedure Name Priority Date/Time Associated Diagnosis Comments NUT ALLERGY PANEL Routine 01/12/2012 2:3 7 PM EDT Food allergy CBC (H/H, RBC, INDICES,WBC, PLT) Routine 01/12/2012 2:37 PM EDT Screening for other and unspecified deficiency anemia documented in this encounter Results * Due to [place] [employer] law, this organization might not be sharing negative HIV tests. * (ABNORMAL) NUT ALLERGY PANEL (01/12/2012 2:37 PM EDT) Cashew Nut (F202) IgE 2.88(H) kU/L [facility] Comment:{CASHEW NUT (F202) I GE {[id number]) Cashew Nut (F202) Class 2 [facility] Comment: {CLASS {[id number]) Specific ?Level of Allergen IGE Class ?kU/L [...] developed and its performance characteristics determined by [facility]. It has not been cleared or approved by the U.S. Food and Drug Administration. The FDA has determined that such clearance is not necessary. Performance characteristics refer to the analytical performance of the test. Sesame Seed (F10) IgE 0.42(H) kU/L [facility] Comment:{SESAME SEED (F10) I GE {[id number]) Sesame Seed (F10) Class 1 [facility] Comment:{CLASS {[id number]) Peanut (F13) IgE 17.50(H) kU/L [facility] Comment:{PEANUT (F13) IGE {[id number]) Peanut (F13) Class 4 [facility] Comment:{CLASS {[id number]) Hazelnut (F17) IgE 0.62(H) kU/L [facility] Comment:{HAZELNUT (F17) IGE {[id number]) Hazelnut (F17) Class 1 [facility] Comment:{CLASS {[id number]) Enfield (F20) IgE 0.75(H) kU/L [facility] Comment:{ALMOND (F20) IGE {[id number]) Enfield (F20) Class 2 [facility] Comment:{CLASS {[id number]) Coconut (F36) IgE <0.35 kU/L [facility] Comment:{COCONUT (F36) IGE { [id number]) Coconut (F36) Class 0 [facility] Comment:{CLASS {[id number]) Pecan Nut (F201) IgE <0.35 kU/L [facility] Comment:{PECAN NUT (F201) IG E {[id number]) Pecan Nut (F201) Class 0 [facility] Comment:{CLASS {[id number]) Round O (F256) IgE <0.35 kU/L [facility] Comment:{WALNUT (F256) IGE { [id number]) Round O (F256) Class 0 [facility] Comment:{CLASS {[id number]) 01/12/2012 2:37 PM EDT 01/12/2012 10:03 PM EDT Narrative Resulting Agency Comment [id number] us Андрей Brandt MD LABORATORY Final Result [facility] [address] [place] [address] * CBC (H/H, RBC, INDICES,WBC, PLT) (01/12/2012 2:37 PM EDT) WBC 6.8 4.5 - 13.0 Thousand/u L [facility] Comment:{WHITE BLOOD CELL CO UNT {[id number]) RBC 4.20 3.80 - 5.10 Million/uL [facility] Comment:{RED BLOOD CELL COUN T {[id number]) Hemoglobin 12.8 11.5 - 15.3 g/dL [facility] Comment:{HEMOGLOBIN {[id number]) Hematocrit 37.6 34.0 - 46.0 % [facility] Comment:{HEMATOCRIT {[id number]) MCV 89.6 78.0 - 98.0 fL [facility] Comment:{MCV {[id number]) MCH 30.4 25.0 - 35.0 pg [facility] Comment:{MCH {[id number]) MCHC 33.9 31.0 - 36.0 g/dL [facility] Comment:{MCHC {[id number]) RDW 13.1 11.0 - 15.0 % [facility] Comment:{RDW {[id number]) PLT 279 140 - 400 Thousand/u L [facility] Comment:{PLATELET COUNT {[id number]) 01/12/2012 2:37 PM EDT 01/12/2012 10:03 PM EDT Narrative Resulting Agency Comment [id number] us Андрей Brandt MD LAB SAME DAY RESULT Final Res ult [facility] [address] [place] [address] documented in this encounter Visit Diagnoses Diagnosis Screening for other and unspecified deficiency anemia Food allergy Other adverse food reactions, not elsewhere classified documented in this encounter Additional Health Concerns Infection Onset Date Last Indicated Resolved Time COVID-19 Rule-Out 06/06/2020 06/06/2020 06/07/2020 11:13 AM EST documented as of this encounter Care Teams Watch Caser Relationship Specialty Start Date End Date Андрей Brandt MD [address] [place] [address] PCP - General 12/14/10 02/02/15 Diana Gutierres MD [address] [place] [address] PCP - General Pediatrics 02/03/15 07/30/17 Marc Quesada MD [address] [place] [address] PCP - General 07/31/17 01/31/22 documented as of this encounter
--- OUTSIDE RECORDS SUMMARY | 2024-08-29 07:58 | XMS_ITS | Encounter Summary ---
Author Organization [facility] Address [address] [place] [address] Care Team Providers Care Transformer Repairer Name Role Phone Diana Gutierres MD Primary Care Provider [phone] Marc Quesada MD Primary Care Provider Unavaila ble Reason for Visit * Reason Comments E-prescribing Refill Request Encounter Details Date Type Department Care Team (Late st Contact Info) Description 06/22/2017 Refill [facility] [address] [place] [phone] Diana Gutierres MD [address] [place] [address] E-prescribing Refill Request Social History Tobacco Use [...] Phone 07/28/17 1:00 PM Diana Gutierres MD [facility] [phone] Pertinent lab results: Last Pap Date (10 [...] documented as of this encounter Care Teams Transformer Repairer Relationship Specialty Start Date End Date Diana Gutierres MD [address] [place] [address] PCP - General Pediatrics 02/03/15 07/30/17 Marc Quesada MD [address] [place] [address] PCP - General 07/31/17 01/31/22 documented as of this encounter
--- OUTSIDE RECORDS SUMMARY | 2024-08-29 07:58 | XMS_ITS | Encounter Summary ---
Author Organization [facility] Address [address] [place] [address] Care Team Providers Care Roads And Parking Lots Sweeper Operator Name Role Phone Diana Gutierres MD Primary Care Provider Marc Quesada MD Primary Care Provider Unavaila ble Encounter Details Date Type Department Care Team (Late st Contact Info) Description 04/03/2015 Orders Only [facility] [address] [place] [phone] Diana Gutierres MD [address] [place] [address] Social History Tobacco Use Types Packs/Day Years [...] this encounter Procedures * Due to [place] [employer] law, this organization might not be sharing [...] [facility] Comment:{CHLAMYDIA TRACHOMAT IS RNA, TMA {[id number]) Neisseria Gonorrhoeae rRNA NOT DETECTED NOT DETECTED [facility] Comment:{NEISSERIA GONORRHOE AE RNA, TMA {[id number]) COMMENT SEE NOTE [facility] Comment: {COMMENT {[id number]) This test was performed using the APTIMA COMBO2 Assay ([employer] The analytical performance characteristics of this assay, when used to test SurePath specimens have been determined by [employer]. 04/03/2015 8:34 PM EST 04/04/2015 12:52 AM EST Narrative Resulting Agency Comment [id number] us Diana Gutierres MD LABORATORY Final Result Performing Organization Address City/State/[facility] Co de Phone Number [facility] [address] [place] [address] documented in this encounter Visit Diagnoses Diagnosis Routine history and physical examination of adult Routine general medical examination at a health care facility documented in this encounter Additional Health Concerns Infection Onset Date Last Indicated Resolved Time COVID-19 Rule-Out 06/06/2020 06/06/2020 06/07/2020 11:13 AM EST documented as of this encounter Care Teams Roads And Parking Lots Sweeper Operator Relationship Specialty Start Date End Date Diana Gutierres MD [address] [place] [address] PCP - General Pediatrics 02/03/15 07/30/17 Marc Quesada MD [address] [place] [address] PCP - General 07/31/17 01/31/22 documented as of this encounter
--- OUTSIDE RECORDS SUMMARY | 2024-08-29 07:58 | XMS_ITS | Encounter Summary ---
Author Organization [facility] Address [address] [place] [address] Care Team Providers Care Spring Encaser Name Role Phone Diana Gutierres MD Primary Care Provider [phone] Marc Quesada MD Primary Care Provider Unavaila ble Encounter Details Date Type Department Care Team (Late st Contact Info) Description 04/30/2015 Orders Only [facility] [address] [place] [phone] Diana Gutierres MD [address] [place] [address] Social History Tobacco Use Types Packs/Day Years [...] of this encounter Procedures * Due to [place] [employer] law, this organization might not be sharing negative HIV tests. Procedure Name Priority Date/Time Associated Diagnosis Comments CBC INCLUDES DIFFERENTIAL AND PLATELET COUNT Routine 04/30/2015 8:51 AM EST Routine history and physical examination of adult LIPID PANEL WITH REFLEX TO DIRECT LDL Routine 04/30/2015 8:51 AM EST Routine history and physical examination of adult documented in this encounter Results * Due to [place] [employer] law, this organization might not be sharing negative HIV tests. * CBC INCLUDES DIFFERENTIAL AND PLATELET COUNT (04/30/2015 8:51 AM EST) WBC 5.7 4.5 - 13.0 Thousand/u L [facility] Comment:{WHITE BLOOD CELL CO UNT {[id number]) RBC 4.40 3.80 - 5.10 Million/uL [facility] Comment:{RED BLOOD CELL COUN T {[id number]) Hemoglobin 13.0 11.5 - 15.3 g/dL [facility] Comment:{HEMOGLOBIN {[id number]) Hematocrit 40.1 34.0 - 46.0 % [facility] Comment:{HEMATOCRIT {[id number]) MCV 91.2 78.0 - 98.0 fL [facility] Comment:{MCV {[id number]) MCH 29.5 25.0 - 35.0 pg [facility] Comment:{MCH {[id number]) MCHC 32.4 31.0 - 36.0 g/dL [facility] Comment:{MCHC {[id number]) RDW 12.8 11.0 - 15.0 % [facility] Comment:{RDW {[id number]) PLT 233 140 - 400 Thousand/u L [facility] Comment:{PLATELET COUNT {[id number]) MPV 8.8 7.5 - 11.5 fL [facility] Comment:{MPV {[id number]) Neutrophils # 2799 1800 - 8000 cells/uL [facility] Comment:{ABSOLUTE NEUTROPHIL S {[id number]) Lymphocytes # 2183 1200 - 5200 cells/uL [facility] Comment:{ABSOLUTE LYMPHOCYTE S {[id number]) Monocytes # 439 200 - 900 cells/uL [facility] Comment:{ABSOLUTE MONOCYTES {[id number]) Eosinophils # 228 15 - 500 cells/uL [facility] Comment:{ABSOLUTE EOSINOPHIL S {[id number]) Basophils # 51 0 - 200 cells/uL [facility] Comment:{ABSOLUTE BASOPHILS {[id number]) Neutrophils % 49.1 % [facility] Comment:{NEUTROPHILS {[id number]) Lymphocytes % 38.3 % [facility] Comment:{LYMPHOCYTES {[id number]) Monocytes % 7.7 % [facility] Comment:{MONOCYTES {[id number]) Eosinophils % 4.0 % [facility] Comment:{EOSINOPHILS {[id number]) Basophils % 0.9 % [facility] Comment:{BASOPHILS {[id number]) 04/30/2015 8:51 AM EST 04/30/2015 2:43 PM EST Narrative Resulting Agency Comment [id number] us Diana Gutierres MD LAB SAME DAY RESULT Final Resu lt [facility] [address] [place] [address] * (ABNORMAL) LIPID PANEL WITH REFLEX TO DIRECT LDL (04/30/2015 8:51 AM EST) Cholesterol 192(H) 125 - 170 mg/dL [facility] Comment:{CHOLESTEROL, TOTAL {[id number]) HDL Cholesterol 53 36 - 76 mg/dL [facility] Comment:{HDL CHOLESTEROL {[id number]) Triglyceride 127 40 - 136 mg/dL [facility] Comment:{TRIGLYCERIDES {[id number]) LDL Cholesterol 114(H) <110 mg/dL (calc) [facility] Comment: {LDL-CHOLESTEROL {[id number]) Desirable range <100 mg/dL for patients with CHD or diabetes and <70 mg/dL for diabetic patients with known heart disease. CHOL/HDL Ratio 3.6 < OR = 5.0 (calc) [facility] Comment:{CHOL/HDLC RATIO {[id number]) Cholesterol Non-HDL 139(H) <120 mg/dL (calc) [facility] Comment:{NON HDL CHOLESTEROL {[id number]) 04/30/2015 8:51 AM EST 04/30/2015 2:43 PM EST Narrative Resulting Agency Comment [id number] Diana Gutierres MD LABORATORY Final Result [facility] [address] [place] [address] documented in this encounter Visit Diagnoses Diagnosis Routine history and physical examination of adult Routine general medical examination at a health care facility documented in this encounter Additional Health Concerns Infection Onset Date Last Indicated Resolved Time COVID-19 Rule-Out 06/06/2020 06/06/2020 06/07/2020 11:13 AM EST documented as of this encounter Care Teams Spring Encaser Relationship Specialty Start Date End Date Diana Gutierres MD [address] [place] [address] PCP - General Pediatrics 02/03/15 07/30/17 Marc Quesada MD [address] [place] [address] PCP - General 07/31/17 01/31/22 documented as of this encounter
--- OUTSIDE RECORDS SUMMARY | 2024-08-29 07:58 | XMS_ITS | Clinical Summary ---
Author Organization [facility] Address [address] [place] [address] Care Team Providers Care Director Education Name Role Phone Unavailable Primary Care Provider [...] Diagnosed Date Mood disorder 03/16/2019 Asthma, intrinsic ([facility]) 06/20/2018 Food allergy 02/13/2013 Overview (02/13/2013): Allergy [...] complete this topic Procedures * Due to [place] law, [...] to Health Maintenance Results * Due to [place] state law, [...] Smear Negative for intraepithelial lesion or malignancy. [facility] Cytology study comment (Cvx/Vag) This Pap test has been evaluated with computer assisted technology. [facility] Conservation Agent (Cvx/Vag) MSM, CT(ASCP) CT screening location: [place] [address] [facility] COMMENT SEE NOTE [facility] Comment: EXPLANATORY NOTE: The Pap is a [...] Chlamydia trachomatis rRNA NOT DETECTED NOT DETECTED [facility] Neisseria Gonorrhoeae rRNA NOT DETECTED NOT DETECTED [facility] COMMENT SEE NOTE [facility] Comment: The analytical performance characteristics of this assay, when used to test SurePath(TM) specimens have been determined by [employer]. The modifications have not been cleared or approved by the FDA. This assay has been validated pursuant to the CLIA regulations and is used for clinical purposes. For additional information, please refer to https://education.[employer]/faq/JPN122 (This link is being provided for information/ educational purposes only.) Cervical 07/15/2020 5:15 PM EDT 07/16/2020 6:41 AM EDT Narrative Resulting Agency Comment [id number] us Marc Quesada MD PATHOLOGY-INTERFACED Final Resu lt [facility] [address] [place] [address] * ELECTROCARDIOGRAM, TRACING (09/12/2017) Narrative 09/12/2017 Ordered by an unspecified provider. Procedure Note Manish, Valente Provider - 09/12/2017 11:17 [place] [address] [facility]ARD[facility]ASCULAR SERVICES -- ELECTROCARDIOGRAM REPORT Patient's name: MARION MOSLEY UNIT#: [id number] : 97 DOS: 09/11/17 LOC: ER Test [...] By:Surendra Styles MD Acquiring Tech: MIKALA ORD#: [id number] OE: TOM RPT#: [id number] D/ MUSE CC: us Unknown Provider [place] CARDIOVASCULAR-NO INBAS KET RTG Final Result * (ABNORMAL) LIPID PANEL WITH REFLEX TO DIRECT LDL (04/30/2015 8:51 AM EST) Cholesterol 192(H) 125 - 170 mg/dL [facility] Comment:{CHOLESTEROL, TOTAL {[id number]) HDL Cholesterol 53 36 - 76 mg/dL [facility] Comment:{HDL CHOLESTEROL {[id number]) Triglyceride 127 40 - 136 mg/dL [facility] Comment:{TRIGLYCERIDES {[id number]) LDL Cholesterol 114(H) <110 mg/dL (calc) [facility] Comment: {LDL-CHOLESTEROL {[id number]) Desirable range <100 mg/dL for patients with CHD or diabetes and <70 mg/dL for diabetic patients with known heart disease. CHOL/HDL Ratio 3.6 < OR = 5.0 (calc) [facility] Comment:{CHOL/HDLC RATIO {[id number]) Cholesterol Non-HDL 139(H) <120 mg/dL (calc) [facility] Comment:{NON HDL CHOLESTEROL {[id number]) 04/30/2015 8:51 AM EST 04/30/2015 2:43 PM EST Narrative Resulting Agency Comment [id number] us Diana Gutierres MD LABORATORY Final Result [facility] [address] [place] [address] from Last 3 Months or Most Recently Relevant to Health Maintenance
--- OUTSIDE RECORDS SUMMARY | 2024-08-29 07:58 | XMS_ITS | Encounter Summary ---
Author Organization [facility] Address [address] [place] [address] Care Team Providers Care Herpetologist Name Role Phone Андрей Brandt MD Primary Care Provider Diana Gutierres MD Primary Care Provider Marc Quesada MD Primary Care Provider Unavaila ble Encounter Details Date Type Department Care Team (Late st Contact Info) Description 07/18/2013 Orders Only [facility] [address] [place] [phone] Андрей Brandt MD [address] [place] [address] Social History Tobacco Use Types Packs/Day Years [...] <0.35 kU/L [facility] Comment:{SCALLOP (F338) IGE {[id number]) Scallop (F338) Class 0 [facility] Comment:{CLASS {[id number]) Crab (F23) IgE <0.35 kU/L [facility] Comment:{CRAB (F23) IGE {[id number]) Crab (F23) Class 0 [facility] Comment:{CLASS {[id number]) Shrimp (F24) IgE 0.53(H) kU/L [facility] Comment:{SHRIMP (F24) IGE {[id number]) Shrimp (F24) Class 1 [facility] Comment:{CLASS {[id number]) Blue Mussel (F37) IgE <0.35 kU/L [facility] Comment:{BLUE MUSSEL (F37) I GE {[id number]) Blue Mussel (F37) Class 0 [facility] Comment:{CLASS {[id number]) Lobster (F80) IgE <0.35 kU/L [facility] Comment:{LOBSTER (F80) IGE { [id number]) Lobster (F80) Class 0 [facility] Comment:{CLASS {[id number]) Clam (F207) IgE <0.35 kU/L [facility] Comment:{CLAM (F207) IGE {[id number]) Clam (F207) Class 0 [facility] Comment:{CLASS {[id number]) Oyster (F290) IgE <0.35 kU/L [facility] Comment:{OYSTER (F290) IGE { [id number]) Oyster (F290) Class 0 [facility] Comment:{CLASS {[id number]) 07/18/2013 2:45 PM EDT 07/18/2013 9:21 PM EDT Андрей Brandt MD LABORATORY Final Result [facility] [address] [place] [address] documented in this encounter Visit Diagnoses Diagnosis Food allergy Other adverse food reactions, not elsewhere classified documented in this encounter Additional Health Concerns Infection Onset Date Last Indicated Resolved Time COVID-19 Rule-Out 06/06/2020 06/06/2020 06/07/2020 11:13 AM EST documented as of this encounter Care Teams Herpetologist Relationship Specialty Start Date End Date Андрей Brandt MD [address] [place] [address] PCP - General 12/14/10 02/02/15 Diana Gutierres MD [address] [place] [address] PCP - General Pediatrics 02/03/15 07/30/17 Marc Quesada MD [address] [place] [address] PCP - General 07/31/17 01/31/22 documented as of this encounter
--- OUTSIDE RECORDS SUMMARY | 2024-08-29 07:58 | XMS_ITS | Encounter Summary ---
Author Organization [facility] Address [address] [place] [address] Care Team Providers Care Liquid Loader Name Role Phone Marc Quesada MD Primary Care Provider Unavaila ble Reason for Visit * Reason Comments E-prescribing Refill Request Encounter Details Date Type Department Care Team (Late st Contact Info) Description 06/22/2020 Refill [facility] [address] [place] [address] Marc Quesada MD E-prescribing Refill Request Social [...] on filedocumented in this encounter Care Teams Liquid Loader Relationship Specialty Start Date End Date Marc Quesada MD PCP - General 07/31/17 01/31/22 documented as of this encounter
--- OUTSIDE RECORDS SUMMARY | 2024-08-29 07:58 | XMS_ITS | Encounter Summary ---
Author Organization [facility] Address [address] [place] [address] Care Team Providers Care Warehouse Associate Name Role Phone Андрей Brandt MD Primary Care Provider [phone] Diana Gutierres MD Primary Care Provider Marc Quesada MD Primary Care Provider Unavaila ble Encounter Details Date Type Department Care Team (Late st Contact Info) Description 05/17/2014 Orders Only [facility] [address] [place] [phone] Diana Gutierres MD [address] [place] [address] Medications Social History Tobacco Use Types Packs/Day [...] [facility] Comment: {STREPTOCOCCUS, GROUP A CULTURE {[id number]) ??STREPTOCOCCUS, GROUP A CULTURE ??MICRO NUMBER: ?[id number] ??TEST STATUS: ? FINAL ??SPECIMEN SOURCE: ?? THROAT ??SPECIMEN QUALITY: ??ADEQUATE ??RESULT: ?No beta hemolytic Streptococci isolated 05/17/2014 4:50 PM EST 05/17/2014 9:49 PM EST Narrative Resulting Agency Comment [id number] Diana Gutierres MD LABORATORY Final Result Performing Organization Address City/State/[facility] Co de Phone Number [facility] [address] [place] [address] documented in this encounter Visit Diagnoses Diagnosis Sore throat- Primary Acute pharyngitis documented in this encounter Additional Health Concerns Infection Onset Date Last Indicated Resolved Time COVID-19 Rule-Out 06/06/2020 06/06/2020 06/07/2020 11:13 AM EST documented as of this encounter Care Teams Warehouse Associate Relationship Specialty Start Date End Date Андрей Brandt MD [address] [place] [address] PCP - General 12/14/10 02/02/15 Diana Gutierres MD [address] [place] [address] PCP - General Pediatrics 02/03/15 07/30/17 Marc Quesada MD [address] [place] [address] PCP - General 07/31/17 01/31/22 documented as of this encounter
--- OUTSIDE RECORDS SUMMARY | 2024-08-29 07:58 | XMS_ITS | Encounter Summary ---
Author Organization [facility] Address [address] [place] [address] Care Team Providers Care Special Education Supervisor Name Role Phone Marc Quesada MD Primary Care Provider Unavaila ble Encounter Details Date Type Department Care Team ([facility] st Contact Info) Description 01/13/2018 Orders Only [facility] [address] [place] [address] Marc Quesada MD Social History Tobacco Use [...] this encounter Procedures * Due to [place] SnowBall law, this organization might not be sharing negative HIV tests. Procedure Name Priority Date/Time Associated Diagnosis Comments CBC INCLUDES DIFFERENTIAL AND PLATELET COUNT Routine 01/13/2018 4:22 PM EDT History of mononucleosis HEPATIC FUNCTION PANEL (ALT,AST,ALK PH,BILI'S,TP,ALB) Routine 01/13/2018 4:22 PM EDT Elevated liver enzymes documented in this encounter Results * Due to [place] Snow[place] law, this organization might not be sharing [...] 11:58 PM EDT Narrative Resulting Agency Comment [id number] us Marc Quesada MD LABORATORY Final Result Performing Organization Address City/State/[facility] Co de Phone Number [facility] [address] [place] [address] * CBC INCLUDES DIFFERENTIAL AND PLATELET COUNT [...] 11:58 PM EDT Narrative Resulting Agency Comment [id number] us Marc Quesada MD LAB SAME DAY RESULT Final Resul t Performing Organization Address City/State/[facility] Co de Phone Number [facility] [address] [place] [address] documented in this encounter Visit Diagnoses Diagnosis History of mononucleosis Personal history of other infectious and parasitic disease Elevated liver enzymes Nonspecific elevation of levels of transaminase or lactic acid dehydrogenase (LDH) documented in this encounter Additional Health Concerns Infection Onset Date Last Indicated Resolved Time COVID-19 Rule-Out 06/06/2020 06/06/2020 06/07/2020 11:13 AM EST documented as of this encounter Care Teams Special Education Supervisor Relationship Specialty Start Date End Date Marc Quesada MD PCP - General 07/31/17 01/31/22 documented as of this encounter
[2024-08-29 11:48] LABS: Cholesterol 193 mg/dL (<200); HDL Cholesterol 51 mg/dL (>40); LDL Cholesterol Calculated 94 mg/dL (<100); Triglycerides 242 mg/dL (<150)
== END 2024-08-29 07:56 | disposition home or self-care (01) ==
LOC: HO.WFDLDS 07:55
PROVIDERS: Visit Provider Nurse Practitioner Family
DX: E78.5 Hyperlipidemia, unspecified (principal)
CPT/HCPCS: 36415; 80061

== ENCOUNTER 2024-09-03 16:22 | Outpatient (AMB) | payer OTHER, SELFPAY ==
--- NOTE | 2024-09-03 14:57 | A.OFFPC_ITS ---
Intake Visit Reasons: telehealth 2 months Intake Note: [facility]. Music Professor Required: No Is last menstrual period known: Yes Last menstrual period: 08/13/24 Post menopausal: No Patient : No Allergies amoxicillin Allergy (Severe, Verified 09/03/24 14:57) Anaphylaxis Penicillins Allergy (Severe, Verified 09/03/24 14:57) Anaphylaxis Tobacco use date assessed: 09/03/24 Dental Screening Dental Screen Date: 09/03/24 Did you have a dental visit in the last 12 months?: Yes Did you have a dental problem in the last 6 months where you did not have access to dental care?: No Was dental information given to patient?: Patient has dentist HPI HPI Comments History of Present Illness Details 29-year-old female [facility] follow-up. She admits to making healthy dietary choices and exercising routinely. However, she consumes significant amount of red meat. She is followed by [facility] dietitian. She notes controlled anxiety and depressive symptoms. She takes Fluoxetine as prescribed and follows her therapist once weekly. She offers no complaints and denies acute symptoms at this time. [facility] Medical History Depression Anxiety Acid reflux IBS (irritable bowel syndrome) High cholesterol Asthma Family History Maternal Grandmother Alcohol abuse Substance abuse FH: mental illness Cardiovascular disease Maternal Uncle Substance abuse FH: mental illness Mother FH: mental illness Father FH: mental illness High blood pressure Paternal Grandfather High blood pressure High cholesterol Social History Housing: House Patient Tobacco Use Status: Never used Tobacco e-Cigarette/Vaping Use: Never Used Second Hand Smoke Exposure: Yes Substance Use Type: Marijuana service: No Current occupational status: employed 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 Current occupational exposures/hazards: No Cognitive needs: No Hearing needs: No Vision needs: No Female Reproductive History Menstrual Date of last menstrual period: 08/13/24 Questionnaire Thrive Questionnaire Date Thrive assessed: 05/08/24 I am a: Patient What is your living situation today?: I have a steady place to live Within the past 12 months, did the food you bought not last and you didn't have the money to get more?: Never true Within the past 12 months, did you worry whether your food would run out before you got money to buy more?: Never true Do you have trouble paying for medicines?: No Do you have trouble getting transportation to medical appointments?: No Do you have trouble paying your heating and electricity bill?: No Do you have trouble taking care of your child, family member or friend?: No Do you have trouble with day-to-day activities such as bathing, preparing meals, shopping, managing finances, etc.?: No Are you currently unemployed and looking for a job?: No Are you interested in more education?: No Please select the resources that you would like help with: None Currently or been in a relationship where the following occur: No concerns reported THRIVE Score: 0 GIAN-7 AMB Questionnaire GIAN-7 Date GIAN - 7 assessed: 06/19/24 Source: Developed by Drs. Андрей Lawrence, Ny Alcocer, Eliseo Cook and colleagues, with an educational tolu from [employer]. Review of Systems Const Details: Denies chills, Denies fatigue, Denies fever(s), Denies headache(s) and Denies weakness Cardiac Denies chest pain, Denies claudication, Denies leg edema, Denies lightheadedness, Denies palpitations, Denies dyspnea, Denies dyspnea on exertion, Denies orthopnea and Denies other (Loss of consciousness) Resp Denies cough, Denies excessive phlegm production, Denies dyspnea, Denies dyspnea on exertion, Denies snoring and Denies wheezing Physical exam (Primary Care) Tobacco/Smoking Status: Tobacco use Status Tobacco use date assessed 09/03/24 09/03/24 14:59 Patient Tobacco Use Status Never used Tobacco 09/03/24 14:59 e-Cigarette/Vaping Use Never Used 09/03/24 14:59 Thrive Assessment: Date of Thrive Assessment Date Thrive assessed 05/08/24 09/03/24 14:59 Currently or been in a relationship where the following occur: No concerns reported Const Other: Patient is alert and oriented x3. Telehealth Telehealth Telehealth Platform: Telephone Location of provider rendering services: practice address Location of patient: address on file Patient Identification confirmed using: Name, : Yes Telehealth method: voice only Patient verbally consented to treatment: Yes Patient verbally consented to billing insurance company: Yes Patient informed of any privacy concerns related to visit: Yes Coding Level of Care Code Tele Est Pt Level 3 (47375) Diagnoses Hyperlipidemia E78.5 Time Spent (min) 15 Assessment & Plan Assessment & Plan (1) Hyperlipidemia: Code(s): E78.5 - Hyperlipidemia, unspecified Category: Medical Plan: Recent triglycerides is elevated, 242 form from 213, total cholesterol, LDL, and HDL are normal, 193, 94, and 51 respectively. Advised to limit foods high in saturated fat and avoid foods high in trans fat. Routine exercise encouraged. Fast for 10-12 hours, may drink water, and perform lipid panel blood work 2-3 days before next visit. Follow-up in 3 months for hyperlipidemia, anxiety, depression. Return sooner with symptoms or concerns. Verbalized understanding and agreed with the plan. Orders: Orders Lipid Panel 3 Months E78.5 - Hyperlipidemia, unspecified
--- OUTSIDE RECORDS SUMMARY | 2024-09-03 17:39 | XMS_ITS | Encounter Summary ---
Author Organization [facility] Address [address] [place] [address] Care Team Providers Care Access Representative Name Role Phone Diana Gutierres MD Primary Care Provider [phone] Marc Quesada MD Primary Care Provider Unavaila ble Encounter Details Date Type Department Care Team (Late st Contact Info) Description 06/16/2017 Orders Only [facility] [address] [place] [phone] Diana Gutierres MD [address] [place] [address] Social History Tobacco Use Types Packs/Day Years [...] this encounter Procedures * Due to [place] law, this organization might not be sharing [...] Comment: ??STREPTOCOCCUS, GROUP A CULTURE ??MICRO NUMBER: ?[id number] ??TEST STATUS: ? FINAL ??SPECIMEN SOURCE: ?? NOT GIVEN ??SPECIMEN QUALITY: ??ADEQUATE ??RESULT: ?No group A Streptococcus isolated 06/16/2017 3:51 PM EST 06/16/2017 8:49 PM EST Narrative Resulting Agency Comment [id number] us Diana Gutierres MD LABORATORY Final Result [facility] [address] [place] [address] * (ABNORMAL) HEPATIC FUNCTION PANEL (ALT,AST,ALK PH,BILI'S,TP,ALB) [...] 4:25 PM EST Narrative Resulting Agency Comment [id number] us Diana Gutierres MD LABORATORY Final Result [facility] [address] [place] [address] * (ABNORMAL) CBC INCLUDES DIFFERENTIAL AND PLATELET COUNT (06/16/2017 2:50 PM EST) [facility] WBC 10.1 3.8 - 10.8 Thousand/ [...] 4:25 PM EST Narrative Resulting Agency Comment [id number] us Diana Gutierres MD LAB SAME DAY RESULT Final Resu lt Performing Organization Address City/State/[facility] Co de Phone Number [facility] [address] [place] [address] * (ABNORMAL) SHIRIN-MESSINA VIRUS PANEL COMPREHENSIVE (06/16/2017 [...] ?<36.00 ?Negative ?36.00-43.99 ? Equivocal ?>43.99 ?Positive Shirni Messina virus capsid Ab.IgG 61.10(H) U/mL [facility] [...] 4:25 PM EST Narrative Resulting Agency Comment [id number] us Diana Gutierres MD LABORATORY Final Result [facility] [address] [place] [address] documented in this encounter Visit Diagnoses Diagnosis Sore throat Acute pharyngitis documented in this encounter Additional Health Concerns Infection Onset Date Last Indicated Resolved Time COVID-19 Rule-Out 06/06/2020 06/06/2020 06/07/2020 11:13 AM EST documented as of this encounter Care Teams Access Representative Relationship Specialty Start Date End Date Diana Gutierres MD [address] [place] [address] PCP - General Pediatrics 02/03/15 07/30/17 Marc Quesada MD [address] [place] [address] PCP - General 07/31/17 01/31/22 documented as of this encounter
--- OUTSIDE RECORDS SUMMARY | 2024-09-03 17:39 | XMS_ITS | Encounter Summary ---
Author Organization [facility] Address [address] [place] [address] Care Team Providers Care Set Up Technician Name Role Phone Marc Quesada MD Primary Care Provider Unavaila ble Encounter Details Date Type Department Care Team (Late st Contact Info) Description 07/15/2020 Orders Only [facility] [address] [place] [address] Marc Quesada MD Social History Tobacco Use [...] this encounter Procedures * Due to [place] SavySwap law, this organization might not be sharing negative HIV tests. Procedure Name Priority Date/Time Associated Diagnosis Comments THINPREP TIS PAP REFLEX HPV MRNA E6/E7, CHLAMYDIA/N.GONORRH OEAE Routine 07/15/2020 5:15 PM EDT Screening for malignant neoplasm of cervix documented in this encounter Results * Due to [place] Savy[place]ap law, this organization might not be sharing [...] Smear Negative for intraepithelial lesion or malignancy. [facility] Cytology study comment (Cvx/Vag) This Pap test has been evaluated with computer assisted technology. [facility] House Carpenter Helper (Cvx/Vag) MSM, CT(ASCP) CT screening location: [place] [address] [facility] COMMENT SEE NOTE [employer] retargeting Comment: EXPLANATORY NOTE: The Pap is a [...] NOT DETECTED [facility] COMMENT SEE NOTE [facility] Comment: The analytical performance characteristics of this assay, when used to test SurePath(TM) specimens have been determined by [employer]. The modifications have not been cleared or approved by the FDA. This assay has been validated pursuant to the CLIA regulations and is used for clinical purposes. For additional information, please refer to https://education.[facility].[employer] Display/faq/DFD136 (This link is being provided for information/ educational purposes only.) Cervical 07/15/2020 5:15 PM EDT 07/16/2020 6:41 AM EDT Narrative Resulting Agency Comment [id number] us Marc Quesada MD PATHOLOGY-INTERFACED Final Resu lt [facility] [address] [place] [address] documented in this encounter Visit Diagnoses Diagnosis Screening for malignant neoplasm of cervix Screening for malignant neoplasm of the cervix documented in this encounter Care Teams Set Up Technician Relationship Specialty Start Date End Date Marc Quesada MD PCP - General 07/31/17 01/31/22 documented as of this encounter
--- OUTSIDE RECORDS SUMMARY | 2024-09-03 17:39 | XMS_ITS | Encounter Summary ---
Author Organization [facility] Address [address] [place] [address] Care Team Providers Care Vice President Of Product Marketing Name Role Phone Diana Gutierres MD Primary Care Provider Marc Quesada MD Primary Care Provider Unavaila ble Encounter Details Date Type Department Care Team (Late st Contact Info) Description 04/28/2016 Orders Only [facility] [address] [place] [address] Diana Gutierres MD [address] [place] [address] Social History Tobacco Use Types Packs/Day Years [...] [facility] Comment:{CHLAMYDIA TRACHOMAT IS RNA, TMA {[id number]) Neisseria Gonorrhoeae rRNA NOT DETECTED NOT DETECTED [facility] Comment:{NEISSERIA GONORRHOE AE RNA, TMA {[id number]) COMMENT SEE NOTE [facility] Comment: {COMMENT {[id number]) This test was performed using the APTIMA COMBO2 Assay ([employer] The analytical performance characteristics of this assay, when used to test SurePath specimens have been determined by [employer]. 04/28/2016 3:38 PM EST 04/28/2016 9:54 PM EST Narrative Resulting Agency Comment [id number] us Diana Gutierres MD LABORATORY Final Result [facility] [address] [place] [address] documented in this encounter Visit Diagnoses Diagnosis Encounter for screening for infections with predominantly sexual mode of transmission Screening examination for venereal disease documented in this encounter Additional Health Concerns Infection Onset Date Last Indicated Resolved Time COVID-19 Rule-Out 06/06/2020 06/06/2020 06/07/2020 11:13 AM EST documented as of this encounter Care Teams Vice President Of Product Marketing Relationship Specialty Start Date End Date Diana Gutierres MD [address] [place] [address] PCP - General Pediatrics 02/03/15 07/30/17 Marc Quesada MD [address] [place] [address] PCP - General 07/31/17 01/31/22 documented as of this encounter
--- OUTSIDE RECORDS SUMMARY | 2024-09-03 17:39 | XMS_ITS | Encounter Summary ---
Author Organization [facility] Address [address] [place] [address] Care Team Providers Care Thread Inspector Name Role Phone Diana Gutierres MD Primary Care Provider [phone] Marc Quesada MD Primary Care Provider Unavaila ble Reason for Visit * Reason Comments E-prescribing Refill Request Encounter Details Date Type Department Care Team (Late st Contact Info) Description 05/19/2016 Refill [facility] [address] [place] [address] Андрей Brandt MD [address] [place] [address] E-prescribing Refill Request Social History Tobacco Use [...] documented as of this encounter Care Teams Thread Inspector Relationship Specialty Start Date End Date Diana Gutierres MD [address] [place] [address] PCP - General Pediatrics 02/03/15 07/30/17 Marc Qeusada MD [address] [place] [address] PCP - General 07/31/17 01/31/22 documented as of this encounter
--- OUTSIDE RECORDS SUMMARY | 2024-09-03 17:39 | XMS_ITS | Encounter Summary ---
Author Organization [facility] Address [address] [place] [address] Care Team Providers Care Configuration Release Manager Name Role Phone Diana Gutierres MD Primary Care Provider [phone] Marc Quesada MD Primary Care Provider Unavaila ble Reason for Visit * Reason Comments E-prescribing Refill Request Encounter Details Date Type Department Care Team (Late st Contact Info) Description 06/22/2017 Refill [facility] [address] [place] [phone] Diana Gutierres MD [address] [place] [address] E-prescribing Refill Request Social History Tobacco Use [...] Phone 07/28/17 1:00 PM Diana Gutierres MD [facility] [phone] Pertinent lab results: Last Pap Date (10 [...] documented as of this encounter Care Teams Configuration Release Manager Relationship Specialty Start Date End Date Diana Gutierres MD [address] [place] [address] PCP - General Pediatrics 02/03/15 07/30/17 Marc Quesada MD [address] [place] [address] PCP - General 07/31/17 01/31/22 documented as of this encounter
--- OUTSIDE RECORDS SUMMARY | 2024-09-03 17:39 | XMS_ITS | Encounter Summary ---
Author Organization [facility] Address [address] [place] [address] Care Team Providers Care Elementary Instructional Coach Name Role Phone Diana Gutierres MD Primary Care Provider Marc Quesada MD Primary Care Provider Unavaila ble Encounter Details Date Type Department Care Team (Late st Contact Info) Description 07/28/2017 Orders [facility] [address] [place] [phone] Diana Gutierres MD [address] [place] [address] Social History Tobacco Use Types Packs/Day Years [...] encounter Procedures * Due to [place] [employer] law, this organization might not be sharing [...] was performed using the APTIMA COMBO2 Assay ([employer] The analytical performance characteristics of this assay, when used to test SurePath specimens have been determined by [employer]. 07/28/2017 1:29 PM EDT 07/28/2017 11:28 PM EDT Narrative Resulting Agency Comment [id number] us Diana Gutierres MD LABORATORY Final Result Performing Organization Address City/State/[facility] Co de Phone Number [facility] [address] [place] [address] documented in this encounter Visit Diagnoses Diagnosis Hx of chlamydia infection Personal history of other infectious and parasitic disease documented in this encounter Additional Health Concerns Infection Onset Date Last Indicated Resolved Time COVID-19 Rule-Out 06/06/2020 06/06/2020 06/07/2020 11:13 AM EST documented as of this encounter Care Teams Elementary Instructional Coach Relationship Specialty Start Date End Date Diana Gutierres MD [address] [place] [address] PCP - General Pediatrics 02/03/15 07/30/17 Marc Quesada MD [address] [place] [address] PCP - General 07/31/17 01/31/22 documented as of this encounter
--- OUTSIDE RECORDS SUMMARY | 2024-09-03 17:39 | XMS_ITS | Encounter Summary ---
Author Organization [facility] Address [address] [place] [address] Care Team Providers Care Forensic Audit Expert Name Role Phone Андрей Brandt MD Primary Care Provider [phone] Diana Gutierres MD Primary Care Provider Marc Quesada MD Primary Care Provider Unavaila ble Encounter Details Date Type Department Care Team (Late st Contact Info) Description 05/17/2014 Orders Only [facility] [address] [place] [phone] Diana Gutierres MD [address] [place] [address] Medications Social History Tobacco Use Types Packs/Day [...] this encounter Procedures * Due to [place] state law, this organization might not be sharing negative HIV tests. Procedure Name Priority Date/Time Associated Diagnosis Comments STREPTOCOCCUS, GROUP A CULTURE Routine 05/17/2014 4:50 PM EST Sore throat documented in this encounter Results * Due to [place] state law, this organization might not be sharing negative HIV tests. * STREPTOCOCCUS, GROUP A CULTURE (05/17/2014 4:50 PM EST) Culture, Streptococci Group A, Throat SEE NOTE [facility] Comment: {STREPTOCOCCUS, GROUP A CULTURE {[id number]) ??STREPTOCOCCUS, GROUP A CULTURE ??MICRO NUMBER: ?[id number] ??TEST STATUS: ? FINAL ??SPECIMEN SOURCE: ?? THROAT ??SPECIMEN QUALITY: ??ADEQUATE ??RESULT: ?No beta hemolytic Streptococci isolated 05/17/2014 4:50 PM EST 05/17/2014 9:49 PM EST Narrative Resulting Agency Comment [id number] Diana Gutierres MD LABORATORY Final Result Performing Organization Address City/State/[facility] Co de Phone Number [facility] [address] [place] [address] documented in this encounter Visit Diagnoses Diagnosis Sore throat- Primary Acute pharyngitis documented in this encounter Additional Health Concerns Infection Onset Date Last Indicated Resolved Time COVID-19 Rule-Out 06/06/2020 06/06/2020 06/07/2020 11:13 AM EST documented as of this encounter Care Teams Forensic Audit Expert Relationship Specialty Start Date End Date Андрей Brandt MD [address] [place] [address] PCP - General 12/14/10 02/02/15 Diana Gutierres MD [address] [place] [address] PCP - General Pediatrics 02/03/15 07/30/17 Marc Quesada MD [address] [place] [address] PCP - General 07/31/17 01/31/22 documented as of this encounter
--- OUTSIDE RECORDS SUMMARY | 2024-09-03 17:39 | XMS_ITS | Encounter Summary ---
Author Organization [facility] Address [address] [place] [address] Care Team Providers Care Assembler Steam And Gas Turbine Name Role Phone Marc Quesada MD Primary Care Provider Unavaila ble Reason for Visit * Reason Comments E-prescribing Refill Request Encounter Details Date Type Department Care Team (Late st Contact Info) Description 06/22/2020 Refill [facility] [address] [place] [address] Mrac Quesada MD E-prescribing Refill Request Social History [...] on filedocumented in this encounter Care Teams Assembler Steam And Gas Turbine Relationship Specialty Start Date End Date Marc Quesada MD PCP - General 07/31/17 01/31/22 documented as of this encounter
--- OUTSIDE RECORDS SUMMARY | 2024-09-03 17:39 | XMS_ITS | Encounter Summary ---
Author Organization [facility] Address [address] [place] [address] Care Team Providers Care Contact Center Representative Name Role Phone Diana Gutierres MD Primary Care Provider [phone] Marc Quesada MD Primary Care Provider Unavaila ble Encounter Details Date Type Department Care Team (Late st Contact Info) Description 04/30/2015 Orders Only [facility] [address] [place] [phone] Diana Gutierres MD [address] [place] [address] Social History Tobacco Use Types Packs/Day Years [...] this encounter Procedures * Due to [place] [employer] law, this organization might not be sharing negative HIV tests. Procedure Name Priority Date/Time Associated Diagnosis Comments CBC INCLUDES DIFFERENTIAL AND PLATELET COUNT Routine 04/30/2015 8:51 AM EST Routine history and physical examination of adult LIPID PANEL WITH REFLEX TO DIRECT LDL Routine 04/30/2015 8:51 AM EST Routine history and physical examination of adult documented in this encounter Results * Due to [place] [employer] law, this organization might not be sharing negative HIV tests. * CBC INCLUDES DIFFERENTIAL AND PLATELET COUNT (04/30/2015 8:51 AM EST) WBC 5.7 4.5 - 13.0 Thousand/u L [facility] Comment:{WHITE BLOOD CELL CO UNT {[id number]) RBC 4.40 3.80 - 5.10 Million/uL [facility] Comment:{RED BLOOD CELL COUN T {[id number]) Hemoglobin 13.0 11.5 - 15.3 g/dL [facility] Comment:{HEMOGLOBIN {[id number]) Hematocrit 40.1 34.0 - 46.0 % [facility] Comment:{HEMATOCRIT {[id number]) MCV 91.2 78.0 - 98.0 fL [facility] Comment:{MCV {[id number]) MCH 29.5 25.0 - 35.0 pg [facility] Comment:{MCH {[id number]) MCHC 32.4 31.0 - 36.0 g/dL [facility] Comment:{MCHC {[id number]) RDW 12.8 11.0 - 15.0 % [facility] Comment:{RDW {[id number]) PLT 233 140 - 400 Thousand/u L [facility] Comment:{PLATELET COUNT {[id number]) MPV 8.8 7.5 - 11.5 fL [facility] Comment:{MPV {[id number]) Neutrophils # 2799 1800 - 8000 cells/uL [facility] Comment:{ABSOLUTE NEUTROPHIL S {[id number]) Lymphocytes # 2183 1200 - 5200 cells/uL [facility] Comment:{ABSOLUTE LYMPHOCYTE S {[id number]) Monocytes # 439 200 - 900 cells/uL [facility] Comment:{ABSOLUTE MONOCYTES {[id number]) Eosinophils # 228 15 - 500 cells/uL [facility] Comment:{ABSOLUTE EOSINOPHIL S {[id number]) Basophils # 51 0 - 200 cells/uL [facility] Comment:{ABSOLUTE BASOPHILS {[id number]) Neutrophils % 49.1 % [facility] Comment:{NEUTROPHILS {[id number]) Lymphocytes % 38.3 % [facility] Comment:{LYMPHOCYTES {[id number]) Monocytes % 7.7 % [facility] Comment:{MONOCYTES {[id number]) Eosinophils % 4.0 % [facility] Comment:{EOSINOPHILS {[id number]) Basophils % 0.9 % [facility] Comment:{BASOPHILS {[id number]) 04/30/2015 8:51 AM EST 04/30/2015 2:43 PM EST Narrative Resulting Agency Comment [id number] us Diana Gutierres MD LAB SAME DAY RESULT Final Resu lt [facility] [address] [place] [address] * (ABNORMAL) LIPID PANEL WITH REFLEX TO DIRECT LDL (04/30/2015 8:51 AM EST) Cholesterol 192(H) 125 - 170 mg/dL [facility] Comment:{CHOLESTEROL, TOTAL {[id number]) HDL Cholesterol 53 36 - 76 mg/dL [facility] Comment:{HDL CHOLESTEROL {[id number]) Triglyceride 127 40 - 136 mg/dL [facility] Comment:{TRIGLYCERIDES {[id number]) LDL Cholesterol 114(H) <110 mg/dL (calc) [facility] Comment: {LDL-CHOLESTEROL {[id number]) Desirable range <100 mg/dL for patients with CHD or diabetes and <70 mg/dL for diabetic patients with known heart disease. CHOL/HDL Ratio 3.6 < OR = 5.0 (calc) [facility] Comment:{CHOL/HDLC RATIO {[id number]) Cholesterol Non-HDL 139(H) <120 mg/dL (calc) [facility] Comment:{NON HDL CHOLESTEROL {[id number]) 04/30/2015 8:51 AM EST 04/30/2015 2:43 PM EST Narrative Resulting Agency Comment [id number] Diana Gutierres MD LABORATORY Final Result [facility] [address] [place] [address] documented in this encounter Visit Diagnoses Diagnosis Routine history and physical examination of adult Routine general medical examination at a health care facility documented in this encounter Additional Health Concerns Infection Onset Date Last Indicated Resolved Time COVID-19 Rule-Out 06/06/2020 06/06/2020 06/07/2020 11:13 AM EST documented as of this encounter Care Teams Contact Center Representative Relationship Specialty Start Date End Date Diana Gutierres MD [address] [place] [address] PCP - General Pediatrics 02/03/15 07/30/17 Marc Quesada MD [address] [place] [address] PCP - General 07/31/17 01/31/22 documented as of this encounter
--- OUTSIDE RECORDS SUMMARY | 2024-09-03 17:39 | XMS_ITS | Encounter Summary ---
Author Organization [facility] Address [address] [place] [address] Care Team Providers Care Engravings Polisher Name Role Phone Андрей Brandt MD Primary Care Provider [phone] Diana Gutierres MD Primary Care Provider [phone] Marc Quesada MD Primary Care Provider Unavaila ble Encounter Details Date Type Department Care Team (Late st Contact Info) Description 07/18/2013 Orders Only [facility] [address] [place] [phone] Андрей Brandt MD [address] [place] [address] Social History Tobacco Use Types Packs/Day Years [...] of this encounter Procedures * Due to [place] state law, this organization might not be sharing negative HIV tests. Procedure Name Priority Date/Time Associated Diagnosis Comments SHELL FISH ALLERGY PANEL (WITH SCALLOP) Routine 07/18/2013 2:45 PM EDT Food allergy documented in this encounter Results * Due to [place] state law, this organization might not be sharing negative HIV tests. * (ABNORMAL) SHELL FISH ALLERGY PANEL (WITH SCALLOP) (07/18/2013 2:45 PM EDT) Scallop (F338) IgE <0.35 kU/L [facility] Comment:{SCALLOP (F338) IGE {[id number]) Scallop (F338) Class 0 [facility] Comment:{CLASS {[id number]) Crab (F23) IgE <0.35 kU/L [facility] Comment:{CRAB (F23) IGE {[id number]) Crab (F23) Class 0 [facility] Comment:{CLASS {[id number]) Shrimp (F24) IgE 0.53(H) kU/L [facility] Comment:{SHRIMP (F24) IGE {[id number]) Shrimp (F24) Class 1 [facility] Comment:{CLASS {[id number]) Blue Mussel (F37) IgE <0.35 kU/L [facility] Comment:{BLUE MUSSEL (F37) I GE {[id number]) Blue Mussel (F37) Class 0 [facility] Comment:{CLASS {[id number]) Lobster (F80) IgE <0.35 kU/L [facility] Comment:{LOBSTER (F80) IGE { [id number]) Lobster (F80) Class 0 [facility] Comment:{CLASS {[id number]) Clam (F207) IgE <0.35 kU/L [facility] Comment:{CLAM (F207) IGE {[id number]) Clam (F207) Class 0 [facility] Comment:{CLASS {[id number]) Oyster (F290) IgE <0.35 kU/L [facility] Comment:{OYSTER (F290) IGE { [id number]) Oyster (F290) Class 0 [facility] Comment:{CLASS {[id number]) 07/18/2013 2:45 PM EDT 07/18/2013 9:21 PM EDT Андрей Brandt MD LABORATORY Final Result [facility] [address] [place] [address] documented in this encounter Visit Diagnoses Diagnosis Food allergy Other adverse food reactions, not elsewhere classified documented in this encounter Additional Health Concerns Infection Onset Date Last Indicated Resolved Time COVID-19 Rule-Out 06/06/2020 06/06/2020 06/07/2020 11:13 AM EST documented as of this encounter Care Teams Engravings Polisher Relationship Specialty Start Date End Date Андрей Brandt MD [address] [place] [address] PCP - General 12/14/10 02/02/15 Diana Gutierres MD [address] [place] [address] PCP - General Pediatrics 02/03/15 07/30/17 Marc Quesada MD [address] [place] [address] PCP - General 07/31/17 01/31/22 documented as of this encounter
--- OUTSIDE RECORDS SUMMARY | 2024-09-03 17:39 | XMS_ITS | Encounter Summary ---
Author Organization [facility] Address [address] [place] [address] Care Team Providers Care Wharf Attendant Name Role Phone Андрей Brandt MD Primary Care Provider [phone] Diana Gutierres MD Primary Care Provider [phone] Marc Quesada MD Primary Care Provider Unavaila ble Encounter Details Date Type Department Care Team (Late st Contact Info) Description 01/12/2012 Orders Only [facility] [address] [place] [phone] Андрей Brandt MD [address] [place] [address] Social History Tobacco Use Types Packs/Day Years [...] 1:12 PM EDTQuick Note: Left message on [employer].. Will send letter. documented in this encounter Plan of Treatment Not on file documented as of this encounter Procedures * Due to [place] [employer] law, this organization might not be sharing negative HIV tests. Procedure Name Priority Date/Time Associated Diagnosis Comments NUT ALLERGY PANEL Routine 01/12/2012 2:3 7 PM EDT Food allergy CBC (H/H, RBC, INDICES,WBC, PLT) Routine 01/12/2012 2:37 PM EDT Screening for other and unspecified deficiency anemia documented in this encounter Results * Due to [place] [employer] law, this organization might not be sharing negative HIV tests. * (ABNORMAL) NUT ALLERGY PANEL (01/12/2012 2:37 PM EDT) Cashew Nut (F202) IgE 2.88(H) kU/L [facility] Comment:{CASHEW NUT (F202) I GE {[id number]) Cashew Nut (F202) Class 2 [facility] Comment: {CLASS {[id number]) Specific ?Level of Allergen IGE Class ?kU/L [...] developed and its performance characteristics determined by [facility]. It has not been cleared or approved by the U.S. Food and Drug Administration. The FDA has determined that such clearance is not necessary. Performance characteristics refer to the analytical performance of the test. Sesame Seed (F10) IgE 0.42(H) kU/L [facility] Comment:{SESAME SEED (F10) I GE {[id number]) Sesame Seed (F10) Class 1 [facility] Comment:{CLASS {[id number]) Peanut (F13) IgE 17.50(H) kU/L [facility] Comment:{PEANUT (F13) IGE {[id number]) Peanut (F13) Class 4 [facility] Comment:{CLASS {[id number]) Hazelnut (F17) IgE 0.62(H) kU/L [facility] Comment:{HAZELNUT (F17) IGE {[id number]) Hazelnut (F17) Class 1 [facility] Comment:{CLASS {[id number]) Orient (F20) IgE 0.75(H) kU/L [facility] Comment:{ALMOND (F20) IGE {[id number]) Orient (F20) Class 2 [facility] Comment:{CLASS {[id number]) Coconut (F36) IgE <0.35 kU/L [facility] Comment:{COCONUT (F36) IGE { [id number]) Coconut (F36) Class 0 [facility] Comment:{CLASS {[id number]) Pecan Nut (F201) IgE <0.35 kU/L [facility] Comment:{PECAN NUT (F201) IG E {[id number]) Pecan Nut (F201) Class 0 [facility] Comment:{CLASS {[id number]) [place] (F256) IgE <0.35 kU/L [facility] Comment:{W[place]UT (F256) IGE { [id number]) [place] (F256) Class 0 [facility] Comment:{CLASS {[id number]) 01/12/2012 2:37 PM EDT 01/12/2012 10:03 PM EDT Narrative Resulting Agency Comment [id number] us Андрей Brandt MD LABORATORY Final Result [facility] [address] [place] [address] * CBC (H/H, RBC, INDICES,WBC, PLT) (01/12/2012 2:37 PM EDT) WBC 6.8 4.5 - 13.0 Thousand/u L [facility] Comment:{WHITE BLOOD CELL CO UNT {[id number]) RBC 4.20 3.80 - 5.10 Million/uL [facility] Comment:{RED BLOOD CELL COUN T {[id number]) Hemoglobin 12.8 11.5 - 15.3 g/dL [facility] Comment:{HEMOGLOBIN {[id number]) Hematocrit 37.6 34.0 - 46.0 % [facility] Comment:{HEMATOCRIT {[id number]) MCV 89.6 78.0 - 98.0 fL [facility] Comment:{MCV {[id number]) MCH 30.4 25.0 - 35.0 pg [facility] Comment:{MCH {[id number]) MCHC 33.9 31.0 - 36.0 g/dL [facility] Comment:{MCHC {[id number]) RDW 13.1 11.0 - 15.0 % [facility] Comment:{RDW {[id number]) PLT 279 140 - 400 Thousand/u L [facility] Comment:{PLATELET COUNT {[id number]) 01/12/2012 2:37 PM EDT 01/12/2012 10:03 PM EDT Narrative Resulting Agency Comment [id number] us Андрей Brandt MD LAB SAME DAY RESULT Final Res ult [facility] [address] [place] [address] documented in this encounter Visit Diagnoses Diagnosis Screening for other and unspecified deficiency anemia Food allergy Other adverse food reactions, not elsewhere classified documented in this encounter Additional Health Concerns Infection Onset Date Last Indicated Resolved Time COVID-19 Rule-Out 06/06/2020 06/06/2020 06/07/2020 11:13 AM EST documented as of this encounter Care Teams Wharf Attendant Relationship Specialty Start Date End Date Андрей Brandt MD [address] [place] [address] PCP - General 12/14/10 02/02/15 Diana Gutierres MD [address] [place] [address] PCP - General Pediatrics 02/03/15 07/30/17 Marc Quesada MD [address] [place] [address] PCP - General 07/31/17 01/31/22 documented as of this encounter
--- OUTSIDE RECORDS SUMMARY | 2024-09-03 17:39 | XMS_ITS | Encounter Summary ---
Author Organization [facility] Address [address] [place] [address] Care Team Providers Care Radial Drill Press Operator Name Role Phone Diana Gutierres MD Primary Care Provider Marc Quesada MD Primary Care Provider Unavaila ble Encounter Details Date Type Department Care Team (Late st Contact Info) Description 04/03/2015 Orders Only [facility] [address] [place] [phone] Diana Gutierres MD [address] [place] [address] Social History Tobacco Use Types Packs/Day Years [...] this encounter Procedures * Due to [place] law, this organization might not be sharing [...] [facility] Comment:{CHLAMYDIA TRACHOMAT IS RNA, TMA {[id number]) Neisseria Gonorrhoeae rRNA NOT DETECTED NOT DETECTED [facility] Comment:{NEISSERIA GONORRHOE AE RNA, TMA {[id number]) COMMENT SEE NOTE [facility] Comment: {COMMENT {[id number]) This test was performed using the APTIMA COMBO2 Assay ([employer] The analytical performance characteristics of this assay, when used to test SurePath specimens have been determined by [facility]. 04/03/2015 8:34 PM EST 04/04/2015 12:52 AM EST Narrative Resulting Agency Comment [id number] us Diana Gutierres MD LABORATORY Final Result Performing Organization Address City/State/[facility] Co de Phone Number [facility] [address] [place] [address] documented in this encounter Visit Diagnoses Diagnosis Routine history and physical examination of adult Routine general medical examination at a health care facility documented in this encounter Additional Health Concerns Infection Onset Date Last Indicated Resolved Time COVID-19 Rule-Out 06/06/2020 06/06/2020 06/07/2020 11:13 AM EST documented as of this encounter Care Teams Radial Drill Press Operator Relationship Specialty Start Date End Date Diana Gutierres MD [address] [place] [address] PCP - General Pediatrics 02/03/15 07/30/17 Marc Quesada MD [address] [place] [address] PCP - General 07/31/17 01/31/22 documented as of this encounter
--- OUTSIDE RECORDS SUMMARY | 2024-09-03 17:40 | XMS_ITS | Clinical Summary ---
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 [facility] Cytology study comment (Cvx/Vag) This Pap test has been evaluated with computer assisted technology. [facility] Regulator Pin Inserter (Cvx/Vag) MSM, CT(ASCP) CT screening location: [place] [address] [facility] [employer] [facility] COMMENT SEE NOTE [facility] Comment: EXPLANATORY NOTE: The Pap is a [...] Chlamydia trachomatis rRNA NOT DETECTED NOT DETECTED [facility] Neisseria Gonorrhoeae rRNA NOT DETECTED NOT DETECTED [facility] COMMENT SEE NOTE [facility] Comment: The analytical performance characteristics of this assay, when used to test SurePath(TM) specimens have been determined by [facility]. The modifications have not been cleared or approved by the FDA. This assay has been validated pursuant to the CLIA regulations and is used for clinical purposes. For additional information, please refer to https://education.[employer]/faq/DAS272 (This link is being provided for information/ educational purposes only.) Cervical 07/15/2020 5:15 PM EDT 07/16/2020 6:41 AM EDT Narrative Resulting Agency Comment [id number] us Marc Quesada MD PATHOLOGY-INTERFACED Final Resu lt [facility] [address] [place] [address] * ELECTROCARDIOGRAM, TRACING (09/12/2017) Narrative 09/12/2017 Ordered by an unspecified provider. Procedure Note Manish, Valente Provider - 09/12/2017 11:17 [place] [address] CARDIOVASCULAR SERVICES -- ELECTROCARDIOGRAM REPORT Patient's name: MARION MOSLEY UNIT#: [id number] : 97 DOS: 09/11/17 LOC: ER Test [...] By:Surendra Styles MD Acquiring Tech: MIKALA ORD#: [id number] OE: TOM RPT#: [id number] D/ MUSE CC: us Unknown Provider [place] CARDIOVASCULAR-NO INBAS KET RTG Final Result * (ABNORMAL) LIPID PANEL WITH REFLEX TO DIRECT LDL (04/30/2015 8:51 AM EST) Cholesterol 192(H) 125 - 170 mg/dL [facility] Comment:{CHOLESTEROL, TOTAL {[id number]) HDL Cholesterol 53 36 - 76 mg/dL [facility] Comment:{HDL CHOLESTEROL {[id number]) Triglyceride 127 40 - 136 mg/dL [facility] Comment:{TRIGLYCERIDES {[id number]) LDL Cholesterol 114(H) <110 mg/dL (calc) [facility] Comment: {LDL-CHOLESTEROL {[id number]) Desirable range <100 mg/dL for patients with CHD or diabetes and <70 mg/dL for diabetic patients with known heart disease. CHOL/HDL Ratio 3.6 < OR = 5.0 (calc) [facility] Comment:{CHOL/HDLC RATIO {[id number]) Cholesterol Non-HDL 139(H) <120 mg/dL (calc) [facility] Comment:{NON HDL CHOLESTEROL {[id number]) 04/30/2015 8:51 AM EST 04/30/2015 2:43 PM EST Narrative Resulting Agency Comment [id number] us Diana Gutierres MD LABORATORY Final Result [facility] [address] [place] [address] from Last 3 Months or Most Recently Relevant to Health Maintenance
--- OUTSIDE RECORDS SUMMARY | 2024-09-03 17:40 | XMS_ITS | Encounter Summary ---
Author Organization [facility] Address [address] [place] [address] Care Team Providers Care Speech Language Pathologist Travel Name Role Phone Marc Quesada MD Primary Care Provider Unavaila ble Encounter Details Date Type Department Care Team ([facility] st Contact Info) Description 01/13/2018 Orders Only [facility] [address] [place] [address] Marc Quesada MD Social History Tobacco Use [...] this encounter Procedures * Due to [place] [employer] law, this organization might not be sharing negative HIV tests. Procedure Name Priority Date/Time Associated Diagnosis Comments CBC INCLUDES DIFFERENTIAL AND PLATELET COUNT Routine 01/13/2018 4:22 PM EDT History of mononucleosis HEPATIC FUNCTION PANEL (ALT,AST,ALK PH,BILI'S,TP,ALB) Routine 01/13/2018 4:22 PM EDT Elevated liver enzymes documented in this encounter Results * Due to [place] [employer] law, this organization might not be sharing [...] 11:58 PM EDT Narrative Resulting Agency Comment [id number] us Marc Quesada MD LABORATORY Final Result Performing Organization Address City/State/[facility] Co de Phone Number [facility] [address] [place] [address] * CBC INCLUDES DIFFERENTIAL AND PLATELET COUNT [...] 11:58 PM EDT Narrative Resulting Agency Comment [id number] us Marc Quesada MD LAB SAME DAY RESULT Final Resul t Performing Organization Address City/State/[facility] Co de Phone Number [facility] [address] [place] [address] documented in this encounter Visit Diagnoses Diagnosis History of mononucleosis Personal history of other infectious and parasitic disease Elevated liver enzymes Nonspecific elevation of levels of transaminase or lactic acid dehydrogenase (LDH) documented in this encounter Additional Health Concerns Infection Onset Date Last Indicated Resolved Time COVID-19 Rule-Out 06/06/2020 06/06/2020 06/07/2020 11:13 AM EST documented as of this encounter Care Teams Speech Language Pathologist Travel Relationship Specialty Start Date End Date Marc Quesada MD PCP - General 07/31/17 01/31/22 documented as of this encounter
== END 2024-09-03 16:23 | disposition home or self-care (01) ==
LOC: HO.HMCFM 16:22
PROVIDERS: PCP Nurse Practitioner Family; Visit Provider Nurse Practitioner Family
DX: E78.5 Hyperlipidemia, unspecified (principal)

== ENCOUNTER → 2024-09-03 16:22 | Outpatient (BNVA) | payer OTHER, SELFPAY | PROVIDERS: PCP Nurse Practitioner Family; Visit Provider Nurse Practitioner Family | DX: E78.5 Hyperlipidemia, unspecified (principal); F41.9 Anxiety disorder, unspecified; F32.A Depression, unspecified; Z79.899 Other long term (current) drug therapy | CPT/HCPCS: 98967 ==

== ENCOUNTER 2024-11-29 10:06 | Outpatient (REF) | payer OTHER, SELFPAY ==
--- OUTSIDE RECORDS SUMMARY | 2024-11-29 10:49 | XMS_ITS | Encounter Summary ---
Author Organization [facility] Address [address] [place] [address] Care Team Providers Care Hogshead Filler Name Role Phone Marc Quesada MD Primary Care Provider Unavaila ble Reason for Visit * Reason Comments E-prescribing Refill Request Encounter Details Date Type Department Care Team (Late st Contact Info) Description 06/22/2020 Refill [facility] [address] [place] [phone] Marc Quesada MD E-prescribing Refill Request Social [...] on filedocumented in this encounter Care Teams Hogshead Filler Relationship Specialty Start Date End Date Marc Quesada MD PCP - General 07/31/17 01/31/22 documented as of this encounter
--- OUTSIDE RECORDS SUMMARY | 2024-11-29 10:49 | XMS_ITS | Clinical Summary ---
Author Organization [facility] Address [address] [place] [address] Phone Care Team Providers Care Tube Room Supervisor Name Role Phone Elisha Saunders MORTGAGE CLOSING CLERK Primary Care Provider Tracy vailable Allergies Active Allergy Reactions Criticality Noted Date Comments Amoxicillin 03/07/2024 Penicillins 03/07/2024 Medications FLUoxetine (PROZAC) 40 MG capsule Take 40 mg by mouth daily. 12/31/2023 Active AUROVELA 1/20, 21, 1-20 mg-mcg per tablet 03/04/2024 Active Social History Tobacco Use Types Packs/Day Years Used Date Smoking Tobacco: Never Smokeless Tobacco: Never Education Answer Date Recorded Are you interested in more education? Not on yvette e 03/07/2024 Are you concerned about learning? Not on file 03/07/2024 No 03/07/2024 No 03/07/2024 Digital Access Answer Date Recorded No 03/07/2024 No 03/07/2024 Reliable internet access at home? Not on file 03/07/2024 Device with a working camera? Not on file Comments Unknown Sex and Gender Information Value Date Recorded Sex Assigned at Female 03/07/2024 8:47 AM EST Legal Sex Female 6:34 AM EST Gender Identity Female 03/07/2024 8:47 AM EST Sexual Orientation Straight 03/07/2024 8: 47 AM EST Last Filed Vital Signs Vital Sign Reading Time Taken Comments Blood Pressure 120/79 03/07/2024 1:01 PM EST Pulse 78 03/07/2024 1:01 PM EST Temperature 37 C (98.6 F) 03/07/2024 1:01 PM EST Respiratory Rate 18 03/07/2024 1:01 PM EST Oxygen Saturation 100% 03/07/2024 1:01 PM EST Inhaled Oxygen Concentration - - Weight - - Height - - Body Mass Index - - Plan of Treatment Health Maintenance Due Date Last Done Comments DEPRESSION SCREENING 2009 HEPATITIS C SCREENING 2015 HIV ONE-TIME SCREENING (18-6 5 YEARS) 2015 PAP SMEAR 2018 COVID-19 VACCINE (2023-2 5 season) 2024 Adult Td,Tdap Booster 09/10/2031 09/09/2021 , 12/16/2009 MENINGOCOCCAL VACCINES (ACWY) Completed , 12/16/2009 SMOKING STATUS SCREENING (On ce After 26 Yrs) Completed 03/07/2024 HEPATITIS A VACCINES Aged Out No long er eligible based on patient's age to complete this topic HIB VACCINES Aged Out No longer eligi ble based on patient's age to complete this topic MENINGOCOCCAL VACCINES (B) Aged Out N o longer eligible based on patient's age to complete this topic PNEUMOCOCCAL VACCINES (0-49 years) Aged Out No longer eligible b ased on patient's age to complete this topic Medical Devices Not on file Insurance [employer] BENEFITS ADMINISTRATORS [employer] BENEFITS ADMINISTRATORS [email or web address] BENEFITS ADMINISTRAT[email or web address] Care Teams Tube Room Supervisor Relationship Specialty Start Date End Date Elisha Saunders NP PCP - General Nurse Practitioner 03/07/24 Additional Source Comments The information contained in this document represents components of the legal health record. It is not the complete legal health record.[facility]
[2024-11-29 14:35] LABS: Cholesterol 221 mg/dL (<200); HDL Cholesterol 58 mg/dL (>40); Triglycerides 186 mg/dL (<150)
== END 2024-11-29 10:07 | disposition home or self-care (01) ==
LOC: HO.WFDLDS 10:06
PROVIDERS: Visit Provider Nurse Practitioner Family
DX: E78.5 Hyperlipidemia, unspecified (principal)
CPT/HCPCS: 36415; 80061

== ENCOUNTER 2024-12-03 08:13 | Outpatient (AMB) | payer BC, SELFPAY ==
--- NOTE | 2024-12-03 08:18 | A.OFFPC_ITS ---
Vital Signs 12/03/24 08:24 Height 5 ft 5 in Weight 229 lb 6 oz BMI 38.2 BP 120/70 Blood Pressure Location Lt brachial Position Sitting Respiration 14 Pulse 70 Pulse Source Pulse Oximeter Temp 97.3 F Temp Source Temporal Artery Scan Pulse Oximetry (%) 98 Oxygen Delivery Method Room Air Intake Visit Reasons: 3 mos HLD, anxiety, depression Intake Note: Radha presents in the office today for a 3 month follow up. Labs are done. Allergies amoxicillin Allergy (Severe, Verified 12/03/24 08:30) Anaphylaxis Penicillins Allergy (Severe, Verified 12/03/24 08:30) Anaphylaxis Medication List - Last Reconciled 12/03/24 by Elisha Saunders CNP fluoxetine 20 mg PO DAILY fluoxetine 10 mg PO DAILY loratadine (Allergy Relief (loratadine)) 10 mg PO DAILY multivitamin with iron 1 tab PO DAILY norethindrone ac-eth estradiol 1-20 mg-mcg (Junel) 1 tab PO DAILY omeprazole 20 mg PO DAILY 30 days vitamin B complex 1 cap PO DAILY Tobacco use date assessed: 12/03/24 Dental Screening Dental Screen Date: 12/03/24 Did you have a dental visit in the last 12 months?: Yes Did you have a dental problem in the last 6 months where you did not have access to dental care?: No Was dental information given to patient?: Patient has dentist HPI HPI Comments History of Present Illness Details 29-year-old female presents for hyperlip idemia, anxiety, and depression follow-up. She admits to taking her medications as prescribed without adverse reactions. Reports controlled anxiety and depressive symptoms. She notes she generally makes healthy lifestyle changes. However, she was on vacation the past few weeks and did not make healthy dietary choices; she also drank more alcohol. She walks with her dog daily. She offers no complaints and denies acute symptoms at this time. [facility] Medical History Depression Anxiety Acid reflux IBS (irritable bowel syndrome) High cholesterol Asthma Family History Maternal Grandmother Alcohol abuse Substance abuse FH: mental illness Cardiovascular disease Maternal Uncle Substance abuse FH: mental illness Mother FH: mental illness Father FH: mental illness High blood pressure Paternal Grandfather High blood pressure High cholesterol Social History (Updated 12/03/24 @ 08:22 by Pastora Gongora MA) Housing: House Alcohol intake: current Patient Tobacco Use Status: Never used Tobacco e-Cigarette/Vaping Use: Never Used Second Hand Smoke Exposure: Yes Substance Use Type: Marijuana service: No Current occupational status: employed 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 1. Little interest or pleasure in doing things: several days 2. Feeling down, depressed, or hopeless: several days 3. Trouble falling or staying asleep, or sleeping too much: more than half the days 4. Feeling tired or having little energy: several days 5. Poor appetite or overeating: not at all 6. Feeling bad about yourself - or that you are a failure or have let yourself or your family down: not at all 7. Trouble concentrating on things, such as reading the newspaper or watching television: several days 8. Moving or speaking so slowly that other people could have noticed. Or the opposite - being so fidgety or restless that you have been moving around a lot more than usual: not at all 9. Thoughts that you would be better off or of hurting yourself in some way: not at all Total score: 6 Depression Screening Interpretation: Positive Depression Screening Follow-up: Existing condition and In treatment Depression Screening Done: Yes 55580 - PHQ-9 Billing: Yes Source: Developed by Drs. Андрей Lawrence, Ny Alcocer, Eliseo Cook and colleagues, with an educational tolu from [employer]. Thrive Questionnaire Date Thrive assessed: 12/03/24 I am a: Patient What is your living situation today?: I have a steady place to live Within the past 12 months, did the food you bought not last and you didn't have the money to get more?: Never true Within the past 12 months, did you worry whether your food would run out before you got money to buy more?: Never true Do you have trouble paying for medicines?: No Do you have trouble getting transportation to medical appointments?: No Do you have trouble paying your heating and electricity bill?: No Do you have trouble taking care of your child, family member or friend?: No Do you have trouble with day-to-day activities such as bathing, preparing meals, shopping, managing finances, etc.?: No Are you currently unemployed and looking for a job?: No Are you interested in more education?: No Please select the resources that you would like help with: None Currently or been in a relationship where the following occur: No concerns reported THRIVE Score: 0 AUDIT C Alcohol Use Questionnaire (AUDIT-C) 1. How often do you have a drink containing alcohol?: 2-4 times a month 2. How many drinks containing alcohol do you have on a typical day when you are drinking?: 3 or 4 3. How often do you have six or more drinks on one occasion?: Less than monthly Total Score: 4 GIAN-7 AMB Questionnaire GIAN-7 Date GIAN - 7 assessed: 06/19/24 Feeling nervous, anxious, or on edge: 2 = More than half the days Not being able to stop or control worryin = More than half the days Worrying too much about different things: 1 = Several days Trouble relaxin = Several days Being so restless that it is hard to sit still: 2 = More than half the days Becoming easily annoyed or irritable: 2 = More than half the days Feeling afraid as if something awful might happen: 0 = Not at all Total GIAN-7 score (0-4 normal; 5-9 mild; 10-14 moderate; 15-21 severe): 10 Source: Developed by Drs. Андрей Lawrence, Ny Alcocer, Eliseo Cook and colleagues, with an educational tolu from [employer]. GIAN-7 Assessment Billing GIAN-7 Assessment Tool: GIAN-7 Assessment 89962 Review of Systems Const Details: Const Denies chills, Denies fatigue, Denies fever(s), Denies headache(s) and Denies weakness ENT Denies dizziness and Denies headache(s) Card Denies chest pain, Denies lightheadedness, Denies dyspnea and Denies other (Palpitations) Resp Denies cough, Denies dyspnea, Denies wheezing and Denies other ( shortness of breath) GI Denies abdominal pain, Denies melena, Denies hematochezia, Denies change in bowel habits, Denies dyspepsia and Denies nausea Denies hematuria and Denies dysuria Musc Denies abnormal gait, Denies myalgias, Denies arthralgias, Denies numbness and Denies tingling Skin/Breast Denies rash, Denies unusual bruising and Denies wounds Neuro Denies abnormal gait, Denies dizziness, Denies headache(s), Denies memory loss, Denies numbness, Denies Sensory deficit (Neuro), Denies tingling and Denies weakness Psych Denies anxiety, Denies depression, Denies memory loss Endo Denies cold intolerance, Denies fatigue, Denies heat intolerance, Denies polydipsia and Denies polyuria Aller/Immun Denies wheezing Physical exam (Primary Care) Tobacco/Smoking Status: Tobacco use Status Tobacco use date assessed 09/03/24 12/03/24 08:19 Patient Tobacco Use Status Never used Tobacco 12/03/24 08:22 e-Cigarette/Vaping Use Never Used 12/03/24 08:22 Depression Screening Interpretation: Positive Depression Screening Follow-up: Existing condition and In treatment Thrive Assessment: Date of Thrive Assessment Date Thrive assessed 05/08/24 12/03/24 08:19 Currently or been in a relationship where the following occur: No concerns reported Const Other: General: no acute distress and well developed Nutritional Appearance: well nourished Orientation/consciousness: patient oriented x3 HENMT Head: Yes normocephalic and Yes atraumatic Eyes General: appearance normal, both eyes and all related structures Pupils: Equal, round and reactive pupils present EOM: EOMs intact bilaterally Resp Effort & Inspection: normal respiratory effort Auscultation: clear to auscultation bilaterally Cardio Rate: regular rate Rhythm: regular rhythm Heart sounds: S1 normal heart sound present, S2 normal heart sound present, no gallops, no murmurs and no rubs GI Palpation (GI): No Abdominal aortic bruit present, Soft to palpation, nontender, No hepatosplenomegaly present and No Rebound tenderness present Auscultation: normal bowel sounds General: Yes no CVA tenderness Back/Spine/Pelvis Back: no CVA tenderness Cervical Spine: cervical ROM normal and No Cervical spine tenderness Thoracic/Lumbar Spine: thoraco-lumbar ROM normal, No pain with thoraco-lumbar ROM, No thoracic spinal tenderness and No lumbar spinal tenderness Extrem General: Yes normal to inspection, No edema and No calf tenderness Skin General: warm and dry. Normal skin color. Normal skin turgor Neuro General: patient oriented x3, gait normal and no focal neuro deficit Cranial nerves: Yes Equal, round and reactive pupils present Cognition (Neuro): normal cognition Gait exam (Neuro): Normal gait present Sensory Exam: No Sensory deficit (Neuro) Psych Appearance: grossly normal Affect: normal affect Attitude: cooperative Thought process: Normal thought process present Coding Level of Care Code Est Pt Level 3 (30628) Diagnoses Hyperlipidemia E78.5 Anxiety F41.9 Depression F32.A Additional Codes GIAN-7 Assessment Billing - GIAN-7 Assessment Tool: GIAN-7 Assessment 73510 ([id number]) PHQ-9 - 37934 - PHQ-9 Billing: Yes ([id number]) Assessment & Plan Assessment & Plan (1) Hyperlipidemia: Code(s): E78.5 - Hyperlipidemia, unspecified Category: Medical Plan: Recent triglycerides, total cholesterol, and LDL levels are elevated, 186, 221, and 126 respectively; previous levels were 242, 193, and 94 respectively. She plans to make healthy dietary choices and exercise routinely. Advised to limit foods high in saturated fat and avoid foods high in trans fat. Routine exercise encouraged. Fast for 10-12 hours however may drink water, I performed lipid panel blood work 2-3 days before next visit. Follow-up in 3 months or sooner with symptoms or concerns. Verbalized understanding and agreed with the plan. (2) Anxiety: Code(s): F41.9 - Anxiety disorder, unspecified Category: Medical Plan: Reports controlled anxiety and depressive symptoms. GIAN-7 in PHQ-9 scores revealed moderate anxiety and mild depression respectively. Continue current treatment regimen. Routine exercise encouraged. Follow-up in 3 months. Verbalized understanding and agreed with the plan. (3) Depression: Code(s): F32.A - Depression, unspecified Category: Medical Plan: Plan as above. Orders: Orders Lipid Panel 3 Months E78.5 - Hyperlipidemia, unspecified
--- OUTSIDE RECORDS SUMMARY | 2024-12-03 08:21 | XMS_ITS | Encounter Summary ---
Author Organization [facility] Address [address] [place] [address] Care Team Providers Care Ice Cream Machine Operator Name Role Phone Marc Quesada MD Primary Care Provider Unavaila ble Reason for Visit * Reason Comments E-prescribing Refill Request Encounter Details Date Type Department Care Team (Late st Contact Info) Description 06/22/2020 Refill [facility] [address] [place] [address] Marc Quesada MD E-prescribing Refill Request Social [...] on filedocumented in this encounter Care Teams Ice Cream Machine Operator Relationship Specialty Start Date End Date Marc Quesada MD PCP - General 07/31/17 01/31/22 documented as of this encounter
--- OUTSIDE RECORDS SUMMARY | 2024-12-03 08:21 | XMS_ITS | Clinical Summary ---
Author Organization [facility] Address [address] [place] [address] Phone Care Team Providers Care Incising Machine Operator Name Role Phone Elisha Saunders CRAB FISHER Primary Care Provider Tracy vailable Allergies Active [...] topic Medical Devices Not on file Insurance [employer]EFITS ADMINISTRATORS [employer] BENEFITS ADMINISTRAT[employer] ADMINISTRAT[employer]ARTH[employer] BENEFITS ADMINISTRATORS [employer]EF[employer] ADMINISTRAT[employer]MINISTRAT[employer] Care Teams Incising Machine Operator Relationship Specialty Start Date End Date Elisha Saunders NP PCP - General Nurse Practitioner 03/07/24 Additional Source Comments The information contained in this document represents components of the legal health record. It is not the complete legal health record.[facility]
[2024-12-03 08:24] VITALS: BP 120/70; PULSE 70; RESP 14; TEMP 36.3; O2SAT 98; BMI 38.2
== END 2024-12-03 08:38 | disposition home or self-care (01) ==
LOC: HO.HMCFM 08:14
PROVIDERS: PCP Nurse Practitioner Family; Visit Provider Nurse Practitioner Family
DX: E78.5 Hyperlipidemia, unspecified (principal); F41.9 Anxiety disorder, unspecified; F32.A Depression, unspecified

== ENCOUNTER → 2024-12-03 08:13 | Outpatient (BNVA) | payer BC, SELFPAY | PROVIDERS: PCP Nurse Practitioner Family; Visit Provider Nurse Practitioner Family | DX: E78.5 Hyperlipidemia, unspecified (principal); F41.9 Anxiety disorder, unspecified; F32.A Depression, unspecified; Z13.31 Encounter for screening for depression | CPT/HCPCS: 96127 ==

== ENCOUNTER 2024-12-18 15:02 | Outpatient (REF) | payer OTHER, SELFPAY ==
--- OUTSIDE RECORDS SUMMARY | 2024-12-18 17:42 | XMS_ITS | Encounter Summary ---
Author Organization [facility] Address [address] [place] [address] Care Team Providers Care Group President Name Role Phone Marc Quesada MD Primary Care Provider Unavaila ble Reason for Visit * Reason Comments E-prescribing Refill Request Encounter Details Date Type Department Care Team (Late st Contact Info) Description 06/22/2020 Refill [facility] [address] [place] [address] Marc Quesada MD E-prescribing Refill Request Social [...] on filedocumented in this encounter Care Teams Group President Relationship Specialty Start Date End Date Marc Quesada MD PCP - General 07/31/17 01/31/22 documented as of this encounter
--- OUTSIDE RECORDS SUMMARY | 2024-12-18 17:42 | XMS_ITS | Clinical Summary ---
Author Organization [facility] Address [address] [place] [address] Phone Care Team Providers Care Lamp Shades Supervisor Name Role Phone NickyClydecharlotte Valdez NP Primary Care Provider [phone] Allergies Active Allergy Reactions Criticality Noted Date [...] topic Medical Devices Not on file Insurance [facility] B[employer]EF[employer]MIN[employer] [address] [place] [address] [place] [address] [employer]MIN[employer] Care Teams Lamp Shades Supervisor Relationship Specialty Start Date End Date Elisha Saunders NP [address] [place] [address] PCP - General Nurse Practitioner 03/07/24 Additional Source Comments The information contained in this document represents components of the legal health record. It is not the complete legal health record.[facility]
== END 2024-12-18 15:03 | disposition home or self-care (01) ==
LOC: HO.LNP 15:02
PROVIDERS: Visit Provider Nurse Practitioner Family
DX: Z13.89 Encounter for screening for other disorder (principal)

== ENCOUNTER 2025-03-05 11:47 | Outpatient (REF) | payer OTHER, SELFPAY ==
--- OUTSIDE RECORDS SUMMARY | 2025-03-05 14:34 | XMS_ITS | Encounter Summary ---
Author Organization [facility] Address [address] [place] [address] Care Team Providers Care Consulting Hr Professional Name Role Phone Marc Quesada MD Primary Care Provider Unavaila ble Encounter Details Date Type Department Care Team ([facility] st Contact Info) Description 07/15/2020 Orders Only [facility] [address] [place] [address] Marc Quesada MD Social History Tobacco Use [...] PM EDT documented as of this encounter Functional Status * Over the last 2 weeks, how often have you been bothered by any of the following problems? Question Answer Date of Assessment Author Feeling nervous, anxious, or on edge 1 06/30 4:00 PM EDT Marc Quesada MD Not being able to stop or co ntrol worrying 1 07/15/2020 4:00 PM EDT Marc Quesada M D Worrying too much about diff erent things 2 07/15/2020 4:00 PM EDT Marc Quesada M D Trouble relaxing 2 07/15/2020 4:00 PM EDT Marc Jacobo MD Being so restless that it is hard to sit still 2 07/15/2020 4:00 PM EDT Marc Quesada M D Becoming easily annoyed or irritable 1 06/30 4:00 PM EDT Marc Quesada MD Feeling afraid as if somethi ng awful might happen 0 07/15/2020 4:00 PM EDT Marc Quesada M D GIAN-7 Total Score 9 07/15/2020 4:00 PM EDT Marc Quesada MD documented as of this encounter Miscellaneous Notes * Result Encounter Note - Matt Narayan MD - 07/15/2020 5:15 PM EDT Pap test and cultures are normal. documented in this encounter Plan of Treatment Not on file documented as of this encounter Procedures * Due to [place] [employer] law, this organization might not be sharing negative HIV tests. Procedure Name Priority Date/Time Associated Diagnosis Comments THINPREP TIS PAP REFLEX HPV MRNA E6/E7, CHLAMYDIA/N.GONORRH OEAE Routine 07/15/2020 5:15 PM EDT Screening for malignant neoplasm of cervix documented in this encounter Results * Due to [place] [employer] law, this organization might not be sharing [...] Smear Negative for intraepithelial lesion or malignancy. [facility] Cytology study comment (Cvx/Vag) This Pap test has been evaluated with computer assisted technology. [facility] Recycling Program Manager (Cvx/Vag) MSM, CT(ASCP) CT screening location: [place] [address] [facility] COMMENT SEE NOTE [facility] Comment: EXPLANATORY NOTE: The Pap is [...] NOT DETECTED [facility] COMMENT SEE NOTE [facility] Comment: The analytical performance characteristics of this assay, when used to test SurePath(TM) specimens have been determined by [facility]. The modifications have not been cleared or approved by the FDA. This assay has been validated pursuant to the CLIA regulations and is used for clinical purposes. For additional information, please refer to https://education.[employer]/faq/XKE394 (This link is being provided for information/ educational purposes only.) Cervical 07/15/2020 5:15 PM EDT 07/16/2020 6:41 AM EDT Narrative Resulting Agency Comment [id number] Marc Quesada MD PATHOLOGY-INTERFACED Final Resu lt [facility] [address] [place] [address] documented in this encounter Visit Diagnoses Diagnosis Screening for malignant neoplasm of cervix Screening for malignant neoplasm of the cervix documented in this encounter Care Teams Consulting Hr Professional Relationship Specialty Start Date End Date Marc Quesada MD PCP - General 07/31/17 01/31/22 documented as of this encounter
--- OUTSIDE RECORDS SUMMARY | 2025-03-05 14:34 | XMS_ITS | Encounter Summary ---
Author Organization [facility] Address [address] [place] [address] Care Team Providers Care Chair Mender Name Role Phone Diana Gutierres MD Primary Care Provider [phone] Marc Quesada MD Primary Care Provider Unavaila ble Reason for Visit * Reason Comments E-prescribing Refill Request Encounter Details Date Type Department Care Team (Late st Contact Info) Description 05/19/2016 Refill [facility] [address] [place] [address] Андрей Brandt MD [address] [place] [address] E-prescribing Refill Request Social History Tobacco Use [...] documented as of this encounter Care Teams Chair Mender Relationship Specialty Start Date End Date Diana Gutierres MD [address] [place] [address] PCP - General Pediatrics 02/03/15 07/30/17 Marc Quesada MD [address] [place] [address] PCP - General 07/31/17 01/31/22 documented as of this encounter
--- OUTSIDE RECORDS SUMMARY | 2025-03-05 14:34 | XMS_ITS | Encounter Summary ---
Author Organization [facility] Address [address] [place] [address] Care Team Providers Care Feed Handler Name Role Phone Marc Quesada MD Primary Care Provider Unavaila ble Reason for Visit * Reason Comments E-prescribing Refill Request Encounter Details Date Type Department Care Team (Late st Contact Info) Description 06/22/2020 Refill [facility] [address] [place] [address] Marc Quesada MD E-prescribing Refill Request Social [...] on filedocumented in this encounter Care Teams Feed Handler Relationship Specialty Start Date End Date Marc Quesada MD PCP - General 07/31/17 01/31/22 documented as of this encounter
--- OUTSIDE RECORDS SUMMARY | 2025-03-05 14:34 | XMS_ITS | Encounter Summary ---
Author Organization [facility] Address [address] [place] [address] Care Team Providers Care Dairy Management Specialist Name Role Phone Андрей Brandt MD Primary Care Provider Diana Gutierres MD Primary Care Provider Marc Quesada MD Primary Care Provider Unavaila ble Encounter Details Date Type Department Care Team (Late st Contact Info) Description 05/17/2014 Orders Only [facility] [address] [place] [phone] Diana Gutierres MD [address] [place] [address] Medications Social History Tobacco Use Types Packs/Day [...] of this encounter Procedures * Due to [place] state law, this organization might not be sharing negative HIV tests. Procedure Name Priority Date/Time Associated Diagnosis Comments STREPTOCOCCUS, GROUP A CULTURE Routine 05/17/2014 4:50 PM EST Sore throat documented in this encounter Results * Due to [place] state law, this organization might not be sharing negative HIV tests. * STREPTOCOCCUS, GROUP A CULTURE (05/17/2014 4:50 PM EST) Culture, Streptococci Group A, Throat SEE NOTE [facility] Comment: {STREPTOCOCCUS, GROUP A CULTURE {[id number]) STREPTOCOCCUS, GROUP A CULTURE MICRO NUMBER: [id number] TEST STATUS: FINAL SPECIMEN SOURCE: THROAT SPECIMEN QUALITY: ADEQUATE RESULT: No beta hemolytic Streptococci isolated 05/17/2014 4:50 PM EST 05/17/2014 9:49 PM EST Narrative Resulting Agency Comment [id number] Diana Gutierres MD LABORATORY Final Result Performing Organization Address City/State/[facility] Co de Phone Number [facility] [address] [place] [address] documented in this encounter Visit Diagnoses Diagnosis Sore throat- Primary Acute pharyngitis documented in this encounter Additional Health Concerns Infection Onset Date Last Indicated Resolved Time COVID-19 Rule-Out 06/06/2020 06/06/2020 06/07/2020 11:13 AM EST documented as of this encounter Care Teams Dairy Management Specialist Relationship Specialty Start Date End Date Андрей Brandt MD [address] [place] [address] PCP - General 12/14/10 02/02/15 Diana Gutierres MD [address] [place] [address] PCP - General Pediatrics 02/03/15 07/30/17 Marc Quesada MD [address] [place] [address] PCP - General 07/31/17 01/31/22 documented as of this encounter
--- OUTSIDE RECORDS SUMMARY | 2025-03-05 14:34 | XMS_ITS | Encounter Summary ---
Author Organization [facility] Address [address] [place] [address] Care Team Providers Care First Mate Name Role Phone Андрей Brandt MD Primary Care Provider Diana Gutierres MD Primary Care Provider [phone] Marc Quesada MD Primary Care Provider Unavaila ble Encounter Details Date Type Department Care Team (Late st Contact Info) Description 07/18/2013 Orders Only [facility] [address] [place] [phone] Андрей Brandt MD [address] [place] [address] Social History Tobacco Use Types Packs/Day Years [...] this encounter Results * Due to [place] state law, this organization might not be sharing negative HIV tests. * (ABNORMAL) SHELL FISH ALLERGY PANEL (WITH SCALLOP) (07/18/2013 2:45 PM EDT) Scallop (F338) IgE <0.35 kU/L [facility] Comment:{SCALLOP (F338) IGE {[id number]) Scallop (F338) Class 0 [facility] Comment:{CLASS {[id number]) Crab (F23) IgE <0.35 kU/L [facility] Comment:{CRAB (F23) IGE {[id number]) Crab (F23) Class 0 [facility] Comment:{CLASS {[id number]) Shrimp (F24) IgE 0.53(H) kU/L [facility] Comment:{SHRIMP (F24) IGE {[id number]) Shrimp (F24) Class 1 [facility] Comment:{CLASS {[id number]) Blue Mussel (F37) IgE <0.35 kU/L [facility] Comment:{BLUE MUSSEL (F37) I GE {[id number]) Blue Mussel (F37) Class 0 [facility] Comment:{CLASS {[id number]) Lobster (F80) IgE <0.35 kU/L [facility] Comment:{LOBSTER (F80) IGE { [id number]) Lobster (F80) Class 0 [facility] Comment:{CLASS {[id number]) Clam (F207) IgE <0.35 kU/L [facility] Comment:{CLAM (F207) IGE {[id number]) Clam (F207) Class 0 [facility] Comment:{CLASS {[id number]) Oyster (F290) IgE <0.35 kU/L [facility] Comment:{OYSTER (F290) IGE { [id number]) Oyster (F290) Class 0 [facility] Comment:{CLASS {[id number]) 07/18/2013 2:45 PM EDT 07/18/2013 9:21 PM EDT Андрей Brandt MD LABORATORY Final Result [facility] [address] [place] [address] documented in this encounter Visit Diagnoses Diagnosis Food allergy Other adverse food reactions, not elsewhere classified documented in this encounter Additional Health Concerns Infection Onset Date Last Indicated Resolved Time COVID-19 Rule-Out 06/06/2020 06/06/2020 06/07/2020 11:13 AM EST documented as of this encounter Care Teams First Mate Relationship Specialty Start Date End Date Андрей Brandt MD [address] [place] [address] PCP - General 12/14/10 02/02/15 Diana Gutierres MD [address] [place] [address] PCP - General Pediatrics 02/03/15 07/30/17 Marc Quesada MD [address] [place] [address] PCP - General 07/31/17 01/31/22 documented as of this encounter
--- OUTSIDE RECORDS SUMMARY | 2025-03-05 14:34 | XMS_ITS | Encounter Summary ---
Author Organization [facility] Address [address] [place] [address] Care Team Providers Care Dust Box Tender Name Role Phone Diana Gutierres MD Primary Care Provider [phone] Marc Quesada MD Primary Care Provider Unavaila ble Encounter Details Date Type Department Care Team (Late st Contact Info) Description 04/30/2015 Orders Only [facility] [address] [place] [phone] Diana Gutierres MD [address] [place] [address] Social History Tobacco Use Types Packs/Day Years [...] encounter Procedures * Due to [place] [employer] law, this organization might not be sharing [...] encounter Results * Due to [place] [employer] law, this organization might not be sharing negative HIV tests. * CBC INCLUDES DIFFERENTIAL AND PLATELET COUNT (04/30/2015 8:51 AM EST) WBC 5.7 4.5 - 13.0 Thousand/u L [facility] Comment:{WHITE BLOOD CELL CO UNT {[id number]) RBC 4.40 3.80 - 5.10 Million/uL [facility] Comment:{RED BLOOD CELL COUN T {[id number]) Hemoglobin 13.0 11.5 - 15.3 g/dL [facility] Comment:{HEMOGLOBIN {[id number]) Hematocrit 40.1 34.0 - 46.0 % [facility] Comment:{HEMATOCRIT {[id number]) MCV 91.2 78.0 - 98.0 fL [facility] Comment:{MCV {[id number]) MCH 29.5 25.0 - 35.0 pg [facility] Comment:{MCH {[id number]) MCHC 32.4 31.0 - 36.0 g/dL [facility] Comment:{MCHC {[id number]) RDW 12.8 11.0 - 15.0 % [facility] Comment:{RDW {[id number]) PLT 233 140 - 400 Thousand/u L [facility] Comment:{PLATELET COUNT {[id number]) MPV 8.8 7.5 - 11.5 fL [facility] Comment:{MPV {[id number]) Neutrophils # 2799 1800 - 8000 cells/uL [facility] Comment:{ABSOLUTE NEUTROPHIL S {[id number]) Lymphocytes # 2183 1200 - 5200 cells/uL [facility] Comment:{ABSOLUTE LYMPHOCYTE S {[id number]) Monocytes # 439 200 - 900 cells/uL [facility] Comment:{ABSOLUTE MONOCYTES {[id number]) Eosinophils # 228 15 - 500 cells/uL [facility] Comment:{ABSOLUTE EOSINOPHIL S {[id number]) Basophils # 51 0 - 200 cells/uL [facility] Comment:{ABSOLUTE BASOPHILS {[id number]) Neutrophils % 49.1 % [facility] Comment:{NEUTROPHILS {[id number]) Lymphocytes % 38.3 % [facility] Comment:{LYMPHOCYTES {[id number]) Monocytes % 7.7 % [facility] Comment:{MONOCYTES {[id number]) Eosinophils % 4.0 % [facility] Comment:{EOSINOPHILS {[id number]) Basophils % 0.9 % [facility] Comment:{BASOPHILS {[id number]) 04/30/2015 8:51 AM EST 04/30/2015 2:43 PM EST Narrative Resulting Agency Comment [id number] us Diana Gutierres MD LAB SAME DAY RESULT Final Resu lt [facility] [address] [place] [address] * (ABNORMAL) LIPID PANEL WITH REFLEX TO DIRECT LDL (04/30/2015 8:51 AM EST) Cholesterol 192(H) 125 - 170 mg/dL [facility] Comment:{CHOLESTEROL, TOTAL {[id number]) HDL Cholesterol 53 36 - 76 mg/dL [facility] Comment:{HDL CHOLESTEROL {[id number]) Triglyceride 127 40 - 136 mg/dL [facility] Comment:{TRIGLYCERIDES {[id number]) LDL Cholesterol 114(H) <110 mg/dL (calc) [facility] Comment: {LDL-CHOLESTEROL {[id number]) Desirable range <100 mg/dL for patients with CHD or diabetes and <70 mg/dL for diabetic patients with known heart disease. CHOL/HDL Ratio 3.6 < OR = 5.0 (calc) [facility] Comment:{CHOL/HDLC RATIO {[id number]) Cholesterol Non-HDL 139(H) <120 mg/dL (calc) [facility] Comment:{NON HDL CHOLESTEROL {[id number]) 04/30/2015 8:51 AM EST 04/30/2015 2:43 PM EST Narrative Resulting Agency Comment [id number] Diana Gutierres MD LABORATORY Final Result [facility] [address] [place] [address] documented in this encounter Visit Diagnoses Diagnosis Routine history and physical examination of adult Routine general medical examination at a health care facility documented in this encounter Additional Health Concerns Infection Onset Date Last Indicated Resolved Time COVID-19 Rule-Out 06/06/2020 06/06/2020 06/07/2020 11:13 AM EST documented as of this encounter Care Teams Dust Box Tender Relationship Specialty Start Date End Date Diana Gutierres MD [address] [place] [address] PCP - General Pediatrics 02/03/15 07/30/17 Marc Quesada MD [address] [place] [address] PCP - General 07/31/17 01/31/22 documented as of this encounter
--- OUTSIDE RECORDS SUMMARY | 2025-03-05 14:34 | XMS_ITS | Encounter Summary ---
Author Organization [facility] Address [address] [place] [address] Care Team Providers Care Subcontracts Manager Name Role Phone Diana Gutierres MD Primary Care Provider [phone] Marc Quesada MD Primary Care Provider Unavaila ble Encounter Details Date Type Department Care Team (Late st Contact Info) Description 04/28/2016 Orders Only [facility] [address] [place] [phone] Diana Gutierres MD [address] [place] [address] Social History Tobacco Use Types Packs/Day Years [...] [facility] Comment:{CHLAMYDIA TRACHOMAT IS RNA, TMA {[id number]) Neisseria Gonorrhoeae rRNA NOT DETECTED NOT DETECTED [facility] Comment:{NEISSERIA GONORRHOE AE RNA, TMA {[id number]) COMMENT SEE NOTE [facility] Comment: {COMMENT {[id number]) This test was performed using the APTIMA COMBO2 Assay ([employer] The analytical performance characteristics of this assay, when used to test SurePath specimens have been determined by [employer]. 04/28/2016 3:38 PM EST 04/28/2016 9:54 PM EST Narrative Resulting Agency Comment [id number] us Diana Gutierres MD LABORATORY Final Result [facility] [address] [place] [address] documented in this encounter Visit Diagnoses Diagnosis Encounter for screening for infections with predominantly sexual mode of transmission Screening examination for venereal disease documented in this encounter Additional Health Concerns Infection Onset Date Last Indicated Resolved Time COVID-19 Rule-Out 06/06/2020 06/06/2020 06/07/2020 11:13 AM EST documented as of this encounter Care Teams Subcontracts Manager Relationship Specialty Start Date End Date Diana Gutierres MD [address] [place] [address] PCP - General Pediatrics 02/03/15 07/30/17 Marc Quesada MD [address] [place] [address] PCP - General 07/31/17 01/31/22 documented as of this encounter
--- OUTSIDE RECORDS SUMMARY | 2025-03-05 14:34 | XMS_ITS | Encounter Summary ---
Author Organization [facility] Address [address] [place] [address] Care Team Providers Care Savings Teller Name Role Phone Diana Gutierres MD Primary Care Provider [phone] Marc Quesada MD Primary Care Provider Unavaila ble Reason for Visit * Reason Comments E-prescribing Refill Request Encounter Details Date Type Department Care Team (Late st Contact Info) Description 06/22/2017 Refill [facility] [address] [place] [phone] Diana Gutierres MD [address] [place] [address] E-prescribing Refill Request Social History Tobacco Use [...] Phone 07/28/17 1:00 PM Diana Gutierres MD [facility] [phone] Pertinent lab results: Last Pap Date (10 [...] documented as of this encounter Care Teams Savings Teller Relationship Specialty Start Date End Date Diana Gutierres MD [address] [place] [address] PCP - General Pediatrics 02/03/15 07/30/17 Marc Quesada MD [address] [place] [address] PCP - General 07/31/17 01/31/22 documented as of this encounter
--- OUTSIDE RECORDS SUMMARY | 2025-03-05 14:34 | XMS_ITS | Encounter Summary ---
Author Organization [facility] Address [address] [place] [address] Care Team Providers Care Icing Mixer Name Role Phone Diana Gutierres MD Primary Care Provider [phone] Marc Quesada MD Primary Care Provider Unavaila ble Encounter Details Date Type Department Care Team (Late st Contact Info) Description 07/28/2017 Orders [facility] [address] [place] [phone] Diana Gutierres MD [address] [place] [address] Social History Tobacco Use Types Packs/Day Years [...] this encounter Procedures * Due to [place] [email or web address] law, this organization might not be sharing [...] was performed using the APTIMA COMBO2 Assay ([employer] The analytical performance characteristics of this assay, when used to test SurePath specimens have been determined by [employer]. 07/28/2017 1:29 PM EDT 07/28/2017 11:28 PM EDT Narrative Resulting Agency Comment [id number] us Diana Gutierres MD LABORATORY Final Result Performing Organization Address City/State/[facility] Co de Phone Number [facility] [address] [place] [address] documented in this encounter Visit Diagnoses Diagnosis Hx of chlamydia infection Personal history of other infectious and parasitic disease documented in this encounter Additional Health Concerns Infection Onset Date Last Indicated Resolved Time COVID-19 Rule-Out 06/06/2020 06/06/2020 06/07/2020 11:13 AM EST documented as of this encounter Care Teams Icing Mixer Relationship Specialty Start Date End Date Diana Gutierres MD [address] [place] [address] PCP - General Pediatrics 02/03/15 07/30/17 Marc Quesada MD [address] [place] [address] PCP - General 07/31/17 01/31/22 documented as of this encounter
--- OUTSIDE RECORDS SUMMARY | 2025-03-05 14:34 | XMS_ITS | Encounter Summary ---
Author Organization [facility] Address [address] [place] [address] Care Team Providers Care Substation Operator Apprentice Name Role Phone Diana Gutierres MD Primary Care Provider Marc Quesada MD Primary Care Provider Unavaila ble Encounter Details Date Type Department Care Team (Late st Contact Info) Description 04/03/2015 Orders Only [facility] [address] [place] [address] Diana Gutierres MD [address] [place] [address] Social History Tobacco Use Types Packs/Day Years [...] this encounter Procedures * Due to [place] [employer] law, this organization might not be sharing [...] [facility] Comment:{CHLAMYDIA TRACHOMAT IS RNA, TMA {[id number]) Neisseria Gonorrhoeae rRNA NOT DETECTED NOT DETECTED [facility] Comment:{NEISSERIA GONORRHOE AE RNA, TMA {[id number]) COMMENT SEE NOTE [facility] Comment: {COMMENT {[id number]) This test was performed using the APTIMA COMBO2 Assay ([employer] The analytical performance characteristics of this assay, when used to test SurePath specimens have been determined by [employer]. 04/03/2015 8:34 PM EST 04/04/2015 12:52 AM EST Narrative Resulting Agency Comment [id number] us Diana Gutierres MD LABORATORY Final Result Performing Organization Address City/State/[facility] Co de Phone Number [facility] [address] [place] [address] documented in this encounter Visit Diagnoses Diagnosis Routine history and physical examination of adult Routine general medical examination at a health care facility documented in this encounter Additional Health Concerns Infection Onset Date Last Indicated Resolved Time COVID-19 Rule-Out 06/06/2020 06/06/2020 06/07/2020 11:13 AM EST documented as of this encounter Care Teams Substation Operator Apprentice Relationship Specialty Start Date End Date Diana Gutierres MD [address] [place] [address] PCP - General Pediatrics 02/03/15 07/30/17 Marc Quesada MD [address] [place] [address] PCP - General 07/31/17 01/31/22 documented as of this encounter
--- OUTSIDE RECORDS SUMMARY | 2025-03-05 14:34 | XMS_ITS | Clinical Summary ---
Author Organization [facility] Address [address] [place] [address] Care Team Providers Care Whizzer Operator Name Role Phone Unavailable Primary Care [...] Diagnosed Date Mood disorder 03/16/2019 Asthma, intrinsic ([facility]) 06/20/2018 Food allergy 02/13/2013 Overview (02/13/2013): Allergy to peanuts as well as to nuts. Routine health maintenance 01/08/2011 Allergic rhinitis 01/08/2011 Overview (02/02/2016): Symptoms have just been in the spring. , Resolved Problems Problem Noted Date Diagnosed Date Resolved Date Asthma, mild intermittent ([facility]) 04/01/2014 04/21/2017 Immunizations Immunization Administration Dates Next Due COVID-19, mRNA (Moderna [...] 90 07/15/2020 3:49 PM EDT Temperature 36.5 C (97.7 F) 06/20/2018 2:15 PM EST Respiratory Rate 18 05/04/2018 4:00 PM EST [...] Smear Negative for intraepithelial lesion or malignancy. [email or web address] Cytology study comment (Cvx/Vag) This Pap test has been evaluated with computer assisted technology. [facility] Commodities Broker (Cvx/Vag) MSM, CT(ASCP) CT screening location: [place] [address] [email or web address] COMMENT SEE NOTE [email or web address] Comment: EXPLANATORY NOTE: The Pap is a [...] Chlamydia trachomatis rRNA NOT DETECTED NOT DETECTED [facility] Neisseria Gonorrhoeae rRNA NOT DETECTED NOT DETECTED [facility] COMMENT SEE NOTE [email or web address] Comment: The analytical performance characteristics of this assay, when used to test SurePath(TM) specimens have been determined by [employer]. The modifications have not been cleared or approved by the FDA. This assay has been validated pursuant to the CLIA regulations and is used for clinical purposes. For additional information, please refer to https://education.[employer]/faq/XRI438 (This link is being provided for information/ educational purposes only.) Cervical 07/15/2020 5:15 PM EDT 07/16/2020 6:41 AM EDT Narrative Resulting Agency Comment [id number] us Marc Quesada MD PATHOLOGY-INTERFACED Final Resu lt [facility] [address] [place] [address] * ELECTROCARDIOGRAM, TRACING (09/12/2017) Narrative 09/12/2017 Ordered by an unspecified provider. Procedure Note Manish, Valente Provider - 09/12/2017 11:17 [place] [address] CARDIOVASCULAR SERVICES -- ELECTROCARDIOGRAM REPORT Patient's name: MARION MOSLEY UNIT#: [id number] : 97 DOS: 09/11/17 LOC: ER Test [...] By: Confirmed By:Surendra Styles MD Acquiring Tech: ARB ORD#: [id number] OE: TOM RPT#: [id number] D/ MUSE CC: us Unknown Provider [facility] CARDIOVASCULAR-NO INBAS KET RTG Final Result * (ABNORMAL) LIPID PANEL WITH REFLEX TO DIRECT LDL (04/30/2015 8:51 AM EST) Cholesterol 192(H) 125 - 170 mg/dL [facility] Comment:{CHOLESTEROL, TOTAL {[id number]) HDL Cholesterol 53 36 - 76 mg/dL [facility] Comment:{HDL CHOLESTEROL {[id number]) Triglyceride 127 40 - 136 mg/dL [facility] Comment:{TRIGLYCERIDES {[id number]) LDL Cholesterol 114(H) <110 mg/dL (calc) [facility] Comment: {LDL-CHOLESTEROL {[id number]) Desirable range <100 mg/dL for patients with CHD or diabetes and <70 mg/dL for diabetic patients with known heart disease. CHOL/HDL Ratio 3.6 < OR = 5.0 (calc) [facility] Comment:{CHOL/HDLC RATIO {[id number]) Cholesterol Non-HDL 139(H) <120 mg/dL (calc) [facility] Comment:{NON HDL CHOLESTEROL {[id number]) 04/30/2015 8:51 AM EST 04/30/2015 2:43 PM EST Narrative Resulting Agency Comment [id number] us Diana Gutierres MD LABORATORY Final Result [facility] [address] [place] [address] from Last 3 Months or Most Recently Relevant to Health Maintenance
--- OUTSIDE RECORDS SUMMARY | 2025-03-05 14:34 | XMS_ITS | Encounter Summary ---
Author Organization [facility] Address [address] [place] [address] Care Team Providers Care Beef Specialist Name Role Phone Diana Gutierres MD Primary Care Provider Marc Quesada MD Primary Care Provider Unavaila ble Encounter Details Date Type Department Care Team (Late st Contact Info) Description 06/16/2017 Orders Only [facility] [address] [place] [phone] Diana Gutierres MD [address] [place] [address] Social History Tobacco Use Types Packs/Day Years [...] this encounter Procedures * Due to [place] [employer] law, this organization might not be sharing [...] this encounter Results * Due to [place] [employer] law, this organization might not be sharing negative HIV tests. * STREPTOCOCCUS, GROUP A CULTURE (06/16/2017 3:51 PM EST) Culture, Streptococci Group A, Throat SEE NOTE [facility] Comment: STREPTOCOCCUS, GROUP A CULTURE MICRO NUMBER: [id number] TEST STATUS: FINAL SPECIMEN SOURCE: NOT GIVEN SPECIMEN QUALITY: ADEQUATE RESULT: No group A Streptococcus isolated 06/16/2017 3:51 PM EST 06/16/2017 8:49 PM EST Narrative Resulting Agency Comment [id number] us Diana Gutierres MD LABORATORY Final Result [facility] [address] [place] [address] * (ABNORMAL) HEPATIC FUNCTION PANEL (ALT,AST,ALK PH,BILI'S,TP,ALB) (06/16/2017 2:50 PM EST) Protein Total (Serum) 7.2 6.1 - 8.1 [...] 4:25 PM EST Narrative Resulting Agency Comment [id number] Diana Gutierres MD LABORATORY Final Result Performing Organization Address City/State/[facility] Co de Phone Number [facility] [address] [place] [address] * (ABNORMAL) CBC INCLUDES DIFFERENTIAL AND PLATELET COUNT (06/16/2017 2:50 PM EST) WBC 10.1 3.8 - 10.8 Thousand/ uL [...] 4:25 PM EST Narrative Resulting Agency Comment [id number] us Diana Gutierres MD LAB SAME DAY RESULT Final Resu lt Performing Organization Address City/State/[facility] Co de Phone Number [facility] [address] [place] [address] * (ABNORMAL) SHIRIN-MESSINA VIRUS PANEL COMPREHENSIVE (06/16/2017 2:50 PM EST) Shirin Messina virus early diffuse Ab.IgG 22.80(H) U/mL [facility] Comment: U/mL Interpretation ---- <9.00 Negative 9.00-10.99 Equivocal >10.99 Positive The potential exists for cross-reactivity with HIV (Human Immunodeficiency Virus) which could cause a false positive EBV-EA result. Shirin Messina virus capsid Ab.IgM >160.00(H ) U/mL [facility] Comment: U/mL Interpretation ---- <36.00 Negative 36.00-43.99 Equivocal >43.99 Positive Shirin Messina virus capsid Ab.IgG 61.10(H) U/mL [facility] Comment: U/mL Interpretation ---- <18.00 Negative 18.00-21.99 Equivocal >21.99 Positive Shirin Messina virus nuclear Ab.IgG <18.00 U/mL [facility] Comment: U/mL Interpretation ---- <18.00 Negative 18.00-21.99 Equivocal >21.99 Positive INTERPRETATION SEE NOTE [facility] Comment:Suggestive of a curr ent Shirin-Messina virus infection. 06/16/2017 2:50 PM EST 06/16/2017 4:25 PM EST Narrative Resulting Agency Comment [id number] Diana Gutierres MD LABORATORY Final Result [facility] [address] [place] [address] documented in this encounter Visit Diagnoses Diagnosis Sore throat Acute pharyngitis documented in this encounter Additional Health Concerns Infection Onset Date Last Indicated Resolved Time COVID-19 Rule-Out 06/06/2020 06/06/2020 06/07/2020 11:13 AM EST documented as of this encounter Care Teams Beef Specialist Relationship Specialty Start Date End Date Diana Gutierres MD [address] [place] [address] PCP - General Pediatrics 02/03/15 07/30/17 Marc Quesada MD [address] [place] [address] PCP - General 07/31/17 01/31/22 documented as of this encounter
--- OUTSIDE RECORDS SUMMARY | 2025-03-05 14:34 | XMS_ITS | Encounter Summary ---
Author Organization [facility] Address [address] [place] [address] Care Team Providers Care Pet Care Technician Name Role Phone Marc Quesada MD Primary Care Provider Unavaila ble Encounter Details Date Type Department Care Team ([facility] st Contact Info) Description 01/13/2018 Orders Only [facility] [address] [place] [address] Marc Quesada MD Social History Tobacco Use [...] this encounter Procedures * Due to [place] [employer] law, this organization might not be sharing negative HIV tests. Procedure Name Priority Date/Time Associated Diagnosis Comments CBC INCLUDES DIFFERENTIAL AND PLATELET COUNT Routine 01/13/2018 4:22 PM EDT History of mononucleosis HEPATIC FUNCTION PANEL (ALT,AST,ALK PH,BILI'S,TP,ALB) Routine 01/13/2018 4:22 PM EDT Elevated liver enzymes documented in this encounter Results * Due to [place] [employer] law, this organization might not be sharing [...] 11:58 PM EDT Narrative Resulting Agency Comment [id number] us Marc Quesada MD LABORATORY Final Result Performing Organization Address City/State/[facility] Co de Phone Number [facility] [address] [place] [address] * CBC INCLUDES DIFFERENTIAL AND PLATELET COUNT [...] 11:58 PM EDT Narrative Resulting Agency Comment [id number] us Marc Quesada MD LAB SAME DAY RESULT Final Resul t Performing Organization Address City/State/[facility] Co de Phone Number [facility] [address] [place] [address] documented in this encounter Visit Diagnoses Diagnosis History of mononucleosis Personal history of other infectious and parasitic disease Elevated liver enzymes Nonspecific elevation of levels of transaminase or lactic acid dehydrogenase (LDH) documented in this encounter Additional Health Concerns Infection Onset Date Last Indicated Resolved Time COVID-19 Rule-Out 06/06/2020 06/06/2020 06/07/2020 11:13 AM EST documented as of this encounter Care Teams Pet Care Technician Relationship Specialty Start Date End Date Marc Quesada MD PCP - General 07/31/17 01/31/22 documented as of this encounter
--- OUTSIDE RECORDS SUMMARY | 2025-03-05 14:34 | XMS_ITS | Clinical Summary ---
Author Organization [facility] Address [address] [place] [address] Phone Care Team Providers Care Emt I/85 Name Role Phone NickyClydecharlotte Valdez NP Primary Care Provider +1- [phone] Allergies Active Allergy Reactions Criticality Noted Date [...] (18-6 5 YEARS) 2015 PAP SMEAR 2018 INFLUENZA VACCINE (#1) 2024 COVID-19 VACCINE (2024-2 6 season) 2024 Adult Td,Tdap Booster 09/10/2031 09/09/2021 [...] topic Medical Devices Not on file Insurance [employer]EF[employer]MINISTRAT[employer] BENEFITS ADMINISTRATORS [employer]MINISTRAT[employer] ADMINISTRATORS [facility] [employer] ADMINISTRATORS [employer]MINISTRAT[employer] Care Teams Emt I/85 Relationship Specialty Start Date End Date Elisha Saunders NP [address] [place] [address] PCP - General Nurse Practitioner 03/07/24 Additional Source Comments The information contained in this document represents components of the legal health record. It is not the complete legal health record.[facility]
--- OUTSIDE RECORDS SUMMARY | 2025-03-05 14:34 | XMS_ITS | Encounter Summary ---
Author Organization [facility] Address [address] [place] [address] Care Team Providers Care Clay Carman Name Role Phone Андрей Brandt MD Primary Care Provider Diana Gutierres MD Primary Care Provider Marc Quesada MD Primary Care Provider Unavaila ble Encounter Details Date Type Department Care Team (Late st Contact Info) Description 01/12/2012 Orders Only [facility] [address] [place] [phone] Андрей Brandt MD [address] [place] [address] Social History Tobacco Use Types Packs/Day Years [...] 1:12 PM EDTQuick Note: Left message on Virtual[employer].. Will send letter. documented in this encounter Plan of Treatment Not on file documented as of this encounter Procedures * Due to [place] [employer] law, this organization might not be sharing negative HIV tests. Procedure Name Priority Date/Time Associated Diagnosis Comments NUT ALLERGY PANEL Routine 01/12/2012 2:3 7 PM EDT Food allergy CBC (H/H, RBC, INDICES,WBC, PLT) Routine 01/12/2012 2:37 PM EDT Screening for other and unspecified deficiency anemia documented in this encounter Results * Due to [place] [employer] law, this organization might not be sharing negative HIV tests. * (ABNORMAL) NUT ALLERGY PANEL (01/12/2012 2:37 PM EDT) Cashew Nut (F202) IgE 2.88(H) kU/L [facility] Comment:{CASHEW NUT (F202) I GE {[id number]) Cashew Nut (F202) Class 2 [facility] Comment: {CLASS {[id number]) Specific Level of Allergen IGE Class kU/L Specific IGE Antibody ----- --------- 0 <0.35 Absent/Undetectable 1 0.35-0.70 Low Level 2 0.71-3.50 Moderate Level 3 3.51-17.5 High Level 4 17.6-50 Very High Level 5 51-100 Very High Level 6 >100 Very High Level Allergens denoted with a include results using one or more analyte specific reagents. In those cases, the test was developed and its performance characteristics determined by [facility]. It has not been cleared or approved by the U.S. Food and Drug Administration. The FDA has determined that such clearance is not necessary. Performance characteristics refer to the analytical performance of the test. Sesame Seed (F10) IgE 0.42(H) kU/L [facility] Comment:{SESAME SEED (F10) I GE {[id number]) Sesame Seed (F10) Class 1 [facility] Comment:{CLASS {[id number]) Peanut (F13) IgE 17.50(H) kU/L [facility] Comment:{PEANUT (F13) IGE {[id number]) Peanut (F13) Class 4 [facility] Comment:{CLASS {[id number]) Hazelnut (F17) IgE 0.62(H) kU/L [facility] Comment:{HAZELNUT (F17) IGE {[id number]) Hazelnut (F17) Class 1 [facility] Comment:{CLASS {[id number]) Caspian (F20) IgE 0.75(H) kU/L [facility] Comment:{ALMOND (F20) IGE {[id number]) Caspian (F20) Class 2 [facility] Comment:{CLASS {[id number]) Coconut (F36) IgE <0.35 kU/L [facility] Comment:{COCONUT (F36) IGE { [id number]) Coconut (F36) Class 0 [facility] Comment:{CLASS {[id number]) Pecan Nut (F201) IgE <0.35 kU/L [facility] Comment:{PECAN NUT (F201) IG E {[id number]) Pecan Nut (F201) Class 0 [facility] Comment:{CLASS {[id number]) Argyle (F256) IgE <0.35 kU/L [facility] Comment:{WALNUT (F256) IGE { [id number]) Argyle (F256) Class 0 [facility] Comment:{CLASS {[id number]) 01/12/2012 2:37 PM EDT 01/12/2012 10:03 PM EDT Narrative Resulting Agency Comment [id number] us Андрей Brandt MD LABORATORY Final Result [facility] [address] [place] [address] * CBC (H/H, RBC, INDICES,WBC, PLT) (01/12/2012 2:37 PM EDT) WBC 6.8 4.5 - 13.0 Thousand/u L [facility] Comment:{WHITE BLOOD CELL CO UNT {[id number]) RBC 4.20 3.80 - 5.10 Million/uL [facility] Comment:{RED BLOOD CELL COUN T {[id number]) Hemoglobin 12.8 11.5 - 15.3 g/dL [facility] Comment:{HEMOGLOBIN {[id number]) Hematocrit 37.6 34.0 - 46.0 % [facility] Comment:{HEMATOCRIT {[id number]) MCV 89.6 78.0 - 98.0 fL [facility] Comment:{MCV {[id number]) MCH 30.4 25.0 - 35.0 pg [facility] Comment:{MCH {[id number]) MCHC 33.9 31.0 - 36.0 g/dL [facility] Comment:{MCHC {[id number]) RDW 13.1 11.0 - 15.0 % [facility] Comment:{RDW {[id number]) PLT 279 140 - 400 Thousand/u L [facility] Comment:{PLATELET COUNT {[id number]) 01/12/2012 2:37 PM EDT 01/12/2012 10:03 PM EDT Narrative Resulting Agency Comment [id number] us Андрей Brandt MD LAB SAME DAY RESULT Final Res ult [facility] [address] [place] [address] documented in this encounter Visit Diagnoses Diagnosis Screening for other and unspecified deficiency anemia Food allergy Other adverse food reactions, not elsewhere classified documented in this encounter Additional Health Concerns Infection Onset Date Last Indicated Resolved Time COVID-19 Rule-Out 06/06/2020 06/06/2020 06/07/2020 11:13 AM EST documented as of this encounter Care Teams Clay Carman Relationship Specialty Start Date End Date Андрей Brandt MD [address] [place] [address] PCP - General 12/14/10 02/02/15 Diana Gutierres MD [address] [place] [address] PCP - General Pediatrics 02/03/15 07/30/17 Marc Quesada MD [address] [place] [address] PCP - General 07/31/17 01/31/22 documented as of this encounter
[2025-03-05 14:49] LABS: Cholesterol 230 mg/dL (<200); HDL Cholesterol 64 mg/dL (>40); Triglycerides 188 mg/dL (<150)
== END 2025-03-05 11:48 | disposition home or self-care (01) ==
LOC: HO.WFDLDS 11:47
PROVIDERS: Visit Provider Nurse Practitioner Family
DX: E78.5 Hyperlipidemia, unspecified (principal)
CPT/HCPCS: 36415; 80061

== ENCOUNTER 2025-03-12 08:07 | Outpatient (AMB) | payer OTHER, SELFPAY ==
--- OUTSIDE RECORDS SUMMARY | 2025-03-12 08:11 | XMS_ITS | Encounter Summary ---
Author Organization [facility] Address [address] [place] [address] Care Team Providers Care Utility Agent Name Role Phone Marc Quesada MD Primary Care Provider Unavaila ble Reason for Visit * Reason Comments E-prescribing Refill Request Encounter Details Date Type Department Care Team (Late st Contact Info) Description 06/22/2020 Refill [facility] [address] [place] [address] Marc Quesada MD E-prescribing Refill Request Social [...] on filedocumented in this encounter Care Teams Utility Agent Relationship Specialty Start Date End Date Marc Quesada MD PCP - General 07/31/17 01/31/22 documented as of this encounter
--- OUTSIDE RECORDS SUMMARY | 2025-03-12 08:11 | XMS_ITS | Encounter Summary ---
Author Organization [facility] Address [address] [place] [address] Care Team Providers Care Sampling Expert Name Role Phone Diana Gutierres MD Primary Care Provider Marc Quesada MD Primary Care Provider Unavaila ble Encounter Details Date Type Department Care Team (Late st Contact Info) Description 07/28/2017 Orders [facility] [address] [place] [phone] Diana Gutierres MD [address] [place] [address] Social History Tobacco Use Types Packs/Day Years [...] this encounter Procedures * Due to [place] [employer] law, this organization might not be sharing negative HIV tests. Procedure Name Priority Date/Time Associated Diagnosis Comments CHLAMYDIA TRACHOMATIS/N. GONORRHOEAE (GC) RNA, TMA (URINE) Routine 07/28/2017 1:29 PM EDT Hx of chlamydia infection documented in this encounter Results * Due to [place] state law, this organization might not be sharing negative HIV tests. * CHLAMYDIA TRACHOMATIS/N. GONORRHOEAE (GC) RNA, TMA (URINE) (07/28/2017 1:29 PM EDT) Chlamydia trachomatis rRNA NOT DETECTED NOT DETECTED [facility] Neisseria Gonorrhoeae rRNA NOT DETECTED NOT DETECTED [facility] COMMENT SEE NOTE [facility] Comment: This test was performed using the APTIMA COMBO2 Assay ([employer] The analytical performance characteristics of this assay, when used to test SurePath specimens have been determined by [employer] 07/28/2017 1:29 PM EDT 07/28/2017 11:28 PM EDT Narrative Resulting Agency Comment [id number] us Diana Gutierres MD LABORATORY Final Result Performing Organization Address City/State/[facility] Co de Phone Number [facility] [address] [place] [address] documented in this encounter Visit Diagnoses Diagnosis Hx of chlamydia infection Personal history of other infectious and parasitic disease documented in this encounter Additional Health Concerns Infection Onset Date Last Indicated Resolved Time COVID-19 Rule-Out 06/06/2020 06/06/2020 06/07/2020 11:13 AM EST documented as of this encounter Care Teams Sampling Expert Relationship Specialty Start Date End Date Diana Gutierres MD [address] [place] [address] PCP - General Pediatrics 02/03/15 07/30/17 Marc Quesada MD [address] [place] [address] PCP - General 07/31/17 01/31/22 documented as of this encounter
--- OUTSIDE RECORDS SUMMARY | 2025-03-12 08:11 | XMS_ITS | Encounter Summary ---
Author Organization [facility] Address [address] [place] [address] Care Team Providers Care Pressure Vessel Inspector Name Role Phone Marc Quesada MD Primary Care Provider Unavaila ble Encounter Details Date Type Department Care Team ([facility] st Contact Info) Description 07/15/2020 Orders Only [facility] [address] [place] [address] Marc Quesada MD Social History Tobacco Use [...] 4:00 PM EDT Marc Quesada M D * Over the last 2 weeks, how [...] of this encounter Procedures * Due to [facility] law, this organization might not be sharing negative HIV tests. Procedure Name Priority Date/Time Associated Diagnosis Comments THINPREP TIS PAP REFLEX HPV MRNA E6/E7, CHLAMYDIA/N.GONORRH OEAE Routine 07/15/2020 5:15 PM EDT Screening for malignant neoplasm of cervix documented in this encounter Results * Due to [facility] law, this organization might not be [...] evaluated with computer assisted technology. [facility] Talent Agent (Cvx/Vag) MSM, CT(ASCP) CT screening location: [place] [address] [facility] COMMENT SEE NOTE [facility] Comment: EXPLANATORY NOTE: The Pap is [...] NOT DETECTED [facility] COMMENT SEE NOTE [facility] Comment: The analytical performance characteristics of this assay, when used to test SurePath(TM) specimens have been determined by [employer]. The modifications have not been cleared or approved by the FDA. This assay has been validated pursuant to the CLIA regulations and is used for clinical purposes. For additional information, please refer to https://education.[employer].Broken Buy/faq/LRH692 (This link is being provided for information/ educational purposes only.) Cervical 07/15/2020 5:15 PM EDT 07/16/2020 6:41 AM EDT Narrative Resulting Agency Comment [id number] Marc Quesada MD PATHOLOGY-INTERFACED Final Resu lt [facility] [address] [place] [address] documented in this encounter Visit Diagnoses Diagnosis Screening for malignant neoplasm of cervix Screening for malignant neoplasm of the cervix documented in this encounter Care Teams Pressure Vessel Inspector Relationship Specialty Start Date End Date Marc Quesada MD PCP - General 07/31/17 01/31/22 documented as of this encounter
--- OUTSIDE RECORDS SUMMARY | 2025-03-12 08:11 | XMS_ITS | Encounter Summary ---
Author Organization [facility] Address [address] [place] [address] Care Team Providers Care Surveying Teacher Name Role Phone Андрей Brandt MD Primary Care Provider Diana Gutierres MD Primary Care Provider Marc Quesada MD Primary Care Provider Unavaila ble Encounter Details Date Type Department Care Team (Late st Contact Info) Description 07/18/2013 Orders Only [facility] [address] [place] [phone] Андрей Brandt MD [address] [place] [address] Social History Tobacco Use Types Packs/Day Years [...] <0.35 kU/L [facility] Comment:{SCALLOP (F338) IGE {[id number]) Scallop (F338) Class 0 [facility] Comment:{CLASS {[id number]) Crab (F23) IgE <0.35 kU/L [facility] Comment:{CRAB (F23) IGE {[id number]) Crab (F23) Class 0 [facility] Comment:{CLASS {[id number]) Shrimp (F24) IgE 0.53(H) kU/L [facility] Comment:{SHRIMP (F24) IGE {[id number]) Shrimp (F24) Class 1 [facility] Comment:{CLASS {[id number]) Blue Mussel (F37) IgE <0.35 kU/L [facility] Comment:{BLUE MUSSEL (F37) I GE {[id number]) Blue Mussel (F37) Class 0 [facility] Comment:{CLASS {[id number]) Lobster (F80) IgE <0.35 kU/L [facility] Comment:{LOBSTER (F80) IGE { [id number]) Lobster (F80) Class 0 [facility] Comment:{CLASS {[id number]) Clam (F207) IgE <0.35 kU/L [facility] Comment:{CLAM (F207) IGE {[id number]) Clam (F207) Class 0 [facility] Comment:{CLASS {[id number]) Oyster (F290) IgE <0.35 kU/L [facility] Comment:{OYSTER (F290) IGE { [id number]) Oyster (F290) Class 0 [facility] Comment:{CLASS {[id number]) 07/18/2013 2:45 PM EDT 07/18/2013 9:21 PM EDT Андрей Brandt MD LABORATORY Final Result [facility] [address] [place] [address] documented in this encounter Visit Diagnoses Diagnosis Food allergy Other adverse food reactions, not elsewhere classified documented in this encounter Additional Health Concerns Infection Onset Date Last Indicated Resolved Time COVID-19 Rule-Out 06/06/2020 06/06/2020 06/07/2020 11:13 AM EST documented as of this encounter Care Teams Surveying Teacher Relationship Specialty Start Date End Date Андрей Brandt MD [address] [place] [address] PCP - General 12/14/10 02/02/15 Diana Gutierres MD [address] [place] [address] PCP - General Pediatrics 02/03/15 07/30/17 Marc Quesada MD [address] [place] [address] PCP - General 07/31/17 01/31/22 documented as of this encounter
--- OUTSIDE RECORDS SUMMARY | 2025-03-12 08:11 | XMS_ITS | Clinical Summary ---
Author Organization [facility] Address [address] [place] [address] Phone Care Team Providers Care Cae Engineer Name Role Phone NickyClydecharlotte Valdez NP Primary Care Provider +1- [phone] Allergies Active Allergy Reactions Criticality Noted Date [...] HEPATITIS C SCREENING 2015 HIV ONE-TIME SCREENING (18-65 YEARS) 2015 PAP SMEAR 2018 INFLUENZA VACCINE (#1) 2024 COVID-19 VACCINE ( season) 2024 Adult Td,Tdap Booster 09/10/2031 09/09/2021, 010 IPV VACCINES Completed 07/10/2002, 11/1998, 1997, Additional history exists MENINGOCOCCAL VACCINES (ACWY) Completed 04/03/2015, 12/16/2009 SMOKING STATUS SCREENING (Once After 26 Yrs) Completed 03/07/2024 HEPATITIS A [...] (0-49 years) Aged Out No longer eligible based on patient's age to complete this topic Medical Devices Not on file Insurance [employer] BENEFITS ADMINISTRATORS [employer] BENEFITS ADMINISTRATORS [employer] BENEFITS [employer]MINIST[employer] [address] [address] [address] [employer] ADMINISTRATORS [employer] Care Teams Cae Engineer Relationship Specialty Start Date End Date Elisha Saunders NP [address] [place] [address] PCP - General Nurse Practitioner 03/07/24 Additional Source Comments The information contained in this document represents components of the legal health record. It is not the complete legal health record.[facility]
--- OUTSIDE RECORDS SUMMARY | 2025-03-12 08:11 | XMS_ITS | Encounter Summary ---
Author Organization [facility] Address [address] [place] [address] Care Team Providers Care Architectural Examiner Name Role Phone Андрей Brandt MD Primary Care Provider Diana Gutierres MD Primary Care Provider [phone] Marc Quesada MD Primary Care Provider Unavaila ble Encounter Details Date Type Department Care Team (Late st Contact Info) Description 01/12/2012 Orders Only [facility] [address] [place] [phone] Андрей Brandt MD [address] [place] [address] Social History Tobacco Use Types Packs/Day Years [...] 1:12 PM EDTQuick Note: Left message on [employer].. Will send letter. documented in this encounter Plan of Treatment Not on file documented as of this encounter Procedures * Due to [place] [employer] law, this organization might not be sharing negative HIV tests. Procedure Name Priority Date/Time Associated Diagnosis Comments NUT ALLERGY PANEL Routine 01/12/2012 2:3 7 PM EDT Food allergy CBC (H/H, RBC, INDICES,WBC, PLT) Routine 01/12/2012 2:37 PM EDT Screening for other and unspecified deficiency anemia documented in this encounter Results * Due to [place] [employer] law, this organization might not be sharing negative HIV tests. * (ABNORMAL) NUT ALLERGY PANEL (01/12/2012 2:37 PM EDT) Cashew Nut (F202) IgE 2.88(H) kU/L [facility] Comment:{CASHEW NUT (F202) I GE {[id number]) Cashew Nut (F202) Class 2 [facility] Comment: {CLASS {[id number]) Specific Level of Allergen IGE Class kU/L [...] developed and its performance characteristics determined by [facility]. It has not been cleared or approved by the U.S. Food and Drug Administration. The FDA has determined that such clearance is not necessary. Performance characteristics refer to the analytical performance of the test. Sesame Seed (F10) IgE 0.42(H) kU/L [facility] Comment:{SESAME SEED (F10) I GE {[id number]) Sesame Seed (F10) Class 1 [facility] Comment:{CLASS {[id number]) Peanut (F13) IgE 17.50(H) kU/L [facility] Comment:{PEANUT (F13) IGE {[id number]) Peanut (F13) Class 4 [facility] Comment:{CLASS {[id number]) Hazelnut (F17) IgE 0.62(H) kU/L [facility] Comment:{HAZELNUT (F17) IGE {[id number]) Hazelnut (F17) Class 1 [facility] Comment:{CLASS {[id number]) [place] (F20) IgE 0.75(H) kU/L [facility] Comment:{ALMOND (F20) IGE {[id number]) [place] (F20) Class 2 [facility] Comment:{CLASS {[id number]) Coconut (F36) IgE <0.35 kU/L [facility] Comment:{COCONUT (F36) IGE { [id number]) Coconut (F36) Class 0 [facility] Comment:{CLASS {[id number]) Pecan Nut (F201) IgE <0.35 kU/L [facility] Comment:{PECAN NUT (F201) IG E {[id number]) Pecan Nut (F201) Class 0 [facility] Comment:{CLASS {[id number]) [place] (F256) IgE <0.35 kU/L [facility] Comment:{WALNUT (F256) IGE { [id number]) [place] (F256) Class 0 [facility] Comment:{CLASS {[id number]) 01/12/2012 2:37 PM EDT 01/12/2012 10:03 PM EDT Narrative Resulting Agency Comment [id number] us Андрей Brandt MD LABORATORY Final Result [facility] [address] [place] [address] * CBC (H/H, RBC, INDICES,WBC, PLT) (01/12/2012 2:37 PM EDT) WBC 6.8 4.5 - 13.0 Thousand/u L [facility] Comment:{WHITE BLOOD CELL CO UNT {[id number]) RBC 4.20 3.80 - 5.10 Million/uL [facility] Comment:{RED BLOOD CELL COUN T {[id number]) Hemoglobin 12.8 11.5 - 15.3 g/dL [facility] Comment:{HEMOGLOBIN {[id number]) Hematocrit 37.6 34.0 - 46.0 % [facility] Comment:{HEMATOCRIT {[id number]) MCV 89.6 78.0 - 98.0 fL [facility] Comment:{MCV {[id number]) MCH 30.4 25.0 - 35.0 pg [facility] Comment:{MCH {[id number]) MCHC 33.9 31.0 - 36.0 g/dL [facility] Comment:{MCHC {[id number]) RDW 13.1 11.0 - 15.0 % [facility] Comment:{RDW {[id number]) PLT 279 140 - 400 Thousand/u L [facility] Comment:{PLATELET COUNT {[id number]) 01/12/2012 2:37 PM EDT 01/12/2012 10:03 PM EDT Narrative Resulting Agency Comment [id number] us Андрей Brandt MD LAB SAME DAY RESULT Final Res ult [facility] [address] [place] [address] documented in this encounter Visit Diagnoses Diagnosis Screening for other and unspecified deficiency anemia Food allergy Other adverse food reactions, not elsewhere classified documented in this encounter Additional Health Concerns Infection Onset Date Last Indicated Resolved Time COVID-19 Rule-Out 06/06/2020 06/06/2020 06/07/2020 11:13 AM EST documented as of this encounter Care Teams Architectural Examiner Relationship Specialty Start Date End Date Андрей Brandt MD [address] [place] [address] PCP - General 12/14/10 02/02/15 Diana Gutierres MD [address] [place] [address] PCP - General Pediatrics 02/03/15 07/30/17 Marc Quesada MD [address] [place] [address] PCP - General 07/31/17 01/31/22 documented as of this encounter
--- OUTSIDE RECORDS SUMMARY | 2025-03-12 08:11 | XMS_ITS | Encounter Summary ---
Author Organization [facility] Address [address] [place] [address] Care Team Providers Care Deaf Interpreter Name Role Phone Андрей Brandt MD Primary Care Provider [phone] Diana Gutierres MD Primary Care Provider [phone] Marc Quesada MD Primary Care Provider Unavaila ble Encounter Details Date Type Department Care Team (Late st Contact Info) Description 05/17/2014 Orders Only [facility] [address] [place] [phone] Diana Gutierres MD [address] [place] [address] Medications Social History Tobacco Use Types Packs/Day [...] [facility] Comment: {STREPTOCOCCUS, GROUP A CULTURE {[id number]) STREPTOCOCCUS, GROUP A CULTURE MICRO NUMBER: [id number] TEST STATUS: FINAL SPECIMEN SOURCE: THROAT SPECIMEN QUALITY: ADEQUATE RESULT: No beta hemolytic Streptococci isolated 05/17/2014 4:50 PM EST 05/17/2014 9:49 PM EST Narrative Resulting Agency Comment [id number] Diana Gutierres MD LABORATORY Final Result Performing Organization Address City/State/[facility] Co de Phone Number [facility] [address] [place] [address] documented in this encounter Visit Diagnoses Diagnosis Sore throat- Primary Acute pharyngitis documented in this encounter Additional Health Concerns Infection Onset Date Last Indicated Resolved Time COVID-19 Rule-Out 06/06/2020 06/06/2020 06/07/2020 11:13 AM EST documented as of this encounter Care Teams Deaf Interpreter Relationship Specialty Start Date End Date Андрей Brandt MD [address] [place] [address] PCP - General 12/14/10 02/02/15 Diana Gutierres MD [address] [place] [address] PCP - General Pediatrics 02/03/15 07/30/17 Marc Quesada MD [address] [place] [address] PCP - General 07/31/17 01/31/22 documented as of this encounter
--- OUTSIDE RECORDS SUMMARY | 2025-03-12 08:12 | XMS_ITS | Encounter Summary ---
Author Organization [facility] Address [address] [place] [address] Care Team Providers Care Senior Sql Developer Name Role Phone Marc Quesada MD Primary Care Provider Unavaila ble Encounter Details Date Type Department Care Team ([facility] st Contact Info) Description 01/13/2018 Orders Only [facility] [address] [place] [address] Marc Quesada MD Social History Tobacco Use [...] this encounter Procedures * Due to [place] [employer] law, this organization might not be sharing negative HIV tests. Procedure Name Priority Date/Time Associated Diagnosis Comments CBC INCLUDES DIFFERENTIAL AND PLATELET COUNT Routine 01/13/2018 4:22 PM EDT History of mononucleosis HEPATIC FUNCTION PANEL (ALT,AST,ALK PH,BILI'S,TP,ALB) Routine 01/13/2018 4:22 PM EDT Elevated liver enzymes documented in this encounter Results * Due to [place] [place] law, this organization might not be sharing [...] 11:58 PM EDT Narrative Resulting Agency Comment [id number] us Marc Quesada MD LABORATORY Final Result Performing Organization Address City/State/[facility] Co de Phone Number [facility] [address] [place] [address] * CBC INCLUDES DIFFERENTIAL AND PLATELET COUNT [...] 11:58 PM EDT Narrative Resulting Agency Comment [id number] us Marc Quesada MD LAB SAME DAY RESULT Final Resul t Performing Organization Address City/State/[facility] Co de Phone Number [facility] [address] [place] [address] documented in this encounter Visit Diagnoses Diagnosis History of mononucleosis Personal history of other infectious and parasitic disease Elevated liver enzymes Nonspecific elevation of levels of transaminase or lactic acid dehydrogenase (LDH) documented in this encounter Additional Health Concerns Infection Onset Date Last Indicated Resolved Time COVID-19 Rule-Out 06/06/2020 06/06/2020 06/07/2020 11:13 AM EST documented as of this encounter Care Teams Senior Sql Developer Relationship Specialty Start Date End Date Marc Quesada MD PCP - General 07/31/17 01/31/22 documented as of this encounter
--- OUTSIDE RECORDS SUMMARY | 2025-03-12 08:12 | XMS_ITS | Encounter Summary ---
Author Organization [facility] Address [address] [place] [address] Care Team Providers Care Glass Melt Operator Name Role Phone Diana Gutierres MD Primary Care Provider [phone] Marc Quesada MD Primary Care Provider Unavaila ble Reason for Visit * Reason Comments E-prescribing Refill Request Encounter Details Date Type Department Care Team (Late st Contact Info) Description 06/22/2017 Refill [facility] [address] [place] [phone] Diana Gutierres MD [address] [place] [address] E-prescribing Refill Request Social History Tobacco Use [...] Phone 07/28/17 1:00 PM Diana Gutierres MD [facility] [phone] Pertinent lab results: Last Pap Date (10 [...] documented as of this encounter Care Teams Glass Melt Operator Relationship Specialty Start Date End Date Diana Gutierres MD [address] [place] [address] PCP - General Pediatrics 02/03/15 07/30/17 Marc Quesada MD [address] [place] [address] PCP - General 07/31/17 01/31/22 documented as of this encounter
--- OUTSIDE RECORDS SUMMARY | 2025-03-12 08:12 | XMS_ITS | Encounter Summary ---
Author Organization [facility] Address [address] [place] [address] Care Team Providers Care Public Relations Assistant Name Role Phone Diana Gutierres MD Primary Care Provider [phone] Marc Quesada MD Primary Care Provider Unavaila ble Reason for Visit * Reason Comments E-prescribing Refill Request Encounter Details Date Type Department Care Team (Late st Contact Info) Description 05/19/2016 Refill [facility] [address] [place] [address] Андрей Brandt MD [address] [place] [address] E-prescribing Refill Request Social History Tobacco Use [...] documented as of this encounter Care Teams Public Relations Assistant Relationship Specialty Start Date End Date Diana Gutierres MD [address] [place] [address] PCP - General Pediatrics 02/03/15 07/30/17 Marc Quesada MD [address] [place] [address] PCP - General 07/31/17 01/31/22 documented as of this encounter
--- OUTSIDE RECORDS SUMMARY | 2025-03-12 08:12 | XMS_ITS | Clinical Summary ---
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 Routine health maintenance 01/08/2011 Allergic rhinitis 01/08/2011 Overview (02/02/2016): Symptoms have just been in the spring. , Resolved Problems Problem Noted Date Diagnosed Date Resolved Date Asthma, mild intermittent 04/01/2014 Immunizations Immunization Administration Dates Next Due COVID-19, mRNA (Moderna Pre Fall 2022) Monovalent, 100 mcg/0.5 ml or 50 mcg/0.25 ml dose 08/19/2020,07/15/2020 08/12/2020 COVID-19, mRNA (Pfizer Pre F all 2022) Monovalent, 30 mcg/0.3 ml 03/11/2021 DTaP [...] for evaluation. Endocervical/foster sformation zone component present. [facility] Cytology, Pap Smear Negative for intraepithelial lesion or malignancy. [facility] Cytology study comment (Cvx/Vag) This Pap test has been evaluated with computer assisted technology. [facility] International Logistics Manager (Cvx/Vag) MSM, CT(ASCP) CT screening location: [place] [address] [facility] COMMENT SEE NOTE [facility] Comment: EXPLANATORY NOTE: The Pap is a [...] Chlamydia trachomatis rRNA NOT DETECTED NOT DETECTED [facility] Neisseria Gonorrhoeae rRNA NOT DETECTED NOT DETECTED [facility] COMMENT SEE NOTE [facility] Comment: The analytical performance characteristics of this assay, when used to test SurePath(TM) specimens have been determined by [employer]. The modifications have not been cleared or approved by the FDA. This assay has been validated pursuant to the CLIA regulations and is used for clinical purposes. For additional information, please refer to https://education.Selftrade/faq/MCB007 (This link is being provided for information/ educational purposes only.) Cervical 07/15/2020 5:15 PM EDT 07/16/2020 6:41 AM EDT Narrative Resulting Agency Comment [id number] us Marc Quesada MD PATHOLOGY-INTERFACED Final Resu lt [facility] [address] [place] [address] * ELECTROCARDIOGRAM, TRACING (09/12/2017) Narrative 09/12/2017 Ordered by an unspecified provider. Procedure Note Manish, Valente Provider - 09/12/2017 11:17 [place] [address] CARDIOVASCULAR SERVICES -- ELECTROCARDIOGRAM REPORT Patient's name: MARION MOSLEY UNIT#: [id number] : 97 DOS: 09/11/17 LOC: ER Test [...] By:Surendra Styles MD Acquiring Tech: MIKALA ORD#: [id number] OE: TOM RPT#: [id number] D/ MUSE CC: us Unknown Provider [place] CARDIOVASCULAR-NO INBAS KET RTG Final Result * (ABNORMAL) LIPID PANEL WITH REFLEX TO DIRECT LDL (04/30/2015 8:51 AM EST) Cholesterol 192(H) 125 - 170 mg/dL [facility] Comment:{CHOLESTEROL, TOTAL {[id number]) HDL Cholesterol 53 36 - 76 mg/dL [facility] Comment:{HDL CHOLESTEROL {[id number]) Triglyceride 127 40 - 136 mg/dL [facility] Comment:{TRIGLYCERIDES {[id number]) LDL Cholesterol 114(H) <110 mg/dL (calc) [facility] Comment: {LDL-CHOLESTEROL {[id number]) Desirable range <100 mg/dL for patients with CHD or diabetes and <70 mg/dL for diabetic patients with known heart disease. CHOL/HDL Ratio 3.6 < OR = 5.0 (calc) [facility] Comment:{CHOL/HDLC RATIO {[id number]) Cholesterol Non-HDL 139(H) <120 mg/dL (calc) [facility] Comment:{NON HDL CHOLESTEROL {[id number]) 04/30/2015 8:51 AM EST 04/30/2015 2:43 PM EST Narrative Resulting Agency Comment [id number] us Dinaa Gutierres MD LABORATORY Final Result [facility] [address] [place] [address] from Last 3 Months or Most Recently Relevant to Health Maintenance
--- OUTSIDE RECORDS SUMMARY | 2025-03-12 08:12 | XMS_ITS | Encounter Summary ---
Author Organization [facility] Address [address] [place] [address] Care Team Providers Care Datapower Developer Name Role Phone Diana Gutierres MD Primary Care Provider [phone] Marc Quesada MD Primary Care Provider Unavaila ble Encounter Details Date Type Department Care Team (Late st Contact Info) Description 04/28/2016 Orders [facility] [address] [place] [address] Diana Gutierres MD [address] [place] [address] Social History Tobacco Use Types Packs/Day Years [...] on file documented as of this encounter Functional Status documented as of this encounter Plan of Treatment Not on file documented as of this encounter Procedures * Due to [place] state law, this [...] [facility] Comment:{CHLAMYDIA TRACHOMAT IS RNA, TMA {[id number]) Neisseria Gonorrhoeae rRNA NOT DETECTED NOT DETECTED [facility] Comment:{NEISSERIA GONORRHOE AE RNA, TMA {[id number]) COMMENT SEE NOTE [facility] Comment: {COMMENT {[id number]) This test was performed using the APTIMA COMBO2 Assay ([employer] The analytical performance characteristics of this assay, when used to test SurePath specimens have been determined by [employer]. 04/28/2016 3:38 PM EST 04/28/2016 9:54 PM EST Narrative Resulting Agency Comment [id number] us Diana Gutierres MD LABORATORY Final Result [facility] [address] [place] [address] documented in this encounter Visit Diagnoses Diagnosis Encounter for screening for infections with predominantly sexual mode of transmission Screening examination for venereal disease documented in this encounter Additional Health Concerns Infection Onset Date Last Indicated Resolved Time COVID-19 Rule-Out 06/06/2020 06/06/2020 06/07/2020 11:13 AM EST documented as of this encounter Care Teams Datapower Developer Relationship Specialty Start Date End Date Diana Gutierres MD [address] [place] [address] PCP - General Pediatrics 02/03/15 07/30/17 Marc Quesada MD [address] [place] [address] PCP - General 07/31/17 01/31/22 documented as of this encounter
--- OUTSIDE RECORDS SUMMARY | 2025-03-12 08:12 | XMS_ITS | Encounter Summary ---
Author Organization [facility] Address [address] [place] [address] Care Team Providers Care Drug Coordinator Name Role Phone Diana Gutierres MD Primary Care Provider Marc Quesada MD Primary Care Provider Unavaila ble Encounter Details Date Type Department Care Team (Late st Contact Info) Description 04/03/2015 Orders Only [facility] [address] [place] [address] Diana Gutierres MD [address] [place] [address] Social History Tobacco Use Types Packs/Day Years [...] [facility] Comment:{CHLAMYDIA TRACHOMAT IS RNA, TMA {[id number]) Neisseria Gonorrhoeae rRNA NOT DETECTED NOT DETECTED [facility] Comment:{NEISSERIA GONORRHOE AE RNA, TMA {[id number]) COMMENT SEE NOTE [facility] Comment: {COMMENT {[id number]) This test was performed using the APTIMA COMBO2 Assay ([employer] The analytical performance characteristics of this assay, when used to test SurePath specimens have been determined by [employer]. 04/03/2015 8:34 PM EST 04/04/2015 12:52 AM EST Narrative Resulting Agency Comment [id number] us Diana Gutierres MD LABORATORY Final Result [facility] [address] [place] [address] documented in this encounter Visit Diagnoses Diagnosis Routine history and physical examination of adult Routine general medical examination at a health care facility documented in this encounter Additional Health Concerns Infection Onset Date Last Indicated Resolved Time COVID-19 Rule-Out 06/06/2020 06/06/2020 06/07/2020 11:13 AM EST documented as of this encounter Care Teams Drug Coordinator Relationship Specialty Start Date End Date Diana Gutierres MD [address] [place] [address] PCP - General Pediatrics 02/03/15 07/30/17 Marc Quesada MD [address] [place] [address] PCP - General 07/31/17 01/31/22 documented as of this encounter
--- OUTSIDE RECORDS SUMMARY | 2025-03-12 08:12 | XMS_ITS | Encounter Summary ---
Author Organization [facility] Address [address] [place] [address] Care Team Providers Care Jute Bag Cutting Machine Operator Name Role Phone Diana Gutierres MD Primary Care Provider [phone] Marc Quesada MD Primary Care Provider Unavaila ble Encounter Details Date Type Department Care Team (Late st Contact Info) Description 04/30/2015 Orders Only [facility] [address] [place] [id number] Diana Gutierres MD [address] [place] [address] Social History Tobacco Use Types Packs/Day Years [...] this encounter Procedures * Due to [place] Yu[employer] law, this organization might not be sharing negative HIV tests. Procedure Name Priority Date/Time Associated Diagnosis Comments CBC INCLUDES DIFFERENTIAL AND PLATELET COUNT Routine 04/30/2015 8:51 AM EST Routine history and physical examination of adult LIPID PANEL WITH REFLEX TO DIRECT LDL Routine 04/30/2015 8:51 AM EST Routine history and physical examination of adult documented in this encounter Results * Due to [place] law, this organization might not be sharing negative HIV tests. * CBC INCLUDES DIFFERENTIAL AND PLATELET COUNT (04/30/2015 8:51 AM EST) WBC 5.7 4.5 - 13.0 Thousand/u L [facility] Comment:{WHITE BLOOD CELL CO UNT {[id number]) RBC 4.40 3.80 - 5.10 Million/uL [facility] Comment:{RED BLOOD CELL COUN T {[id number]) Hemoglobin 13.0 11.5 - 15.3 g/dL [facility] Comment:{HEMOGLOBIN {[id number]) Hematocrit 40.1 34.0 - 46.0 % [facility] Comment:{HEMATOCRIT {[id number]) MCV 91.2 78.0 - 98.0 fL [facility] Comment:{MCV {[id number]) MCH 29.5 25.0 - 35.0 pg [facility] Comment:{MCH {[id number]) MCHC 32.4 31.0 - 36.0 g/dL [facility] Comment:{MCHC {[id number]) RDW 12.8 11.0 - 15.0 % [facility] Comment:{RDW {[id number]) PLT 233 140 - 400 Thousand/u L [facility] Comment:{PLATELET COUNT {[id number]) MPV 8.8 7.5 - 11.5 fL [facility] Comment:{MPV {[id number]) Neutrophils # 2799 1800 - 8000 cells/uL [facility] Comment:{ABSOLUTE NEUTROPHIL S {[id number]) Lymphocytes # 2183 1200 - 5200 cells/uL [facility] Comment:{ABSOLUTE LYMPHOCYTE S {[id number]) Monocytes # 439 200 - 900 cells/uL [facility] Comment:{ABSOLUTE MONOCYTES {[id number]) Eosinophils # 228 15 - 500 cells/uL [facility] Comment:{ABSOLUTE EOSINOPHIL S {[id number]) Basophils # 51 0 - 200 cells/uL [facility] Comment:{ABSOLUTE BASOPHILS {[id number]) Neutrophils % 49.1 % [facility] Comment:{NEUTROPHILS {[id number]) Lymphocytes % 38.3 % [facility] Comment:{LYMPHOCYTES {[id number]) Monocytes % 7.7 % [facility] Comment:{MONOCYTES {[id number]) Eosinophils % 4.0 % [facility] Comment:{EOSINOPHILS {[id number]) Basophils % 0.9 % [facility] Comment:{BASOPHILS {[id number]) 04/30/2015 8:51 AM EST 04/30/2015 2:43 PM EST Narrative Resulting Agency Comment [id number] Diana Gutierres MD LAB SAME DAY RESULT Final Resu lt [facility] [address] [place] [address] * (ABNORMAL) LIPID PANEL WITH REFLEX TO DIRECT LDL (04/30/2015 8:51 AM EST) Cholesterol 192(H) 125 - 170 mg/dL [facility] Comment:{CHOLESTEROL, TOTAL {[id number]) HDL Cholesterol 53 36 - 76 mg/dL [facility] Comment:{HDL CHOLESTEROL {[id number]) Triglyceride 127 40 - 136 mg/dL [facility] Comment:{TRIGLYCERIDES {[id number]) LDL Cholesterol 114(H) <110 mg/dL (calc) [facility] Comment: {LDL-CHOLESTEROL {[id number]) Desirable range <100 mg/dL for patients with CHD or diabetes and <70 mg/dL for diabetic patients with known heart disease. CHOL/HDL Ratio 3.6 < OR = 5.0 (calc) [facility] Comment:{CHOL/HDLC RATIO {[id number]) Cholesterol Non-HDL 139(H) <120 mg/dL (calc) [facility] Comment:{NON HDL CHOLESTEROL {[id number]) 04/30/2015 8:51 AM EST 04/30/2015 2:43 PM EST Narrative Resulting Agency Comment [id number] Diana Gutierres MD LABORATORY Final Result [facility] [address] [place] [address] documented in this encounter Visit Diagnoses Diagnosis Routine history and physical examination of adult Routine general medical examination at a health care facility documented in this encounter Additional Health Concerns Infection Onset Date Last Indicated Resolved Time COVID-19 Rule-Out 06/06/2020 06/06/2020 06/07/2020 11:13 AM EST documented as of this encounter Care Teams Jute Bag Cutting Machine Operator Relationship Specialty Start Date End Date Diana Gutierres MD [address] [place] [address] PCP - General Pediatrics 02/03/15 07/30/17 Marc Quesada MD [address] [place] [address] PCP - General 07/31/17 01/31/22 documented as of this encounter
--- OUTSIDE RECORDS SUMMARY | 2025-03-12 08:12 | XMS_ITS | Encounter Summary ---
Author Organization [facility] Address [address] [place] [address] Care Team Providers Care Development Engineer Name Role Phone Diana Gutierres MD Primary Care Provider [phone] Marc Quesada MD Primary Care Provider Unavaila ble Encounter Details Date Type Department Care Team (Late st Contact Info) Description 06/16/2017 Orders Only [facility] [address] [place] [phone] Diana Gutierres MD [address] [place] [address] Social History Tobacco Use Types Packs/Day Years [...] this encounter Procedures * Due to [place] V[place] law, this organization might not be sharing [...] this encounter Results * Due to [place] law, this organization might not be sharing negative HIV tests. * STREPTOCOCCUS, GROUP A CULTURE (06/16/2017 3:51 PM EST) Culture, Streptococci Group A, Throat SEE NOTE [facility] Comment: STREPTOCOCCUS, GROUP A CULTURE MICRO NUMBER: [id number] TEST STATUS: FINAL SPECIMEN SOURCE: NOT GIVEN SPECIMEN QUALITY: ADEQUATE RESULT: No group A Streptococcus isolated 06/16/2017 3:51 PM EST 06/16/2017 8:49 PM EST Narrative Resulting Agency Comment [id number] us Diana Gutierres MD LABORATORY Final Result [facility] [address] [place] [address] * (ABNORMAL) HEPATIC FUNCTION PANEL (ALT,AST,ALK PH,BILI'S,TP,ALB) [...] 4:25 PM EST Narrative Resulting Agency Comment [id number] Diana Gutierres MD LABORATORY Final Result Performing Organization Address City/State/[facility] Co de Phone Number [facility] [address] [place] [address] * (ABNORMAL) CBC INCLUDES DIFFERENTIAL AND PLATELET [...] 4:25 PM EST Narrative Resulting Agency Comment [id number] us Diana Gutierres MD LAB SAME DAY RESULT Final Resu lt Performing Organization Address City/State/[facility] Co de Phone Number [facility] [address] [place] [address] * (ABNORMAL) SHIRIN-MESSINA VIRUS PANEL COMPREHENSIVE (06/16/2017 [...] 4:25 PM EST Narrative Resulting Agency Comment [id number] Diana Gutierres MD LABORATORY Final Result [facility] [address] [place] [address] documented in this encounter Visit Diagnoses Diagnosis Sore throat Acute pharyngitis documented in this encounter Additional Health Concerns Infection Onset Date Last Indicated Resolved Time COVID-19 Rule-Out 06/06/2020 06/06/2020 06/07/2020 11:13 AM EST documented as of this encounter Care Teams Development Engineer Relationship Specialty Start Date End Date Diana Gutierres MD [address] [place] [address] PCP - General Pediatrics 02/03/15 07/30/17 Marc Quesada MD [address] [place] [address] PCP - General 07/31/17 01/31/22 documented as of this encounter
--- NOTE | 2025-03-12 08:15 | A.OFFPC_ITS ---
Vital Signs 03/12/25 08:19 Height 5 ft 5 in Weight 236 lb 6 oz BMI 39.3 BP 113/67 Blood Pressure Location Rt brachial Position Sitting Respiration 16 Pulse 75 Pulse Source Pulse Oximeter Temp 97.6 F Temp Source Oral Pulse Oximetry (%) 99 Oxygen Delivery Method Room Air Intake Visit Reasons: 3 month/meds Intake Note: patient here for 3 month follow up on meds Manager Study Required: No Is last menstrual period known: Yes Last menstrual period: 02/26/25 Post menopausal: No Patient : No Allergies amoxicillin Allergy (Severe, Verified 03/12/25 08:45) Anaphylaxis Penicillins Allergy (Severe, Verified 03/12/25 08:45) Anaphylaxis Medication List - Last Reconciled 03/12/25 by Elisha Saunders CNP fluoxetine 10 mg PO DAILY 90 days fluoxetine 20 mg PO DAILY 90 days loratadine (Allergy Relief (loratadine)) 10 mg PO DAILY multivitamin with iron 1 tab PO DAILY norethindrone ac-eth estradiol 1-20 mg-mcg (Junel) 1 tab PO DAILY omeprazole 20 mg PO DAILY 30 days vitamin B complex 1 cap PO DAILY Tobacco use date assessed: 03/12/25 Dental Screening Dental Screen Date: 03/12/25 Did you have a dental visit in the last 12 months?: Yes Did you have a dental problem in the last 6 months where you did not have access to dental care?: No Was dental information given to patient?: Patient has dentist HPI HPI Comments History of Present Illness Details 29-year-old female presents for hyperlip idemia, anxiety, and depression follow-up. She admits to taking fluoxetine as prescribed without adverse reactions. She notes that her mood is generally well controlled. She has been making dietary changes since her last visit, consuming less saturated and trans fat. She walks a mile 3 times weekly. She is unsure of family history of hyperlipidemia. She offers no complaints and denies acute symptoms at this time. [facility] Medical History Depression Anxiety Acid reflux IBS (irritable bowel syndrome) High cholesterol Asthma Family History Maternal Grandmother Alcohol abuse Substance abuse FH: mental illness Cardiovascular disease Maternal Uncle Substance abuse FH: mental illness Mother FH: mental illness Father FH: mental illness High blood pressure Paternal Grandfather High blood pressure High cholesterol Social History (Updated 12/03/24 @ 08:22 by Pastora Gongora MA) Housing: House Alcohol intake: current Patient Tobacco Use Status: Never used Tobacco e-Cigarette/Vaping Use: Never Used Second Hand Smoke Exposure: Yes Substance Use Type: Marijuana Patient : No service: No Current occupational status: employed 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 1. Little interest or pleasure in doing things: several days 2. Feeling down, depressed, or hopeless: several days 3. Trouble falling or staying asleep, or sleeping too much: several days 4. Feeling tired or having little energy: more than half the days 5. Poor appetite or overeating: several days 6. Feeling bad about yourself - or that you are a failure or have let yourself or your family down: not at all 7. Trouble concentrating on things, such as reading the newspaper or watching television: several days 8. Moving or speaking so slowly that other people could have noticed. Or the opposite - being so fidgety or restless that you have been moving around a lot more than usual: several days 9. Thoughts that you would be better off or of hurting yourself in some way: not at all Total score: 8 Depression Screening Interpretation: Positive Depression Screening Follow-up: Existing condition and In treatment Depression Screening Done: Yes 24459 - PHQ-9 Billing: Yes Source: Developed by Drs. Андрей Lawrence, Ny Alcocer, Eliseo Cook and colleagues, with an educational tolu from [employer]. Thrive Questionnaire Date Thrive assessed: 05/08/24 I am a: Patient What is your living situation today?: I have a steady place to live Within the past 12 months, did the food you bought not last and you didn't have the money to get more?: Never true Within the past 12 months, did you worry whether your food would run out before you got money to buy more?: Never true Do you have trouble paying for medicines?: No Do you have trouble getting transportation to medical appointments?: No Do you have trouble paying your heating and electricity bill?: No Do you have trouble taking care of your child, family member or friend?: No Do you have trouble with day-to-day activities such as bathing, preparing meals, shopping, managing finances, etc.?: No Are you currently unemployed and looking for a job?: No Are you interested in more education?: No Please select the resources that you would like help with: None Currently or been in a relationship where the following occur: No concerns reported THRIVE Score: 0 GIAN-7 AMB Questionnaire GIAN-7 Date GIAN - 7 assessed: 03/12/25 Feeling nervous, anxious, or on edge: 1 = Several days Not being able to stop or control worryin = Not at all Worrying too much about different things: 1 = Several days Trouble relaxin = Several days Being so restless that it is hard to sit still: 1 = Several days Becoming easily annoyed or irritable: 1 = Several days Feeling afraid as if something awful might happen: 0 = Not at all Total GIAN-7 score (0-4 normal; 5-9 mild; 10-14 moderate; 15-21 severe): 5 Source: Developed by Drs. Андрей Lawrence, Ny Alcocer, Eliseo Cook and colleagues, with an educational tolu from [employer]. GIAN-7 Assessment Billing GIAN-7 Assessment Tool: GIAN-7 Assessment 20504 Review of Systems Const Details: Const Denies chills, Denies fatigue, Denies fever(s), Denies headache(s) and Denies weakness ENT Denies dizziness and Denies headache(s) Card Denies chest pain, Denies lightheadedness, Denies dyspnea and Denies other (Palpitations) Resp Denies cough, Denies dyspnea, Denies wheezing and Denies other ( shortness of breath) GI Denies abdominal pain, Denies melena, Denies hematochezia, Denies change in bowel habits, Denies dyspepsia and Denies nausea Denies hematuria and Denies dysuria Musc Denies abnormal gait, Denies myalgias, Denies arthralgias, Denies numbness and Denies tingling Skin/Breast Denies rash, Denies unusual bruising and Denies wounds Neuro Denies abnormal gait, Denies dizziness, Denies headache(s), Denies memory loss, Denies numbness, Denies Sensory deficit (Neuro), Denies tingling and Denies weakness Psych Denies anxiety, Denies depression, Denies memory loss Endo Denies cold intolerance, Denies fatigue, Denies heat intolerance, Denies polydipsia and Denies polyuria Aller/Immun Denies wheezing Physical exam (Primary Care) Vital Signs: Last Vital Signs Temp 97.6 F 03/12/25 08:19 Pulse 75 03/12/25 08:19 Resp 16 03/12/25 08:19 BP 113/67 03/12/25 08:19 Pulse Ox 99 03/12/25 08:19 Oxygen Delivery Method Room Air 03/12/25 08:19 BMI result Body Mass Index 39.3 Tobacco/Smoking Status: Tobacco use Status Tobacco use date assessed 03/12/25 03/12/25 08:21 Patient Tobacco Use Status Never used Tobacco 03/12/25 08:17 e-Cigarette/Vaping Use Never Used 03/12/25 08:17 Depression Screening Interpretation: Positive Depression Screening Follow-up: Existing condition and In treatment Thrive Assessment: Date of Thrive Assessment Date Thrive assessed 05/08/24 03/12/25 08:17 Currently or been in a relationship where the following occur: No concerns reported Const Other: General: no acute distress and well developed Nutritional Appearance: well nourished Orientation/consciousness: patient oriented x3 HENMT Head: Yes normocephalic and Yes atraumatic Eyes General: appearance normal, both eyes and all related structures Pupils: Equal, round and reactive pupils present EOM: EOMs intact bilaterally Resp Effort & Inspection: normal respiratory effort Auscultation: clear to auscultation bilaterally Cardio Rate: regular rate Rhythm: regular rhythm Heart sounds: S1 normal heart sound present, S2 normal heart sound present, no gallops, no murmurs and no rubs Extrem General: Yes normal to inspection, No edema and No calf tenderness Skin General: warm and dry. Normal skin color. Normal skin turgor Neuro General: patient oriented x3, gait normal and no focal neuro deficit Cranial nerves: Yes Equal, round and reactive pupils present Cognition (Neuro): normal cognition Gait exam (Neuro): Normal gait present Sensory Exam: No Sensory deficit (Neuro) Psych Appearance: grossly normal Affect: normal affect Attitude: cooperative Thought process: Normal thought process present Coding Level of Care Code Est Pt Level 4 (13151) Diagnoses Hyperlipidemia E78.5 Anxiety F41.9 Depression F32.A Obesity (BMI 30-39.9) E66.9 Additional Codes GIAN-7 Assessment Billing - GIAN-7 Assessment Tool: GIAN-7 Assessment 76833 ([id number]) PHQ-9 - 05223 - PHQ-9 Billing: Yes ([id number]) Assessment & Plan Assessment & Plan (1) Hyperlipidemia: Code(s): E78.5 - Hyperlipidemia, unspecified Category: Medical Plan: Recent triglycerides, total cholesterol, and LDL levels are elevated, 188, 230, and 129 respectively; previous levels were 186, 221, and 126 respectively; HDL level is normal. She has been making healthy lifestyle changes. Atorvastatin 10 mg daily at bedtime ordered; advised to take as prescribed. Instructed on the risks, benefits, and potential adverse reactions of the medication. Advised to limit foods high in saturated fat and avoid foods high in trans fat. Routine exercise encouraged. Fast for 10-12 hours, may drink water, and perform lipid panel blood work a few days before next visit. Follow-up for transfer of care with a new provider, hyperlipidemia, anxiety, and depression in 2 months. Return sooner with symptoms or concerns. Verbalized understanding and agreed with the plan. (2) Anxiety: Code(s): F41.9 - Anxiety disorder, unspecified Category: Medical Plan: Her mood is generally well controlled. PHQ-9 and GIAN-7 scores revealed mild depression and anxiety. Continue current treatment regimen. Routine exercise encouraged. Follow-up in 2 months. Verbalized understanding and agreed with the plan. (3) Depression: Code(s): F32.A - Depression, unspecified Category: Medical Plan: Plan as above. (4) Obesity (BMI 30-39.9): Code(s): E66.9 - Obesity, unspecified Category: Medical Plan: She gained 7 lb since her last visit, despite making healthy lifestyle changes. She currently weighs 236 lb, BMI is 39.3. Healthy diet/weight management encouraged. She is followed by [facility] senior chemical engineer/dietitian but has not seen them in a while. She will call to make a follow-up appointment with them. Will refer to weight management clinic as needed. Verbalized understanding and agreed with the plan. Orders: Orders Lipid Panel 2 Months E78.5 - Hyperlipidemia, unspecified Medications: New atorvastatin (Lipitor) 10 mg PO BEDTIME 30 tabs 3RF 30 days
[2025-03-12 08:19] VITALS: BP 113/67; PULSE 75; RESP 16; TEMP 36.4; O2SAT 99; BMI 39.3
== END 2025-03-12 08:53 | disposition home or self-care (01) ==
LOC: HO.HMCFM 08:08
PROVIDERS: PCP Nurse Practitioner Family; Visit Provider Nurse Practitioner Family
DX: E78.5 Hyperlipidemia, unspecified (principal); F41.9 Anxiety disorder, unspecified; E66.9 Obesity, unspecified; Z68.39 Body mass index [BMI] 39.0-39.9, adult; F32.A Depression, unspecified

== ENCOUNTER → 2025-03-12 08:07 | Outpatient (BNVA) | payer OTHER, SELFPAY | PROVIDERS: PCP Nurse Practitioner Family; Visit Provider Nurse Practitioner Family | DX: E78.5 Hyperlipidemia, unspecified (principal); F41.9 Anxiety disorder, unspecified; F32.A Depression, unspecified; E66.9 Obesity, unspecified; Z68.39 Body mass index [BMI] 39.0-39.9, adult | CPT/HCPCS: 96127 ==